=== PATIENT | female | born 1940 | race Caucasian/White ===

== ENCOUNTER 2018-08-03 01:39 | Outpatient (CLI) | payer OTHER, SELFPAY ==
[2018-08-03 11:20] LABS: Hemoglobin A1C 6.1 % (4.5-6.2)
[2018-08-03 12:06] LABS: CREATININE 0.91 mg/dL (0.55-1.02); Potassium 4.4 mmol/L (3.5-5.1)
== END 2018-08-03 01:59 ==
PROVIDERS: PCP Family Medicine; Visit Provider Family Medicine
DX: I10 Essential (primary) hypertension (principal); E11.9 Type 2 diabetes mellitus without complications
CPT/HCPCS: 36415; 82565; 83036; 84132

== ENCOUNTER 2019-02-03 04:13 | Outpatient (CLI) | payer OTHER, SELFPAY ==
[2019-02-03 12:12] LABS: Cholesterol 179 mg/dL (50-200); HDL Cholesterol 50 mg/dL (40-60); LDL CHOLESTEROL 112 mg/dL (<100); Triglyceride 123 mg/dL (30-150)
[2019-02-03 12:12] LABS: Hemoglobin A1C 6.2 % (4.5-6.2)
== END 2019-02-03 04:33 ==
PROVIDERS: PCP Family Medicine; Visit Provider Family Medicine
DX: E78.5 Hyperlipidemia, unspecified (principal); R73.01 Impaired fasting glucose
CPT/HCPCS: 36415; 80061; 83721; 83036

== ENCOUNTER → 2019-05-23 15:43 | Outpatient (REF) | payer OTHER, SELFPAY ==
--- NOTE | 2019-05-23 14:20 | PAPFT_PTH ---
PATIENT: Tianna Tovar LOC: [facility] U#:[id number] AGE/SX: 85/F ROOM: RE05/23/[address]: Susana Wong : 1940 BED: DIS: SPEC #: [id number] RECD: 05/23/19 18:01 STATUS: ESTEBANDelphine REQ #: [id number] LIANNA: 05/23/19 14:[address]: Susana Wong DEPT: [facility] Cytology RECD BY: Christie Patel ENTERED: 05/23/19 18:01 SP TYPE: PAPFT OTHR DR: Aden Lauren MD Tissues: 1 - CX/ENDOCX FOR PAP SMEARS Procedures: PAP THIN PREP/UVM Screening Comments: [id number] (UNSATISFACTORY FOR EVALUATION)
== END ==
LOC: LBN 15:43
PROVIDERS: PCP Family Medicine; Visit Provider Obstetrics & Gynecology Gynecology
DX: Z12.4 Encounter for screening for malignant neoplasm of cervix (principal)
CPT/HCPCS: 88142

== ENCOUNTER 2019-08-02 02:40 | Outpatient (CLI) | payer OTHER, SELFPAY ==
[2019-08-02 12:59] LABS: CREATININE 0.89 mg/dL (0.55-1.02); Potassium 4.3 mmol/L (3.5-5.1)
== END 2019-08-02 03:00 ==
PROVIDERS: PCP Family Medicine; Visit Provider Family Medicine
DX: I10 Essential (primary) hypertension (principal)
CPT/HCPCS: 36415; 82565; 84132

== ENCOUNTER 2020-08-01 01:15 | Outpatient (CLI) | payer OTHER, SELFPAY ==
[2020-08-01 12:32] LABS: CREATININE 1.13 mg/dL (0.55-1.02); Estimated GFR 46.57 (mL/min/1.73m2); Hemoglobin A1C 6.2 % (<5.7); Potassium 4.3 mmol/L (3.5-5.1)
== END 2020-08-01 01:35 ==
PROVIDERS: PCP Family Medicine; Visit Provider Family Medicine
DX: I10 Essential (primary) hypertension (principal); R73.9 Hyperglycemia, unspecified
CPT/HCPCS: 36415; 82565; 83036; 84132

== ENCOUNTER 2021-01-27 02:18 | Outpatient (CLI) | payer OTHER, SELFPAY ==
[2021-01-27 12:52] LABS: Hemoglobin A1C 6.1 % (<5.7)
[2021-01-27 13:00] LABS: Calculated LDL 91 mg/dL (<100); Cholesterol 163 mg/dL (<200); HDL Cholesterol 53 mg/dL (40-60); Triglyceride 95 mg/dL (<150)
== END 2021-01-27 02:19 | disposition home or self-care (01) ==
LOC: LOS 02:18
PROVIDERS: PCP Family Medicine; Visit Provider Family Medicine
DX: E78.5 Hyperlipidemia, unspecified (principal); R73.9 Hyperglycemia, unspecified
CPT/HCPCS: 36415; 80061; 83036

== ENCOUNTER 2021-08-04 01:59 | Outpatient (CLI) | payer MEDICARE, SELFPAY ==
[2021-08-04 13:14] LABS: Estimated GFR 53.48 (mL/min/1.73m2)
== END 2021-08-04 02:00 | disposition home or self-care (01) ==
LOC: LOS 02:00
PROVIDERS: PCP Family Medicine; Visit Provider Family Medicine
DX: I10 Essential (primary) hypertension (principal)
CPT/HCPCS: 36415; 82565; 84132

== ENCOUNTER 2022-04-13 13:48 | Outpatient (CLI) | payer MEDICARE, SELFPAY ==
--- NOTE | 2022-04-13 13:34 | DI.RAD_ITS ---
Exam(s) XR ANKLE LT 2V EXAM: XR ANKLE LT 2V CLINICAL HISTORY: left heel pain TECHNIQUE: 2D digital imaging was performed. Two views. COMPARISON: CR RIGHT ANKLE COMPLETE from 05/06/2012 FINDINGS: BONES: No acute fracture is present. No bony destructive lesion is seen. Prominent heel spurs. Quest ion small defect lateral talar dome versus overlapping structures. JOINTS:The ankle mortise is normally aligned. Spurring at the malleoli. SOFT TISSUE: Normal. IMPRESSION: Prominent heel spurs. Question small defect lateral talar dome. DATA REPOSITORY: RADIATION DOSE DELIVERED:
== END 2022-04-13 13:49 | disposition home or self-care (01) ==
LOC: DIORS 13:48
PROVIDERS: PCP Family Medicine; Visit Provider Student in an Organized Health Care Education/Training Program
DX: M76.62 Achilles tendinitis, left leg (principal); Z87.81 Personal history of (healed) traumatic fracture
CPT/HCPCS: 99203; 73600

== ENCOUNTER 2022-08-05 03:33 | Outpatient (CLI) | payer MEDICARE, SELFPAY ==
[2022-08-05 12:38] LABS: Hemoglobin A1C 5.9 % (<5.7)
[2022-08-05 12:47] LABS: Calculated LDL 83 mg/dL (<100); Cholesterol 162 mg/dL (<200); Estimated GFR 56.95 (mL/min/1.73m2); HDL Cholesterol 55 mg/dL (40-60); Triglyceride 121 mg/dL (<150)
== END 2022-08-05 03:34 | disposition home or self-care (01) ==
LOC: LOS 03:33
PROVIDERS: PCP Family Medicine; Visit Provider Family Medicine
DX: I10 Essential (primary) hypertension (principal); E78.5 Hyperlipidemia, unspecified; R73.9 Hyperglycemia, unspecified
CPT/HCPCS: 36415; 80061; 82565; 83036; 84132

== ENCOUNTER 2023-07-27 13:51 | Outpatient (REF) | payer MEDICARE, SELFPAY ==
--- NOTE | 2023-07-27 13:30 | PAPFT_PTH ---
PATIENT: Tianna Tovar LOC: [facility] U#:[id number] AGE/SX: 83/F ROOM: RE07/27/[address]: Susana Wong : 1940 BED: DIS: 07/27/2023 SPEC #: [id number] RECD: 07/27/23 17:25 STATUS: CHASITY REQ #: [id number] LIANNA: 07/27/23 13:[address]: Susana Wong DEPT: [facility] Cytology RECD BY: Christie Patel ENTERED: 07/27/23 17:25 SP TYPE: PAPFT OTHR DR: Aden Lauren MD Tissues: 1 - CX/ENDOCX FOR PAP SMEARS Procedures: PAP THIN PREP/UVM Screening HPV DNA PROBE Comments: [id number]
== END 2023-07-27 13:52 | disposition home or self-care (01) ==
LOC: LBN 13:51
PROVIDERS: PCP Family Medicine; Visit Provider Obstetrics & Gynecology Gynecology
DX: Z11.51 Encounter for screening for human papillomavirus (HPV); Z01.419 Encounter for gynecological examination (general) (routine) without abnormal findings
CPT/HCPCS: 88142; 87624

== ENCOUNTER → 2024-03-13 04:54 | Outpatient (CLI) | payer MEDICARE, SELFPAY ==
--- NOTE | 2024-03-13 13:31 | DI.RAD_ITS ---
Exam(s) XR LUMBAR SPINE COMPLETE EXAM: XR LUMBAR SPINE COMPLETE CLINICAL HISTORY: low back pain,m54.9. TECHNIQUE: 2D digital imaging was performed. Five views. COMPARISON: CT ABD PELVIS WITH CONTRAST from 08/08/2015 FINDINGS: BONES: No fracture or destructive lesion. Vertebral body heights are maintained. Mild facet degenera tive changes. No spondylolysis. Severe degenerative changes noted in both hips, left greater than r ight. The SI joints are unremarkable. DISKS: Mild narrowing of the L1-2 through L4-5 disc spaces. Severe narrowing of the L5-S1 disc space . There prominent osteophytes at multiple levels. Findings consistent with DISH. ALIGNMENT: Lumbar spinal alignment is within normal limits. SOFT TISSUE: Calcification of the abdominal aorta. IMPRESSION: Prominent endplate osteophytes consistent with DISH. Severe L5-S1 disc space narrowing. Severe degenerative changes of the hips, left greater than right. DATA REPOSITORY: RADIATION DOSE DELIVERED:
== END ==
PROVIDERS: PCP Family Medicine; Visit Provider Family Medicine
DX: M51.37 Other intervertebral disc degeneration, lumbosacral region (principal)
CPT/HCPCS: 72110

== ENCOUNTER 2024-05-22 13:59 | Outpatient (CLI) | payer MEDICARE, SELFPAY ==
--- NOTE | 2024-05-22 10:25 | DI.RAD_ITS ---
Exam(s) XR HIP LT COMPLETE AP PELVIS EXAM: XR HIP LT COMPLETE AP PELVIS CLINICAL HISTORY: left hip pain. TECHNIQUE: 2D digital imaging was performed. COMPARISON: CT ABD PELVIS WITH CONTRAST from 08/08/2015 FINDINGS: Two views No evidence of pelvic nor hip fracture. There are significant degenerative changes in both hips, mahamed ewhat more prominent on the left side where there is zpup-uz-wjes narrowing and degenerative subartic ular cysts. There are more moderate degenerative changes in the opposite-right hip. Prominent acetabular roofs seen bilaterally. 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
== END 2024-05-22 14:00 | disposition home or self-care (01) ==
LOC: DIORS 13:59
PROVIDERS: PCP Family Medicine; Referring Provider Family Medicine; Visit Provider Student in an Organized Health Care Education/Training Program
DX: M16.12 Unilateral primary osteoarthritis, left hip; M16.11 Unilateral primary osteoarthritis, right hip; M48.19 Ankylosing hyperostosis [Forestier], multiple sites in spine
CPT/HCPCS: 99214; 73502

== ENCOUNTER 2024-06-23 01:50 | Outpatient (CLI) | payer MEDICARE, SELFPAY ==
--- OUTSIDE RECORDS SUMMARY | 2024-06-23 02:17 | XMS_ITS | Encounter Summary ---
Author Organization [facility] Address [address] [place] [address] Care Team Providers Care Analysis Director Name Role Phone Shanell Hawkins MD Primary Care Provider [phone] Encounter Details Date Type Department Care Team (Late st Contact Info) Description 03/23/2016 Results Only [facility] [phone] Gail Rhodes MD [facility] [place], [place] [address] Social History Tobacco Use Types Packs/Day Years Used Date Smoking Tobacco: Never Assessed Sex and Gender Information Value Date Recorded Sex Assigned at Not on file Gender Identity Not on file Sexual Orientation Not on file documented as of this encounter Plan of Treatment Not on file documented as of this encounter Procedures Procedure Name Priority Date/Time Associated Diagnosis Comments SURGICAL PATHOLOGY Routine 03/23/2016 18 :51 EDT PAP TEST- RESULT ONLY Routine 03/23/2016 0:00 EDT documented in this encounter Results * SURGICAL PATHOLOGY (03/23/2016 18:51 EDT) Pathology Report: SURGICAL PATHOLOGY REPORT Reports generated via electronic interface contain original data; however they are lacking the format of the original report. Caution should be taken when reading/interpret ing unformatted reports. Name: ? TIANNA TOVAR ? Accession #: ? [id number] ? : ? 1940 (Age: 75) ??F ? Collect Date: ? 03/23/2016 ? Location: ? [facility] ? Receive Date: ? 03/23/2016 ? Provider: GAIL RHODES MD Copy to: [facility]- ? Final Pathologic Diagnosis: A. LABIA, LEFT UPPER, BIOPSY: - ??Squamous epithelium with focal hyperkeratosis, mild chronic inflammation and reactive changes. - ??Negative for dysplasia. B. LABIA, LEFT LOWER, BIOPSY: - ??Squamous epithelium with underlying squamous and glandular-lined cystic structure. ??See comment. - ??Negative for dysplasia. Comment: Histologic sections of specimen (B) show a squamous epithelium with underlying cystic space lined by a mixture of benign squamous and glandular epithelial cells. The findings may represent a benign cyst in the appropriate clinical setting or could be related to the previous vulvectomy. Clinical correlation is recommended. Document reviewed and electronically signed by: BECKY TOLENTINO MD for MYRNA WYATT MD Report ??Date: 03/26/2016 12:23 By the signature above, the attending physician certifies that he/she has personally conducted a gross and/or microscopic examination of the described specimens and rendered or confirmed the above diagnosis. Specimen(s) Received: A. ??Upper labia brown discoloration B. ??Lower labia blue bleb nevus Clinical History: Hx ARNOLD III s/p resection L labia, 2 lesions seen on L labia Gross Description: A. ?Received in formalin labelled with proper patient identification (initials S, S) and #1 is a single red-brown fragmented tissue (0.3 x 0.2 x 0.1 cm). Submitted intact in A1. B. ?Received in formalin labelled with proper patient identification (initials S, S) and #2 is a shave biopsy of pink-white skin (0.5 x 0.2 x 0.1 cm). ??The specimen is submitted intact as B1Eugenio Cleaning 03/24/2016 8:30 AM End of Report [facility] 03/23/2016 18:5 1 EDT 03/23/2016 18:51 EDT Gail Rhodes MD PATHOLOGY ORDERABLES [facility] [address] [place] [address] * PAP TEST- RESULT ONLY (03/23/2016 0:00 EDT) Pathology Report: CYTOPATHOLOGY REPORT Reports generated via electronic interface contain original data; however they are lacking the format of the original report. Caution should be taken when reading/interpreti ng unformatted reports. Name: ? TIANNA TOVAR ? Accession #: ? [id number] ? : ? 1940 (Age: 75) ??F ?Collect Date: ? 03/23/2016 ? Location: ? [facility] ? Receive Date: ? 03/24/2016 ? Provider: GAIL RHODES MD Copy to: [facility]- ? Final Report SPECIMEN ADEQUACY ? Satisfactory for Evaluation - assessment of transformation zone component not applicable ( e.g. atrophy, vaginal sample, hysterectomy) - scant squamous epithelial component secondary to excessive inflammation GENERAL CATEGORIZATION ? Negative for Intraepithelial Lesion or Malignancy ?? Hormonal/Contracep tive status: None Previous Gynecologic Pathology: ARNOLD: h/o ARNOLD 3 Specimen/Source: ??Pap Test, Vagina, ThinPrep Imaging System with manual evaluation Document reviewed and electronically signed by: ? OMKAR Bragg(ASCP) ? Report ??Date: 04/03/2016 16:20 HPV with Pap Test ? Date Ordered: ? 04/03/2016 ? Status: ?? Signed Out ?Date Complete: ? 04/06/2016 ? By: ??System Interface ? Date Reported: ? 04/06/2016 ? Interpretation RESULT: High risk HPV testing is only FDA approved and validated for cervical or endocervical samples at the [facility]. It is not validated for vaginal samples as the test performance characteristics have not been evaluated. Credit issued. Sample has been sent to [facility] for HPV testing. Comments Document reviewed and electronically signed by: ? System Interface ? Report date: 04/06/2016 By the signature above, the attending physician certifies that he/she has personally conducted a gross and/or microscopic examination of the described specimens and rendered or confirmed the above diagnosis. End of Report [facility] 03/23/2016 03/24/2016 Gail Rhodes MD PATHOLOGY ORDERABLES Performing Organization Address City/State/[facility] Co de Phone Number [facility] [address] [place] [address] documented in this encounter Visit Diagnoses Not on filedocumented in this encounter Care Teams Analysis Director Relationship Specialty Start Date End Date Shanell Hawkins MD [address] [place] [address] [place] [address] PCP - General 05/09/12 03/24/16 documented as of this encounter
--- OUTSIDE RECORDS SUMMARY | 2024-06-23 02:17 | XMS_ITS | Encounter Summary ---
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 Date of : 1940 Today's Date: 05/19/2023 REFERRING PROVIDER: Myah Lugo MD CC: Mohs micrographic surgery for treatment of a cutaneous tumor HPI: Tianna Tovar is a 82 y.o. female presenting for biopsy-proven basal cell carcinoma, superficial, nodular and infiltrative location on the left nasal dorsum, and frozen biopsy for probable basal cell carcinoma location on the right mandaeism. The dermatologic preoperative information sheet was reviewed with pertinent positive and negative as below. DERMATOLOGIC PRE-OPERATIVE EVALUATION AND REVIEW OF SYSTEMS History of Mohs surgery? yes If yes, have you ever had Mohs surgery with Dr. Cam? no Pacemaker/Defibrillator? no Joint replacement or other implantable devices (e.g. Cochlear implant)? If yes then when? no Do you take a blood thinner? No History of organ transplant? no History of artificial valve or stroke? no History of liver disease or bleeding disorder? no Do you have any medical problems that may affect your upcoming surgery? no Do you have any concerns regarding your upcoming surgery? yes, same area that was treated with Mohssurgery ~10 years ago. SOCIAL HISTORY: Makes Own Decisions Yes Hearing aid or other devices: No Relevant travel history or future plans: none Tobacco use (amount per day, type of tobacco): no Do you have any physical limitations that may affect your surgery?: no ALLERGIES: Allergies reviewed MEDICATIONS: Medications reviewed documented in this encounter Plan of Treatment Upcoming Encounters Date Type Department Care Team (Late st Contact Info) Description 07/24/2024 2:00 PM EDT Appointment Mammography/[place] [address] Aden Lauren MD [address] [place], [place] [address] documented as of this encounter Visit Diagnoses Diagnosis 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
--- OUTSIDE RECORDS SUMMARY | 2024-06-23 02:17 | XMS_ITS | Referral Summary ---
Author Organization [facility] Address [address] [place] [address] Care Team Providers Care Verifying Specialist Name Role Phone Emily Mendeita RELIGIOUS EDUCATOR Primary Care Provider [phone] Social History Tobacco Use Types Packs/Day Years Used Date Smoking Tobacco: Never Assessed Sex and Gender Information Value Date Recorded Sex Assigned at Not on file Gender Identity Not on file Sexual Orientation Not on file Plan of Treatment Not on file Care Teams Verifying Specialist Relationship Specialty Start Date End Date Emily Mendieta NP [address] [place] [phone] PCP - General 03/25/16
--- OUTSIDE RECORDS SUMMARY | 2024-06-23 02:17 | XMS_ITS | Encounter Summary ---
Author Organization [facility] [place] [address] Care Team Providers Care Marine Driller Name Role Phone Aden Lauren MD Primary Care Provider [phone] Encounter Details Date Type Department Care Team (Late st Contact Info) Description 05/25/2023 Telephone Dermatology at [facility] [address] [place] [phone] Lisseth Hernandez CMA Social History Tobacco Use Types Packs/Day Years [...] on file documented as of this encounter Miscellaneous Notes * Telephone Encounter - Lisseth Hernandez CMA - 05/25/2023 10:29 AM EDT Patient send photos for Dr Cam's review at first bandage change at home. Per Dr Cam, thinks it looks good for where we are in the healing process, grafts have to get their legs, continue wound care and call with concerns or questions. LMOM for patient with Dr Cam recommendation and Mohs surgery direct number for questions or concerns. documented in this encounter Plan of Treatment Upcoming Encounters Date Type Department Care Team (Late st Contact Info) Description 07/24/2024 2:00 PM EDT Appointment Mammography/[place] [address] Aden Lauren MD [address] [place], [place] [address] documented as of this encounter Visit Diagnoses Not on filedocumented in this encounter Care Teams Marine Driller Relationship Specialty Start Date End Date Aden Lauren MD [address] [place], [place] [id number] PCP - General Family Medicine 02/17/17 documented as of this encounter
--- OUTSIDE RECORDS SUMMARY | 2024-06-23 02:17 | XMS_ITS | Encounter Summary ---
Author Organization [facility] Address [address] [place] [address] Care Team Providers Care Kinder Teacher Name Role Phone Shanell Starkey MD Primary Care Provider [phone] Encounter Details Date Type Department Care Team (Late st Contact Info) Description 03/22/2015 Results Only [facility] [phone] Gail Rhodes MD [facility] [place], [place] [id number] Social History Tobacco Use Types Packs/Day Years Used Date Smoking Tobacco: Never Assessed Sex and Gender Information Value Date Recorded Sex Assigned at Not on file Gender Identity Not on file Sexual Orientation Not on file documented as of this encounter Plan of Treatment Not on file documented as of this encounter Procedures Procedure Name Priority Date/Time Associated Diagnosis Comments PAP TEST- RESULT ONLY Routine 03/22/2015 0:00 EDT documented in this encounter Results * PAP TEST- RESULT ONLY (03/22/2015 0:00 EDT) Pathology Report: CYTOPATHOLOGY REPORT Reports generated via electronic interface contain original data; however they are lacking the format of the original report. Caution should be taken when reading/interpreti ng unformatted reports. Name: ? TIANNA TOVAR ? Accession #: ? [id number] ? : ? 1940 (Age: 74) ??F ?Collect Date: ? 03/22/2015 ? Location: ? [facility] ? Receive Date: ? 03/25/2015 ? Provider: GAIL RHODES MD Copy to: SHANELL STARKEY MD ? Final Report SPECIMEN ADEQUACY ? Satisfactory for Evaluation - assessment of transformation zone component not applicable ( e.g. atrophy, vaginal sample, hysterectomy) GENERAL CATEGORIZATION ? Negative for Intraepithelial Lesion or Malignancy ?? Previous Gynecologic Pathology: Carcinoma: Hx of Vulvular Specimen/Source: ??Pap Test, Vagina, ThinPrep Imaging System with manual evaluation Document reviewed and electronically signed by: ? OMKAR Magallon(ASCP) ? Report ??Date: 04/03/2015 13:45 HPV with Pap Test ? Date Ordered: ? 04/02/2015 ? Status: ?? Signed Out ?Date Complete: ? 04/05/2015 ? By: ??System Interface ? Date Reported: ? 04/05/2015 ? Interpretation RESULT: High risk HPV testing is only FDA approved and validated for cervical or endocervical samples at the [facility]. It is not validated for vaginal samples as the test performance characteristics have not been evaluated. Credit issued. Sample has been sent to [facility] for HPV testing. Comments Document reviewed and electronically signed by: ? System Interface ? Report date: 04/05/2015 By the signature above, the attending physician certifies that he/she has personally conducted a gross and/or microscopic examination of the described specimens and rendered or confirmed the above diagnosis. End of Report [facility] 03/22/2015 03/25/2015 Gail Rhodes MD PATHOLOGY ORDERABLES [facility] [address] [place] [address] documented in this encounter Visit Diagnoses Not on filedocumented in this encounter Care Teams Kinder Teacher Relationship Specialty Start Date End Date Shanell Starkey MD [address] [place] [address] [place] [address] PCP - General 05/09/12 03/24/16 documented as of this encounter
--- OUTSIDE RECORDS SUMMARY | 2024-06-23 02:17 | XMS_ITS | Encounter Summary ---
[place] [address] Care Team Providers Care Hairspring Studder Name Role Phone Aden Lauren MD Primary Care Provider [phone] Encounter Details Date Type Department Care Team (Late st Contact Info) Description 07/19/2023 1:43 PM EDT - 07/19/2023 11:59 PM EDT Hospital Encounter Mammography/[place] [address] Aden Lauren MD [address] [place] [address] Encounter for screening mammogram for breast cancer Discharge Disposition: Home Social History Tobacco Use Types Packs/Day Years [...] on file documented as of this encounter Medications at Time of Discharge Medication Sig Dispensed Refills Start Date End Date brimonidine (Alphagan) 0.2 % DropsIndications:Glauc selvin suspect of both eyes,Pseudoexfoliation glaucoma, mild stage INSTILL 1 DROP INTO BOTH EYES TWICE DAILY 25 mL 3 06/21/2023 UNABLE TO FIND Med Name: Prevagen dorzolamide (Trusopt) 2 % DropsIndications:Glauc selvin suspect of both eyes Place 1 drop into both eyes 2 times daily. 30 mL 3 05/29/2022 aspirin EC 81 mg Tablet, Delayed Release (E.C.) Take 81 mg by mouth daily. lisinopril-hydrochloro thiazide (PRINZIDE;ZESTORETIC) 10-12.5 mg Tablet Take 1 tablet by mouth daily. simvastatin (ZOCOR) 10 mg tablet Take 5 mg by mouth nightly. ibuprofen (ADVIL;MOTRIN) 200 mg tablet Take 200 mg by mouth every 6 hours as needed. Multivitamins Chew 07/29/2010 fluorouracil (EFUDEX) 5 % Cream Apply topically bid as tolerated to AA on right arm x 6 weeks, then stop.OK to stop temporarily if too much inflammation. 40 g 03/07/2018 03/31/2024 documented as of this encounter Plan of Treatment Upcoming Encounters Date Type Department Care Team (Late st Contact Info) Description 07/24/2024 2:00 PM EDT Appointment Mammography/[place] [phone] Aden Lauren MD [address] [place] [address] documented as of this encounter Procedures Procedure Name Priority Date/Time Associated Diagnosis Comments MAMMO SCREENING CAD AND CARLOS BILATERAL Routine 07/19/2023 2:10 PM EDT Encounter for screening mammogram for breast cancer documented in this encounter Results * Mammo Screening Cad and Carlos Bilateral (07/19/2023 2:10 PM EDT) Anatomical Region Laterality Modality Breast Bilateral Mammography Impressions 07/20/2023 9:02 AM EDT No mammographic evidence of malignancy, Routine annual screening mammography is recommended. FINAL ASSESSMENT: BI-RADS Category 2: Benign Findings * ??Regular screening mammograms starting at age 40 reduces the risk of from breast cancer. * ??Yearly screening provides the most benefit. Women should discuss with their provider their preferred breast cancer screening schedule. * ??Women should report any breast changes to a health care provider right away. * ??Some women, because of their family history, a genetic tendency, or other factors, should be screened with annual breast MRI as well as with mammograms. Thank you for letting us participate in the care of this patient. ??If you are a health care provider and have any questions regarding this report, please contact the number below. ??For patients who have questions please contact the health hearing care professional that requested your imaging first. ? Narrative 07/20/2023 9:02 AM EDT EXAMINATION: MAMMO SCREENING CAD AND CARLOS BILATERAL REASON FOR EXAM: Screening. History of benign right breast biopsy. TECHNIQUE: CC and MLO views were obtained of BOTH breasts. 2D and 3D tomosynthesis images were obtained. Computer aided detection was used. COMPARISON: Comparison was made to the prior relevant examinations. BREAST DENSITY: There are scattered areas of fibroglandular density. FINDINGS: A postbiopsy clip adjacent to some coarse calcifications is again seen in the right lateral breast. There are no suspicious microcalcifications, masses, or areas of distortion. Stable appearance. Aedn Lauren MD IMG MAMMO ORDERAB LES documented in this encounter Visit Diagnoses Diagnosis Encounter for screening mammogram for breast cancer documented in this encounter Care Teams Hairspring Studder Relationship Specialty Start Date End Date Aden Lauren MD [address] [place] [address] PCP - General Family Medicine 02/17/17 documented as of this encounter
--- OUTSIDE RECORDS SUMMARY | 2024-06-23 02:17 | XMS_ITS | Encounter Summary ---
[place] [address] Care Team Providers Care Manager Inventory Control Name Role Phone Aden Lauren MD Primary Care Provider [phone] Encounter Details Date Type Department Care Team (Latest Contact Info) Description 02/16/2023 Travel Social History Tobacco Use Types Packs/Day Years [...] 07/24/2024 2:00 PM EDT Appointment Mammography[place] [address] Aden Lauren MD [address] [place], [place] [address] documented as of this encounter Visit Diagnoses Not on filedocumented in this encounter Care Teams Manager Inventory Control Relationship Specialty Start Date End Date Aden Lauren MD [address] [place], [place] [address] PCP - General Family Medicine 02/17/17 documented as of this encounter
--- OUTSIDE RECORDS SUMMARY | 2024-06-23 02:17 | XMS_ITS | Encounter Summary ---
Author Organization [facility] Address [address] [place] [address] Care Team Providers Care Artificial Flower Maker Name Role Phone Unknown, Provider Primary Care Provider Encounter Details Date Type Department Care Team (Late st Contact Info) Description 05/06/2012 Results Only [facility] Laboratory Services - [facility] [place] [address] [place] [address] [place] [address] [place] [address],[address] [place] [address] Social History Tobacco Use Types Packs/Day Years Used Date Smoking Tobacco: Never Assessed Sex and Gender Information Value Date Recorded Sex Assigned at Not on file Gender Identity Not on file Sexual Orientation Not on file documented as of this encounter Plan of Treatment Not on file documented as of this encounter Procedures Procedure Name Priority Date/Time Associated Diagnosis Comments SURGICAL PATHOLOGY Routine 05/06/2012 0:00 EDT documented in this encounter Results * SURGICAL PATHOLOGY (05/06/2012 0:00 EDT) Pathology Report: SURGICAL PATHOLOGY REPORT Reports generated via electronic interface contain original data; however they are lacking the format of the original report. Caution should be taken when reading/interpreti ng unformatted reports. Name: ? TIANNA ROSENBERG ? Accession #: ? [id number] ? : ? 1940 (Age: 71) ??F ? Collect Date: ? 05/06/2012 ? Location: ? [facility] ? Receive Date: ? 05/06/2012 ? Provider: MIRNA YUAN MD Copy to: ISRAEL STARKEY MD ??Myah Lugo MD Department [place] ??[address] ? Final Pathologic Diagnosis: ? Skin of vulva, left labia majora, shave biopsy: 1. 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 ??See comment. ? - Lesion extends to peripheral edges of biopsy specimen. ?? Comment: ? This case has been reviewed by Dr. Sean Clark, who concurs with the above diagnosis. ??(Dr. Campbell)/stevenson Document reviewed and electronically signed by: CORAZON CAMPBELL MD Report ??Date: 05/09/2012 16:42 By the signature above, the attending physician certifies that he/she has personally conducted a gross and/or microscopic examination of the described specimens and rendered or confirmed the above diagnosis. Specimen(s) Received: ? 5.0 mm punch biopsy of vulvar lesion L labia majora Clinical History: ? 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 Received in formalin labelled Tianna Rosenberg and L labia majora is a 0.6 x 0.5 x 0.2 cm irregular, florez-white, scaly, and hairbearing papule. ??The specimen is bisected and entirely submitted in a single cassette. ??(Varsha Deluca/stevenson End of Report ASHLEIGH PAGE 05/06/2012 05/06/2012 21: 26 EDT Mirna Yuan MD PATHOLOGY ORDERABLES Performing Organization Address City/State/[facility] Co de Phone Number SOTELO [address] [address] documented in this encounter Visit Diagnoses Not on filedocumented in this encounter Care Teams Artificial Flower Maker Relationship Specialty Start Date End Date Unknown, Provider, PCP - General 05/06/12 05/08/12 documented as of this encounter
--- OUTSIDE RECORDS SUMMARY | 2024-06-23 02:17 | XMS_ITS | Encounter Summary ---
[place] [address] Care Team Providers Care Dedenter Name Role Phone Aden Lauren MD Primary Care Provider [phone] Encounter Details Date Type Department Care Team (Latest Contact Info) Description 07/19/2023 Travel Social History Tobacco Use Types Packs/Day [...] 07/24/2024 2:00 PM EDT Appointment Mammography/[place] [address] Aden Lauren MD [address] [place], [place] [address] documented as of this encounter Visit Diagnoses Not on filedocumented in this encounter Care Teams Dedenter Relationship Specialty Start Date End Date Aden Lauren MD [address] [place], [place] [address] PCP - General Family Medicine 02/17/17 documented as of this encounter
--- OUTSIDE RECORDS SUMMARY | 2024-06-23 02:17 | XMS_ITS | Encounter Summary ---
[place] [address] Care Team Providers Care Senior Technical Manager Name Role Phone Aden Lauren MD Primary Care Provider [phone] Encounter Details Date Type Department Care Team (Late Contact Info) Description 05/25/2023 Telephone Dermatology at [facility] [address] [place] [id number] Marilee Lipscomb RN Social History Tobacco Use Types Packs/Day Years [...] encounter Miscellaneous Notes * Telephone Encounter - Marilee Lipscomb RN - 05/25/2023 12:14 PM EDT Contacted patient regarding graft site on nose. Reviewed photos in media. No evidence of infection,healing well, patient reassured. Continue daily wound care, gentle soap and water, followed by Vaseline and a light bandage. Patient is scheduled for suture removal 06/02/23. Encouraged to call with questions/ concerns. Marilee Lipscomb RN documented in this encounter Plan of Treatment Upcoming Encounters Date Type Department Care Team (Late st Contact Info) Description 07/24/2024 2:00 PM EDT Appointment Mammography/[place] [address] Aden Lauren MD [address] [place] [address] documented as of this encounter Visit Diagnoses Not on filedocumented in this encounter Care Teams Senior Technical Manager Relationship Specialty Start Date End Date Aden Lauren MD [address] [place], [place] [address] PCP - General Family Medicine 02/17/17 documented as of this encounter
--- OUTSIDE RECORDS SUMMARY | 2024-06-23 02:17 | XMS_ITS | Encounter Summary ---
Author Organization [facility] [place] [address] Care Team Providers Care Pottery Kiln Builder Name Role Phone Aden Lauren MD Primary Care Provider [phone] Reason for Visit * Reason Onset Date Comments Medication Refill 05/29/2022 Encounter Details Date Type Department Care Team (Late st Contact Info) Description 05/29/2022 [place] [address] Anurag Darby MD [facility] [place] [address] Glaucoma suspect of both eyes; Pseudoexfoliation glaucoma, mild stage Social History Tobacco Use Types Packs/Day Years [...] encounter Miscellaneous Notes * Telephone Encounter - Kiarar Roy - 05/29/2022 11:29 AM EDT Please refill the following Rxs brimonidine (Alphagan) 0.2 % Drops dorzolamide (Trusopt) 2 % Drops [facility] Fer[facility] - [phone] AT Portal to Registered [facility] Sites ( ) documented in this encounter Plan of Treatment Upcoming Encounters Date Type Department Care Team (Late st Contact Info) Description 07/24/2024 2:00 PM EDT Appointment Mammography[place] [address] Aden Lauren MD [address] [place], [place] [address] documented as of this encounter Visit Diagnoses Diagnosis Glaucoma suspect of both eyes Preglaucoma, unspecified Pseudoexfoliation glaucoma, mild stage Pseudoexfoliation glaucoma documented in this encounter Care Teams Pottery Kiln Builder Relationship Specialty Start Date End Date Aden Lauren MD [address] [place], [place] [address] PCP - General Family Medicine 02/17/17 documented as of this encounter
--- OUTSIDE RECORDS SUMMARY | 2024-06-23 02:17 | XMS_ITS | Encounter Summary ---
Author Organization [facility] Address [address] [place] [address] Care Team Providers Care Motor Vehicle Compliance Analyst Name Role Phone Emily Mendieta CHANGE MANAGEMENT EXPERT Primary Care Provider [phone] Encounter Details Date Type Department Care Team (Late st Contact Info) Description 04/09/2017 Results Only [facility] [phone] Gail Rhodes MD [facility] [facility] [address] [place], [place] [id number] Social History Tobacco Use Types Packs/Day Years [...] Diagnosis Comments PAP TEST- RESULT ONLY Routine 04/09/2017 0:00 EDT documented in this encounter Results * PAP TEST- RESULT ONLY (04/09/2017 0:00 EDT) Pathology Report: CYTOPATHOLOGY REPORT Reports generated via electronic interface contain original data; however they are lacking the format of the original report. Caution should be taken when reading/interpreti ng unformatted reports. Name: ? TIANNA TOVAR ? Accession #: ? [id number] : ? 1940 (Age: 76) ??F ?Collect Date: ? 04/09/2017 Location: ? [facility] ? Receive Date: ? 04/13/2017 Provider: ?GAIL RHODES MD Copy to: ?ZACH PEARL MD ? Specimen/Source: ?Pap Test, Vagina, ThinPrep Imaging System with manual evaluation Last Menstrual Period: ? Hormonal/Contracep tive Status: ? None Previous Gynecologic Pathology: ? Carcinoma: HX Vulvar/Invasive ? SPECIMEN ADEQUACY ? Satisfactory for Evaluation - assessment of transformation zone component not applicable ( e.g. atrophy, vaginal sample, hysterectomy) GENERAL CATEGORIZATION ? Negative for Intraepithelial Lesion or Malignancy ? Document reviewed and electronically signed by: ? OMKAR Najera(ASCP) ? Report Date: ??04/23/2017 13:20 End of Report [facility] 04/09/2017 04/13/2017 Gail Rhodes MD PATHOLOGY ORDERABLES [facility] [address] [place] [address] documented in this encounter Visit Diagnoses Not on filedocumented in this encounter Care Teams Motor Vehicle Compliance Analyst Relationship Specialty Start Date End Date Emily Mendieta, SWAPNA [address] [place] [phone] PCP - General 03/25/16 documented as of this encounter
--- OUTSIDE RECORDS SUMMARY | 2024-06-23 02:17 | XMS_ITS | Encounter Summary ---
Author Organization [facility] Address [facility] [place] [address] Care Team Providers Care Waist Fitter Name Role Phone Aden Lauren MD Primary Care Provider [phone] Reason for Visit * Reason Comments Basal Cell Carcinoma * Consultation (Routine) - Closed Specialty Diagnoses / Procedures Referred By Shmuel howe Referred To Contact Dermatology Diagnoses Basal cell carcinoma (BCC) of skin of other part of face Myah Lugo MD [facility] DR SUDHA [place] [address] Rene Cruz MD [facility] DR SUDHA [place] [address] Referral ID Status Reason Start Date Expiration Date V isits Requested Visits Authorized [id number] Closed Consult, Test & Treat 02/16/2023 02/16/2024 1 1 Encounter Details Date Type Department Care Team (Latest Contact Info) Description 05/19/2023 10:00 AM EDT Procedure visit Dermatology at [facility] [address] [place] [address] Rene Cruz MD [facility] DR SUDHA [place] [address] 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 GRAFT CLOSURE Part of all of your wound(s) was repaired by a graft. This means that skin was removed from anotherlocation (donor site) and used to stitch the wound created by your skin cancer surgery. A graft is performed when alternative procedures such as [id number] stitching is not optimal. Your graft may be closed using all absorbable suture, sutures that need to be removed or a combination of both. Youwill be instructed upon discharge if a suture removal appointment is necessary. Caring for a graft properly is very important because the graft relies on blood supply from its newlocation to survive and heal properly. The most important thing in helping a graft heal fully is toavoid picking off any scabs, and to keep the area covered with copious amounts of topical petrolatum (such as Vaseline or Aquaphor). See specific instructions for wound care below. Things to purchase for wound care: -Nonstick gauze -A tube or tub of petrolatum jelly (fragrance-free, no dye, not lotion) -paper tape (especially if you are sensitive to adhesives) or bandages -cotton swabs -gloves (optional) -Dial or other antibacterial liquid soap Wound Care Leave bandage on and dry for 4 days on your GRAFT. The graft will appear discolored for several weeks, either dark purple or pale in color. Remove yellow gauze over graft. This will require once daily wound care until follow up appointment. For the DONOR SITE (right amish) leave bandage on and dry for 2 OR 4 days. Donor site was closed using sutures. This requires the same once daily wound care until follow up appointment. If your initial bandage(s) only stayed on for 24 hours (for example, falls off sooner), this is okay. Begin would care sooner, as below. Change your bandage once a day, or whenever it becomes wet or soaks through). You want to continue bandaging daily until your graft fully heals. This is a minimum of one week, but ideally continued until the graft has completely healed. The timeline for a graft to heal can range from 1 week to 8 weeks; you will continue wound care until healing is complete. For bandage changes: Wash hands with soap and water, or use gloves. Clean the surgical area with cotton-tipped swabs or soft gauze dipped in soapy water (recommend liquid soap in clean room temperature water). Roll the cotton swab over the incision with soapy water, then with plain water, and then gently pat dry. Do not scrub the area with a washcloth. Do not pick off scabs. Do not put direct shower water pressure onto your wound. Avoid direct water pressure fromthe shower on your graft site. It is okay to allow soapy water to run over your wound in the shower, however. If you cannot remove any bloody or crusted areas, you may soak the area with wet gauze first for 15to 20 minutes to help soften it Pat the area dry with clean gauze or cotton swabs. Do not rub. Use a cotton swab to apply a generous layer of petrolatum over the graft site. Make sure your tube or jar of petrolatum is new or unused to prevent prior contamination from entering your wound. Avoid double dipping. After applying petrolatum, use a clean nonstick gauze or other nonstick dressing, such as Telfa. This may be purchased over the counter at a drug store. Do not use regular gauze as it will stick to your wound and can peel off healing skin with bandage changes. Secure the bandage with paper tape or a bandage. Band-aids are okay, but typically have more adhesive that can irritate the skin compared to paper tape. This can be purchased at a drug store. Continue this wound care daily until the graft has healed, unless otherwise specified by your surgeon or Mohs nurse. After Surgery Avoid tobacco, smoking/vapors, cigars, and cannabis (marijuana) for at least 3 weeks after your surgery. These prevent proper healing and lead to worse scarring. Cutting back on tobacco is helpful ifyou cannot abstain completely. Limit alcohol intake to one drink per day over the next 3 days. Do not participate in athletic activities for 1 week, unless you were told a different timeline during your visit. Athletic activity is a relative term, but this is considered to be anything that could potentially raise your heartrate or blood pressure. Elevating your heart rate and blood pressure increases the risk of swelling, bleeding, wound opening, and it could lead to worse scarring. Walking at a leisurely pace is fine for most people, but not if you are walking for the purpose of exercise. When in doubt, take it easy or call us. Do not lift anything heavier than 10 pounds for the first week unless told differently. Some hoop bender tank may need to be delayed or delegated such as vacuuming, mowing the lawn, snow shoveling, or caring for young children that need to be carried/lifted. Working any major muscle groups increases your heart rate and can increasing bleeding. Avoid swimming, hot tubs, and direct water pressure for 3 weeks after surgery. You may shower, however, once your initial bandage comes off in 48 hours. Avoid antibiotic ointments such as triple antibiotic creams. Whenever possible, it is helpful to take photographs with your camera or cell phone of any problemsor concerns you see with your wound. We often ask for photos when you call with questions. Starting 2 months following surgery, you can begin firm massage to any areas of firm scar along your incision to soften the scar and reduce bumpiness. Do this 3 times per day, 3 minutes each time. Donot start massage before 2 months. Your wound will appear almost completely healed soon after sutures are removed (about 1 week), but incisions can remain bright red for several weeks. Then the scarring and healing process continues under the skin for 6 months until to 2 years. The scar may become less red, less firm, and more subtle during this time; please note that the rate of improvement varies depending on the person. Most redness, discoloration, bumpiness resolves by 6 months, and most patients will look presentable withina few weeks after surgery. Keep your follow-up appointments and make sure to continue to have your skin checked, as often as is recommended by your beveller operator, for new skin cancers. This is once per year for most patients. You can expect your scar to be red for several weeks with gradual fading of the redness. Your scar will also be raised and lumpy until the dissolvable sutures under the skin get absorbed by your bodywhich can take 3-4 months. The scar will flatten eventually. If you have a skin condition called rosacea, the redness can last long-term, or you can get an increased appearance of red vessels to the skin. The appearance of vessels slightly improves, but tends to respond well to laser treatments. Occasionally, about 10-20% of the time on the face, the stitches under the skin can spit out of the incision to the surface. It can start out looking like a pimple or blemish directly on your incision. Sometimes you can feel something poking through the incision. It can mimic a small area of infection, so please let us know before you go to another provider for antibiotics. This means that the suture may need to be trimmed or removed when you return for your wound check. This typically occurs a few weeks after surgery if it does occur. To optimize your scar, and best cosmetic result, please avoid direct sunlight to your incision for the first 6 months following surgery. UV ray exposure to your incision may cause the redness to lastlonger, or to cause permanent darkening of your scar. You can avoid sun by covering your incision with a bandage when outdoors, wearing broad-brimmed hats, and wearing SPF 30 to 50 sunscreen (broad spectrum). Your incision may still be healing up to 2 weeks after surgery. Because of this, avoid make-up and sunscreen until approximately 2 weeks after surgery. You can begin sooner if your skin edges look completely sealed. Avoid applying over graft site until it is fully healed, this may be several weeks. Any time you have skin surgery or any type of surgery, you can experience mild sensation loss (numbness) in the area of surgery. Massage starting at 8 weeks after surgery can help. Swelling and bruising is common, and expected, especially if your surgery site was on the forehead,cheeks, temples, nose, or eyelids. . Sometimes it can be quite profound, where the eyelids swell shut, or getting black eyes. This is especially true if you are on blood thinners such as aspirin. Swelling and bruising will peak at about 48 hours after surgery. Bruising and swelling will graduallyresolve. You can use ice packs or a bag of frozen peas for 15-20 minutes, 20 minutes off, up to 3-4times daily to areas of swelling on the face. Use caution not to put the icy item directly onto your incision, or directly in contact with your skin as this can damage skin. Avoid prolonged use more than 20 minutes. The best way to use ice packs is over the bandage, or using a light cloth/paper towel barrier between the ice pack and your skin. You can ice for as many days as needed until swellinghas resolved. Eyelid and lip swelling is typically the last type of swelling to resolve. Antibiotics: If you were given antibiotic prescription, it is important to start them the evening of your surgery date. However, most patients do not need antibiotics after surgery. For pain: Most patients of different ages do not require pain medications. If you do feel soreness, throbbingor sharp pains, start by taking over the counter extra strength acetaminophen (up to 3000 mg in a 24 hour period). Generally, we like you to avoid NSAIDS (non-steroid anti-inflammatory drugs such as ibuprofen) for the first 48 hours after surgery as this can increase risk of bleeding. However, if acetaminophen is not helping with pain, you can alternate acetaminophen with ibuprofen or other NSAID. Ice packs over your bandage without getting your bandage wet can also help with pain and swelling.Frozen peas work well as ice packs. THIS IS AN EXAMPLE OF A PAIN TREATMENT SCHEDULE: 1) You can take 500 mg acetaminophen one tablet by mouth at 6:00pm. This is over the counter. 2) You can take 400 mg of ibuprofen two hours later, at 8:00 pm, or other NSAID such as naproxen, as long as it does not interact with your other medications and your other doctors have not told you to avoid this. This is over the counter. Check to see how many milligrams (mg) each of your ibuprofen tablets are. Most of the time, ibuprofen comes in 200 mg tablets, so 400 mg would mean taking two of these tablets or capsules. 3) You can take 500 mg of acetaminophen at 10:00 pm. Keep track of your total acetaminophen in a 24hour period as your maximum should be 3000 mg total in a 24 hour period of this medication. 4) At midnight, you can take another 400 mg of ibuprofen. 5) you can continue on this schedule over the next 2 days, making sure to keep tabs of your total acetaminophen. If you are still in pain after trying the above, please call us. When to call your surgeon: Fever of 100.4 degrees Fahrenheit or higher Bleeding not controlled with direct firm pressure to your wound. Bleeding is most common in the first 48 hours. Pain that is worsening and not relieved by over the counter medications such as acetaminophen (up to 3000 mg in a 24 hour period) Wound reopening after stitching Pus or bad odor from your wound Worsening redness and warmth around your wound If you think your surgery site is infected, please call us before seeking care or antibiotics from other providers Please call us before seeking care in an emergency room or primary care. If you do call, please leave your full name, phone number, date of , date of surgery, and medical record number if you have it. If after hours, please call the gas engine operator compressors or [phone] and ask for the beveller operator on-call. If you have any non-urgent questions or concerns, please feel free to call my office or contact me through our patient portal, [employer], at [email or web address] How to contact us during business hours Dermatology at [facility] Road: Mohs scheduling or Mohs follow-up appointments: [phone] documented in this encounter Progress Notes * Rene Cruz MD - 05/19/2023 10:00 AM EDT Images from the original note were not included. Summary of Procedure(s): Site#1: Left nasal dorsum Tumor Type: Basal Cell Carcinoma, superficial, nodular, infiltrative, recurrent Stages to clear tumor: 1 Repair: full-thickness skin graft Images: Frozen biopsy to Mohs Site: Right amish Tumor Type: Basal Cell Carcinoma, nodular, infiltrative Stages to clear tumor: 2 Repair: linear closure Images: The patient was asked to call with any issues and is aware that I am available / should questions arise. Rene Cruz MD PhD Mohs Micrographic Surgery and Dermatologic Oncology Department of Dermatology Please note that I have reviewed the preoperative checklist from today's nursing visit including relevant social history and medications. I have reviewed the preoperative photos if available and the biopsy report. VITAL SIGNS: BP 153/62 Pulse 96 PHYSICAL EXAMINATION: General: patient is awake, alert, oriented and in no acute distress. Skin: Focused examination of surgical site(s) performed which shows a well healed biopsy site with surrounding poorly defined pearly plaque with adjacent scar. Right amish with ulcerated plaque. PHYSICIAN REVIEW OF REPORTS, RECORDS, IMAGES: 1) The accompanying pathology report(s) associated with aforementioned biopsy slide(s) were/was also reviewed. Assessment: Tianna Tovar is a 82 y.o. female presenting for: 1. Biopsy-proven basal cell carcinoma, superficial, nodular, infiltrative located on the left nasaldorsum. 2. Frozen biopsy-proven basal cell carcinoma, nodular, infiltrative located on the right amish. Plan: 1. Findings from the biopsy report, today's clinical exam, and other pertinent details were reviewed with patient today. All questions were answered. 2. Discussed treatment options based on the above findings. We recommended Mohs micrographic surgery for treatment of this tumor. Mohs micrographic surgery was indicated due to patient, site and/or tumor characteristics (see operative report for specific indication). 3. We discussed risks, benefits, and alternative treatment options to the Mohs micrographic surgeryprocedure and pertinent information including but not limited to the following: Risks include bleeding, infection, scar, recurrence, incomplete tumor removal or inability to cure with surgery alone if the tumor features are more aggressive than the initial pathology indicates. Occasionally, additional adjuvant treatments may be recommended. Additional risks include large wound, prolonged wound and healing, pain, swelling, bruising, increased appearance of vessels or worsening erythema of baseline skin; more rarely risks include damage to underlying structures such as nerves, cartilage, or muscle which could lead to temporary or permanent loss of sensation or motor function. Benefit is precise tumor removal If reconstruction is performed, it is specific to the patient and defect. Discussed that the shape, size, depth of the wound is often not known until the tumor is cleared and thus the reconstruction options are sometimes not known until after tumor clearance. Occasionally,referrals to other providers may be recommended for reconstruction based on patient preference and need. Reviewed the pros and cons of common reconstructions used for this tumor type, size, and location, and that reconstruction may lead to change in appearance. Natural history of scar was discussed, including that the scar will continue to mature for 1-2 years. Recommended avoidance of special ointments or scar creams, and avoidance of direct sun exposure to the scar for optimal recovery. Reviewed that there are some aspects of cosmesis that are dependent on patient's characteristics such as age, skin laxity/texture factors, inflammatory skin diseases such as rosacea, prior surgery/radiation, degree of actinic damage, smoking status, strength of the patient's immune system, diligentwound care, medications, and genetics. Having Mohs surgery may lead to physical limitations for optimal healing, such as restricted physical activity and heavy lifting. 4. Signs and symptoms of skin cancer reviewed. Patient to report any new, changing, or symptomatic lesions and follow up with his or her beveller operator or other skin provider. 5. Discussed avoiding direct sun exposure to scars for best cosmetic result. Note initiated by DARIA Harrison CMA has performed the documentation for this encounter in the presence of and acting as a scribe for Dr. Cruz I performed the above scribed service and agree with the accuracy of the documentation in this encounter. Reviewed and signed by: Rene Cruz Dermatology [facility] * Rene Cruz MD - 05/19/2023 10:00 AM EDT Mohs micrographic Surgery Operative Report Site#1: left nasal dorsum Patient name: Tianna Tovar : 1940 Date: 05/19/2023 Staff Surgeon and Pathologist: Rene Cruz MD PhD Nursing/Sleep Technician(s): Marilee Lipscomb RN, Serene Clayton RN, Courtney Cano [facility], Amalia FrancoRitesh MIXING MACHINE OPERATOR, Saud Flores [facility], Jeanette MasonGuanaco [facility] Smoking Pipe Driller And Threader (s): Deborah Oseguera, Saud Flores CMA Pre-operative diagnosis: Basal Cell Carcinoma, superficial, nodular, infiltrative, recurrent Post-operative diagnosis: Recurrent Basal Cell Carcinoma, superficial, nodular, infiltrative, recurrent Location/Site: Left nasal dorsum Procedure: Mohs micrographic surgery Indication(s) for Mohs micrographic surgery: Anatomic location for tissue conservation and Histopathology Stages: 1 Preoperative size of tumor: 1.3 x 1.0 cm Stage I The nature and purpose of the procedure, associated risks, possible consequences and complications,and alternative forms of treatment were explained in detail. We reviewed the possible repairs basedon the clinical appearance of tumor but discussed that often the repair options may not be known until the tumor has irma extirpated. Informed consent and permission to take photographs were obtained. The site was confirmed with the patient/authorized claims service representative/referring physician and/or a photograph form time of biopsy. A pre-operative time-out (procedural pause) was conducted with no unresolved discrepancies noted. Local anesthesia was obtained with 0.5 % lidocaine with 1:200,000 epinephrine. The surgical site was prepped and draped in the usual sterile manner. A 1-2 mm margin was excised around clinically evident tumor as a complete layer. Hemostasis was achieved by electrocoagulation. The excised tissue was oriented and divided into 2 sections, chromacoded, and submitted for frozen sections. The patient tolerated the procedure well and without complications. On my personal microscopic evaluation of the frozen sections, no residual tumor was identified on the deep or outer border of the sections. The final size of the defect after complete tumor removal was 1.7 x 1.4 cm, extending to level of cartilage, focal full thickness mucosa. Rene Cruz MD PhD Mohs Micrographic Surgery and Dermatologic Oncology Department of Dermatology [address] [place] [id number] OPERATIVE REPORT (REPAIR) Patient Name: Tianna Tovar Age: 82 y.o. : 1940 Date: 05/19/2023 Staff Surgeon: Rene Cruz MD PhD Assistants: Courtney Cano CMA Diagnosis: Status post Mohs micrographic surgery defect/wound Site: left nasal dorsum Final Defect Size prior to repair: 1.7 x 1.4 cm Donor site: medial standing cone from amish repair INDICATION: repair and mormonism of anatomy/function PROCEDURE: Full-thickness skin graft A graft was chosen as repair after discussing various repair options and pros and cons of those. Anesthesia with 0.5 % lidocaine with 1:200,000 epinephrine and another sterile prep were performed. Toavoid anatomical distortion, a template was made of the defect, and a full-thickness skin graft wascarefully planned and harvested from the medial standing cone from amish repair. The graft was defatted and trimmed to fit the defect. After hemostasis was obtained with electrocoagulation, the graft was sutured into place with 6.0 Prolene and 5.0 Prolene skin sutures. The donor area was convertedto a fusiform defect. The deep tissues were apposed and sutured with 4.0 Monocryl sutures and the ep idermal edges were approximated with 6.0 Prolene running and/or interrupted sutures . Final graft size: 1.7 x 1.4 cm. Estimated blood loss: Minimal. Complications: None. Wound care: Routine Preoperative medications: None Post-operative medications: Keflex 500 mg PO BID x 7 days Follow-up: 2 weeks for suture removal Rene Cruz MD PhD Mohs Micrographic Surgery and Dermatologic Oncology Department of Dermatology [address] [place] [address] Note initiated by DARIA Harrison CMA has performed the documentation for this encounter in the presence of and acting as a scribe for Dr. Cruz I performed the above scribed service and agree with the accuracy of the documentation in this encounter. Reviewed and signed by: Rene Cruz Dermatology [facility] Frozen Biopsy Procedure: Skin biopsy by shave technique Location: right amish Discussed indications for procedure and expectations including risks and benefits. Verbal consent obtained. Skin prep with alcohol. Local anesthesia with 1% xylocaine, 1/100,000 epinephrine. A sampleof the lesion was removed by shave technique to the level of the dermis and submitted for frozen sections and revealed basal cell carcinoma, nodular, infiltrative. Hemostasis obtained (AlCl and/or electrocautery). There were no complications; the pt. tolerated the procedure well. Rene Cruz MD PhD Mohs Micrographic Surgery and Dermatologic Oncology Department of Dermatology [address] [place] [address] Mohs micrographic Surgery Operative Report Site#2: Right amish Patient name: Tianna Tovar : 1940 Date: 05/19/2023 Staff Surgeon and Pathologist: Rene Cruz MD PhD Nursing/Sleep Technician(s): Marilee Lipscomb RN, Serene Clayton RN, Courtney Cano [facility] [place], Amalia FrancoRitesh MIXING MACHINE OPERATOR, Saud Flores [facility], Jeanette Rojas [facility] Smoking Pipe Driller And Threader (s): Saud Ruby CMA Pre-operative diagnosis: Basal Cell Carcinoma, nodular, infiltrative Post-operative diagnosis: Basal Cell Carcinoma, nodular, infiltrative Location/Site: right amish Procedure: Mohs micrographic surgery Indication(s) for Mohs micrographic surgery: Anatomic location for tissue conservation and Histopathology Stages: 2 Preoperative size of tumor: 0.8 x 0.5 cm Stage I The nature and purpose of the procedure, associated risks, possible consequences and complications,and alternative forms of treatment were explained in detail. We reviewed the possible repairs basedon the clinical appearance of tumor but discussed that often the repair options may not be known until the tumor has irma extirpated. Informed consent and permission to take photographs were obtained. The site was confirmed with the patient/authorized claims service representative/referring physician and/or a photograph form time of biopsy. A pre-operative time-out (procedural pause) was conducted with no unresolved discrepancies noted. Local anesthesia was obtained with 0.5 % lidocaine with 1:200,000 epinephrine. The surgical site was prepped and draped in the usual sterile manner. A 1-2 mm margin was excised around clinically evident tumor as a complete layer. Hemostasis was achieved by electrocoagulation. The excised tissue was oriented and divided into 2 sections, chromacoded, and submitted for frozen sections. The patient tolerated the procedure well and without complications. 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 The islands are associated with a fibromyxoidstroma and there is cleft formation between some of the islands and stroma. on section A2 (see section number on map). Stage II The surgical site was re-anesthetized with 0.5 % lidocaine with 1:200,000 epinephrine, re-prepped and redraped in a sterile manner. The residual tumor was re-excised as a complete layer 2-3mm in thickness using the Mohs map to delineate area of residual tumor. Hemostasis was achieved with electrocoa gulation. The tissue was oriented and divided into 1 sections, chromacoded, and submitted for frozen sections. The patient tolerated the procedure well and without complications. On my personal microscopic evaluation of the frozen sections, no residual tumor was identified on the deep or outer border of the sections. Depth of excision subcutaneous tissue Final defect size: 1.8 x 1.6 cm Rene Cruz MD PhD Mohs Micrographic Surgery and Dermatologic Oncology Department of Dermatology [address] [place] [address] Repair Operative Report Clinical Diagnosis: 1.8 x 1.6 cm surgical defect secondary to Mohs microscopically controlled excision Location/Site: Right amish Indication: repair of wound for anatomic/functional mormonism Procedure: Intermediate linear closure of Mohs defect Recreation Programmer: Courtney Cano CMA Due to the size and location of the defect resulting from the complete removal of the tumor, the postoperative risk of hemorrhage, infection, and the possibility of serious deformity from scarring, and in order to restore proper function and prevent loss of function, the defect was closed in the following manner. The nature and purpose of the procedure, associated risks, possible consequences, complications andalternative methods of treatment were explained to the patient in detail. An informed consent was obtained. The operative site was anesthetized with 0.5% lidocaine with 1:200,000 epinephrine. The site was prepped and draped in the usual sterile manner. Moderate undermining of the surrounding tissuewas performed for tension free closure as necessary and redundant tissue excised. The deep tissues were apposed and sutured with 4-0 Monocryl sutures and the epidermal edges were approximated with 6-0 Polypropylene (Prolene) running and/or interrupted sutures. .The resulting intermediate linear closure measured 6.1 cm. The surgical site was cleaned and white petrolatum with a pressure dressing was applied. The patient tolerated the procedure well and without complications and was given both verbal and written instruction on postoperative wound care. Follow up in 2 weeks for suture removal. The patient was discharged in good condition. Total local anesthesia with 0.5 % lidocaine with 1:200,000 epinephrine used: 18 cc Rene Cruz MD PhD Mohs Micrographic Surgery and Dermatologic Oncology Department of Dermatology [address] [place] [id number] Note initiated by Courtney Cano CMA. Courtney Cano CMA has performed the documentation for this encounter in the presence of and acting as a scribe for Dr. Cruz I performed the above scribed service and agree with the accuracy of the documentation in this encounter. Reviewed and signed by: Rene Cruz Dermatology [facility] documented in this encounter Plan of Treatment Upcoming Encounters Date Type Department Care Team (Late st Contact Info) Description 07/24/2024 2:00 PM EDT Appointment Mammography/[place] [address] Aden Lauren MD [address] [place] [address] documented as of this encounter Visit Diagnoses Diagnosis Basal cell carcinoma of dorsum of nose Basal cell carcinoma of skin of other and unspecified parts of face Basal cell carcinoma of right amish region Basal cell carcinoma of skin of other and unspecified parts of face documented in this encounter Care Teams Waist Fitter Relationship Specialty Start Date End Date Aden Lauren MD [address] [place] [address] PCP - General Family Medicine 02/17/17 documented as of this encounter
--- OUTSIDE RECORDS SUMMARY | 2024-06-23 02:17 | XMS_ITS | Encounter Summary ---
Author Organization [facility] [place] [address] Care Team Providers Care Aquatic Life Laborer Name Role Phone Aden Lauren MD Primary Care Provider [phone] Encounter Details Date Type Department Care Team (Late st Contact Info) Description 06/05/2022 Telephone [place] [address] Anurag Darby MD [facility] [place] [address] Social History Tobacco Use Types Packs/Day Years [...] 07/24/2024 2:00 PM EDT Appointment Mammography/[place] [address] Aden Lauren MD [address] [facility] [address] [place] [address] documented as of this encounter Visit Diagnoses Not on filedocumented in this encounter Care Teams Aquatic Life Laborer Relationship Specialty Start Date End Date Aden Lauren MD [address] [place] [address] PCP - General Family Medicine 02/17/17 documented as of this encounter
--- OUTSIDE RECORDS SUMMARY | 2024-06-23 02:17 | XMS_ITS | Encounter Summary ---
[place] [address] Care Team Providers Care Broiler Chef Or Cook Name Role Phone Aden Lauren MD Primary Care Provider [phone] Encounter Details Date Type Department Care Team (Latest Contact Info) Description 06/02/2023 Travel Social History Tobacco Use Types Packs/Day [...] 07/24/2024 2:00 PM EDT Appointment Mammography[place] [address] Aden Lauren MD [address] [place], [place] [address] documented as of this encounter Visit Diagnoses Not on filedocumented in this encounter Care Teams Broiler Chef Or Cook Relationship Specialty Start Date End Date Aden Lauren MD [address] [place], [place] [address] PCP - General Family Medicine 02/17/17 documented as of this encounter
--- OUTSIDE RECORDS SUMMARY | 2024-06-23 02:17 | XMS_ITS | Encounter Summary ---
Author Organization [facility] Address [facility] [place] [address] Care Team Providers Care Panelboard Assembler Name Role Phone Aden Lauren MD Primary Care Provider [phone] Reason for Visit * Reason Comments Glaucoma Suspect Encounter Details Date Type Department Care Team (Late st Contact Info) Description 06/10/2022 2:00 PM EDT Office [place] [address] Anurag Darby MD [facility] [place] [address] Glaucoma suspect of both eyes Social History Tobacco Use Types Packs/Day Years [...] as of this encounter Progress Notes * Anurag Darby MD - 06/10/2022 2:00 PM EDT PXF Glaucoma suspect OU: IOP stable and at target OU on drops, HVF essentially full OU. Plan: Continues yearly follow up, dilation and OCT at next visit, no change in drops. documented in this encounter Plan of Treatment Upcoming Encounters Date Type Department Care Team (Late st Contact Info) Description 07/24/2024 2:00 PM EDT Appointment Mammography/[place] [address] Aden Lauren MD [address] [place] [address] documented as of this encounter Procedures Procedure Name Priority Date/Time Associated Diagnosis Comments AUTOMATED VISUAL FIELD - EXTENDED - OU- BOTH EYES Routine 06/10/2022 3:29 PM EDT Glaucoma suspect of both eyes documented in this encounter Results * Automated Visual Field - Extended - OU - Both Eyes (06/10/2022 3:29 PM EDT) Anatomical Region Laterality Modality Other Narrative 06/10/2022 3:29 PM EDT Right Eye Threshold was 24-2. Strategy was SKIP. Left Eye Threshold was 24-2. Strategy was SKIP. Notes Reliability few false negatives OD, good OS VFI: ??97 OD/ 98 OS MD: ??-0.59 OD/ -0.21 OS PSD: ??2.66 OD/ 2.09 OS Interpretation: ??shallow inferior arcuate defects OU Anurag Darby MD OPHTHALMOLOGY SERVIC ES ORDERABLES documented in this encounter Visit Diagnoses Diagnosis Glaucoma suspect of both eyes Preglaucoma, unspecified documented in this encounter Care Teams Panelboard Assembler Relationship Specialty Start Date End Date Aden Lauren MD [address] [place] [address] PCP - General Family Medicine 02/17/17 documented as of this encounter
--- OUTSIDE RECORDS SUMMARY | 2024-06-23 02:17 | XMS_ITS | Encounter Summary ---
Author Organization [facility] Address [facility] [place] [address] Care Team Providers Care Storage Receipt Poster Name Role Phone Aden Lauren MD Primary Care Provider [phone] Reason for Visit * Reason Comments Skin Cancer Examination Encounter Details Date Type Department Care Team (Late st Contact Info) Description 03/24/2021 2:00 PM EDT Office Visit Dermatology at [address] [address] Myah Lugo MD [facility] [address] [place] [address] AK (actinic keratosis); SK (seborrheic keratosis); Xerosis of skin; History of basal cell carcinoma (BCC) Social History Tobacco Use Types Packs/Day Years [...] on file documented as of this encounter Patient Instructions * Patient Instructions* Aundrea Fagan - 03/24/2021 2:00 PM EDT - Recommended dilute vinegar spritzes (1 part vinegar, 6 parts water) twice daily. - Recommended an acidified moisturizer, such as CeraVe SA cream or Amlactin lotion. documented in this encounter Progress Notes * Myah Lugo MD - 03/24/2021 2:00 PM EDT Images from the original note were not included. DEPARTMENT OF DERMATOLOGY Established Patient Clinic Note Provider: MYAH LUGO MD Patient Preferences Preferred name Tianna Preferred contact method for results [x] Home [] Cell [] MyD-H [] Other: Permission to leave detailed message including results Yes Permission to discuss care with (Yrn) Relevant social history Past Medical History Y/N Date, location, treatment Melanoma No DN No SCC No BCC Yes 2000: Left nose, BCC (Mohs) 01/27/12: Left medial cheek, BCC (Mohs) 01/27/12: Left deltoid, BCC (excision) 02/28/18: Right lateral arm, BCC 03/02/19: Right lower back, BCC (ED&C) AK Yes LN2, 5-FU/Carac Immunosuppression or malignancy Yes Vulvar cancer, ? early breast cancer s/p lumpectomy Blistering sunburns or tanning bed use Yes + Blistering sunburns Other relevant past skin history Yes 09/2012: Left cheekbone, ISK 09/2012: Sternal notch, ISK 03/28/14: Right lower back 6.5 cm right of midline, ISK 02/07/16: Right superior helix, CNH 02/07/16: Left flank, SK ?? EIC (right lower neck) Family History Y/N Parents, siblings, children Melanoma No NMSC No Other No Procedure Screening Questions Y/N Allergies to lidocaine or epinephrine No Blood thinners No Pacemaker or defibrillator No History of Present Illness: Tianna Tovar is a 80 y.o. established patient, last seen by me on 03/21/2020. Patient returns to clinic today for a full skin examination with the following concerns: - Scaly area on the left eyebrow; non-itchy - uses CeraVe after showering Last FSE: 03/21/20 Medications: Reviewed in eD-H Allergies: Reviewed in eD-H Skin Examination: Full skin examination: Patient asked to undress to their comfort level. Verbalized that the provider???s preference is that the patient remove all clothing and that the provider will not examine areas patient elects to keep covered. Patient elects to keep underwear on and have the following examined: scalp, hair, face, ears, neck, chest, axillae, abdomen, back, and upper and lower extremities. Genitalia and buttocks were not examined. Significant Findings/Assessment/Plan A. Actinic Keratoses - Ill-defined, gritty papules on the face with a background of diffuse actinicdamage. - Explained premalignant potential of these lesions. - Discussed treatment options (5-FU) and their respective risks and benefits. - Patient elects to proceed with 5-FU field treatment. - Start Rx 5-fluorouracil 0.5% cream: Apply a thin layer to affected areas on the face twice daily (morning and night) as tolerated for 3 weeks. Has supply at home - Reviewed expectations, typical reaction, and restrictions on light exposure during treatment. Patient understands that affected area will likely become red, irritated and tender during treatment and that this is a normal reaction. Discussed option to hold treatment for 1-2 days if inflammation becomes too intense or patient experiences discomfort. - Instructed patient to return to clinic for re-evaluation if lesion does not resolve as expected with this treatment. B. Seborrheic Keratoses - Stuck on, waxy papules on the face, trunk, and extremities. - Discussed benign nature of lesions and provided reassurance. No treatment necessary at this time. C. Xerosis - Diffuse xerosis. - Recommended dilute vinegar spritzes (1 part vinegar, 6 parts water) twice daily. - Recommended an acidified moisturizer, such as CeraVe SA cream or Amlactin lotion. D. History of BCC - Well-healed scars per skin history. - No evidence of recurrence; will continue to monitor. Follow Up: RTC in 1 year for: [x] FSE [] Follow up [] Note routed to departmental secretary to schedule [x] Recall placed in scheduling system [] Appointment scheduled before exiting If any questions or concerns arise, patient is welcome to return to clinic sooner. IVETTE Bueno and Aundrea Fagan have performed the documentation for this encounter in the presence of and acting as scribes for MYAH LUGO MD. I performed the above scribed service and agree with the accuracy of the documentation in this encounter. Reviewed and signed by: MYAH LUGO MD Department of Dermatology [facility] documented in this encounter Plan of Treatment Upcoming Encounters Date Type Department Care Team (Late st Contact Info) Description 07/24/2024 2:00 PM EDT Appointment Mammography/[place] [address] Aden Lauren MD [address] [place] [address] documented as of this encounter Visit Diagnoses Diagnosis AK (actinic keratosis) Actinic keratosis SK (seborrheic keratosis) Other seborrheic keratosis Xerosis of skin Other specified disease of sebaceous glands History of basal cell carcinoma (BCC) documented in this encounter Care Teams Storage Receipt Poster Relationship Specialty Start Date End Date Aden Lauren MD [address] [place] [address] PCP - General Family Medicine 02/17/17 documented as of this encounter
--- OUTSIDE RECORDS SUMMARY | 2024-06-23 02:17 | XMS_ITS | Encounter Summary ---
[place] [address] Care Team Providers Care Mental Health Practitioner Name Role Phone Aden Lauren MD Primary Care Provider [phone] Encounter Details Date Type Department Care Team (Late st Contact Info) Description 05/10/2023 Telephone Dermatology at [facility] [address] [place] [address] Courtney Cano CMA Social History Tobacco Use Types Packs/Day [...] encounter Miscellaneous Notes * Telephone Encounter - Courtney Cano CMA - 05/10/2023 3:12 PM EDT Unable to reach patient for Mohs pre-op survey. Message was left on answering machine to return call or access using [employer] . Patient is scheduled for surgery on 05/19/2023. documented in this encounter Plan of Treatment Upcoming Encounters Date Type Department Care Team (Late st Contact Info) Description 07/24/2024 2:00 PM EDT Appointment Mammography[place] [address] Aden Lauren MD [address] [place], [place] [id number] documented as of this encounter Visit Diagnoses Not on filedocumented in this encounter Care Teams Mental Health Practitioner Relationship Specialty Start Date End Date Aden Lauren MD [address] [place], [place] [address] PCP - General Family Medicine 02/17/17 documented as of this encounter
--- OUTSIDE RECORDS SUMMARY | 2024-06-23 02:17 | XMS_ITS | Encounter Summary ---
Author Organization [facility] [place] [address] Care Team Providers Care Antichecking Iron Worker Name Role Phone Aden Lauren MD Primary Care Provider [phone] Reason for Visit * Reason Comments Pseudoexfoliation Glaucoma Encounter Details Date Type Department Care Team (Late st Contact Info) Description 06/21/2024 3:30 PM EDT Office [place] [address] Anurag Darby MD [facility] [place] [address] Glaucoma suspect of both eyes Social History [...] Progress Notes * Anurag Darby MD - 06/21/2024 3:30 PM EDT PXF Glaucoma suspect OU: IOP continues well within target range OU, HVF with small defects which have been seen before without obvious progression or reproducibility. Plan: Will continue Alphagan and Cosopt OU, dilation and OCT OU one year. Asking about change in drops to once a day. Had been intolerant of latanoprost in past. Could retry with timolol only once daily. IOP may elevate slightly but would likely still be in target range. documented in this encounter Plan of Treatment Upcoming Encounters Date Type Department Care Team (Late st Contact Info) Description 07/24/2024 2:00 PM EDT Appointment Mammography/[place] [address] Aden Lauren MD [address] [place], [place] [address] documented as of this encounter Procedures Procedure Name Priority Date/Time Associated Diagnosis Comments AUTOMATED VISUAL FIELD - EXTENDED - OU- BOTH EYES Routine 06/21/2024 4:21 PM EDT Glaucoma suspect of both eyes documented in this encounter Results * Automated Visual Field - Extended - OU - Both Eyes (06/21/2024 4:21 PM EDT) Anatomical Region Laterality Modality Other Narrative 06/21/2024 4:21 PM EDT Right Eye Threshold was 24-2. Strategy was SKIP. Left Eye Threshold was 24-2. Strategy was SKIP. Notes Reliability Good OU VFI: ??97 OD/ 96 OS MD: ??-0.46 OD/ -0.90 OS PSD: ??2.97 OD/ 4.08 OS Interpretation: ??small superior and inferior nasal defects OU, consistent with artifact OS. Anurag Darby MD OPHTHALMOLOGY SERVIC ES ORDERABLES documented in this encounter Visit Diagnoses Diagnosis Glaucoma suspect of both eyes Preglaucoma, unspecified documented in this encounter Care Teams Antichecking Iron Worker Relationship Specialty Start Date End Date Aden Lauren MD [address] [place] [address] PCP - General Family Medicine 02/17/17 documented as of this encounter
--- OUTSIDE RECORDS SUMMARY | 2024-06-23 02:17 | XMS_ITS | Encounter Summary ---
Author Organization [facility] [place] [address] Care Team Providers Care Dental Aide Name Role Phone Aden Lauren MD Primary Care Provider [phone] [phone] Reason for Visit * Reason Onset Date Comments Medication Refill 01/21/2021 Encounter Details Date Type Department Care Team (Late st Contact Info) Description 01/21/2021 [place] [address] Yogi Florentino MD [facility] [place] [address] PXF (pseudoexfoliation of lens capsule) Social History Tobacco Use Types Packs/Day Years [...] encounter Miscellaneous Notes * Telephone Encounter - Adelaida Guzmán - 01/21/2021 3:20 PM EDT Patient needs bromonidine 0.2% and dorzolamide trusopt 2% refilled and needs 90 day new Rx sent to [facility] mail in service documented in this encounter Plan of Treatment Upcoming Encounters Date Type Department Care Team (Late st Contact Info) Description 07/24/2024 2:00 PM EDT Appointment Mammography/[place] [address] Aden Lauren MD [address] [place], [place] [address] documented as of this encounter Visit Diagnoses Diagnosis 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
--- OUTSIDE RECORDS SUMMARY | 2024-06-23 02:17 | XMS_ITS | Encounter Summary ---
Author Organization [facility] Address [address] [place] [address] Care Team Providers Care Water Filterer Helper Name Role Phone Shanell Hawkins MD Primary Care Provider [phone] Encounter Details Date Type Department Care Team (Latest Contact Info) Description 03/23/2016 6:41 EDT - 03/23/2016 23:59 EDT Hospital Encounter [address] [address] Unknown, Provider, Discharge Disposition: Home or Self Care Social History Tobacco Use Types Packs/Day Years Used Date Smoking Tobacco: Never Assessed Sex and Gender Information Value Date Recorded Sex Assigned at Not on file Gender Identity Not on file Sexual Orientation Not on file documented as of this encounter Discharge Disposition Disposition Code Departure Means Destination Home or Self Nursing Home documented in this encounter Plan of Treatment Not on file documented as of this encounter Visit Diagnoses Not on filedocumented in this encounter Care Teams Water Filterer Helper Relationship Specialty Start Date End Date Shanell Hawkins MD [address] [place] [address] [place] [address] PCP - General 05/09/12 03/24/16 documented as of this encounter
--- OUTSIDE RECORDS SUMMARY | 2024-06-23 02:17 | XMS_ITS | Encounter Summary ---
Author Organization [facility] Address [facility] [place] [address] Care Team Providers Care Casserole Preparer Name Role Phone Aden Lauren MD Primary Care Provider [phone] [phone] Encounter Details Date Type Department Care Team (Late st Contact Info) Description 06/02/2023 2:30 PM EDT Office Visit Dermatology at [facility] [address] [place] [address] Rene Cam MD [facility] [place] [address] Encounter for removal of sutures Social History Tobacco Use Types Packs/Day Years [...] as of this encounter Progress Notes * Rene Cam MD - 06/02/2023 2:30 PM EDT Images from the original note were not included. Patient: Tianna Tovar Date of . 1940 Today's Date: 06/02/2023 Tianna Tovar is a 82 y.o. female here for suture removal. Exam: well healing incision and graft, no evidence of infection Photograph: Plan: 1. Sutures removed today. 2. Follow up with referring provider or pricing intern for skin exams. 3. Follow up with Dr. Cam: as needed Note initiated by DARIA Minor CMA has performed the documentation for this encounter in the presence of and acting as a scribe for Dr. Cam I performed the above scribed service and agree with the accuracy of the documentation in this encounter. Reviewed and signed by: Rene Cam Dermatology [facility] documented in this encounter Plan of Treatment Upcoming Encounters Date Type Department Care Team (Late st Contact Info) Description 07/24/2024 2:00 PM EDT Appointment Mammography/[place] [address] Aden Lauren MD [address] [place] [address] documented as of this encounter Visit Diagnoses Diagnosis Encounter for removal of sutures documented in this encounter Care Teams Casserole Preparer Relationship Specialty Start Date End Date Aden Lauren MD [address] [place], [place] [address] PCP - General Family Medicine 02/17/17 documented as of this encounter
--- OUTSIDE RECORDS SUMMARY | 2024-06-23 02:17 | XMS_ITS | Encounter Summary ---
Author Organization [facility] Address [facility] Rajeev [facility] [place] [address] Care Team Providers Care Vegetable Farming Supervisor Name Role Phone Aden Lauren MD Primary Care Provider [phone] Reason for Visit * Reason Comments Glaucoma Suspect Encounter Details Date Type Department Care Team (Late st Contact Info) Description 06/15/2023 2:15 PM EDT Office [place] [address] Anurag Darby MD [facility] [place] [address] Glaucoma suspect of both eyes Social History [...] Progress Notes * Anurag Darby MD - 06/15/2023 2:15 PM EDT PXF Glaucoma suspect OU: IOP stable and well within target OU, OCT with small superior and inferiorchanges OD, larger superior change OS. Not correlating with HVF changes to date. Plan: Continue same regimen, HVF OU in one year. documented in this encounter Plan of Treatment Upcoming Encounters Date Type Department Care Team (Late st Contact Info) Description 07/24/2024 2:00 PM EDT Appointment Mammography/[place] [address] Aden Lauren MD [address] [place] [address] documented as of this encounter Procedures Procedure Name Priority Date/Time Associated Diagnosis Comments OCT OPTIC NERVE - OU - BOTH EYES Routine 06/15/2023 2:57 PM EDT Glaucoma suspect of both eyes documented in this encounter Results * Oct Optic Nerve - OU - Both Eyes (06/15/2023 2:57 PM EDT) Anatomical Region Laterality Modality Other Narrative 06/15/2023 2:57 PM EDT Optic nerve report G = 81 OD G = 91 OS within normal limits OU Interpretation: borderline OD, normal OS Anurag Darby MD [facility]Y [facility] documented in this encounter Visit Diagnoses Diagnosis 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
--- OUTSIDE RECORDS SUMMARY | 2024-06-23 02:17 | XMS_ITS | Encounter Summary ---
[place] [address] Care Team Providers Care Cold Meat Cook Name Role Phone Aden Lauren MD Primary Care Provider [phone] Encounter Details Date Type Department Care Team (Latest Contact Info) Description 06/15/2023 Travel Social History Tobacco Use Types Packs/Day [...] 07/24/2024 2:00 PM EDT Appointment Mammography[place] [address] Aden Lauren MD [address] [place], [place] [address] documented as of this encounter Visit Diagnoses Not on filedocumented in this encounter Care Teams Cold Meat Cook Relationship Specialty Start Date End Date Aden Lauren MD [address] [place], [place] [address] PCP - General Family Medicine 02/17/17 documented as of this encounter
--- OUTSIDE RECORDS SUMMARY | 2024-06-23 02:17 | XMS_ITS | Encounter Summary ---
Author Organization [facility] Address [address] [place] [address] Care Team Providers Care Sql Analyst Name Role Phone Emily Mendieta REACTOR SERVICE OPERATOR Primary Care Provider Encounter Details Date Type Department Care Team (Late st Contact Info) Description 05/23/2019 Results Only [facility] [phone] Gail Rhodes MD [facility] [place], [place] [id number] Social History Tobacco Use Types Packs/Day Years [...] Diagnosis Comments PAP TEST- RESULT ONLY Routine 05/23/2019 0:00 EDT documented in this encounter Results * PAP TEST- RESULT ONLY (05/23/2019 0:00 EDT) Pathology Report: CYTOPATHOLOGY REPORT Reports generated via electronic interface contain original data; however they are lacking the format of the original report. Caution should be taken when reading/interpret ing unformatted reports. Name: ? TIANNA TOVAR ? Accession #: ? [id number] : ? 1940 (Age: 78) ??F ?Collect Date: ? 05/23/2019 Location: ? [facility] ? Receive Date: ? 05/24/2019 Provider: ?GAIL RHODES MD Copy to: ?ZACH PEARL MD ? Specimen/Source: ?Pap Test, Vagina, ThinPrep Imaging System with manual evaluation Last Menstrual Period: ? Other: ? Additional clinical information: [facility] VULVA ? SPECIMEN ADEQUACY ? Unsatisfactory for Evaluation - acellular sample submitted GENERAL CATEGORIZATION ? Specimen processed and examined, but unsatisfactory for evaluation of epithelial abnormality. Recommend Pap test in 2-4 months as stated in ASCCP's 2012 Updated Guidelines. HPV testing will not be performed due to the potential for false negative results. ? Document reviewed and electronically signed by: ? OMKAR Disla(ASCP)(IAC) ? Report Date: ??05/30/2019 17:21 End of Report [facility] 05/23/2019 05/24/2019 Gail Rhodes MD PATHOLOGY ORDERABLES [facility] [address] [place] [address] documented in this encounter Visit Diagnoses Not on filedocumented in this encounter Care Teams Sql Analyst Relationship Specialty Start Date End Date Emily Mendieta NP [address] [place] [address] PCP - General 03/25/16 documented as of this encounter
--- OUTSIDE RECORDS SUMMARY | 2024-06-23 02:17 | XMS_ITS | Encounter Summary ---
Author Organization [facility] Address [facility] [place] [address] Care Team Providers Care Textile Dyer Name Role Phone Aden Lauren MD Primary Care Provider [phone] Encounter Details Date Type Department Care Team (Late st Contact Info) Description 03/31/2024 3:15 PM EDT Office Visit Dermatology at [facility] [address] [place] [address] Myah Lugo MD [facility] [place] [address] CNH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), right; SK (seborrheic keratosis); History of basal cell carcinoma (BCC); AK (actinic keratosis) Social History Tobacco Use Types Packs/Day Years [...] as of this encounter Progress Notes * Myah Lugo MD - 03/31/2024 3:15 PM EDT Images from the original note were not included. DEPARTMENT OF DERMATOLOGY Medical Dermatology Clinic Provider: MYAH LUGO MD Patient's preferred name Tianna Preferred contact method for results []Phone []myD-H []Letter Detailed phone message OK? Yes Are there any other people with whom we may discuss your care? (Yrn) Past Medical History Date, location, treatment Melanoma No Dysplastic nevi No SCC No BCC 2000: Left nose, BCC (Mohs) 01/27/12: Left medial cheek, BCC (Mohs) 01/27/12: Left deltoid, BCC (excision) 02/28/18: Right lateral arm, BCC 03/02/19: Right lower back, BCC (ED&C) 05/19/23: Left nasal dorsum, BCC s/p Mohs 05/19/23: Right confucianism, BCC s/p Mohs AKs Yes: LN2, 5-FU/Carac UV Exposure & Protection +History of blistering sunburns Other relevant past medical history 09/2012: Left cheekbone, ISK 09/2012: Sternal notch, ISK 03/28/14: Right lower back 6.5 cm right of midline, ISK 02/07/16: Right superior helix, CNH 02/07/16: Left flank, SK EIC (right lower neck) PMH: Vulvar cancer, ? early breast cancer s/p lumpectomy Family History Details Melanoma No NMSC No Other relevant family history No Social History Marital status: Pre-Procedure Questions Details Allergy to lidocaine, epinephrine, Dermabond, chlorhexidine, or adhesives No Bleeding disorder or blood thinners No Pacemaker, defibrillator, deep brain stimulator, cochlear implant No History of Present Illness: Tianna Tovar is a 83 y.o. Patient returns to clinic today for a full skin exam with the following concerns: - Would like mohs site rechecked on the nose - Mentions dry skin on the face and legs. She states she usually uses Cerave which works well when she uses it - Tick bite on the back from 2 weeks ago. She states it is still bothersome - Lesion on the left axilla that is bothersome. She would not like biopsied or treated with cryotherapy. Last visit at Dermatology: 02/16/2023 Last visit with this provider: 02/16/2023 Medications: Reviewed in eD-H Allergies: Reviewed in [...] extremities. Genitalia and buttocks were not examined. Assessment/Plan # History of BCC - Well-healed scars per skin history. - No evidence of recurrence; will continue to monitor. #. Actinic Keratoses - Ill-defined gritty papule on the right cheek. - Explained premalignant potential of these lesions. - Rx: 5-fluorouracil (Efudex) 5% cream apply topically to the face twice daily for 3 weeks. Reviewed pamphlet/photographs, which detail expectations, typical reaction to treatment and reasons to call #. Chondrodermatitis Nodularis Helicis - Firm, tender, pink papule with a central keratotic core onthe right helix. - Discussed diagnosis, etiology, and explored therapeutic options. - Given CNH is essentially a pressure sore on the ear, recommended removing all sources of pressureat the site of the lesion. - Instructed patient to return to clinic for re-evaluation and possible biopsy if lesion does not resolve with those strategies. - .reportbrain.Revee #. Xerosis - Diffuse xerosis. - Recommended applying a bland moisturizer (such as CeraVe cream or Amlactin) daily immediately after bathing. #. Seborrheic Keratoses - Stuck on, waxy papules on the trunk and extremities including the left axilla. - Discussed benign nature of lesions and provided reassurance. No treatment necessary at this time. RTC: 1 year for FSE []Note routed to secretary of state [x]Recall placed in scheduling system []Appointment scheduled at checkout Scribe attestation: Pilar Carr CMA has performed the documentation for this encounter inthe presence of and acting as a scribe for MYAH LUGO MD. I performed the above scribed service and agree with the accuracy of the documentation in this encounter. Reviewed and signed by: MYAH LUGO MD Dermatology [facility] documented in this encounter Plan of Treatment Upcoming Encounters Date Type Department Care Team (Late st Contact Info) Description 07/24/2024 2:00 PM EDT Appointment Mammography/[place] [address] Aden Lauren MD [address] [place], [place] [address] documented as of this encounter Visit Diagnoses Diagnosis CNH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), right SK (seborrheic keratosis) Other seborrheic keratosis History of basal cell carcinoma (BCC) AK (actinic keratosis) Actinic keratosis documented in this encounter Care Teams Textile Dyer Relationship Specialty Start Date End Date Aden Lauren MD [address] [place], [place] [address] PCP - General Family Medicine 02/17/17 documented as of this encounter
--- OUTSIDE RECORDS SUMMARY | 2024-06-23 02:17 | XMS_ITS | Encounter Summary ---
Author Organization [facility] Address [address] [place] [address] Care Team Providers Care Developer Programmer Analyst Name Role Phone Shanell Starkey MD Primary Care Provider [phone] Encounter Details Date Type Department Care Team (Late st Contact Info) Description 03/20/2014 Results Only [facility] [phone] Gail Rhodes MD [facility] [place], [place] [phone] Social History Tobacco Use Types Packs/Day Years [...] Diagnosis Comments PAP TEST- RESULT ONLY Routine 03/20/2014 0:00 EDT documented in this encounter Results * PAP TEST- RESULT ONLY (03/20/2014 0:00 EDT) Pathology Report: CYTOPATHOLOGY REPORT Reports generated via electronic interface contain original data; however they are lacking the format of the original report. Caution should be taken when reading/interpreti ng unformatted reports. Name: ? TIANNA TOVAR ? Accession #: ? [id number] : ? 1940 (Age: 73) ??F ?Collect Date: ? 03/20/2014 Location: ? [facility] ? Receive Date: ? 03/21/2014 Provider: ?GAIL RHODES MD Copy to: ?SHANELL STARKEY MD ? Specimen/Source: ?Pap Test, Vagina, ThinPrep Imaging System with manual evaluation Last Menstrual Period: ? Previous Gynecologic Pathology: ? Carcinoma: Hx of microinvasive vulvar ca Treatment History: ? Miscellaneous treatment: S/P wide local excision 2011 ? SPECIMEN ADEQUACY ? Satisfactory for Evaluation - assessment of transformation zone component not applicable ( e.g. atrophy, vaginal sample, hysterectomy) - scant squamous epithelial component secondary to excessive inflammation GENERAL CATEGORIZATION ? Negative for Intraepithelial Lesion or Malignancy ? Document reviewed and electronically signed by: ? OMKAR Hernandez(ASCP) ? Report Date: ??04/02/2014 13:29 End of Report [facility] 03/20/2014 03/21/2014 Gail Rhodes MD PATHOLOGY ORDERABLES [facility] [address] [place] [address] documented in this encounter Visit Diagnoses Not on filedocumented in this encounter Care Teams Developer Programmer Analyst Relationship Specialty Start Date End Date Shanell Starkey MD [address] [place] [address] [place] [address] PCP - General 05/09/12 03/24/16 documented as of this encounter
--- OUTSIDE RECORDS SUMMARY | 2024-06-23 02:17 | XMS_ITS | Encounter Summary ---
[place] [address] Care Team Providers Care Breaker Layer Name Role Phone Aden Lauren MD Primary Care Provider [phone] Encounter Details Date Type Department Care Team (Latest Contact Info) Description 03/31/2024 Travel Social History Tobacco Use Types Packs/Day [...] 07/24/2024 2:00 PM EDT Appointment Mammography[place] [address] Aden Lauren MD [address] [place], [place] [address] documented as of this encounter Visit Diagnoses Not on filedocumented in this encounter Care Teams Breaker Layer Relationship Specialty Start Date End Date Aden Lauren MD [address] [place], [place] [address] PCP - General Family Medicine 02/17/17 documented as of this encounter
--- OUTSIDE RECORDS SUMMARY | 2024-06-23 02:17 | XMS_ITS | Encounter Summary ---
[place] [address] Care Team Providers Care Staff Anesthetist Name Role Phone Aden Lauren MD Primary Care Provider [phone] Encounter Details Date Type Department Care Team (Late st Contact Info) Description 2022 1:00 PM EDT - 2022 11:59 PM EDT Hospital Encounter Mammography[place] [address] Aden Lauren MD [address] [place] [address] Visit for screening mammogram Discharge Disposition: Home Social History Tobacco Use [...] Sig Dispensed Refills Start Date End Date dorzolamide (Trusopt) 2 % DropsIndications:Glauc selvin suspect [...] 6 hours as needed. Multivitamins Chew 07/29/2010 brimonidine (Alphagan) 0.2 % DropsIndications:Glauc selvin suspect of both eyes,Pseudoexfoliation glaucoma, mild stage Place 1 drop into both eyes 2 times daily. 30 mL 3 05/29/2022 06/21/2023 fluorouracil (EFUDEX) 5 % Cream Apply topically bid as tolerated to AA on right arm x 6 weeks, then stop.OK to stop temporarily if too much inflammation. 40 g 03/07/2018 03/31/2024 documented as of this encounter Plan of Treatment Upcoming Encounters Date Type Department Care Team (Late st Contact Info) Description 07/24/2024 2:00 PM EDT Appointment Mammography[place] [address] Aden Lauren MD [address] [place] [address] documented as of this encounter Procedures Procedure Name Priority Date/Time Associated Diagnosis Comments MAMMO SCREENING CAD AND CARLOS BILATERAL Routine 2022 1:27 PM EDT Visit for screening mammogram documented in this encounter Results * Mammo Screening Cad and Carlos Bilateral (2022 1:27 PM EDT) Anatomical Region Laterality Modality Breast Bilateral Mammography Narrative 07/07/2022 9:51 AM EDT BILATERAL MAMMOGRAPHY REASON FOR EXAM: Screening TECHNIQUE: CC and MLO views were obtained of each breast using standard 2-D mammography as well as 3-D tomosynthesis. Computer aided detection was used. This is compared with prior images. FINDINGS: There are scattered areas of fibroglandular density. There are no suspicious microcalcifications, masses, or areas of distortion. The pattern is stable. CONCLUSION: No mammographic evidence of malignancy. RECOMMENDATION: Regular screening mammograms starting between age 40 and 50 reduces the risk of from breast cancer. All screening tests have both risks and benefits. These risks and benefits should be assessed for each individual patient through discussion with their provider to determine their preferred breast cancer screening schedule. Women should report any breast changes to a health care provider right away. Some women, because of their family history, a genetic tendency, or other factors, should be screened with annual breast MRI as well as with mammograms. (The number of women who fall into this category is very small). Patients and health care providers should discuss each patient? s history to decide if earlier screening and/or breast MRI are appropriate. Screening should continue as long as a woman is in good health and is expected to live 10 years or longer. Screening mammography may not detect 10-15% of breast cancers. A result letter has been sent to this patient by the [facility]. BIRADS CATEGORY 1: NEGATIVE Electronically signed by: Amie Plasencia MD Aden Lauren MD IMG MAMMO ORDERAB LES documented in this encounter Visit Diagnoses Diagnosis Visit for screening mammogram Other screening mammogram documented in this encounter Care Teams Staff Anesthetist Relationship Specialty Start Date End Date Aden Lauren MD [address] [place] [address] PCP - General Family Medicine 02/17/17 documented as of this encounter
--- OUTSIDE RECORDS SUMMARY | 2024-06-23 02:17 | XMS_ITS | Encounter Summary ---
Author Organization [facility] Address [address] [place] [address] Care Team Providers Care Work Distributor Name Role Phone Emily Mendieta DRYWALL APPLICATOR Primary Care Provider [phone] Encounter Details Date Type Department Care Team (Late st Contact Info) Description 07/28/2023 Lab Requisition [facility] Pathology & Laboratory Medicine - [facility] [address] [place] [address] Susana Richter MD [address] [place] [address] [address] [address] Encounter for other general examination Social History Tobacco Use Types Packs/Day Years Used Date Smoking Tobacco: Never Assessed Sex and Gender Information Value Date Recorded Sex Assigned at Not on file Gender Identity Not on file Sexual Orientation Not on file documented as of this encounter Plan of Treatment Not on file documented as of this encounter Procedures Procedure Name Priority Date/Time Associated Diagnosis Comments PAP TEST Today 07/27/2023 13:30 EDT Encounter for other general examination HPV DNA DETECTION WITH GENOTYPING, PCR Today 07/27/2023 13:30 EDT Encounter for other general examination documented in this encounter Results * HUMAN PAPILLOMAVIRUS (HPV) DETECTION-HIGH RISK TYPES (07/27/2023 13:30 EDT) HPV other High Risk types, PCR Negative Negative 08/03/2023 17:16 EST [facility] Comment:No E6 or E7 mRNA is detected from HPV types 16,18,31,33,35,39,45,51,52,56,58,59,66, and 68 by flower shop manager mediated amplification. Pap Test CERVIX UTERI STRUCTURE / Unknown 07/27/2023 13:30 EDT 08/03/2023 10:51 EST Susana Richter MD MICROBIOLOGY - GENER AL ORDERABLES [facility] [address] [place] [address] * PAP TEST (07/27/2023 13:30 EDT) Specimens A. Cervix and/or Endocervix , ThinPrep Imaging System with Manual Evaluation 08/03/2023 17:16 [facility] Specimen Adequacy Satisfactory for Evaluation - assessment of transformation zone component not applicable ( e.g. atrophy, vaginal sample, hysterectomy) 08/03/2023 17:16 [facility] General Categorization Negative for intraepithelial lesion or malignancy 08/03/2023 17:16 [facility] Attestation . 08/03/2023 17:16 [facility] at 1716 Clinical History See below 08/03/20 17:16 [facility] HPV The result for the Human Papillomavirus (HPV) Detection-High Risk Types is Negative. No E6 or E7 mRNA is detected from HPV types 16,18,31,33,35,39 ,45,51,52,56,58,5 9,66, and 68 by flower shop manager mediated amplification.Ryanne ting was performed on specimen [id number] and was resulted on 08/03/2023 1716 EST by REESE, LAB INSTRUMENT RESULTS IN 08/03/2023 17:16 [facility] Performing Lab [facility] 08/03/2023 17:16 [facility] Scanned Images 08/03/2023 17:16 [facility] Pap Test CERVIX UTERI STRUCTURE / Unknown 07/27/2023 13:30 EDT 07/28/2023 10:57 EDT Susana Richter MD PATHOLOGY ORDERABLES [facility] [address] [place] [address] documented in this encounter Visit Diagnoses Diagnosis Encounter for other general examination documented in this encounter Care Teams Work Distributor Relationship Specialty Start Date End Date Emily Mendieta, DRYWALL APPLICATOR [address] [place] [phone] PCP - General 03/25/16 documented as of this encounter
--- OUTSIDE RECORDS SUMMARY | 2024-06-23 02:17 | XMS_ITS | Encounter Summary ---
[place] [address] Care Team Providers Care Deputy Sheriff Court Services Name Role Phone Aden Lauren MD Primary Care Provider [phone] Encounter Details Date Type Department Care Team (Latest Contact Info) Description 06/21/2024 Travel Social History Tobacco Use Types Packs/Day [...] 07/24/2024 2:00 PM EDT Appointment Mammography/[place] [address] Aden Lauren MD [address] [place], [place] [address] documented as of this encounter Visit Diagnoses Not on filedocumented in this encounter Care Teams Deputy Sheriff Court Services Relationship Specialty Start Date End Date Aden Lauren MD [address] [place], [place] [address] PCP - General Family Medicine 02/17/17 documented as of this encounter
--- OUTSIDE RECORDS SUMMARY | 2024-06-23 02:17 | XMS_ITS | Encounter Summary ---
[place] [address] Care Team Providers Care Deployment Engineer Name Role Phone Aden Lauren MD Primary Care Provider [phone] Reason for Referral * Diagnostic Test (Routine) - Closed Specialty Diagnoses / Procedures Referred By Shmuel t Referred To Contact Radiology Diagnoses Encounter for screening mammogram for breast cancer Procedures Mammo Screening Cad and Carlos Bilateral Aden Lauren MD [address] [place] [address] [employer] [place] [address] Referral ID Status Reason Start Date Expiration Date V isits Requested Visits Authorized [id number] Closed Specialty Service Requested 05/26/2021 11/24/2022 1 1 Reason for Visit * Diagnostic Test (Routine) - Closed Specialty Diagnoses / Procedures Referred By Contaddie t Referred To Contact Radiology Diagnoses Encounter for screening mammogram for breast cancer Procedures Mammo Screening Cad and Carlos Bilateral Aden Lauren MD [address] [place] [address] [place] [address] Referral ID Status Reason Start Date Expiration Date V isits Requested Visits Authorized [id number] Closed Specialty Service Requested 05/26/2021 11/24/2022 1 1 Encounter Details Date Type Department Care Team (Late Contact Info) Description 07/08/2021 10:52 AM EDT - 07/08/2021 11:59 PM EDT Hospital Encounter Mammography/DXA at [facility] [place] [address] Aden Lauren MD [address] [place] [address] Encounter for screening mammogram for breast cancer [...] Sig Dispensed Refills Start Date End Date aspirin EC 81 mg Tablet, Delayed Release (E.C.) Take 81 mg by mouth daily. lisinopril-hydrochloro thiazide (PRINZIDE;ZESTORETIC) 10-12.5 mg Tablet Take 1 tablet by mouth daily. simvastatin (ZOCOR) 10 mg tablet Take 5 mg by mouth nightly. ibuprofen (ADVIL;MOTRIN) 200 mg tablet Take 200 mg by mouth every 6 hours as needed. Multivitamins Chew 07/29/2010 dorzolamide (Trusopt) 2 % Drops Place 1 drop into both eyes 2 times daily. 10 mL 12 05/27/2021 05/29/2022 brimonidine (Alphagan) 0.2 % Drops Place 1 drop into both eyes 2 times daily. 10 mL 1 05/27/2021 11/24/2021 fluorouracil (EFUDEX) 5 % Cream Apply topically bid as tolerated to AA on right arm x 6 weeks, then stop.OK to stop temporarily if too much inflammation. 40 g 03/07/2018 03/31/2024 documented as of this encounter Plan of Treatment Upcoming Encounters Date Type Department Care Team ([facility] Contact Info) Description 07/24/2024 2:00 PM EDT Appointment Mammography/[place] [address] Aden Lauren MD [address] [place] [address] documented as of this encounter Procedures Procedure Name Priority Date/Time Associated Diagnosis Comments MAMMO SCREENING CAD AND CARLOS BILATERAL Routine 07/08/2021 11:23 AM EDT Encounter for screening mammogram for breast cancer documented in this encounter Results * Mammo Screening Cad and Carlos Bilateral (07/08/2021 11:23 AM EDT) Anatomical Region Laterality Modality Breast Bilateral Mammography Narrative 07/08/2021 12:30 PM EDT BILATERAL MAMMOGRAPHY REASON FOR EXAM: Screening [...] BIRADS CATEGORY 1: NEGATIVE Electronically signed by: MARQUISE DE LEON MD Aden Lauren MD IMG MAMMO ORDERAB LES documented in this encounter Visit Diagnoses Diagnosis Encounter for screening mammogram for breast cancer documented in this encounter Care Teams Deployment Engineer Relationship Specialty Start Date End Date Aden Lauren MD [address] [place] [address] PCP - General Family Medicine 02/17/17 documented as of this encounter
--- OUTSIDE RECORDS SUMMARY | 2024-06-23 02:17 | XMS_ITS | Encounter Summary ---
Author Organization [facility] [place] [address] Care Team Providers Care Prison Teacher Name Role Phone Aden Lauren MD Primary Care Provider [phone] Reason for Visit * Reason Onset Date Comments Medication Refill 02/04/2021 Pharmacy corre ction to [facility] Medication Refill 02/04/2021 Encounter Details Date Type Department Care Team (Late st Contact Info) Description 02/04/2021 Ref[place] [address] Yogi Florentino MD [facility] [place] [address] PXF (pseudoexfoliation of lens capsule) Social History [...] encounter Miscellaneous Notes * Telephone Encounter - Shanell Baer COT - 02/04/2021 4:54 PM EDT Called patient to clarify, [facility]. She recently got 3 month supply from [employer], therefore, will not order for mail order at this time. Will call back in April when needed again. 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
--- OUTSIDE RECORDS SUMMARY | 2024-06-23 02:17 | XMS_ITS | Encounter Summary ---
Author Organization [facility] Address [address] [place] [address] Care Team Providers Care Assistant Family Teacher Name Role Phone Shanell Starkey MD Primary Care Provider [phone] Encounter Details Date Type Department Care Team (Late st Contact Info) Description 05/16/2012 Results Only [facility] - [facility] ([facility]) [address] [place], [place] [address] Mirna Yuan MD [address] [facility] [place] [address] Social History Tobacco Use Types [...] Date/Time Associated Diagnosis Comments SURGICAL PATHOLOGY Routine 05/16/2012 0:00 EDT documented in this encounter Results * SURGICAL PATHOLOGY (05/16/2012 0:00 EDT) Pathology Report: SURGICAL PATHOLOGY REPORT Reports generated via electronic interface contain original data; however they are lacking the format of the original report. Caution should be taken when reading/interpreti ng unformatted reports. Name: ? TIANNA ROSENBERG ? Accession #: ? [id number] ? : ? 1940 (Age: 71) ??F ? Collect Date: ? 05/16/2012 ? Location: ? [facility] ? Receive Date: ? 05/16/2012 ? Provider: MIRNA YUAN MD Copy to: SHANELL STARKEY MD ? Final Pathologic Diagnosis: ? Vulva, left, wide local excision: 1. ?Squamous cell carcinoma, keratinizing type. ??See comment. ? - Histologic grade: Moderately differentiated (D2). - Tumor site: Left vulva. - Tumor focality: Unifocal. - Size of invasive tumor: 0.15 cm maximal width (AJCC: pT1a, pNX [FIGO IA]). ?? - Depth of invasion: 0.3 mm (A3). - Lymph-vascular invasion: Present. - Surgical resection margins: Uninvolved by invasive carcinoma; carcinoma in situ not identified ??at margin. ?- Distance of invasive carcinoma from closest margin: 0.4 cm from deep margin. 2. ?? Adjacent mucosa shows high-grade squamous intraepithelial neoplasia (ARNOLD II and III). ?? 3. ?? Non-neoplastic vulva shows chronic vulvitis and biopsy-related changes. ?? Comment: ? Multiple deeper levels of (A3) and (A4) have been examined. ??In some levels of (A3), a nest of epithelium is seen within the stroma that is interpreted as artifactually displaced secondary to prior biopsy. ??However, in the central portion of the specimen, a focus of invasion is seen. ??One of the levels of (A3) shows lymphatic invasion. ??Linux Systems Administrator sections have been reviewed at intradepartmental consultation conference. (Dr. Perez)/[facility] Document reviewed and electronically signed by: RAMONITA PEREZ MD Report ??Date: 05/20/2012 16:47 By the signature above, the attending physician certifies that he/she has personally conducted a gross and/or microscopic examination of the described specimens and rendered or confirmed the above diagnosis. Specimen(s) Received: ? Left labial lesion-wide local excision Clinical History: ? Vulvar lesion, prior biopsy 05/06/12 ??ARNOLD III Gross Description: ? Received in formalin labelled Tianna Rosenberg and left labial lesion is a buckley, unoriented skin ellipse measuring 2.2 x 1.4 cm and is excised to a depth of 0.3 cm. ??On the epidermis there is a central, ovoid, granular, clavo-white 1.3 x 0.8 x 0.2 cm slightly raised papule which is 0.2 cm from the nearest peripheral margin. ??Along one edge, there is a minimal amount of hair present. The region with hair is inked black and opposing surgical margin inked blue. The specimen is serially sectioned and entirely submitted as follows: BLOCK DONALDSON A1 ?Tip, reverse en face A2-A4 ?Central sections A5 ?Opposing tip, reverse en face (Margaret Reyes)/mpl End of Report [employer] 05/16/2012 05/16/2012 16: 51 EDT Mirna Yuan MD PATHOLOGY ORDERABLES Performing Organization Address City/State/[facility] Co de Phone Number [facility] [address] [place] [address] documented in this encounter Visit Diagnoses Not on filedocumented in this encounter Care Teams Assistant Family Teacher Relationship Specialty Start Date End Date Shanell Starkey MD [address] [place] [address] [place] [address] PCP - General 05/09/12 03/24/16 documented as of this encounter
--- OUTSIDE RECORDS SUMMARY | 2024-06-23 02:17 | XMS_ITS | Encounter Summary ---
Author Organization [facility] [place] [address] Care Team Providers Care Watch Repairer Apprentice Name Role Phone Aden Lauren MD Primary Care Provider [phone] Encounter Details Date Type Department Care Team (Late st Contact Info) Description 06/15/2022 Telephone [place] [address] Anurag Darby MD [facility] [place] [address] Social History Tobacco Use Types Packs/Day Years [...] encounter Miscellaneous Notes * Telephone Encounter - Anastacia Walden - 06/23/2022 3:37 PM EDT Scheduled via [facility] * Telephone Encounter - Anastacia Walden - 06/15/2022 2:27 PM EDT Return in about 1 year (around 06/10/2023) for dilation and glaucoma OCT OU. documented in this encounter Plan of Treatment Upcoming Encounters Date Type Department Care Team (Late st Contact Info) Description 07/24/2024 2:00 PM EDT Appointment Mammography/[place] [address] Aden Lauren MD [address] [place], [place] [address] documented as of this encounter Visit Diagnoses Not on filedocumented in this encounter Care Teams Watch Repairer Apprentice Relationship Specialty Start Date End Date Aden Lauren MD [address] [place], [place] [address] PCP - General Family Medicine 02/17/17 documented as of this encounter
--- OUTSIDE RECORDS SUMMARY | 2024-06-23 02:17 | XMS_ITS | Encounter Summary ---
Author Organization [facility] Address [facility] [place] [address] Care Team Providers Care Hematology Nurse Name Role Phone Aden Lauren MD Primary Care Provider [phone] Reason for Referral * Consultation (Routine) - Closed Specialty Diagnoses / Procedures Referred By Contaddie t Referred To Contact Dermatology Diagnoses Basal cell carcinoma (BCC) of skin of other part of face Myah Lugo MD [facility] [address] [place] [address] Rene Cruz MD [facility] [address] [place] [address] Referral ID Status Reason Start Date Expiration Date V isits Requested Visits Authorized [id number] Closed Consult, Test & Treat 02/16/2023 02/16/2024 1 1 Encounter Details Date Type Department Care Team (Late st Contact Info) Description 02/16/2023 2:00 PM EDT Office Visit Dermatology at [facility] [address] [place] [address] Myah Lugo MD [facility] [address] [address] Neoplasm of unspecified behavior of bone, soft tissue, and skin (Primary Dx); SK (seborrheic keratosis); History of basal cell carcinoma; Seborrheic keratoses; Xerosis cutis; Basal cell carcinoma (BCC) of skin of other part of face Social History Tobacco Use Types Packs/Day Years [...] Progress Notes * Myah Lugo MD - 02/16/2023 2:00 PM EDT Images from the original note were not included. DEPARTMENT OF DERMATOLOGY Medical Dermatology Clinic Provider: MYAH LUGO MD Patient's preferred name Tianna Preferred contact method for results []?Phone []?myD-H []?Letter Detailed phone message OK? Yes Are there any other people with whom we may discuss your care? (Yrn) ?? Past Medical History Date, location, treatment Melanoma No Dysplastic nevi No SCC No BCC 2000: Left nose, BCC (Mohs) 01/27/12: Left medial cheek, BCC (Mohs) 01/27/12: Left deltoid, BCC (excision) 02/28/18: Right lateral arm, BCC 03/02/19: Right lower back, BCC (ED&C) AKs Yes: LN2, 5-FU/Carac UV Exposure & Protection +History of blistering sunburns Other relevant past medical history 09/2012: Left cheekbone, ISK 09/2012: Sternal notch, ISK 03/28/14: Right lower back 6.5 cm right of midline, ISK 02/07/16: Right superior helix, CNH 02/07/16: Left flank, SK ?? EIC (right lower neck) ?? PMH: Vulvar cancer, ? early breast cancer s/p lumpectomy?? Family History Details Melanoma No NMSC No Other relevant family history No Social History Marital status: ?? Pre-Procedure Questions Details Allergy to lidocaine, epinephrine, Dermabond, chlorhexidine, or adhesives No Bleeding disorder or blood thinners No Pacemaker, defibrillator, deep brain stimulator, cochlear implant No History of Present Illness: Tianna Tovar is a 82 y.o. Patient returns to clinic today for a full skin exam. - Spots on the nose, in particular spots on the left side that bleed, but otherwise not symptomatic. Treated with Carac in the past and Mohs to the area 20 years ago. - Spot on left lower leg just above ankle that can be itchy and has spread a little. Not treating and present for 4-5 days. Last visit at Dermatology: 03/04/2022 Last visit with this provider: 03/04/2022 Medications: Reviewed in eD-H Allergies: Reviewed in eD-H Skin Examination: Full skin examination: Patient asked to undress to their comfort level. Verbalized that the provider???s preference is that the patient remove all clothing and that the provider will not examine areas patient elects to keep covered. Patient elects to keep bra and underwear on and have the following examined: scalp, hair, head, face, ears, neck, chest, axillae, abdomen, back, buttocks, and upper and lower extremities. Bra-covered area, genitalia, and buttocks were not examined. Assessment/Plan #. R/o BCC - 1.2 cm ill defined papule with erosion/serous crust on the left nasal dorsum overlyingprevious Mohs site (Figure 1) - After review of risks and benefits, joint decision made to pursue shave biopsy today. Procedure: Skin biopsy by shave technique Location: left nasal dorsum Discussed indications for procedure and expectations including risks and benefits. Verbal consent obtained. Skin prep with alcohol. Local anesthesia with 1% lidocaine, 1/100,000 epinephrine. A sampleof the lesion was removed by shave technique to the level of the dermis and submitted to Pathology.Hemostasis obtained. There were no complications; the patient tolerated the procedure well. The wound was dressed. Post-procedure expectations, wound care and activity restrictions were reviewed. Follow-up based on pathology results. #. BCC - 1 cm pearly pink papule on the right protestant (Figure 2) - Referral sent to Mohs for frozen section bx and same day Mohs #. Xerosis Cutis - Diffuse xerosis and scaling of the left lower leg - Recommend Amlactin Rapid relief # Seborrheic Keratoses - Stuck on, waxy papules on the??face,??trunk,??and extremities. - Discussed benign nature of lesions??and provided reassurance. No treatment necessary at this time. ?? # History of??BCC??-??Well-healed scars per skin history. - No evidence of recurrence; will continue to monitor. Below pictures taken with the Pt's consent: Figure 1 Figure 2 Other: ??? N/A RTC: 1 year for FSE or pending pathology []Note routed to pathology secretary/transcriptionist [x]Recall placed in scheduling system []Appointment scheduled at checkout Scribe attestation: THIAGO Sousa has performed the documentation for this encounter in the presence of and acting as a scribe for MYAH LUGO MD. I performed the above scribed service and agree with the accuracy of the documentation in this encounter. Reviewed and signed by: MYAH LUGO MD Dermatology [facility] documented in this encounter Plan of Treatment Upcoming Encounters Date Type Department Care Team (Late st Contact Info) Description 07/24/2024 2:00 PM EDT Appointment Mammography/[place] [address] Aden Lauren MD [facility] [address] [facility] [address] [place] [address] Scheduled Referrals Name Type Priority Associated Diagnoses Order Schedule Referral to Dermatology Outpatient Referral Routine Basal cell carcinoma (BCC) of skin of other part of face Ordered: 02/16/2023 documented as of this encounter Procedures Procedure Name Priority Date/Time Associated Diagnosis Comments SURGICAL PATHOLOGY REPORT Routine 02/16/2023 4:29 PM EDT SPECIMEN TO PATHOLOGY Routine 02/16/2023 4:29 PM EDT Neoplasm of unspecified behavior of bone, soft tissue, and skin documented in this encounter Results * (ABNORMAL) Surgical Pathology Report (02/16/2023 4:29 PM EDT) Final Diagnosis [id number] ? Location: [facility] The signing pathologist has (i) examined the relevant preparation(s) for the specimen(s) and (ii) rendered or confirmed the diagnosis(es). . ?Surgical Pathology DIAGNOSIS A - Left nasal dorsum, skin shave biopsy: - ??Basal cell carcinoma, superficial, nodular and infiltrating types, present at the deep specimen edge Electronically signed by: ?Caterina COX, PhD, Reynaldo Wright Verified: ??02/17/2023 17:46 ??Dermatopatholo gist, Bone & Soft Tissue Pathologist Performed at: ??-[facility] Dept. of Pathology, [place] [address] Sheet Metal Worker: Karen Pacheco MD, AP, ??CLIA Certificate: [id number] DISCUSSION THIS RESULT REQUIRES PHYSICIAN/A.P.P. FOLLOW UP SPECIMEN(S) SUBMITTED A - left nasal dorsum, skin shave biopsy (1) CLINICAL INFORMATION 1.2 cm ill-defined papule on the left nasal dorsum overlying previous Mohs site; rule out BCC SPECIMEN PROCESSING A - Labeled/Fixative : Patient demographics, formalin. Quantity/Size: ??Single, 0.7 x 0.5 x 0.1 cm. Tissue Description: Shave of white skin. Sections/Process ing: Inked, trisected and entirely submitted in 1 cassette labeled A1. ??sns(A) 02/17/2023 5:[address] [facility] SPECIMEN FROM SKIN / Unknown 02/16/2023 4:29 PM EDT 02/16/2023 4:29 PM EDT Myah Lugo MD PATHOLOGY/CYTOLOGY O RDERABLES [facility] [address] [place] [address] * Specimen to Pathology (02/16/2023 4:29 PM EDT) AP Specimen 02/16/2023 4:29 PM EDT 02/16/2023 4:29 PM EDT Narrative [facility] - 02/16/2023 4:29 PM EDT Specimen requisition ordered. ??Separate Pathology report to follow Myah Lugo MD PATHOLOGY/CYTOLOGY O RDERABLES [facility] [place] [address] documented in this encounter Visit Diagnoses Diagnosis Neoplasm of unspecified behavior of bone, soft tissue, and skin- Primary SK (seborrheic keratosis) Other seborrheic keratosis History of basal cell carcinoma Personal history of other malignant neoplasm of skin Seborrheic keratoses Xerosis cutis Other specified disease of sebaceous glands Basal cell carcinoma (BCC) of skin of other part of face documented in this encounter Care Teams Hematology Nurse Relationship Specialty Start Date End Date Aden Lauren MD [address] [place] [address] PCP - General Family Medicine 02/17/17 documented as of this encounter
--- OUTSIDE RECORDS SUMMARY | 2024-06-23 02:17 | XMS_ITS | Encounter Summary ---
Author Organization [facility] Address [facility] Raj[facility]ev [facility] [place] [address] Care Team Providers Care Family Court Counsellor Name Role Phone Aden Lauren MD Primary Care Provider [phone] Reason for Visit * Reason Comments Pseudoexfoliation Glaucoma Encounter Details Date Type Department Care Team (Late st Contact Info) Description 05/27/2021 12:30 PM EDT Office [place] [address] Anurag Darby MD [facility] [place] [address] Glaucoma suspect of both eyes Social History [...] Progress Notes * Anurag Darby MD - 05/27/2021 12:30 PM EDT Glaucoma suspect OU: IOP well within target OU and no elevation despite stopping timolol OU last year. HVF showing possible superior nasal step developing OD but not correlating with OCT and still small. Plan: Continue to follow, one year HVF 24-2 OU. Check IOP and pachymetry. If HVF worse consider SLTor travoprost as thinks intolerant of latanoprost in past. documented in this encounter Plan of Treatment Upcoming Encounters Date Type Department Care Team (Late st Contact Info) Description 07/24/2024 2:00 PM EDT Appointment Mammography[place] [address] Aden Lauren MD [address] [place] [address] documented as of this encounter Procedures Procedure Name Priority Date/Time Associated Diagnosis Comments AUTOMATED VISUAL FIELD - EXTENDED - OU- BOTH EYES Routine 05/27/2021 2:12 PM EDT Glaucoma suspect of both eyes OCT OPTIC NERVE - OU - BOTH EYES Routine 05/27/2021 2:11 PM EDT Glaucoma suspect of both eyes documented in this encounter Results * Automated Visual Field - Extended - OU - Both Eyes (05/27/2021 2:12 PM EDT) Anatomical Region Laterality Modality Other Narrative 05/27/2021 2:12 PM EDT Right Eye Threshold was 24-2. Strategy was SKIP. Left Eye Threshold was 24-2. Strategy was SKIP. Notes Reliability Good OD, few fixation losses OS VFI: ??98 OD/ 98 OS MD: ??-1.22 OD/ -2.41 OS PSD: ??3.71 OD/ 1.93 OS Interpretation: ??Localized superior nasal step OD/ Full OS Anurag Darby MD OPHTHALMOLOGY SERVIC ES ORDERABLES * Oct Optic Nerve - OU - Both Eyes (05/27/2021 2:11 PM EDT) Anatomical Region Laterality Modality Other Narrative 05/27/2021 2:11 PM EDT Right Eye Quality was good. Left Eye Quality was good. Notes G= 83/94 Quadrants: OD- wnl x 4 OS- wnl x 4 Interpretation: ??Normal nerves OU Anurag Darby MD OPHTHALMOLOGY SERVIC ES ORDERABLES documented in this encounter Visit Diagnoses Diagnosis Glaucoma suspect of both eyes Preglaucoma, unspecified documented in this encounter Care Teams Family Court Counsellor Relationship Specialty Start Date End Date Aden Lauren MD [address] [place] [address] PCP - General Family Medicine 02/17/17 documented as of this encounter
--- OUTSIDE RECORDS SUMMARY | 2024-06-23 02:17 | XMS_ITS | Encounter Summary ---
[facility] [place] [address] Care Team Providers Care Curb Attendant Name Role Phone Aden Lauren MD Primary Care Provider [phone] Reason for Visit * Reason Comments Medication Refill Encounter Details Date Type Department Care Team (Late st Contact Info) Description 06/15/2023 [place] [address] Anurag Darby MD [facility] [place] [address] Glaucoma suspect of both eyes; Pseudoexfoliation glaucoma, [...] encounter Miscellaneous Notes * Telephone Encounter - Riccardo Rivers - 06/18/2023 11:32 AM EDT Pt called re: Rx Brimonidine stating [facility] needs confirmation form DPL in order to renew documented in this encounter Plan of Treatment Upcoming Encounters Date Type Department Care Team (Late st Contact Info) Description 07/24/2024 2:00 PM EDT Appointment Mammography/[place] [phone] Aden Lauren MD [address] [place] [address] documented as of this encounter Visit Diagnoses Diagnosis Glaucoma suspect of both eyes Preglaucoma, unspecified Pseudoexfoliation glaucoma, mild stage Pseudoexfoliation glaucoma documented in this encounter Care Teams Curb Attendant Relationship Specialty Start Date End Date Aden Laruen MD [address] [place], [place] [address] PCP - General Family Medicine 02/17/17 documented as of this encounter
--- OUTSIDE RECORDS SUMMARY | 2024-06-23 02:17 | XMS_ITS | Clinical Summary ---
Author Organization [facility] Address [address] [place] [address] Care Team Providers Care Hydroelectric Plant Maintainer Name Role Phone Emliy Mendieta TIRE MAKER Primary Care Provider [phone] Social History Tobacco Use Types Packs/Day Years Used Date Smoking Tobacco: Never Assessed Sex and Gender Information Value Date Recorded Sex Assigned at Not on file Gender Identity Not on file Sexual Orientation Not on file Plan of Treatment Health Maintenance Due Date Last Done Comments RSV Immunization ( o r 60+ Years) (1 - 1-dose 60+ series) 2002 Fall Risk Screening 2007 COVID-19 Vaccine ( season) 2023 Care Teams Hydroelectric Plant Maintainer Relationship Specialty Start Date End Date Emily Mendieta NP [address] [place] [phone] PCP - General 03/25/16
--- OUTSIDE RECORDS SUMMARY | 2024-06-23 02:17 | XMS_ITS | Encounter Summary ---
Author Organization [facility] Address [address] [place] [address] Care Team Providers Care Postal Service Window Clerk Name Role Phone Shanell Starkey MD Primary Care Provider [phone] Encounter Details Date Type Department Care Team (Late st Contact Info) Description 08/29/2013 Results Only [facility] Laboratory Services - [facility] [place] [address] [place], [place] [address] Shanell Starkey MD [address] [place] [address] [place], [place] [id number] Social History Tobacco Use Types Packs/Day Years [...] Diagnosis Comments PAP TEST- RESULT ONLY Routine 08/29/2013 0:00 EST documented in this encounter Results * PAP TEST- RESULT ONLY (08/29/2013 0:00 EST) Pathology Report: CYTOPATHOLOGY REPORT Reports generated via electronic interface contain original data; however they are lacking the format of the original report. Caution should be taken when reading/interpreti ng unformatted reports. Name: ? TIANNA ROSENBERG ? Accession #: ? [id number] : ? 1940 (Age: 73) ??F ?Collect Date: ? 08/29/2013 Location: ? [facility] ? Receive Date: ? 08/30/2013 Provider: ?SHANELL STARKEY MD Copy to: ? Specimen/Source: ?Pap Test, Vagina, ThinPrep Imaging System with manual evaluation Last Menstrual Period: ? Treatment History: ? Miscellaneous treatment: VULVECTOMY PARTIAL ? SPECIMEN ADEQUACY ? Satisfactory for Evaluation - assessment of transformation zone component not applicable ( e.g. atrophy, vaginal sample, hysterectomy) GENERAL CATEGORIZATION ? Negative for Intraepithelial Lesion or Malignancy ? Document reviewed and electronically signed by: ? OMKAR Bragg(ASCP) ? Report Date: ??09/01/2013 13:16 End of Report ASHLEIGH PAGE 08/29/2013 08/30/2013 Shanell Starkey MD PATHOLOGY ORDERABLES Performing Organization Address City/State/[facility] Co de Phone Number ASHLEIGH PAGE [address] [place] [address] documented in this encounter Visit Diagnoses Not on filedocumented in this encounter Care Teams Postal Service Window Clerk Relationship Specialty Start Date End Date Shanell Starkey MD [address] [place] [address] [place] [address] PCP - General 05/09/12 03/24/16 documented as of this encounter
--- OUTSIDE RECORDS SUMMARY | 2024-06-23 02:17 | XMS_ITS | Encounter Summary ---
Author Organization Count Includes [facility] Address [facility] [place] [address] Care Team Providers Care Slope Hoist Operator Name Role Phone Aden Lauren MD Primary Care Provider [phone] Reason for Referral * Consultation (Routine) - Closed Specialty Diagnoses / Procedures Referred By Shmuel t Referred To Contact Dermatology Diagnoses Basal cell carcinoma of nose Myah Lugo MD [facility] [address] [place] [address] Rene Cruz MD [facility] [address] [address] Referral ID Status Reason Start Date Expiration Date V isits Requested Visits Authorized [id number] Closed Consult, Test & Treat 02/26/2023 02/26/2024 1 1 Encounter Details Date Type Department Care Team (Late st Contact Info) Description 02/26/2023 Orders Only Dermatology at [facility] [address] [place] [address] Myah Lugo MD [facility] [address] [place] [address] Basal cell carcinoma of nose Social History Tobacco Use Types [...] as of this encounter Progress Notes * Manisha Espinosa LPN - 02/26/2023 9:58 AM EDT Referred to [facility] per Dr. Lugo for A - Left nasal dorsum, skin shave biopsy: - ??Basal cell carcinoma, superficial, nodular and infiltrating types, present at the ??deep specimen edge documented in this encounter Plan of Treatment Upcoming Encounters Date Type Department Care Team (Late st Contact Info) Description 07/24/2024 2:00 PM EDT Appointment Mammography/[place] [address] Aden Lauren MD [address] [place] [address] Scheduled Referrals Name Type Priority Associated Diagnoses Order Schedule Referral to Dermatology Outpatient Referral Routine Basal cell carcinoma of nose Ordered: 02/26/2023 documented as of this encounter Visit Diagnoses Diagnosis Basal cell carcinoma of nose Basal cell carcinoma of skin of other and unspecified parts of face documented in this encounter Care Teams Slope Hoist Operator Relationship Specialty Start Date End Date Aden Lauren MD [address] [place] [address] PCP - General Family Medicine 02/17/17 documented as of this encounter
--- OUTSIDE RECORDS SUMMARY | 2024-06-23 02:17 | XMS_ITS | Encounter Summary ---
Author Organization [facility] [place] [address] Care Team Providers Care Patient Care Specialist Name Role Phone Aden Lauren MD Primary Care Provider [phone] Encounter Details Date Type Department Care Team (Late st Contact Info) Description 01/21/2021 [place] [address] Yogi Florentino MD [facility] [place] [address] Social History Tobacco Use Types Packs/Day Years [...] Notes * Telephone Encounter - Adelaida Guzmán Adriana - 01/21/2021 3:32 PM EDT Tianna called in for an Rx refill and asked when she was scheduled for her next visit. She was last seen on March 132019 and per that note, had a follow-up visit with [facility] in April 2020 to check pressure. There was not a specific follow-up note to schedule for a yearly exam for 2020. I let her know that we could schedule next available appointment (which is August) and puther on a wait list. She did say that she will be going to [place] in the winter and definitely would NOTbe around for the August visit, and feels she needs an appointment this summer. She asked if we had another provider, and I said we did but we'd need permission to transfer care from Dr. Florentino toDr. Darby. Please review to see if transfer of care would be acceptable. * Telephone Encounter - Adelaida Guzmán - 01/21/2021 3:32 PM EDT Scheduled with DPL per Nima. documented in this encounter Plan of Treatment Upcoming Encounters Date Type Department Care Team (Late st Contact Info) Description 07/24/2024 2:00 PM EDT Appointment Mammography/[place] [address] Aden Lauren MD [address] [place] [address] documented as of this encounter Visit Diagnoses Not on filedocumented in this encounter Care Teams Patient Care Specialist Relationship Specialty Start Date End Date Aden Lauren MD [address] [place], [place] [address] PCP - General Family Medicine 02/17/17 documented as of this encounter
--- OUTSIDE RECORDS SUMMARY | 2024-06-23 02:17 | XMS_ITS | Encounter Summary ---
Author Organization [facility] [place] [address] Care Team Providers Care Assistant Education Director Name Role Phone Aden Lauren MD Primary Care Provider [phone] Reason for Visit * Reason Comments Medication Refill Encounter Details Date Type Department Care Team (Late st Contact Info) Description 11/22/2021 [place] [address] Anurag Darby MD [facility] [place] [address] Glaucoma suspect of both eyes; Pseudophakia of both eyes; Pseudoexfoliation glaucoma, mild stage [...] 07/24/2024 2:00 PM EDT Appointment Mammography[place] [phone] Aden Lauren MD [address] [place] [address] documented as of this encounter Visit Diagnoses Diagnosis Glaucoma suspect of both eyes Preglaucoma, unspecified Pseudophakia of both eyes Lens replaced by other means Pseudoexfoliation glaucoma, mild stage Pseudoexfoliation glaucoma documented in this encounter Care Teams Assistant Education Director Relationship Specialty Start Date End Date Aden Lauren MD [address] [place] [address] PCP - General Family Medicine 02/17/17 documented as of this encounter
--- OUTSIDE RECORDS SUMMARY | 2024-06-23 02:17 | XMS_ITS | Encounter Summary ---
Author Organization [facility] Address [address] [place] [address] Care Team Providers Care Cloth Burler Name Role Phone Emily Mendieta NUT PROCESSING SUPERVISOR Primary Care Provider Encounter Details Date Type Department Care Team (Late st Contact Info) Description 04/22/2018 Results Only [facility] [phone] Gail Rhodes MD [facility] [place], [place] [id number] Social History Tobacco Use Types Packs/Day Years [...] Diagnosis Comments PAP TEST- RESULT ONLY Routine 04/22/2018 0:00 EDT documented in this encounter Results * PAP TEST- RESULT ONLY (04/22/2018 0:00 EDT) Pathology Report: CYTOPATHOLOGY REPORT Reports generated via electronic interface contain original data; however they are lacking the format of the original report. Caution should be taken when reading/interpreti ng unformatted reports. Name: ? TIANNA TOVAR ? Accession #: ? [id number] : ? 1940 (Age: 77) ??F ?Collect Date: ? 04/22/2018 Location: ? [facility] ? Receive Date: ? 04/22/2018 Provider: ?GAIL RHODES MD Copy to: ?ZACH PEARL MD ? Specimen/Source: ?Pap Test, Vagina, ThinPrep Imaging System with manual evaluation Last Menstrual Period: ? Previous Gynecologic Pathology: ? ARNOLD: H/O ? SPECIMEN ADEQUACY ? Satisfactory for Evaluation - assessment of transformation zone component not applicable ( e.g. atrophy, vaginal sample, hysterectomy) GENERAL CATEGORIZATION ? Negative for Intraepithelial Lesion or Malignancy ? Document reviewed and electronically signed by: ? OMKAR Reed(ASCP) ? Report Date: ??05/03/2018 10:57 End of Report [facility] 04/22/2018 04/22/2018 Gail Rhodes MD PATHOLOGY ORDERABLES Performing Organization Address City/State/[facility] Co de Phone Number [facility] [address] [place] [address] documented in this encounter Visit Diagnoses Not on filedocumented in this encounter Care Teams Cloth Burler Relationship Specialty Start Date End Date Emily Mendieta, SWAPNA [address] [place] [address] PCP - General 03/25/16 documented as of this encounter
--- OUTSIDE RECORDS SUMMARY | 2024-06-23 02:17 | XMS_ITS | Clinical Summary ---
Author Organization [facility] Address [facility] [place] [address] Care Team Providers Care Advisor Advocate Angel Co Founder Name Role Phone Aden Lauren MD Primary Care Provider [phone] Allergies Active Allergy Reactions Criticality Noted Date Comments Adhesive Rash 08/06/2015 Adhesive Tape 02/25/2012 Sensitive Timolol Other (See Comments) 03/22/2013 Burning/contraindicated due to peripheral vascular disease Medications Medication Sig Dispensed Refills Start Date End Date Status Multivitamins Chew 07/29/2010 Active ibuprofen (ADVIL;MOTRIN) 200 mg tablet Take 200 mg by mouth every 6 hours as needed. Active simvastatin (ZOCOR) 10 mg tablet Take 5 mg by mouth nightly. Active lisinopril-hydrochlor othiazide (PRINZIDE;ZESTORETIC) 10-12.5 mg Tablet Take 1 tablet by mouth daily. Active aspirin EC 81 mg Tablet, Delayed Release (E.C.) Take 81 mg by mouth daily. Active dorzolamide (Trusopt) 2 % DropsIndications:Glau coma suspect of both eyes Place 1 drop into both eyes 2 times daily. 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 female with coag ou, 1st seen 1999, c pxf od noted then, none os; and pxf noted os 04/01. Discs=0.7 od and 0.5 os. VFs= nl ou 06/05. Tmax , then 25 ou on cos ou; Cct=58 ou. IOPstatus= 14 ou on MEDS=cos, alpha ou; ADReye=clifford [dizzy] xal. Lum. TARGET=<20. Surg=alt od ; iol ou 06/06; VA= 20///25cc; prior= -1 and +3. [place] in winter. hvfs dil. Assessment & Plan (04/12/2017 2:25 PM EDT): Assessment: No progressive glaucoma damage on current medical therapy Plan: Continue present meds: - brimonidine both eyes twice daily; dorzolamide-timolol both eyes twice daily Follow-up in 12 more months with repeat Nevarez Visual Field and Optical Coherence Tomography Assessment & Plan (05/23/2015 4:21 PM EDT): Assessment: Glaucoma under good control with current meds Plan: Continue current meds Follow-up in 8 more months with repeat Nevarez Visual Field and Optical Coherence Tomography Pseudophakia of both eyes 03/11/2011 Assessment & Plan (04/12/2017 12:56 PM EDT): Alphagon both eyes 2 times daily, Cosopt both eyes 2 times daily Personal history of other malignant neoplasm of skin 03/11/2011 Type 2 diabetes, diet controlled Pre-hypertension Cholesterol serum increased 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): Left side, DOI 0.3mm with + LVSI and 4mm margin Encounters Date Type Department Care Team Description 06/21/2024 3:30 PM EDT Office [place] [address] Anurag Darby MD Glaucoma suspect of both eyes 06/21/2024 Travel 03/31/2024 3:15 PM EDT Office Visit Dermatology at [facility] [address] [place] [address] Myah Lugo MD [facility]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), right; SK (seborrheic keratosis); History of basal cell carcinoma (BCC); AK (actinic keratosis) 03/31/2024 Travel from Last 3 Months Immunizations Name Administration Dates Next Due TD Adult 09/27/1997 Family History Medical History Relation Comments Cancer Father kidney Cancer Maternal Aunt colon Breast Cancer Maternal Grandmother Cancer Maternal Grandmother breast Stroke Maternal Grandmother Cancer Mother lung Amblyopia Neg Hx Blindness Neg Hx Cataracts Neg Hx Diabetes Neg Hx Glaucoma Neg Hx Heart Disease Neg Hx Hypertension Neg Hx Macular Degeneration Neg Hx Retinal Detachment Neg Hx Strabismus Neg Hx Thyroid Disease Neg Hx Relation Status Comments Father Maternal Aunt Maternal Grandmother Mother Social History Tobacco Use Types Packs/Day Years Used Date Smoking Tobacco: Former Cigarettes 1 20 0 09/27/1960 - 09/27/1980 Smokeless Tobacco: Never Alcohol Use Standard Drinks/Week Comments Yes 0 (1 standard drink = 0.6 oz pur e alcohol) rare Sex and Gender Information Value Date Recorded Sex Assigned at Not on file Gender Identity Not on file Sexual Orientation Not on file Last Filed Vital Signs Vital Sign Reading Time Taken Comments Blood Pressure 153/62 05/19/2023 4:09 PM EDT Pulse 96 05/19/2023 4:09 PM EDT Temperature 36.8 ??C (98.2 ??F) 08/04/2013 2:26 PM ES T Respiratory Rate 14 03/02/2016 1:39 PM EDT Oxygen Saturation 97% 03/02/2016 1:39 PM EDT Inhaled Oxygen Concentration - - Weight 65.8 kg (145 lb) 03/27/2019 2:56 PM EDT Height 152.4 cm (5') 03/27/2019 2:56 PM EDT Body Mass Index 28.32 03/27/2019 2:56 PM EDT Plan of Treatment Upcoming Encounters Date Type Department Care Team (Late st Contact Info) Description 07/24/2024 2:00 PM EDT Appointment Mammography/[place] [phone] Aden Lauren MD [address] [place] [address] Health Maintenance Due Date Last Done Comments Pneumoccocal Vaccine: 65+ (1 of 2 - PCV) 1948 DM Creatinine yearly 1952 DM Hemoglobin A1c 1952 DM Urine Microalbumin yearly 1952 Zoster vaccine (1 of 2) 1992 Tetanus/Diphtheria/Pertussis Vaccines (1 - Tdap) 09/28/1997 09/27/1997 Bone Density Scan 2007 Covid-19 Vaccine (1 - 2022-2 4 season) 2024 Influenza (Flu) vaccine (1 o f 1 - Influenza standard series) 05/28/2024 DM Opthalmology Exam 06/15/2024 06/15/2023, 05/27/2021, 03/13/2020, Additional history exists Colonoscopy Discontinued 03/02/2016, 03/02/2016 Colorectal Cancer Screening Discontinued Sigmoidoscopy (10 year) with FIT yearly Discontinued 03/02/2016, 03/02/2016 Breast Cancer screening Discontinued 07/19/20 23, 2022, 07/08/2021, Additional history exists CT Colonography Discontinued FIT DNA Discontinued FIT Discontinued Sigmoidoscopy Discontinued Procedures Procedure Name Priority Date/Time Associated Diagnosis Comments AUTOMATED VISUAL FIELD - EXTENDED - OU- BOTH EYES Routine 06/21/2024 4:21 PM EDT Glaucoma suspect of both eyes MAMMO SCREENING CAD AND CARLOS BILATERAL Routine 07/19/2023 2:10 PM EDT Encounter for screening mammogram for breast cancer COLONOSCOPY Routine 03/02/2016 12:58 PM EDT from Last 3 Months or Most Recently Relevant to Health Maintenance Results * Automated Visual Field - Extended [...] Darby MD OPHTHALMOLOGY SERVIC ES ORDERABLES * Mammo Screening Cad and Carlos Bilateral [...] who have questions please contact the health urgent care that requested your imaging first. ? Narrative [...] masses, or areas of distortion. Stable appearance. Aden Lauren MD IMG MAMMO ORDERAB LES * COLONOSCOPY (03/02/2016 12:58 PM EDT) COLONOSCOPY [facility] Endoscopy Patient Name: Tianna Tovar ? Procedure Date: 03/02/2016 12:58 PM ? Date of : 1940 ? Age: 75 ? Order #: [id number] ? Procedure: ? Colonoscopy Indications: ? Screening for colorectal malignant ? neoplasm Providers: ? Yuni Baig MD, Carmen Ramírez, ? Nahum Brooks, Geothermal System Installer Referring : ?Shanell Hawkins MD Medicines: ? Midazolam 3 mg IV, Fentanyl 100 ? micrograms IV Complications: ? No immediate complications. Procedure: ? Pre-Anesthesia Assessment: ? - Prior to the procedure, a History ? and Physical was performed, and ? patient medications, allergies and ? sensitivities were reviewed. The ? patient's tolerance of previous ? anesthesia was reviewed. ? - The risks and benefits of the ? procedure and the sedation options ? and risks were discussed with the ? patient. All questions were answered ? and informed consent was obtained. ? The procedure, indications, benefits, ? risks and alternatives were explained ? to the patient. Specifically ? discussed were potential ? complications including, but not ? limited to, bleeding, perforation, ? infection, missing a cancer, and ? adverse medication reactions. The ? patient was placed in the left ? lateral decubitus position, and a ? digital rectal exam was performed. ? The Colonoscope was inserted in the ? anus and under direct visualization, ? advanced to the terminal ileum. ? Careful inspection was made as the ? colonoscope was withdrawn. The ? colonoscopy was performed without ? difficulty. The patient tolerated the ? procedure well. The quality of the ? bowel preparation was excellent. ? Findings: ? A 5 mm polyp was found in the ascending colon. The ? polyp was sessile. The polyp was removed with a cold ? snare. Resection and retrieval were complete. ? Internal hemorroids were noted. ? The exam was otherwise without abnormality. ? Impression: ?- One 5 mm polyp in the ascending ? colon. Resected and retrieved. ? - The examination was otherwise ? normal. Recommendation: ?- Await pathology results. ? Yuni Baig MD 03/02/2016 1:33:01 PM This report has been signed electronically. Number of Addenda: 0 Note Initiated On: 03/02/2016 12:58 PM PROVATION 03/02/2016 12:5 8 PM EDT Shanell Hawkins MD GENERAL SURGICAL ORD ERABLES PROVATION from Last 3 Months or Most Recently Relevant to Health Maintenance Advance Directives Documents on File Type Date Recorded Patient Chemistry Laboratory Technician Expl anation Advance Directives and Livin g Will 11/26/2010 8:29 AM * Full Code (Latest Code Status on File) Date Activated Date Inactivated Comments 08/04/2013 9:40 AM 08/04/2013 5:44 PM Question Answer Comments Does patient have decision m aking capacity? Yes, order is based on Patient wishes. * Full Code Date Activated Date Inactivated Comments 06/21/2012 10:01 AM 06/21/2012 8:46 PM Question Answer Comments Order Status: Initial Order Does patient have decision m aking capacity? Yes, Order is based on Patients wishes. Care Teams Advisor Advocate Angel Co Founder Relationship Specialty Start Date End Date Aden Lauren MD [address] [facility] [address] [place] [address] PCP - General Family Medicine 02/17/17
--- OUTSIDE RECORDS SUMMARY | 2024-06-23 02:17 | XMS_ITS | Encounter Summary ---
Author Organization [facility] [place] [address] Care Team Providers Care Car Body Designer Name Role Phone Aden Lauren MD Primary Care Provider [phone] Encounter Details Date Type Department Care Team (Late st Contact Info) Description 04/23/2022 [place]phone [place] [phone] Anurag Darby MD [facility] [place] [address] Social History Tobacco Use Types Packs/Day Years [...] encounter Miscellaneous Notes * Telephone Encounter - Kiarra Roy - 05/29/2022 11:32 AM EDT Re-scheduled * Telephone Encounter - Anastacia Walden - 05/28/2022 2:40 PM EDT Pt came in for her cancelled appointment - I have called her and offered to reschedule pt unable toschedule at this time and will call back for rescheduling If pt calls back please schedule in the next available new pt spot due to testing needed Return in about 1 year (around 05/27/2022) for HVF 24-2, IOP and pachymetry OU. * Telephone Encounter - Anastacia Walden - 05/04/2022 12:03 PM EDT Called x2 Phone rang and then disconnected - unable to leave VM for pt to call back to reschedule bumped appointment - Letter sent ?? If pt calls back please schedule in the first available new pt spot due to testing needed ?? Return in about 1 year (around 05/27/2022) for HVF 24-2, IOP and pachymetry OU. * Telephone Encounter - Anastacia Walden - 04/23/2022 4:24 PM EDT Phone rang and then disconnected - unable to leave VM for pt to call back to reschedule bumped appointment If pt calls back please schedule in the first available new pt spot due to testing needed Return in about 1 year (around 05/27/2022) for HVF 24-2, IOP and pachymetry OU. documented in this encounter Plan of Treatment Upcoming Encounters Date Type Department Care Team (Late st Contact Info) Description 07/24/2024 2:00 PM EDT Appointment Mammography/[place] [address] Aden Lauren MD [facility] [address] [facility] [address] [place] [address] documented as of this encounter Visit Diagnoses Not on filedocumented in this encounter Care Teams Car Body Designer Relationship Specialty Start Date End Date Aden Lauren MD [address] [place] [address] PCP - General Family Medicine 02/17/17 documented as of this encounter
--- OUTSIDE RECORDS SUMMARY | 2024-06-23 02:17 | XMS_ITS | Encounter Summary ---
Author Organization [facility] Address [facility] [place] [address] Care Team Providers Care C D Area Supervisor Name Role Phone Aden Lauren MD Primary Care Provider [phone] Reason for Visit * Reason Comments Skin Cancer Examination Encounter Details Date Type Department Care Team (Late st Contact Info) Description 03/04/2022 2:15 PM EDT Office Visit Dermatology at [facility] [address] [place] [address] Myah Lugo MD [facility] [place] [address] Seborrheic keratosis; History of basal cell carcinoma (BCC) Social [...] Progress Notes * Myah Lugo MD - 03/04/2022 2:15 PM EDT Images from the original note [...] flank, SK ?? EIC (right lower neck) PMH: Vulvar cancer, ? early breast cancer s/p lumpectomy?? Family History Details Melanoma No NMSC No Other relevant family history No Social History Marital status: Pre-Procedure Questions Details Allergy to lidocaine, epinephrine, Dermabond, chlorhexidine, or adhesives No Bleeding disorder or blood thinners No Pacemaker, defibrillator, deep brain stimulator, cochlear implant No History of Present Illness: Tianna Tovar is a 81 y.o. Patient returns to clinic today for a full skin exam with the following concerns: - Patient denies any specific skin concerns today; no lesions that are new, changing or symptomatic. Last FSe: 03/24/2021 Medications: Reviewed in eD-H Allergies: Reviewed in [...] Genitalia and buttocks were not examined. Assessment/Plan A. Seborrheic Keratoses - Stuck on, waxy papules on the face, trunk, and extremities. - Discussed benign nature of lesions and provided reassurance. No treatment necessary at this time. ?? C. History of BCC - Well-healed scars per skin history. - No evidence of recurrence; will continue to monitor. RTC: 1 year for FSE. [x]Note routed to electromyographic technician []Recall placed in scheduling system []Appointment scheduled at checkout Scribe attestation: IVETTE Bueno and Carmina Wright have performed the documentation for this encounter in the presence of and acting as a scribe for MYAH LUGO MD. I performed the above scribed service and agree with the accuracy of the documentation in this encounter. Reviewed and signed by: MYAH LUGO MD Dermatology [facility] documented in this encounter Plan of Treatment Upcoming Encounters Date Type Department Care Team (Late st Contact Info) Description 07/24/2024 2:00 PM EDT Appointment Mammography/[place] [address] Aden Lauren MD [address] [place], [place] [address] documented as of this encounter Visit Diagnoses Diagnosis Seborrheic keratosis Other seborrheic keratosis History of basal cell carcinoma (BCC) documented in this encounter Care Teams C D Area Supervisor Relationship Specialty Start Date End Date Aden Lauren MD [address] [place], [place] [address] PCP - General Family Medicine 02/17/17 documented as of this encounter
--- OUTSIDE RECORDS SUMMARY | 2024-06-23 02:18 | XMS_ITS | Encounter Summary ---
Author Organization [facility] Address [facility] [place] [address] Care Team Providers Care Export Documents Clerk Name Role Phone Aden Lauren MD Primary Care Provider [phone] Encounter Details Date Type Department Care Team (Late st Contact Info) Description 03/09/2018 Telephone Dermatology at [facility] [address] [place] [address] Myah Lugo MD [facility] [place] [address] Social History Tobacco Use Types Packs/Day Years [...] encounter Miscellaneous Notes * Telephone Encounter - Jasmina Reardon - 03/15/2018 9:23 AM EDT I was unable to reach this patient. I have sent a letter requesting a call back to schedule this follow up. * Telephone Encounter - Jasmina Reardon - 03/09/2018 9:07 AM EDT I left a voicemail for Tianna Tovar requesting a call back to schedule a 4 month efudex follow up. documented in this encounter Plan of Treatment Upcoming Encounters Date Type Department Care Team (Late st Contact Info) Description 07/24/2024 2:00 PM EDT Appointment Mammography/[place] [address] Aden Lauren MD [address] [place], [place] [address] documented as of this encounter Visit Diagnoses Not on filedocumented in this encounter Care Teams Export Documents Clerk Relationship Specialty Start Date End Date Aden Lauren MD [address] [place], [place] [id number] PCP - General Family Medicine 02/17/17 documented as of this encounter
--- OUTSIDE RECORDS SUMMARY | 2024-06-23 02:18 | XMS_ITS | Encounter Summary ---
[place] [address] Care Team Providers Care It Sales Consultant Name Role Phone Aden Lauren MD Primary Care Provider [phone] Encounter Details Date Type Department Care Team (Late st Contact Info) Description 06/27/2018 1:09 PM EDT - 06/27/2018 11:59 PM EDT Hospital [place] [address] Aden Lauren MD [address] [place] [address] Visit for screening mammogram Discharge [...] Sig Dispensed Refills Start Date End Date lisinopril-hydrochloro thiazide (PRINZIDE;ZESTORETIC) 10-12.5 mg Tablet Take 1 tablet by mouth daily. simvastatin (ZOCOR) 10 mg tablet Take 5 mg by mouth nightly. ibuprofen (ADVIL;MOTRIN) 200 mg tablet Take 200 mg by mouth every 6 hours as needed. Multivitamins Chew 07/29/2010 dorzolamide-timolol (COSOPT) 22.3-6.8 mg/mL DropsIndications:PXF (pseudoexfoliation of lens capsule) Place 1 drop into both eyes 2 times daily. 90 day supply/Patient is not ready for this to be filled. Please hold rx until needed. 30 mL 3 03/10/2018 03/10/2019 brimonidine (ALPHAGAN) 0.2 % DropsIndications:PXF (pseudoexfoliation of lens capsule) Place 1 drop into both eyes 2 times daily. 90 day supply/ Patient is not ready for this to be filled. Please hold rx until needed. 30 mL 3 03/10/2018 03/10/2019 fluorouracil (EFUDEX) 5 % Cream Apply topically bid as tolerated to AA on right arm x 6 weeks, then stop.OK to stop temporarily if too much inflammation. 40 g 03/07/2018 03/31/2024 hydrochlorothiazide (HYDRODIURIL) 25 mg tablet Take 12.5 mg by mouth daily. 03/27/2019 documented as of this encounter Plan of Treatment Upcoming Encounters Date Type Department Care Team (Late st Contact Info) Description 07/24/2024 2:00 PM EDT Appointment Mammography/[place] [address] Aden Lauren MD [facility] [address] [address] documented as of this encounter Procedures Procedure Name Priority Date/Time Associated Diagnosis Comments MAMMO SCREENING CAD AND CARLOS BILATERAL Routine 06/27/2018 1:38 PM EDT Visit for screening mammogram documented in this encounter Results * Mammo Screening Cad and Carlos Bilateral (06/27/2018 1:38 PM EDT) Anatomical Region Laterality Modality Breast Bilateral Mammography Narrative 06/27/2018 2:38 PM EDT BILATERAL MAMMOGRAPHY REASON FOR EXAM: Screening TECHNIQUE: CC and MLO views were obtained of each breast using standard 2-D mammography as well as 3-D tomosynthesis. Computer aided detection was used. Comparison: This is compared with prior images. FINDINGS: There are scattered areas of fibroglandular density. There are no suspicious microcalcifications, masses, or areas of distortion. The pattern is stable. Stable left breast benign-appearing focal asymmetries. Stable bilateral benign-appearing dystrophic calcifications. CONCLUSION: No mammographic evidence of malignancy. RECOMMENDATION: Routine screening. A result letter has been sent to this patient by the [facility]. BIRADS CATEGORY 2: Benign findings. * ??The [employer] and The Society of Breast Imaging recommend annual screening beginning at age 40 for the general female population. * ??Screening should continue as long as a woman is in good health and is expected to live 10 more years or longer. * ??All women should be familiar with the known benefits, limitations, and potential harms linked to breast cancer screening. They also should know how their breasts normally look and feel and report any breast changes to a health care provider right away. * ??Some women, because of their family history, a genetic tendency, or certain other factors, should be screened with MRIs along with mammograms. (The number of women who fall into this category is very small.) The patient and health care provider should discuss the patient history and decide if earlier screening and breast MRI are appropriate. Aden Lauren MD IMG MAMMO ORDERAB LES documented in this encounter Visit Diagnoses Diagnosis Visit for screening mammogram Other screening mammogram documented in this encounter Care Teams It Sales Consultant Relationship Specialty Start Date End Date Aden Lauren MD [address] [facility] [address] [place] [address] PCP - General Family Medicine 02/17/17 documented as of this encounter
--- OUTSIDE RECORDS SUMMARY | 2024-06-23 02:18 | XMS_ITS | Encounter Summary ---
Author Organization [facility] [place] [address] Care Team Providers Care Java Developer Analyst Name Role Phone Shanell Hawkins MD Primary Care Provider [phone] Reason for Visit * Reason Comments Follow-up Encounter Details Date Type Department Care Team (Late st Contact Info) Description 03/15/2015 10:30 AM EDT Follow-Up Dermatology at [facility] [address] [place] [address] Lana Esteves PA [facility] DR SUDHA [place] [address] Visit for wound check Discharge Disposition: Home Social History Tobacco Use [...] as of this encounter Progress Notes * Keo Caldwell MD - 03/20/2015 11:24 AM EDT Supervising. * Lana Mccarthy PA - 03/15/2015 11:08 AM EDT DERMATOLOGY - ESTABLISHED PATIENT FOLLOW-UP Date of service: 03/15/2015 Tianna Tovar : 1940 Dermatology Physician Medicare Sales Executive Note: Lana Mccarthy PA-C Chief Complaint Patient presents with ??? Follow-up This is an established patient, last seen by me on 01/30/15. HPI: Tianna Tovar presents for follow-up of treated lesion on right calf. She has had no problems with the area treated. The scab came off last night. Skin History: 1. Actinic Keratoses 2. Sclerosing BCC left nose MOHS by 2000 3. Seborrheic keratosis 4. Inflamed seborrheic keratosis - left cheekbone shave biopsy- 09/2012 ([place]) 5. Inflamed seborrheic keratosis - sternal notch shave biopsy- 09/2012 ([place]) 6. Infiltrating BCC- left medial cheek- MOHS- 02/2012 7. BCC- left deltoid- excised- 02/2012 8. SCC- left partial vulvectomy- excised by Dr. 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 Glaucoma PXF OU ??? Cataract ??? Cardiac disease ??? Cancer BCC Nose ??? Cholesterol serum increased ??? Arthritis ??? Pre-hypertension ??? Type 2 diabetes, diet controlled ??? 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 Type 2 diabetes, diet controlled ??? S/P lumpectomy, right breast 08/04/2013 Procedure Screening Questions: Defibrillator/Pacemaker: No Artificial Joints: No Heart Valves: No Blood Thinners: Motrin Prophylactic Antibiotics: No Medications: Current Outpatient Prescriptions Medication Sig Dispense Refill ??? dorzolamide-timolol (COSOPT) 2-0.5 % ophthalmic solution Place 1 drop into both eyes 2 times daily. Please dispense 90 day supply 10 mL 3 ??? brimonidine (ALPHAGAN) 0.2 % ophthalmic solution Place 1 drop into both eyes 2 times daily. Please dispense supply 30 mL 3 ??? simvastatin (ZOCOR) 10 mg tablet Take 5 mg by mouth nightly. ??? ibuprofen (ADVIL;MOTRIN) 200 mg tablet Take 200 mg by mouth every 6 hours as needed. ??? hydrochlorothiazide (HYDRODIURIL) 25 mg tablet Take 12.5 mg by mouth daily. ??? Multivitamins Chew No current facility-administered medications for this visit. Allergies: Allergies Allergen Reactions ??? Adhesive Tape Sensitive ??? Timolol Other (See Comments) burning Social History: Her and her spent the mathur in [place]. Review of Systems: - General: Feels well. - Skin: As per HPI; no other skin concerns. Examination: - Constitutional: Patient was alert, well-appearing and in no noticeable distress. - Skin: A focal exam of right calf. - Skin Type: 2 Specific skin findings: 1.Erythematous papule w/ central heme crust on right distal lateral calf, c/w healing lesion previously treated with liquid nitrogen. Diagnosis/Assessment/Treatment Plan: 1. Healing appropriately but too early in healing process to discern any primary features of any remaining lesion to r/o SBCC vs ISK. - re-evaluate in 6 weeks. - If not resolved will consider biopsy at that time. LOS: no charge RTC in 6 weeks. Patient will check schedule and call for an appointment. Instructed to call with questions or concerns. Note initiated by Amie Gonzalez LPN I am documenting this encounter acting as the scribe for and in the presence of Lana Mccarthy PA-C I performed the above scribed service and agree with the accuracy of the documentation in this encounter. Reviewed and signed by Lana Mccarthy PA-C Dermatology [facility] Patient seen in conjunction with/supervision of Attending Physician: Margaret Caldwell MD Section of Dermatology [facility] documented in this encounter Plan of Treatment Upcoming Encounters Date Type Department Care Team (Late st Contact Info) Description 07/24/2024 2:00 PM EDT Appointment Mammography/[place] [address] Aden Lauren MD [address] [place], [place] [address] documented as of this encounter Visit Diagnoses Diagnosis Visit for wound check Encounter for other specified aftercare documented in this encounter Care Teams Java Developer Analyst Relationship Specialty Start Date End Date Shanell Hawkins MD [address] [place], [place] [phone] PCP - General 08/19/10 02/17/16 documented as of this encounter
--- OUTSIDE RECORDS SUMMARY | 2024-06-23 02:18 | XMS_ITS | Encounter Summary ---
Author [facility] [place] [address] Care Team Providers Care Ager Operator Name Role Phone hSanell Hawkins MD Primary Care Provider [phone] Reason for Visit * Reason Comments Follow-up Encounter Details Date Type Department Care Team (Late st Contact Info) Description 02/26/2014 1:30 PM EDT Follow-[place] [phone] CLINIC, N[facility] [place] [address] Breast cancer screening, high risk patient (Primary Dx) Discharge Disposition: Home Social History Tobacco Use [...] Sign Reading Time Taken Comments Blood Pressure 152/57 02/26/2014 1:10 PM EDT Pulse 75 02/26/2014 1:10 PM EDT Temperature - - Respiratory Rate 16 02/26/2014 1:10 PM EDT Oxygen Saturation 98% 02/26/2014 1:10 PM EDT Inhaled Oxygen Concentration - - Weight 70.4 kg (155 lb 3.3 oz) 02/26/2014 1:10 P M EDT Height - - Body Mass Index 30.31 08/04/2013 9:48 AM EST documented in this encounter Progress Notes * Nelly Miller APRN - 02/26/2014 1:09 PM EDT Tianna Tovar is a 73 year old pt of Dr Blackwood who returns after right breast lumpectomy. Tianna had a 6 mm mass on screening mammogram. Core biopsy showed ADH. On 08/04/13 she underwent a lumpectomy. Path showed ADH, but no higher degree of neoplasia. She now returns for a check. She has no breast concerns On exam her incision is nicely healed. No erythema, no hematoma. No axillary adenopathy. Right breast soft,no masses.Left breast soft,no masses. Mammogram today on the right pending. Impression:Stable breast exam after WLE for ADH. Plan: I will see her back in June (before they go to [place]) for a CBE and a bilateral mammogram. She understands she is at increased risk for developing breast cancer given this ADH. She will do monthly breast self exam and will be followed at 6 months interval with a CBE (her PCP and or counter cutter provider alternating with me)with annual mammograms . documented in this encounter Plan of Treatment Upcoming Encounters Date Type Department Care Team (Late st Contact Info) Description 07/24/2024 2:00 PM EDT Appointment Mammography/[place] [address] Aden Lauren MD [address] [place], [place] [address] documented as of this encounter Visit Diagnoses Diagnosis Breast cancer screening, high risk patient- Primary Screening mammogram for high-risk patient documented in this encounter Care Teams Ager Operator Relationship Specialty Start Date End Date Shanell Hawkins MD [address] [place], [place] [address] PCP - General 08/19/10 02/17/16 documented as of this encounter
--- OUTSIDE RECORDS SUMMARY | 2024-06-23 02:18 | XMS_ITS | Encounter Summary ---
Author Organization [facility] [place] [address] Care Team Providers Care Facility Practice Specialist Name Role Phone Shanell Hawkins MD Primary Care Provider [phone] Reason for Visit * Reason Comments Follow-up Follow Up Surgery Encounter Details Date Type Department Care Team (Late st Contact Info) Description 07/15/2015 11:45 AM EDT Office [place] [address] Nelly Miller APRN [facility] [place] [address] Breast cancer screening, high risk patient Social History Tobacco Use Types Packs/Day Years [...] Sign Reading Time Taken Comments Blood Pressure 146/50 07/15/2015 11:35 AM EDT Pulse 71 07/15/2015 11:35 AM EDT Temperature - - Respiratory Rate 16 07/15/2015 11:35 AM EDT Oxygen Saturation 100% 07/15/2015 11:35 AM EDT Inhaled Oxygen Concentration - - Weight 70.1 kg (154 lb 8.7 oz) 07/15/2015 11:35 AM EDT Height - - Body Mass Index 30.18 08/04/2013 9:48 AM EST documented in this encounter Progress Notes * Nelly Miller APRN - 07/15/2015 11:43 AM EDT Tianna Tovar is a 75 year old pt of Dr Blackwood who returns for surgical follow up. Tianna had a 6 mm mass on screening mammogram. Core biopsy showed ADH. On 08/04/13 she underwent a right lumpectomy. Path showed ADH, but no higher degree of neoplasia. She now returns for a check. She has no breast concerns On exam her incision is nicely healed. No erythema, no hematoma. No axillary adenopathy. Right breast soft,no masses.Left breast soft,no masses. Mammogram today pending. Impression:Stable breast exam after WLE for ADH. Plan: I will see her back in January for a CBE . She understands she is at increased risk for developing breast cancer given this ADH. She will do monthly breast self exam and will be followed at 6 months interval with a CBE (her PCP and or convolute tube winder provider alternating with me)with annual mammograms . documented in this encounter Plan of Treatment Upcoming Encounters Date Type Department Care Team (Late st Contact Info) Description 07/24/2024 2:00 PM EDT Appointment Mammography/[place] [address] Aden Lauren MD [address] [place], [place] [address] documented as of this encounter Visit Diagnoses Diagnosis Breast cancer screening, high risk patient Screening mammogram for high-risk patient documented in this encounter Care Teams Facility Practice Specialist Relationship Specialty Start Date End Date Shanell Hawkins MD [address] [place], [place] [address] PCP - General 08/19/10 02/17/16 documented as of this encounter
--- OUTSIDE RECORDS SUMMARY | 2024-06-23 02:18 | XMS_ITS | Encounter Summary ---
Author Organization [facility] [place] [address] Care Team Providers Care Tester Equipment Name Role Phone Shanell Hawkins MD Primary Care Provider [phone] Reason for Visit * Reason Comments Skin Check Encounter Details Date Type Department Care Team (Late st Contact Info) Description 03/28/2014 2:30 PM EDT Follow-Up Dermatology at [facility] [address] [place] [address] Myah Lugo MD [facility] [address] [place] [address] Neoplasm of unspecified nature of bone, soft tissue, and skin; Seborrheic keratosis; CNH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), right; Seborrheic keratosis, inflamed Discharge Disposition: Home Social History Tobacco Use [...] as of this encounter Progress Notes * Amalia Polanco - 03/29/2014 3:37 PM EDTQuick Note: Letter sent * Myah Lugo MD - 03/28/2014 2:44 PM EDT DERMATOLOGY ESTABLISHED PATIENT CLINIC NOTE Date of service: 03/28/2014 Tianna Rosenberg : 1940 Provider: Myah Lugo MD Chief Complaint Patient presents with ??? Skin Check SKIN HISTORY: 1. Actinic Keratoses 2. Sclerosing BCC left nose MOHS by 2000 3. SK's 4. ISK- left cheekbone shave biopsy- 09/2012 ([place]) 5. ISK- sternal notch shave biopsy- 09/2012 ([place]) 6. Infiltrating BCC- left medial cheek- MOHS- 02/2012 7. BCC- left deltoid- excised- 02/2012 8. SCC- left partial vulvectomy- excised by Dr. Curry 05/2012 resulting in partial vulvectomy with 3 nodes removed from left groin (all negative) HPI Tianna Rosenberg is a 73 y.o. year old female. Presents with today for full skin cancer examination. Multiple scaly areas of concern on face, chest, right hip, and enlarging spot on back. Denies pain or bleeding. ADR: Allergies Allergen Reactions ??? Adhesive Tape Sensitive ??? Timolol Other (See Comments) burning MEDS: Current Outpatient Prescriptions Medication Sig Dispense Refill ??? dorzolamide-timolol (COSOPT) 2-0.5 % ophthalmic solution Place 1 drop into both eyes 2 times daily. Please dispense 90 day supply 10 mL 3 ??? brimonidine (ALPHAGAN) 0.2 % ophthalmic solution Place 1 drop into both eyes 2 times daily. Please dispense 90 day supply 30 mL 3 ??? simvastatin (ZOCOR) 10 mg tablet Take 5 mg by mouth nightly. ??? ibuprofen (ADVIL;MOTRIN) 200 mg tablet Take 200 mg by mouth every 6 hours as needed. ??? hydrochlorothiazide (HYDRODIURIL) 25 mg tablet Take 12.5 mg by mouth daily. ??? Multivitamins Chew ROS General: feeling well Skin: denies other skin complaints EXAM General: NAD, pleasant, cooperative. A total body skin exam except for areas covered by underwear was performed. This includes examination of the skin of the face, ears, neck, chest, axillae, left and right upper and lower extremities, hands and feet, abdomen, and breasts also examined with patientconsent. Skin: Significant skin findings: A. Inflamed brown waxy papule with stuck on appearance right lower back B. 0.7cm pink papule right lower back, 6.5cm right of midline Adjacent to lesion A above C. Firm, exquisitely tender, pink papule with with a central keratotic core right superior helix D. Multiple 0.4-0.6cm brown papules with waxy, stuck-on appearance. Milia-like cysts, comedone-likeopenings and/or fissuring on dermoscopy. ASSESSMENT/PLAN: A. Inflamed Seborrheic Keratosis Procedure: Destruction of lesion. Site: Right Lower Back. Discussed indications and expectations including risks and benefits. Verbal consent obtained. Skin prep. Local anesthesia: buffered 1% lidocaine with epinephrine. The entire lesion plus a small margin was treated by guaze curettage and electr odesiccation. No complications. Wound dressed. Expectations (including discomfort management) and wound care reviewed. B. Seborrheic Keratosis vs Melanocytic Lesion Procedure: Skin biopsy by shave technique Location: Right lower back, 6.5cm right of midline Discussed indications for procedure and expectations including risks and benefits. Verbal consent obtained. Skin prep with alcohol. Local anesthesia with 1% xylocaine, 1/100,000 epinephrine, 0.1 mEq/mL bicarbonate. A sample of the lesion was removed by shave technique to the level of the dermis andsubmitted to Pathology. Hemostasis obtained (AlCl and/or electrocautery). There were no complications; the pt. tolerated the procedure well. The wound was dressed. Post-procedure expectations, wound care and activity restrictions were reviewed. C. Chrondrodermatitis Nodularis Helicis (CNH). Advised to sleep on other side D. Multiple Seborrheic Keratosis - Reassured of benign nature RTC pending pathology, otherwise 12 months I am documenting this encounter acting as the scribe for and in the presence of Dr. Lugo.: BENJAMIN GTZ LPN I performed the above scribed service and agree with the accuracy of the documentation in this encounter. Myah Lugo MD Section of Dermatology [facility] documented in this encounter Plan of Treatment Upcoming Encounters Date Type Department Care Team (Late st Contact Info) Description 07/24/2024 2:00 PM EDT Appointment Mammography/[place] [address] Aden Lauren MD [address] [place] [address] [address] [facility] [address] [place] [address] documented as of this encounter Procedures Procedure Name Priority Date/Time Associated Diagnosis Comments SPECIMEN TO PATHOLOGY (NON-OR) Routine 03/28/2014 3:18 PM EDT Neoplasm of unspecified nature of bone, soft tissue, and skin SURGICAL PATHOLOGY REPORT Routine 03/28/2014 3:18 PM EDT documented in this encounter Results * Surgical Pathology Report (03/28/2014 3:18 PM EDT) Final Diagnosis ? [facility] ? Provider: ?? MYAH LUGO ? Pt. Name: ?? TIANNA ROSENBERG ? Acc #: ?[id number] ? Pt. ? Col Date: ?? 03/28/2014 ?/Sex: ?1940,(73 ? years),Female ? Rec Date: ?? 03/28/2014 ?LOC: ?[facility]DM ? SURGICAL PATHOLOGY ? ---Pathologic Diagnosis--- ? Skin, right lower back, 6.5 cm right of midline, shave biopsy: ?Seborrheic keratosis, inflamed. ? CR-0 ? 03/29/14 ? BJM ? 03/29/14 Verified by: ? Kalpesh COX, PhD, Hiren ? Dermatopathologist ? (Electronic Signature) ? The attending pathologist whose signature appears on this report has ? reviewed all diagnostic slides and has edited the gross and/or ? microscopic portion of the report in rendering the final pathologic ? diagnosis. ? ---Gross Description--- ? A - Labeled/Fixative: Patient's name, formalin. ? Quantity/Size: Single, 0.7 x 0.6 x 0.15 cm papule. ? Tissue Description: [place]-brown skin. ? Sections/Processing: Inked, trisected. (T1) ??cjl ? ---Clinical Information--- ? Specimen Submitted: ? A - Skin, right lower back, 6.5 cm right of midline, shave biopsy (1) ? Clinical History: ? 0.7 cm pink papule right lower back, 6.5 cm right of midline ? Clinical Diagnosis: ? SK versus melanocytic lesion 03/29/2014 1:40 PM EDT [facility] SPECIMEN FROM SKIN / Unknown 03/28/2014 3:18 PM EDT 03/28/2014 3:18 PM EDT Myah Lugo MD PATHOLOGY/CYTOLOGY O RDERABLES Performing Organization Address City/State/[facility] [place] Phone Number [facility] [place] [address] * Specimen to Pathology (NON-OR) (03/28/2014 3:18 PM EDT) AP Specimen 03/28/2014 3:18 PM EDT 03/28/2014 3:18 PM EDT Narrative [facility] - 03/28/2014 3:18 PM EDT Specimen requisition ordered. ??Separate Pathology report to follow Myah Lugo MD PATHOLOGY/CYTOLOGY O RDERABLES [facility] documented in this encounter Visit Diagnoses Diagnosis Neoplasm of unspecified nature of bone, soft tissue, and skin Seborrheic keratosis Other seborrheic keratosis CNH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), right Seborrheic keratosis, inflamed Inflamed seborrheic keratosis documented in this encounter Care Teams Tester Equipment Relationship Specialty Start Date End Date Shanell Hawkins MD [address] [place] [address] PCP - General 08/19/10 02/17/16 documented as of this encounter
--- OUTSIDE RECORDS SUMMARY | 2024-06-23 02:18 | XMS_ITS | Encounter Summary ---
Author Organization [facility] Address [facility] [place] [address] Care Team Providers Care Public Health Informatician Name Role Phone Aden Lauren MD Primary Care Provider [phone] Reason for Visit * Reason Comments Procedure ED&C Encounter Details Date Type Department Care Team (Late st Contact Info) Description 04/14/2019 3:15 PM EDT Office Visit Dermatology at [facility] [address] [place] [address] Myah Lugo MD [facility] [address] [place] [address] Basal cell carcinoma (BCC) of right lower back Social History Tobacco Use Types Packs/Day Years [...] this encounter Patient Instructions * Patient Instructions* [facility]ies[facility] Tyler, [facility] - 04/14/2019 3:15 PM EDT ED&C Wound Care Instructions Your treatment today: You have had an Electrodesiccation and Curretage (ED&C) of your skin, which is a method to destroy skin cancer. This wound will heal without stitches. Allow 3-6 weeks for the wound to heal fully. If bleeding occurs, hold firm, constant pressure against the wound for 15-20 minutes (with no peeking). If bleeding continues, call the clinic or go to your local emergency department. Wound care instructions: Keep the bandage placed over the wound dry and intact for 24 hours. Afterwards, perform the following wound care daily: ?? Wash your hands. ?? Remove the bandage, clean the area with soap and water, and gently pat dry. ?? Apply a small amount of Vaseline and cover with a Band-Aid. ?? Repeat daily until the wound is healed fully. A small amount of yellow drainage is part of the normal healing process. The area might appear as asmall depression with redness around the edge of the wound; this is normal. Please contact the clinic if you notice any of the following signs of infection: increased pain, tenderness, drainage, or redness that becomes hot or hard around the wound. Contact information: On weekdays (8am to 5pm), please call the clinic at [phone]. After 5pm, and on weekends and holidays, please call the hospital at [phone] and ask for the Oil Field Pumper Charge Aide. documented in this encounter Progress Notes * Myah Lugo MD - 04/14/2019 3:15 PM EDT DERMATOLOGY ESTABLISHED PATIENT NOTE Date of service: 04/14/2019 Tianna Tovar : 1940 Provider: Myah Lugo MD Chief Complaint Patient presents with ??? Procedure ED&C SKIN HX Left nose: Sclerosing BCC - s/p Mohs with??,??2000 ?? 09/2012 (patient reported; biopsied in [place]) Left cheekbone: ISK Sternal notch: ISK ?? 01/27/2012 A. Left medial cheek, punch biopsy: Infiltrating BCC present at peripheral and deep margins. - s/p Mohs??02/2012 B. Left deltoid, shave biopsy: BCC, focally present at a peripheral margin. - s/p 03/22/12 ?? 06/21/2012 Left partial vulvectomy: SCC - s/p partial vulvectomy; 3 nodes (negative) removed from left groin ?? 03/28/2014 Right lower back, 6.5 cm right of midline, shave biopsy: Seborrheic keratosis, inflamed. ?? 02/07/2016 A. 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 B. Left flank, shave biopsy: seborrheic keratosis. ?? 02/28/2018 Right lateral arm, shave biopsy: BCC, superficial type, extending to the peripheral specimen edge. 03/02/2019 Right lower back, shave biopsy:??BCC, superficial and nodular types with features of??fibroepithelioma of pinkus, present at the peripheral and deep specimen edges. - ED&C today (04/14/19) ?? Other: - Actinic keratoses - s/p Carac - Seborrheic keratoses - [place] angiomas - Lentigines - Chrondrodermatitis nodularis helicis ?? Social History: Marital status: ?? Patient Preferences: Preferred name: Tianna Preferred contact method with results: Yes Detailed message including biopsy results okay?: Yes Are there any other people with whom we may discuss your care?: (Yrn) SAHARA Tovar is a 78 y.o. female, established patient last seen by me on 03/02/19. Here today forED&C of a biopsy-proven BCC on the right lower back. ADR Allergies Allergen Reactions ??? Adhesive Tape Sensitive ??? Timolol Other (See Comments) burning MEDS Current Outpatient Medications Medication Sig Dispense Refill ??? dorzolamide-timolol (COSOPT) 22.3-6.8 mg/mL Drops Place 1 drop into both eyes 2 times daily. supply/Patient is not ready for this to be filled. Please hold rx until needed. 30 mL 3 ??? brimonidine (ALPHAGAN) 0.2 % Drops Place 1 drop into both eyes 2 times daily. 90 day supply/ Patient is not ready for this to be filled. Please hold rx until needed. 30 mL 3 ??? fluorouracil (EFUDEX) 5 % Cream Apply topically bid as tolerated to AA on right arm x 6 weeks, then stop.OK to stop temporarily if too much inflammation. 40 g 0 ??? lisinopril-hydrochlorothiazide (PRINZIDE;ZESTORETIC) 10-12.5 mg Tablet Take 1 tablet by mouth daily. ??? simvastatin (ZOCOR) 10 mg tablet Take 5 mg by mouth nightly. ??? ibuprofen (ADVIL;MOTRIN) 200 mg tablet Take 200 mg by mouth every 6 hours as needed. ??? Multivitamins Chew No current facility-administered medications for this visit. ROS General: feeling well Skin: denies other skin complaints EXAM General: NAD, pleasant, cooperative Skin: A focused skin examination of the right lower back, significant for??the following: Significant skin findings: A. Right lower back: 1.7 cm pink plaque. ASSESSMENT/PLAN A. Biopsy-Proven BCC - Reviewed pathology and ED&C procedure with patient. [place] decision to proceed with ED&C today. - Patient denies allergies to lidocaine and epinephrine. - Patient denies having a pacemaker or defibrillator. Procedure: Destruction of lesion by electrodesiccation and curettage (ED&C) Location: As noted above. Discussed indications and expectations including risks and benefits. Verbal consent obtained. Skin prepped with alcohol. Local anesthesia with 1% xylocaine, 1/100,000 epinephrine. The entire lesion plus a small margin was treated. Post- curettage defect size: 1.7 cm. There were no complications; patient tolerated the procedure well. Wound dressed. Expectations (including discomfort management) andwound care reviewed. FOLLOW UP: RTC in February 2020 for a follow up/full skin exam; sooner if needed. Recall in system to schedule. Instructed patient to call with questions or concerns. I am documenting this encounter acting as the scribe for and in the presence of Dr. Lugo: Niesha Salas [facility] I performed the above scribed service and agree with the accuracy of the documentation in this encounter. Myah Lugo MD Section of Dermatology [facility] documented in this encounter Plan of Treatment Upcoming Encounters Date Type Department Care Team (Late st Contact Info) Description 07/24/2024 2:00 PM EDT Appointment Mammography/[place] [address] Aden Lauren MD [email or web address] [place] [address] documented as of this encounter Visit Diagnoses Diagnosis Basal cell carcinoma (BCC) of right lower back documented in this encounter Care Teams Public Health Informatician Relationship Specialty Start Date End Date Aden Lauren MD [email or web address] [place] [address] PCP - General Family Medicine 02/17/17 documented as of this encounter
--- OUTSIDE RECORDS SUMMARY | 2024-06-23 02:18 | XMS_ITS | Encounter Summary ---
Author Organization [facility] [place] [address] Care Team Providers Care Quality Engineer Medical Device Name Role Phone Aden Lauren MD Primary Care Provider [phone] Encounter Details Date Type Department Care Team (Late st Contact Info) Description 03/10/2019 Telephone Dermatology at [facility] [address] [place] [address] Myah Lugo MD [facility] [address] [place] [address] Social History Tobacco Use Types Packs/Day Years [...] * Telephone Encounter - Jasmina Reardon - 03/10/2019 12:14 PM EDT I left a voicemail for Tianna Tovar requesting a call back to schedule this ED&C * Telephone Encounter - Jasmina Reardon - 03/10/2019 12:14 PM EDT ----- Message from Niesha Tyler CMA sent at 03/10/2019 9:38 AM EDT ----- I reviewed the biopsy results and Dr. Lugo's recommended treatment plan with the patient. Site: Right lower back Result: BCC Plan: OSP vs ED&C Patient elects to proceed with ED&C. I reviewed the procedure in detail. Jasmina, please contact to schedule for ED&C. She would like to coordinate appointments with her Riccardo Tovar (Bruce), who also needs to schedule an ED&C with Dr. Lugo. documented in this encounter Plan of Treatment Upcoming Encounters Date Type Department Care Team (Late st Contact Info) Description 07/24/2024 2:00 PM EDT Appointment Mammography/[place] [address] Aden Lauren MD [email or web address] [place], [place] [address] documented as of this encounter Visit Diagnoses Not on filedocumented in this encounter Care Teams Quality Engineer Medical Device Relationship Specialty Start Date End Date Aden Lauren MD [email or web address] [place], [place] [address] PCP - General Family Medicine 02/17/17 documented as of this encounter
--- OUTSIDE RECORDS SUMMARY | 2024-06-23 02:18 | XMS_ITS | Encounter Summary ---
Author Organization [facility] Address [facility] [place] [address] Care Team Providers Care Construction Equipment Mechanic Helper Name Role Phone Shanell Hawkins MD Primary Care Provider [phone] Encounter Details Date Type Department Care Team (Latest Contact Info) Description 07/15/2015 10:18 AM EDT - 07/15/2015 11:59 PM EDT Hospital Encounter [place] [address] David Blackwood MD [facility] [place] [address] Other screening mammogram Discharge Disposition: Home Social History [...] Sig Dispensed Refills Start Date End Date simvastatin (ZOCOR) 10 mg tablet Take 5 mg by mouth nightly. ibuprofen (ADVIL;MOTRIN) 200 mg tablet Take 200 mg by mouth every 6 hours as needed. Multivitamins Chew 07/29/2010 dorzolamide-timolol (COSOPT) 22.3-6.8 mg/mL DropsIndications:PXF (pseudoexfoliation of lens capsule) Place 1 drop into both eyes 2 times daily. Please dispense 90 day supply 30 mL 3 06/11/2015 04/08/2016 brimonidine (ALPHAGAN) 0.2 % DropsIndications:PXF (pseudoexfoliation of lens capsule) Place 1 drop into both eyes 2 times daily. Please dispense 90 day supply 30 mL 3 05/27/2015 04/08/2016 hydrochlorothiazide (HYDRODIURIL) 25 mg tablet Take 12.5 mg by mouth daily. 03/27/2019 documented as of this encounter Plan of Treatment Upcoming Encounters Date Type Department Care Team (Late st Contact Info) Description 07/24/2024 2:00 PM EDT Appointment Mammography/[place] [address] Aden Lauren MD [facility] [address] [place] [address] documented as of this encounter Procedures Procedure Name Priority Date/Time Associated Diagnosis Comments MAMMO 2D DIGITAL SCREEN CARLOS BILATERAL Routine 07/15/2015 10:46 AM EDT Other screening mammogram documented in this encounter Results * Mammo Screen Carlos 2D Bilateral (07/15/2015 10:46 AM EDT) Anatomical Region Laterality Modality Breast Bilateral Mammography Narrative 07/16/2015 8:43 AM EDT BILATERAL MAMMOGRAPHY REASON FOR EXAM: [...] No mammographic evidence of malignancy. RECOMMENDATION: Routine screening mammography is recommended with the frequency dependent on the patient? s age, breast cancer risk factors and preference. Additional studies may be recommended for women with higher than average risk for breast cancer. A result letter has been sent to this patient by the [facility]. BIRADS CATEGORY 1: NEGATIVE David Blackwood MD IMG MAMMO ORDERABLES documented in this encounter Visit Diagnoses Diagnosis Other screening mammogram documented in this encounter Care Teams Construction Equipment Mechanic Helper Relationship Specialty Start Date End Date Shanell Hawkins MD [address] [place] [address] PCP - General 08/19/10 02/17/16 documented as of this encounter
--- OUTSIDE RECORDS SUMMARY | 2024-06-23 02:18 | XMS_ITS | Encounter Summary ---
[place] [address] Care Team Providers Care Department Head Name Role Phone Emily Mendieta APRN Primary Care Provider Encounter Details Date Type Department Care Team (Late st Contact Info) Description 07/17/2016 12:59 PM EDT - 07/17/2016 11:59 PM EDT Hospital [place] [address] Aden Lauren MD [address] [place] [address] Encounter for screening mammogram for [...] hours as needed. Multivitamins Chew 07/29/2010 brimonidine (ALPHAGAN) 0.2 % DropsIndications:PXF (pseudoexfoliation of lens capsule) Place 1 drop into both eyes 2 times daily. 90 day supply/ Patient is not ready for this to be filled. Please hold rx until needed. 30 mL 3 04/08/2016 04/12/2017 dorzolamide-timolol (COSOPT) 22.3-6.8 mg/mL DropsIndications:PXF (pseudoexfoliation of lens capsule) Place 1 drop into both eyes 2 times daily. 90 day supply/Patient is not ready for this to be filled. Please hold rx until needed. 30 mL 3 04/08/2016 04/12/2017 hydrochlorothiazide (HYDRODIURIL) 25 mg tablet Take 12.5 mg by mouth daily. 03/27/2019 documented as of this encounter Plan of Treatment Upcoming Encounters Date Type Department Care Team (Late st Contact Info) Description 07/24/2024 2:00 PM EDT Appointment Mammography/[place] [address] Aden Lauren MD [address] [address] documented as of this encounter Procedures Procedure Name Priority Date/Time Associated Diagnosis Comments MAMMO SCREENING CAD AND CARLOS BILATERAL Routine 07/17/2016 1:23 PM EDT Encounter for screening mammogram for breast cancer documented in this encounter Results * Mammo Screen CAD and Carlos Bilat (Generic) (07/17/2016 1:23 PM EDT) Anatomical Region Laterality Modality Breast Bilateral Mammography Narrative 07/17/2016 1:47 PM EDT BILATERAL MAMMOGRAPHY REASON FOR EXAM: [...] CONCLUSION: No mammographic evidence of malignancy. RECOMMENDATION: The [employer] and The Society of Breast Imaging recommend annual screening beginning at age 40 for the general female population. Screening should continue as long as a woman is in good health and is expected to live 10 more years or longer. All women should be familiar with the known benefits, limitations, and potential harms linked to breast cancer screening. They should also know how their breasts normally look and feel and report any breast changes to a health care provider right away. Some women - because of their family history, a genetic tendency, or certain other factors - should be screened with MRIs along with mammograms. (The number of women who fall into this category is very small.) The patient and health care provider should discuss the patient history and decide if earlier screening and breast MRI are appropriate. A result letter has been sent to this patient by the [facility]. BIRADS CATEGORY 1: NEGATIVE Aden Lauren MD IMG MAMMO ORDERAB LES documented in this encounter Visit Diagnoses Diagnosis Encounter for screening mammogram for breast cancer documented in this encounter Care Teams Department Head Relationship Specialty Start Date End Date Emily Mendieta APRN [address] [place] [address] PCP - General Family Medicine 02/18/16 02/16/17 documented as of this encounter
--- OUTSIDE RECORDS SUMMARY | 2024-06-23 02:18 | XMS_ITS | Encounter Summary ---
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 [address] Pseudoexfoliation glaucoma, stage unspecified (Primary Dx); COAG (chronic open-angle glaucoma), stage unspecified; PXF (pseudoexfoliation of lens capsule) Social History [...] this encounter Patient Instructions * Patient Instructions* Ajay Moy MD - 04/08/2016 1:15 PM EDT HPI Pseudoexfoliation Glaucoma Additional comments: 1 yr ck Comments 1 yr f/u PXF Glaucoma : Pt has not complaints with vision or eyes today. Rocio has performed the documentation for this encounter in the presence of and acting as a scribe for AJAY MOY MD. I performed the above scribed service and agree with the accuracy of the documentation in this encounter. Last edited by Ajay Moy MD on 04/08/2016 3:24 PM. (History) COAG (chronic open-angle glaucoma) Assessment: PXF Glaucoma OU - IOP and testing stable today Plan: Continue present medications Follow up in 1 yr for HVF/OCT (Pt is out of town except for annually) For additional information about eye conditions, visit the Eye Facts portion of my website at http://[employer]/eye-education/ and I also started a Glaucoma Patient Group on [employer] (htt ps://[employer].Citydeal.de/groups/glaucomapatientgroup) for patients to seek help from one another. (Search for Glaucoma Patient Group and then ask to join.) documented in this encounter Progress Notes * Ajay Moy MD - 04/08/2016 1:15 PM EDT COAG (chronic open-angle glaucoma) Assessment: PXF Glaucoma OU - IOP and testing stable today Plan: Continue present medications Follow up in 1 yr for HVF/OCT (Pt is out of town except for annually) documented in this encounter Miscellaneous Notes * Assessment & Plan Note - Ajay Moy MD - 04/08/2016 3:30 PM EDT Associated Problem(s): COAG (chronic open-angle glaucoma) Assessment: PXF Glaucoma OU - IOP and testing stable today Plan: Continue present medications Follow up in 1 yr for HVF/OCT (Pt is out of town except for annually) documented in this encounter Plan of Treatment Upcoming Encounters Date Type Department Care Team (Late st Contact Info) Description 07/24/2024 2:00 PM EDT Appointment Mammography/[place] [address] Aden Lauren MD [address] [place] [address] documented as of this encounter Procedures Procedure Name Priority Date/Time Associated Diagnosis Comments AUTOMATED VISUAL FIELD - EXTENDED - OU- BOTH EYES Routine 04/08/2016 3:26 PM EDT Pseudoexfoliation glaucoma, stage unspecified OCT OPTIC NERVE - OU - BOTH EYES Routine 04/08/2016 3:25 PM EDT Pseudoexfoliation glaucoma, stage unspecified documented in this encounter Results * AUTOMATED VISUAL FIELD - EXTENDED - OU- BOTH EYES (04/08/2016 3:26 PM EDT) Anatomical Region Laterality Modality Other Narrative 04/08/2016 3:26 PM EDT Right Eye Threshold was 24-2. Strategy was SKIP. Reliability was good. Left Eye Threshold was 24-2. Strategy was SKIP. Reliability was good. Notes Visual Field Results Glaucoma Hemifield Test (GHT) OD: within normal limits OS: borderline normal limits Visual Function Index (VFI) OD: 100 % OS: 98 % MD OD: +0.75 dB ? PSD OD: 1.86 dB MD OS: -0.80 dB ??PSD OS: 1.97 dB Interpretation: within normal limits OD, borderline OS Ajay Moy MD OPHTHALMOLOGY SERV ICES ORDERABLES * OCT OPTIC [id number] EYES (04/08/2016 3:25 PM EDT) Anatomical Region Laterality Modality Other Narrative 04/08/2016 3:25 PM EDT Right Eye Quality was good. Left Eye Quality was good. 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
--- OUTSIDE RECORDS SUMMARY | 2024-06-23 02:18 | XMS_ITS | Encounter Summary ---
Author Organization [facility]ev [facility] [place] [address] Care Team Providers Care Medical Recruiter Name Role Phone Shanell Hawkins MD Primary Care Provider [phone] Reason for Visit * Reason Comments Pseudoexfoliation Glaucoma 6 mo ck, OCT, dil Chronic Open Angle Glaucoma Encounter Details Date Type Department Care Team (Late st Contact Info) Description 02/26/2014 1:45 PM EDT [place] [address] Anurag Meyer MD [facility] DR [place]AL[place] [address] COAG (chronic open-angle glaucoma); Pseudoexfoliation glaucoma ou; Pseudophakia of both eyes; Type 2 diabetes, diet controlled; PXF (pseudoexfoliation of lens capsule) Discharge Disposition: Home Social History Tobacco Use [...] of this encounter Progress Notes * Anurag Meyer MD - 02/26/2014 2:57 PM EDT IAnurag, performed the above scribed services and agree with the accuracy of the documentation of this encounter. Encounter Diagnoses Name Primary? COAG (chronic open-angle glaucoma) ??? Pseudoexfoliation glaucoma ou ??? Pseudophakia of both eyes ??? Type 2 diabetes, diet controlled 03/11/2011 Tianna Tovar is a 70 y.o. female with coag ou, 1st seen 1999, c pxf od noted then, none os; and pxf noted os 04/01. Discs=0.7 od and 0.5 os. VFs= nl ou 06/05. And on 03/09. OCTs on 03/08= 90/98. And on 03/10= 87/95 and nl ou and nsc ou. Tmax , then 25 ou on cos ou; Cct=58 ou. IOPstatus= 14 ou on MEDS=cos, alpha ou; ie mtmt. ADReye=clifford [dizzy] xal. Lum. TARGET=<20. Surg=alt od ; iol ou 06/06; VA= 20///25cc; prior= -1 and +3. [place] in winter. 03/16/2012= coag glc, w pxf ou, stable same rx 02/26/2014= . And glc stable, same rx, ck 1yr, hvfs and dil documented in this encounter Plan of Treatment Upcoming Encounters Date Type Department Care Team (Late st Contact Info) Description 07/24/2024 2:00 PM EDT Appointment Mammography/[place] [address] Aden Lauren MD [facility] [address] [place] [address] documented as of this encounter Procedures Procedure Name Priority Date/Time Associated Diagnosis Comments OCT OPTIC NERVE - OU - BOTH EYES Routine 02/26/2014 2:56 PM EDT COAG (chronic open-angle glaucoma) documented in this encounter Results * OCT OPTIC [id number] EYES (02/26/2014 2:56 PM EDT) Anatomical Region Laterality Modality Other Narrative 02/26/2014 2:56 PM EDT [place] Normal/stable OU 87/95 Procedure Note Anurag Meyer MD - 02/26/2014 [place] Normal/stable OU 87/95 Anurag Meyer MD OPHTHALMOLOGY SERVIC ES ORDERABLES documented in this encounter Visit Diagnoses Diagnosis COAG (chronic open-angle glaucoma) Primary open-angle glaucoma 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
--- OUTSIDE RECORDS SUMMARY | 2024-06-23 02:18 | XMS_ITS | Encounter Summary ---
[place] [address] Care Team Providers Care Rotor Balancer Name Role Phone Aden Lauren MD Primary Care Provider [phone] Encounter Details Date Type Department Care Team (Late st Contact Info) Description 06/29/2019 1:33 PM EDT - 06/29/2019 11:59 PM EDT Hospital Encounter Mammography[place] [address] Aden Lauren MD [facility] [address] [place] [address] Encounter for screening mammogram for [...] hold rx until needed. 30 mL 3 03/10/2019 01/21/2021 brimonidine (ALPHAGAN) 0.2 % DropsIndications:PXF (pseudoexfoliation of lens capsule) Place 1 drop into both eyes 2 times daily. 90 day supply/ Patient is not ready for this to be filled. Please hold rx until needed. 30 mL 3 03/10/2019 11/15/2019 fluorouracil (EFUDEX) 5 % Cream Apply topically bid as tolerated to AA on right arm x 6 weeks, then stop.OK to stop temporarily if too much inflammation. 40 g 03/07/2018 03/31/2024 documented as of this encounter Plan of Treatment Upcoming Encounters Date Type Department Care Team (Late st Contact Info) Description 07/24/2024 2:00 PM EDT Appointment Mammography[place] [address] Aden Lauren MD [address] [address] documented as of this encounter Procedures Procedure Name Priority Date/Time Associated Diagnosis Comments MAMMO SCREENING CAD AND CARLOS BILATERAL Routine 06/29/2019 2:09 PM EDT Encounter for screening mammogram for breast cancer documented in this encounter Results * Mammo Screening Cad and Carlos Bilateral (06/29/2019 2:09 PM EDT) Anatomical Region Laterality Modality Breast Bilateral Mammography Impressions 06/29/2019 2:32 PM EDT BIRADS CATEGORY 0: INCOMPLETE MAMMOGRAM. Needs additional imaging evaluation. RECOMMENDATION: The patient will be contacted regarding the additional imaging. Thank you for letting us participate in the care of this patient. For questions regarding this report, please contact the number below. ? Electronically signed by: CEDRIC Batista [facility] ([phone]), at 06/29/2019 2:32 PM Narrative 06/29/2019 2:32 PM EDT REASON FOR EXAM: Screening TECHNIQUE: CC and MLO views were obtained of the Bilateral breast.Computer aided detection was used. 3D tomosynthesis images were obtained in addition to 2D images. FINDINGS: Breast density:There are scattered areas of fibroglandular density. Left breast. ??There are no suspicious microcalcifications, masses, or areas of distortion. No changes compared to prior studies. The Right breast is abnormal and additional imaging is required. There is ??a 0.8 cm group of microcalcifications close to a clip from a prior breast biopsy, which have increased since 2017 Limited bilateral MLO views due to patient body habitus Aden Lauren MD IMG MAMMO ORDERAB LES documented in this encounter Visit Diagnoses Diagnosis Encounter for screening mammogram for breast cancer documented in this encounter Care Teams Rotor Balancer Relationship Specialty Start Date End Date Aden Lauren MD [address] [place] [address] PCP - General Family Medicine 02/17/17 documented as of this encounter
--- OUTSIDE RECORDS SUMMARY | 2024-06-23 02:18 | XMS_ITS | Encounter Summary ---
Author Organization [facility] [place] [address] Care Team Providers Care Optical Glass Wet Inspector Name Role Phone Aden Lauren MD Primary Care Provider [phone] Encounter Details Date Type Department Care Team (Latest Contact Info) Description 07/10/2019 12:30 PM EDT - 07/10/2019 11:59 PM EDT Hospital En[place] [address] Cynthia Martinez MD [facility] [place] [address] Abnormal finding on breast imaging Discharge Disposition: Home Social History Tobacco Use [...] 07/24/2024 2:00 PM EDT Appointment Mammography/[place] [address] Aden Lauren MD [address] [place] [address] [address] [facility] [place] [address] documented as of this encounter Procedures Procedure Name Priority Date/Time Associated Diagnosis Comments MAMMO DIAGNOSTIC CAD AND CARLOS RIGHT Routine 07/10/2019 1:05 PM EDT Abnormal finding on breast imaging documented in this encounter Results * Mammo Diagnostic Cad and Carlos Right (07/10/2019 1:05 PM EDT) Anatomical Region Laterality Modality Breast Right Mammography Impressions 07/10/2019 1:10 PM EDT Right upper and outer breast calcifications, dystrophic and benign-appearing. No suspicious findings. RECOMMENDATION: Annual screening. Findings and recommendations discussed with the patient, who concurs. Right breast: BI-RADS 2, benign findings. * ??The [employer] and The Society of [...] earlier screening and breast MRI are appropriate. Thank you for letting us participate in the care of this patient. For questions regarding this report, please contact the number below. ? Narrative 07/10/2019 1:10 PM EDT EXAMINATION: MAMMO DIAGNOSTIC CAD AND CARLOS RIGHT CLINICAL HISTORY: abnormal finding 79-year-old female returns for additional diagnostic imaging, right breast calcifications seen on screening views. TECHNIQUE: Annual mammography, direct image capture. CAD software was utilized. 2-D/3-D imaging. Tomographic imaging was obtained. COMPARISON: Screening views 06/29/2019, multiple additional comparisons dating back to 2003. FINDINGS: Right breast: Scattered densities. At approximately 10:00, 7 cm from the nipple, again identified is a group of calcifications, coalescing into a dystrophic process, without pleomorphism or suspicious abnormalities. In retrospect these calcifications are similar to identical to those harvested at nearby stereotactic biopsy of 2008 and were benign. No additional findings. Cynthia Martinez MD IMG MAMMO ORDERABLES documented in this encounter Visit Diagnoses Diagnosis Abnormal finding on breast imaging Other (abnormal) findings on radiological examination of breast documented in this encounter Care Teams Optical Glass Wet Inspector Relationship Specialty Start Date End Date Aden Lauren MD [address] [place] [address] PCP - General Family Medicine 02/17/17 documented as of this encounter
--- OUTSIDE RECORDS SUMMARY | 2024-06-23 02:18 | XMS_ITS | Encounter Summary ---
Author Organization [facility] [place] [address] Care Team Providers Care Transaction Advisory Services Manager Name Role Phone Aden Lauern MD Primary Care Provider [phone] Encounter Details Date Type Department Care Team (Late st Contact Info) Description 03/07/2018 Orders Only Dermatology at [facility] [address] [place] [address] Myah Lugo MD [facility] [address] [place] [address] Social History Tobacco Use Types Packs/Day Years [...] 07/24/2024 2:00 PM EDT Appointment Mammography/[place] [address] Aden Lauren MD [address] [place] [address] documented as of this encounter Visit Diagnoses Not on filedocumented in this encounter Care Teams Transaction Advisory Services Manager Relationship Specialty Start Date End Date Aden Lauren MD [address] [place] [address] PCP - General Family Medicine 02/17/17 documented as of this encounter
--- OUTSIDE RECORDS SUMMARY | 2024-06-23 02:18 | XMS_ITS | Encounter Summary ---
Author Organization [facility] [place] [address] Care Team Providers Care Program Support Clerk Name Role Phone Shanell Hawkins MD Primary Care Provider [phone] Reason for Visit * Reason Onset Date Comments Medication Refill 06/10/2015 Patient called requesting we resend refill for Cosopt to [facility] as they say they did not received 05/24/15 transmission. Encounter Details Date Type Department Care Team (Late st Contact Info) Description 06/10/2015 Ref[place] [address] Riccardo Moy MD [facility] 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
--- OUTSIDE RECORDS SUMMARY | 2024-06-23 02:18 | XMS_ITS | Encounter Summary ---
Author Organization [facility] [place] [address] Care Team Providers Care Pediatric Dental Assistant Name Role Phone Shanell Hawkins MD Primary Care Provider [phone] Reason for Visit * Reason Comments Skin Lesion Encounter Details Date Type Department Care Team (Late st Contact Info) Description 05/03/2015 11:30 AM EDT Follow-Up Dermatology at [facility] [address] [place] [address] Lana Esteves PA [facility] [place] [address] Estela Cosme MD [facility] [address] [place] [address] Scar; History of basal cell carcinoma of skin; History of SCC (squamous cell carcinoma) of skin Discharge Disposition: Home Social History Tobacco Use [...] as of this encounter Progress Notes * Estela Cosme MD - 05/05/2015 11:36 PM EDT Leg appears well-healed, no residual neoplasm appreciated today. Patient seen in conjunction with Lana Mccarthy PA-C Signed by: ESTELA COSME MD Section of Dermatology [facility] * Lana Mccarthy PA - 05/03/2015 11:28 AM EDT DERMATOLOGY - ESTABLISHED PATIENT FOLLOW-UP Date of service: 05/03/2015 Tianna Tovar : 1940 Dermatology Physician Examiner Rating Clerk Note: Lana Mccarthy PA-C Chief Complaint Patient presents with ??? Skin Lesion This is an established patient, last seen by myself on 03/15/15 HPI: Tianna Tovar presents for follow-up of a re-check of a lesion on her right lateral distal calf,treated w/ LN2 on 01/30/15 as suspected ISK vs SBCC. Lesion has fully healed. Patient has had no problems w/ lesion. Skin History: 1. Actinic Keratoses 2. Sclerosing BCC left nose MOHS by 2000 3. Seborrheic keratosis 4. Inflamed seborrheic keratosis - left cheekbone shave biopsy- 09/2012 ([place]) 5. Inflamed seborrheic keratosis - sternal notch shave biopsy- 09/2012 ([place]) 6. Infiltrating BCC- left medial cheek- MOHS- [...] controlled ??? S/P lumpectomy, right breast 08/04/2013 Patient Active Problem List Diagnosis Code ??? COAG (chronic open-angle glaucoma) 365.11, 365.70 ??? 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 Personal history of other malignant neoplasm of skin V10.83 ??? Type 2 diabetes, diet controlled 250.00 ??? Pre-hypertension 796.2 ??? Cholesterol serum increased 272.9 ??? 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 Timolol Other (See Comments) burning Review of Systems: - General: Feels well. - Skin: As per HPI; no other skin concerns. Examination: - Constitutional: Patient was alert, well-appearing and in no noticeable distress. - Skin: An abbreviated skin examination was performed. This includes the right lower leg. Specific skin findings: 1. 1.5cm hypopigmented slightly atrophic patch, no characteristics suggestive of remaining lesion or NMSC. Diagnosis/Assessment/Treatment Plan: 1. Appropriately healed lesion, NER LOS: [id number] RTC as scheduled w/ Dr. Lugo or PRN if symptoms worsen or persist. Instructed to call with questions or concerns. Note initiated by YESSY FARNSWORTH LPN I am documenting this encounter acting as the scribe for and in the presence of Lana Mccarthy PA-C I performed the above scribed service and agree with the accuracy of the documentation in this encounter. Reviewed and signed by Lana Mccarthy PA-C Dermatology [facility] Patient seen in conjunction with/supervision of Attending Physician: Estela Cosme MD Section of Dermatology [facility] documented in this encounter Plan of Treatment Upcoming Encounters Date Type Department Care Team (Late st Contact Info) Description 07/24/2024 2:00 PM EDT Appointment Mammography/[place] [address] Aden Lauren MD [address] [place] [address] [address] [place], [place] [address] documented as of this encounter Visit Diagnoses Diagnosis Scar Scar condition and fibrosis of skin History of basal cell carcinoma of skin History of SCC (squamous cell carcinoma) of skin Personal history of other malignant neoplasm of skin documented in this encounter Care Teams Pediatric Dental Assistant Relationship Specialty Start Date End Date Shanell Hawkins MD [address] [place], [place] [address] PCP - General 08/19/10 02/17/16 documented as of this encounter
--- OUTSIDE RECORDS SUMMARY | 2024-06-23 02:18 | XMS_ITS | Encounter Summary ---
Author Organization [facility] Address [facility] [place] [address] Care Team Providers Care Roofer Helper Name Role Phone Aden Lauren MD Primary Care Provider [phone] [phone] Reason for Visit * Reason Comments Skin Check FSE Encounter Details Date Type Department Care Team (Late st Contact Info) Description 02/28/2018 10:00 AM EDT Office Visit Dermatology at [facility] [address] [place] [address] Myah Lugo MD [facility] [address] [place] [address] Neoplasm of uncertain behavior (Primary Dx); SK (seborrheic keratosis); History of basal cell carcinoma; Post-inflammatory hyperpigmentation; Scar; History of SCC (squamous cell carcinoma) of skin Social History Tobacco Use Types Packs/Day Years [...] as of this encounter Progress Notes * Niesha Tyler, ELISEOA - 03/07/2018 11:58 AM EDT Spoke with patient in regards to her biopsy results. Per Dr. Parish: The biopsy shows a superficial BCC and she recommends either ED&C, 5-FU (bid x 6 weeks), or OSP. I reviewed each of those procedures in detail. The patient elects to treat with Efudex and asked that we send the prescription to [facility] in [place], [place]. I encouraged the patient to call our clinic with any questions or concerns. Jasmina, please contact to schedule a 4-month Efudex follow-up. * Myah Lugo MD - 02/28/2018 10:00 AM EDT Images from the original note were not included. DERMATOLOGY ESTABLISHED PATIENT CLINIC NOTE Date of service: 02/28/2018 Tianna Tovar : 1940 Provider: Myah Lugo MD Chief Complaint Patient presents with ??? Skin Check FSE SKIN HISTORY: Left nose: Sclerosing BCC - s/p Mohs with , 09/2012 (patient reported; biopsied in [place]) Left cheekbone: ISK Sternal notch: ISK Left medial cheek: Infiltrating BCC - s/p Mohs 02/2012 Left deltoid: BCC - excised- 02/2012 Left partial vulvectomy: SCC - partial vulvectomy (3 nodes removed from left groin; all negative) with Dr. Curry 05/2012 Other: - Actinic keratoses - Seborrheic keratoses - De La Cruz angiomas - Lentigines - Chrondrodermatitis Nodularis Helicis PATIENT PREFERENCES Preferred name: Tianna Preferred contact method with results: Yes Detailed message including biopsy results okay?: Yes Are there any other people with whom we may discuss your care?: (Yrn) SAHARA Tovar is a 77 y.o. female, established patient last seen by me on 02/17/2017. Here today,accompanied by her Riccardo (Yrn), for a full skin exam (history of BCC, SCC). Denies anysignificant changes in health since her last visit. Concerned today about how the burn scar on her right upper arm; pink spot at edge x months. States she has had boils in her grown; unsure if they were ingrown hairs. They resolve spontaneously after squeezing. None active today. ADR: Allergies Allergen Reactions ??? Adhesive Tape Sensitive ??? Timolol Other (See Comments) burning MEDS: Current Outpatient Prescriptions Medication Sig Dispense Refill ??? brimonidine (ALPHAGAN) 0.2 % Drops Place 1 drop into both eyes 2 times daily. supply/ Patient is not ready for this to be filled. Please hold rx until needed. 30 mL 3 ??? dorzolamide-timolol (COSOPT) 22.3-6.8 mg/mL Drops Place 1 drop into both eyes 2 times daily. supply/Patient is not ready for this to be filled. Please hold rx until needed. 30 mL 3 ??? simvastatin (ZOCOR) 10 [...] complaints EXAM General: NAD, pleasant, cooperative Skin: Patient was asked to disrobe to the level of their comfort. A total body skin exam was performed. This includes examination of the skin of the face, ears, neck, chest, axillae, left and right upper and lower extremities, hands, feet, abdomen, and back. Genitalia, buttocks and breasts were also examined with patient consent. Significant skin findings: A. Right lateral arm: 0.4 cm bright pink, thin papule at the edge of scar. [Figure A] Figure A Photo(s) taken and charted by IVETTE Bueno with patient's verbal consent. B. Torso and extremities: Scattered 0.4-0.6 cm pink-brown papules/plaque with waxy stuck on appearance. C. Vulva: Two hyperpigmented macules c/w PIH. Left posterior vulva: Scar.s/p left partial vulvectomy. D. Well-healed scar(s) as per history ASSESSMENT/PLAN: A. Inflammatory Papule R/O SCC Procedure: Skin biopsy by shave technique Location: Right lateral arm ?? Discussed indications for procedure and expectations including risks and benefits. Verbal consent obtained. Skin prepped with alcohol. Local anesthesia with 1% xylocaine. A sample of the lesion was removed by shave technique to the level of the dermis and submitted to Pathology. Hemostasis obtained(AlCl). There were no complications; the patient tolerated procedure well. The wound was dressed. Post-procedure expectations, wound care and activity restrictions were reviewed. ?? - Follow-up based on pathology results. B. Seborrheic Keratoses - Discussed benign nature of lesions and provided reassurance. No treatment necessary at this time. - Advised patient to call if they become inflamed or irritated. C. Post Inflammatory Hyperpigmentation, Scar - NER - Will continue to monitor. - Instructed patient to RTC for active lesion to help narrow ddx D. H/O BCC, SCC - NER (except possibly A above) - Will continue to monitor. FOLLOW UP: Based on pathology results. RTC in 1 year, or sooner if needed, for a full skin exam. Reminder placed in system to schedule. Instructed patient to call with questions or concerns. I am documenting this encounter acting as the scribe for and in the presence of Dr. Lugo: IVETTE Jack I performed the above scribed service and agree with the accuracy of the documentation in this encounter. Myah Lugo MD Section of Dermatology [facility] documented in this encounter Plan of Treatment Upcoming Encounters Date Type Department Care Team (Late st Contact Info) Description 07/24/2024 2:00 PM EDT Appointment Mammography/[place] [address] Aden Lauren MD [address] [place] [address] [address] documented as of this encounter Procedures Procedure Name Priority Date/Time Associated Diagnosis Comments SPECIMEN TO PATHOLOGY Routine 02/28/2018 12:10 PM EDT Neoplasm of uncertain behavior SURGICAL PATHOLOGY REPORT Routine 02/28/2018 10:30 AM EDT documented in this encounter Results * Specimen to Pathology (02/28/2018 12:10 PM EDT) AP Specimen 02/28/2018 12:1 0 PM EDT 02/28/2018 3:46 PM EDT Narrative [facility] - 02/28/2018 3:46 PM EDT Specimen requisition ordered. ??Separate Pathology report to follow Resulting Agency Comment Spec In Lab Myah Lugo MD PATHOLOGY/CYTOLOGY O RDERABLES [facility] [place] [address] * Surgical Pathology Report (02/28/2018 10:30 AM EDT) Final Diagnosis [id number] ? Location: [facility] The signing pathologist has (i) examined the relevant preparation(s) for the specimen(s) and (ii) rendered or confirmed the diagnosis(es). . ?Surgical Pathology DIAGNOSIS Skin, right lateral arm, shave ?? biopsy: - Basal cell carcinoma, superficial type, extending to the peripheral specimen edge. Electronically signed by: ??Kalpesh COX, PhD, Hiren Verified: ??03/02/2018 ?Dermatopathol ogist Performed at: ??-[facility] [place], [place], [place] CLINICAL INFORMATION Specimen Submitted: A - Skin, right lateral arm, shave (1) Clinical History and Diagnosis: 0.4 cm bright pink, thin papule at the edge of scar/inflammato ry papule rule out SCC SPECIMEN PROCESSING A - Labeled/Fixativ e: Right lateral arm, formalin. Quantity/Size: Single, 0.5 x 0.4 x 0.1 cm. Tissue Description: Shave of buckley skin papule. Sections/Proces sing: Inked and bisected. (T1) ??albaro 03/02/2018 10:22 AM EDT [facility] SPECIMEN FROM SKIN / Unknown 02/28/2018 10:30 AM EDT 02/28/2018 10:30 AM EDT Myah Lugo MD PATHOLOGY/CYTOLOGY O RDERABLES Performing Organization Address City/State/[facility] [[email or web address]] Co de Phone Number [facility] [place] [address] documented in this encounter Visit Diagnoses Diagnosis Neoplasm of uncertain behavior- Primary Neoplasm of uncertain behavior, site unspecified SK (seborrheic keratosis) Other seborrheic keratosis History of basal cell carcinoma Personal history of other malignant neoplasm of skin Post-inflammatory hyperpigmentation Dyschromia, unspecified Scar Scar condition and fibrosis of skin History of SCC (squamous cell carcinoma) of skin Personal history of other malignant neoplasm of skin documented in this encounter Care Teams Roofer Helper Relationship Specialty Start Date End Date Aden Lauren MD [address] [place] [address] PCP - General Family Medicine 02/17/17 documented as of this encounter
--- OUTSIDE RECORDS SUMMARY | 2024-06-23 02:18 | XMS_ITS | Encounter Summary ---
Author [facility] [place] [address] Care Team Providers Care Criminal Justice Faculty Name Role Phone Aden Lauren MD Primary Care Provider [phone] [phone] Reason for Visit * Reason Onset Date Comments Reminder Appointment 01/09/2019 Encounter Details Date Type Department Care Team (Late Contact Info) Description 01/09/2019 [place] [address] Yogi Florentino MD [facility] [place] [address] Reminder Appointment Social History Tobacco Use Types Packs/Day Years [...] * Telephone Encounter - Anastacia Walden - 01/09/2019 11:50 AM EDT Number is busy - unable to leave for pt to call back to schedule appointment from recall - letter sent glaucoma follow-up, last saw SK in February 2018 documented in this encounter Plan of Treatment Upcoming Encounters Date Type Department Care Team (Late st Contact Info) Description 07/24/2024 2:00 PM EDT Appointment Mammography/[place] [address] Aden Lauren MD [address] [place], [place] [address] documented as of this encounter Visit Diagnoses Not on filedocumented in this encounter Care Teams Criminal Justice Faculty Relationship Specialty Start Date End Date Aden Lauren MD [address] [place], [place] [address] PCP - General Family Medicine 02/17/17 documented as of this encounter
--- OUTSIDE RECORDS SUMMARY | 2024-06-23 02:18 | XMS_ITS | Encounter Summary ---
Author Organization [facility] Address [facility] [place] [address] Care Team Providers Care Antenna Rigger Name Role Phone Aden Lauren MD Primary Care Provider [phone] [phone] Reason for Visit * Reason Comments Procedure excision of EIC on r ight lateral neck * Surgical (Routine) - Closed Specialty Diagnoses / Procedures Referred By Shmuel howe Referred To Contact Plastic Surgery Diagnoses excision of EIC on right lateral neck, CPT: 46304 Procedures PRO EXC SKIN BENIG 2.1-3CM REMAINDR BODY PROCEDURE Myah Lugo MD [facility] [address] [place] [address] Héctor Prado MD [facility] [place] [address] Referral ID Status Reason Start Date Expiration Date Visits Re quested Visits Authorized [id number] Closed 05/31/2019 05/30/2020 1 1 Encounter Details Date Type Department Care Team (Latest Contact Info) Description 07/10/2019 3:15 PM EDT Procedure [place] [address] Héctor Prado MD [facility] [place] [address] Skin lesion of neck Social History Tobacco Use Types Packs/Day Years [...] this encounter Patient Instructions * Patient Instructions* Joanne Wyatt RN - 07/10/2019 3:15 PM EDT The healing process is different for each person and/or procedure. You can expect some discomfort. There will also be swelling and possibly bruising that will subside in the next few days or weeks. Note that your pain, swelling, bruising, and drainage are directly related to activity. Dressing: Keep your incision/dressing dry for ____1 day. Change dressing daily starting tomorrow. Sutures: Your sutures need to be removed in 7 days. If bleeding occurs which soaks through the outside bandage, apply firm, direct pressure with your hand over the bandage for 15 minutes Showering: You may shower in ___1____day. Do not soak in a pool or bath until completely healed. Activity Restrictions: To minimize swelling, pain and bleeding please follow these instructions: Head and neck surgery: Remain upright for the rest of the day. Sleep with an extra pillow tonight. Avoid strenuous activity, heavy lifting, and bending below the waist. Protect your incisions from the sun for at least 6 months. Medications: Ibuprofen or Tylenol as directed Problems to report to your doctor: -A temperature over 100.4F or 38C -Excessive redness or warmth spreading away from the incision line after the first 48 hours. -Thick, yellow, foul smelling drainage larger than a dime from the incisions or drain site. -Increased pain that is not relieved by your pain medicine. To contact your doctor: -During office hours - Wednesday through Wednesday from 8am to 5pm - call [phone] -On weekends or after office hours - call [phone] and ask the pug machine operator to page the Plastic Surgeon aegis operations specialist. -The nurses line - Wednesday through Wednesday from 8am to 5pm - call [phone]. documented in this encounter Progress Notes * Joanne Wyatt RN - 07/10/2019 3:15 PM EDT Plastic Surgery Minor Surgery Worksheet Skin Prep: Hibiclens Cautery Unit: MNS1 Grounding Pad Site: left arm Settings: Coag 15 Cutting 15 Xylocaine w/epi 1:200,000 4 cc documented in this encounter Procedure Notes * Héctor Prado MD - 07/10/2019 3:15 PM EDTAssociated Order(s): EXCISION BENIGN SCALP,NECK,HANDS,FEET,GEN (MSO) Pre-Procedure Diagnose(s): Skin lesion of neck Procedure Note Plastic Surgery Procedure: Excision of EIC on neck Anatomic Location: Right lateral neck Pre-op diagnosis: Skin lesion of neck Post-op diagnosis: Skin lesion of neck Consent: Written from patient after discussion of risks and benefits. Physicians: Héctor Prado M.D. Anesthesia: Local with lidocaine 1% with epi Description: After anesthesia was provided, the site was prepped and draped in sterile fashion. Theright neck lesion was marked out there was some mild erythema at the puncta. Elliptical incision was planned 2 cm in length and 5 mm in width to include the puncta. Incision was made sharply through the skin dissection proceeded around the capsule was noted that there was some pus within the capsule itself the entire cyst and capsule were excised. The wound was copiously irrigated. The wound was then closed with deep Vicryl sutures and Prolene in the skin. The cyst itself measured to 2.2 cm. Specimens: inclusion cyst Complications: none immediate EBL: min Disposition: Pt. tolerated the procedure well. documented in this encounter Plan of Treatment Upcoming Encounters Date Type Department Care Team (Late st Contact Info) Description 07/24/2024 2:00 PM EDT Appointment Mammography/[place] [address] Aden Lauren MD [facility] [address] [place] [address] documented as of this encounter Procedures Procedure Name Priority Date/Time Associated Diagnosis Comments SPECIMEN TO PATHOLOGY Routine 07/10/2019 4:04 PM EDT Skin lesion of neck SURGICAL PATHOLOGY REPORT Routine 07/10/2019 4:00 PM EDT EXCISION BENIGN SCALP,NECK,HANDS,FE ET,GEN (MSO) Routine 07/10/2019 3:15 PM EDT Skin lesion of neck documented in this encounter Results * Specimen to Pathology (07/10/2019 4:04 PM EDT) AP Specimen 07/10/2019 4:04 PM EDT 07/10/2019 4:04 PM EDT Narrative [facility] - 07/10/2019 4:04 PM EDT Specimen requisition ordered. ??Separate Pathology report to follow Héctor Prado MD PATHOLOGY/CYTOLOGY O RDERABLES [facility] [place] [address] * Surgical Pathology Report (07/10/2019 4:00 PM EDT) Final Diagnosis [id number] ? Location: 4M The signing pathologist has (i) examined the relevant preparation(s) for the specimen(s) and (ii) rendered or confirmed the diagnosis(es). . ?Surgical Pathology DIAGNOSIS Skin and soft tissue, right neck cystic mass, excision: Epidermal inclusion cyst with abscess and foreign body giant cell response consistent with rupture. Electronically signed by: ??Bharath COX, Keo Blackmon Verified: ??07/12/2019 ?Pathologist Performed at: ??-[facility] Dept. of Pathology, [place], [place] CLINICAL INFORMATION Specimen Submitted: A - Right neck Clinical History and Diagnosis: Right neck cyst SPECIMEN PROCESSING A - Labeled/Fixative : Right neck cyst, formalin. Quantity/Size: Single, 2.0 x 1.3 x 1.3 cm. Tissue Description: Previously, partially ruptured pink-red percutaneous cyst containing sebaceous, yellow-white amorphous debris. The cyst lining is smooth and pink-red without gross lesions. Sections/Process ing: Gamer sections in 1 cassette labeled A1. ??shb 07/12/2019 10:05 AM EDT [facility] SPECIMEN FROM CYST / Unknown 07/10/2019 4:00 PM EDT 07/10/2019 4:00 PM EDT Héctor Prado MD PATHOLOGY/CYTOLOGY O RDERABLES [facility] [place] [address] * Exc Ruben Les(Scalp/nck/hand/ft/gen(MSO) (07/10/2019 3:15 PM EDT) Narrative Héctor Prado MD - 07/10/2019 3:15 PM EDT Héctor Prado MD ? 07/20/2019 ??2:28 PM Procedure Note Plastic Surgery Procedure: Excision of EIC on neck Anatomic Location: Right lateral neck Pre-op diagnosis: Skin lesion of neck Post-op diagnosis: Skin lesion of neck Consent: Written from patient after discussion of risks and benefits. Physicians: Héctor Prado M.D. Anesthesia: Local with lidocaine 1% with epi Description: After anesthesia was provided, the site was prepped and draped in sterile fashion. ??The right neck lesion was marked out there was some mild erythema at the puncta. ??Elliptical incision was planned 2 cm in length and 5 mm in width to include the puncta. ??Incision was made sharply through the skin dissection proceeded around the capsule was noted that there was some pus within the capsule itself the entire cyst and capsule were excised. ??The wound was copiously irrigated. ??The wound was then closed with deep Vicryl sutures and Prolene in the skin. ?? The cyst itself measured to 2.2 cm. Specimens: inclusion cyst Complications: none immediate EBL: min Disposition: Pt. tolerated the procedure well. Héctor Prado MD DERM PROCEDURE ORDER GUILLERMO documented in this encounter Visit Diagnoses Diagnosis Skin lesion of neck documented in this encounter Care Teams Antenna Rigger Relationship Specialty Start Date End Date Aden Lauren MD [address] [place] [address] PCP - General Family Medicine 02/17/17 documented as of this encounter
--- OUTSIDE RECORDS SUMMARY | 2024-06-23 02:18 | XMS_ITS | Encounter Summary ---
[place] [address] Care Team Providers Care Brine Plant Operator Name Role Phone Aedn Lauren MD Primary Care Provider [phone] [phone] Encounter Details Date Type Department Care Team (Late st Contact Info) Description 06/27/2020 1:23 PM EDT - 06/27/2020 11:59 PM EDT Hospital Encounter Mammography/[place] [address] Aden Lauren MD [facility] [address] [place] [address] Encounter for screening mammogram for [...] both eyes 2 times daily. 30 mL 5 03/13/2020 01/21/2021 brimonidine (ALPHAGAN) 0.2 % DropsIndications:PXF (pseudoexfoliation of lens capsule) Place 1 drop into both eyes 2 times daily. 90 day supply 30 mL 3 11/16/2019 01/21/2021 dorzolamide-timolol (COSOPT) 22.3-6.8 mg/mL DropsIndications:PXF (pseudoexfoliation of lens capsule) Place 1 drop into both eyes 2 times daily. 90 day supply/Patient is not ready for this to be filled. Please hold rx until needed. 30 mL 3 03/10/2019 01/21/2021 fluorouracil (EFUDEX) 5 % Cream Apply topically bid as tolerated to AA on right arm x 6 weeks, then stop.OK to stop temporarily if too much inflammation. 40 g 03/07/2018 03/31/2024 documented as of this encounter Plan of Treatment Upcoming Encounters Date Type Department Care Team (Late st Contact Info) Description 07/24/2024 2:00 PM EDT Appointment Mammography/[place] [address] Aden Lauren MD [address] [place] [address] documented as of this encounter Procedures Procedure Name Priority Date/Time Associated Diagnosis Comments MAMMO SCREENING CAD AND CARLOS BILATERAL Routine 06/27/2020 1:41 PM EDT Encounter for screening mammogram for breast cancer documented in this encounter Results * Mammo Screening Cad and Carlos Bilateral (06/27/2020 1:41 PM EDT) Anatomical Region Laterality Modality Breast Bilateral Mammography Narrative 06/28/2020 10:08 AM EDT BILATERAL MAMMOGRAPHY REASON FOR EXAM: [...] cancer documented in this encounter Care Teams Brine Plant Operator Relationship Specialty Start Date End Date Aden Lauren MD [address] [place] [address] PCP - General Family Medicine 02/17/17 documented as of this encounter
--- OUTSIDE RECORDS SUMMARY | 2024-06-23 02:18 | XMS_ITS | Encounter Summary ---
[place] [address] Care Team Providers Care Belt Maker Helper Name Role Phone Aden Lauren MD Primary Care Provider [phone] Reason for Visit * Reason Comments Follow Up Surgery s/p excision of EIC on right lateral neck dos 07/10 Encounter Details Date Type Department Care Team (Latest Contact Info) Description 07/17/2019 1:00 PM EDT Clinical [place] [phone] Postoperative follow-up Social History Tobacco Use Types Packs/Day Years [...] * Patient Instructions* Joanne Wyatt RN - 07/17/2019 1:00 PM EDT Signs of Infection : A temperature over 100.4 F or 38 C. Redness at the incision line that is beginning to spread away from the incision after the first 48 hours. Yellow pus-like or foul smelling drainage larger than a dime size from the incision or drain sites. Increased pain / discomfort that is not relieved by your pain medicine such as extra strength tylenol, or NSAIDS For any of these symptoms please call our nurse's line at [phone] M - F 8 - 5 For after hours, and on weekends; Call [phone] and ask for our plastic surgeon customs and border protection inspector -SCAR MASSAGE TECHNIQUE: to begin 4-6 weeks following surgery What is a scar? When an injury occurs, the body immediately begins to repair itself & the area becomes swollen & sore. Eventually small collagen fibers form, becoming a solid tissue that results in a scar. This scar will continue to change in appearance for 1-2 years. Ideally, a scar is smooth & flat, blending in with the surrounding skin. However, some scars may become highly visible & unattractive due to factors such as your age, scar location & size, nutrition, genetics, or infection. A hypertrophic scar occurs when there is an excess production of collagen tissue that is elevated but remains within the wound boundaries. The scar is tense, red, & can be associated with itching & tenderness. A hypertrophic scar can be ordinary (usually stabilizes in 3 months & may even get smaller and smoother) or keloid. The keloid scar invades nearby tissue that was not part of the original wound, tends to enlarge even after 6 months & does not get softer. Will scar massage make my scars disappear? Nothing can make scars disappear. However, massaging the scar assists the body in breaking down thescar tissue to give it a flatter, softer, appearance. Massage also mobilizes the scar, preventing it from adhering to underlying tissue, tendons, & nerves. You can make the greatest difference in the appearance of the scar if you massage it in the first 3months. What should I use on my scars? You will hear many recommendations. This clinic finds that it is the massage itself that reduces the scar & not necessarily the choice of ointments or creams. We do discourage the use of Vitamin E oil, however, due to studies that have reported scar inflammation & deterioration. How do I massage my scars? Apply the lotion or cream into the scar 3-4 times a day for 8 weeks on new scars, and 3-4 times perday for 3 to 6 months on existing scars. Using your finger, apply pressure to the scar in a crosswise & circular direction, bearing down as hard as tolerated. Remember to protect your scar from the sun, especially in the first 6-12 months, by using a moisturizer with sunblock and wearing a physical barrier (ie: a hat) when possible documented in this encounter Progress Notes * Joanne Wyatt RN - 07/17/2019 1:00 PM EDT Images from the original note were not included. Reason for Visit: Postoperative Evaluation s/p excision of epidermal inclusion cyst from right neck07/10/[address] Prado POD # 7 Tianna is here for an incision check and suture removal. Subjective: Tianna states she has no discomfort. Objective: Bruising: no Swelling: mild Sutures removed,incision well approximated, steri-strips applied after wound care wash. Assessment: No signs of delayed healing,erythema,or fluid collection.Incisions CDI. Plan: We reviewed post op incision instructions including: Begin scar massage in four to six weeks, instructions provided in avs. We reviewed signs and symptoms of infection, sun precautions, increase protein in the diet, and correct phone numbers to call us for concerns. Dressing instructions: Tianna expressed understanding of instructions,and agrees with the plan of care. Follow up PRN. documented in this encounter Plan of Treatment Upcoming Encounters Date Type Department Care Team (Late st Contact Info) Description 07/24/2024 2:00 PM EDT Appointment Mammography/[place] [address] Aden Lauren MD [address] [place] [address] documented as of this encounter Visit Diagnoses Diagnosis Postoperative follow-up Follow-up examination, following unspecified surgery documented in this encounter Care Teams Belt Maker Helper Relationship Specialty Start Date End Date Aden Lauren MD [address] [place] [address] PCP - General Family Medicine 02/17/17 documented as of this encounter
--- OUTSIDE RECORDS SUMMARY | 2024-06-23 02:18 | XMS_ITS | Encounter Summary ---
[place] [address] Care Team Providers Care Operating Room Technologist Name Role Phone Shanell Hawkins MD Primary Care Provider [phone] Encounter Details Date Type Department Care Team (Latest Contact Info) Description 07/12/2014 1:53 PM EDT - 07/12/2014 11:59 PM EDT Hospital Encounter [place]ography [place] [phone] Atypical ductal hyperplasia of breast Social History Tobacco Use Types Packs/Day Years [...] as needed. Multivitamins Chew 07/29/2010 dorzolamide-timolol (COSOPT) 2-0.5 % ophthalmic solutionIndications:PXF (pseudoexfoliation of lens capsule) Place 1 drop into both eyes 2 times daily. Please dispense 90 day supply 10 mL 3 02/26/2014 05/27/2015 brimonidine (ALPHAGAN) 0.2 % ophthalmic solutionIndications:PXF (pseudoexfoliation of lens capsule) Place 1 drop into both eyes 2 times daily. Please dispense 90 day supply 30 mL 3 02/26/2014 05/27/2015 hydrochlorothiazide (HYDRODIURIL) 25 mg tablet Take 12.5 mg by mouth daily. 03/27/2019 documented as of this encounter Plan of Treatment Upcoming Encounters Date Type Department Care Team (Late st Contact Info) Description 07/24/2024 2:00 PM EDT Appointment Mammography/[place] [address] Aden Lauren MD [address] [place] [address] documented as of this encounter Procedures Procedure Name Priority Date/Time Associated Diagnosis Comments MAMMO SCREENING CAD BILATERAL Routine 07/12/2014 2:26 PM EDT documented in this encounter Results * Mammo digital bilateral Screening with CAD (07/12/2014 2:26 PM EDT) Anatomical Region Laterality Modality Breast Bilateral Mammography 07/12/2014 2:26 PM EDT Narrative 07/12/2014 5:00 PM EDT Reason for Exam: Screening ?? Technique: Craniocaudal (CC) and Medio-lateral Oblique (MLO) views of both breasts obtained with direct digital capture. ?? The exam was evaluated by CAD version 8.3.17. ?? Findings: ?? This is a negative mammogram (ACR Category 1). There is a stable fibroglandular pattern without significant change from prior studies. There is no mammographic evidence of cancer. The breasts are of scattered density. ?? CONCLUSION: This is a NEGATIVE mammogram (ACR Category 1). ?? Routine screening mammography is recommended with the frequency dependent upon the patients age and breast cancer risk factors. ?? A letter has been sent to this patient by the breast imaging center. Procedure Note Cleo Short MD - 07/12/2014 Reason for Exam: Screening Technique: Craniocaudal (CC) and Medio-lateral Oblique (MLO) views of both breasts obtained with direct digital capture. The exam was evaluated by CAD version 8.3.17. Findings: This is a negative mammogram (ACR Category 1). There is a stablefibroglandular pattern without significant change from prior studies. There is no mammographic evidence of cancer. The breasts are of scattered density. CONCLUSION: This is a NEGATIVE mammogram (ACR Category 1). Routine screening mammography is recommended with the frequency dependentupon the patients age and breast cancer risk factors. A letter has been sent to this patient by the breast imaging center. David Blackwood MD IMG MAMMO ORDERABLES documented in this encounter Visit Diagnoses Diagnosis Atypical ductal hyperplasia of breast Other specified benign mammary dysplasias documented in this encounter Care Teams Operating Room Technologist Relationship Specialty Start Date End Date Shanell Hawkins MD [address] [place] [address] PCP - General 08/19/10 02/17/16 documented as of this encounter
--- OUTSIDE RECORDS SUMMARY | 2024-06-23 02:18 | XMS_ITS | Encounter Summary ---
Author Organization [facility] Address [facility] [place] [address] Care Team Providers Care Flexible Nanny Name Role Phone Aden Lauren MD Primary Care Provider [phone] Reason for Visit * Reason Comments Follow-up Efudex Encounter Details Date Type Department Care Team (Late st Contact Info) Description 06/09/2018 1:00 PM EDT Office Visit Dermatology at [address] [address] [facility] [place] [address] History of basal cell carcinoma; Epidermal cyst Social History Tobacco Use Types Packs/Day Years [...] Progress Notes * Myah Lugo MD - 06/09/2018 1:00 PM EDT DERMATOLOGY ESTABLISHED PATIENT CLINIC NOTE Date of service: 06/09/2018 Tiannacarrie Tovar : 1940 Provider: Myah Lugo MD Chief Complaint Patient presents with ??? Follow-up Efudex SKIN HISTORY: Left nose: Sclerosing BCC - s/p Mohs with , 2000 ?? 09/2012 (patient reported; biopsied in [place]) Left cheekbone: ISK Sternal notch: ISK ?? Left medial cheek: Infiltrating BCC - s/p Mohs 02/2012 ? Left deltoid: BCC - excised- 02/2012 ?? Left partial vulvectomy: SCC - partial vulvectomy (3 nodes removed from left groin; all negative) with Dr. Curry 05/2012 ?? Other: - Actinic keratoses - Seborrheic keratoses - De La Cruz angiomas - Lentigines - Chrondrodermatitis Nodularis Helicis ?? PATIENT PREFERENCES Preferred name: Tianna Preferred contact method with results: Yes Detailed message including biopsy results okay?: Yes Are there any other people with whom we may discuss your care?: (Yrn) SAHARA Tovar is a 77 y.o. year old female. Established patient, last seen by me on 02/28/18. Here today for an Efudex follow up. Patient reports she applied the Efudex twice daily for 6 weeks to the biopsy proven SBCC on her right lateral arm. Tolerated well. Patient also complains that cyst located on the right neck is growing in size. ADR: Allergies Allergen Reactions ??? Adhesive Tape [...] General: NAD, pleasant, cooperative Skin: A focused examination was performed to the right lateral arm, and right neck. Significant skin findings: A. Right lateral arm.: pink blanchable patches, no epidermal change B. Right lower neck: 1cm, cystic subcutaneous nodule with central/lateral punctum ASSESSMENT/PLAN: A. H/O SBCC on her right lateral arm, s/p 6 weeks of 5-fu -No signs of recurence will continue to monitor. B. Epidermal inclusion cyst (EIC) (asymptomatic) - Discussed benign nature of lesion and provided reassurance - No treatment necessary at this time. Can be excised if it becomes bothersome, patient declines atthis time. - Observe skin for change in color, size or character. Call if such occur FOLLOW UP: RTC February 2019 per reminder in system. Instructed to call with questions or concerns. I am documenting this encounter acting as the scribe for and in the presence of Dr. Lugo.: RYAN GUZMAN LPN and Janet Malik I performed the above scribed service and agree with the accuracy of the documentation in this encounter. Myah Lugo MD Section of Dermatology [facility] documented in this encounter Plan of Treatment Upcoming Encounters Date Type Department Care Team (Late st Contact Info) Description 07/24/2024 2:00 PM EDT Appointment Mammography/[place] [address] Aden Lauren MD [address] [place] [address] [address] [facility] [address] [place] [address] documented as of this encounter Visit Diagnoses Diagnosis History of basal cell carcinoma Personal history of other malignant neoplasm of skin Epidermal cyst Sebaceous cyst documented in this encounter Care Teams Flexible Nanny Relationship Specialty Start Date End Date Aden Lauren MD [address] [place] [address] PCP - General Family Medicine 02/17/17 documented as of this encounter
--- OUTSIDE RECORDS SUMMARY | 2024-06-23 02:18 | XMS_ITS | Encounter Summary ---
Author Organization [facility] [place] [address] Care Team Providers Care Typing Office Worker Name Role Phone Aden Lauren MD Primary Care Provider [phone] Reason for Visit * Reason Comments Pseudoexfoliation Glaucoma Encounter Details Date Type Department Care Team (Latest Contact Info) Description 03/13/2020 10:45 AM EDT Office Visit [place] [address] [facility] [place] [address] Pseudoexfoliation glaucoma, mild stage; Pseudophakia of both eyes Social History Tobacco Use [...] as of this encounter Progress Notes * Yogi Florentino MD - 03/13/2020 10:45 AM EDT Pseudoexfoliation glaucoma ou: No progressive glaucoma damage on current medical therapy IOP doing well OCT and HVF stable Timolol may be worsening her peripheral vascular disease Pseudophakic OU: Noted Dry Eyes: Discussed that the intermittent blurred vision is due to surface changes, advised AT use Plan: Continue present meds: brimonidine both eyes twice daily Stop dorzolamide-timolol both eyes twice daily Start Trusopt BID OU Have IOP checked near home in about 2 months Upon Return: CEE, 24-2 HVF and OCT documented in this encounter Plan of Treatment Upcoming Encounters Date Type Department Care Team (Late st Contact Info) Description 07/24/2024 2:00 PM EDT Appointment Mammography/[place] [phone] Aden Lauren MD [address] [place] [address] documented as of this encounter Procedures Procedure Name Priority Date/Time Associated Diagnosis Comments AUTOMATED VISUAL FIELD - EXTENDED - OU- BOTH EYES Routine 03/13/2020 12:35 PM EDT Pseudoexfoliation glaucoma, mild stage OCT OPTIC NERVE - OU - BOTH EYES Routine 03/13/2020 12:17 PM EDT Pseudoexfoliation glaucoma, mild stage documented in this encounter Results * Automated Visual Field - Extended - OU - Both Eyes (03/13/2020 12:35 PM EDT) Anatomical Region Laterality Modality Other Narrative 03/13/2020 12:35 PM EDT Right Eye Threshold was 24-2. Strategy was SKIP. Reliability was good. Left Eye Threshold was 24-2. Strategy was SKIP. Reliability was good. Notes Visual Field Results Type of VF: ??HVF 24-2 Indication: ??PXF glaucoma Reliability: ??good Glaucoma Hemifield Test (GHT) OD: outside normal limits OS: outside normal limits Visual Function Index (VFI) OD: 98 % OS: 92 % MD OD: +0.09 dB ? PSD OD: 2.29 dB MD OS: -2.45 dB ??PSD OS: 4.25 dB Interpretation: stable Yogi Florentino MD OPHTHALMOLOGY SERVIC ES ORDERABLES * Oct Optic Nerve - OU - Both Eyes (03/13/2020 12:17 PM EDT) Anatomical Region Laterality Modality Other Narrative 03/13/2020 12:17 PM EDT Right Eye Quality was good. Progression has been stable. Left Eye Quality was good. Progression has been stable. 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
--- OUTSIDE RECORDS SUMMARY | 2024-06-23 02:18 | XMS_ITS | Encounter Summary ---
Author Organization [facility] Address [facility] [place] [address] Care Team Providers Care Food Production Associate Name Role Phone Aden Lauren MD Primary Care Provider [phone] Reason for Visit * Reason Comments Advice Only * Consultation (Routine) - Closed Specialty Diagnoses / Procedures Referred By Shmuel t Referred To Contact Plastic Surgery Diagnoses EIC (epidermal inclusion cyst) Myah Lugo MD [facility] DR SUDHA [place] [address] [facility] Plastic Surg [address] [place] [id number] Referral ID Status Reason Start Date Expiration Date V isits Requested Visits Authorized [id number] Closed Consult, Test & Treat 03/02/2019 03/01/2020 1 1 Encounter Details Date Type Department Care Team (Late st Contact Info) Description 03/27/2019 3:15 PM EDT Office [place] [address] Héctor Lang MD [facility] [place] [address] Skin lesion of neck Social History Tobacco [...] Sign Reading Time Taken Comments Blood Pressure - - Pulse - - Temperature - - Respiratory Rate - - Oxygen Saturation - - Inhaled Oxygen Concentration - - Weight 65.8 kg (145 lb) 03/27/2019 2:56 PM EDT Height 152.4 cm (5') 03/27/2019 2:56 PM EDT Body Mass Index 28.32 03/27/2019 2:56 PM EDT documented in this encounter Patient Instructions * Patient Instructions* Coral Sosa RN - 03/27/2019 3:15 PM EDT You were given written and verbal preoperative instructions today. To prepare for your upcoming surgery, please review the Pre-Operative Instruction brochure that youwere given at today's appointment. Remember to do the pre op wash as instructed, remove all jewelry, and wear clothing that is easy toget in and out of. There is no dietary restriction. You may eat and drink up until the time of your procedure. Feel free to call our office [phone] if you have any questions or concerns. We monitor the phones from 8-5 Wednesday through Wednesday. documented in this encounter Progress Notes * Héctor Lang MD - 03/27/2019 3:15 PM EDT Plastic Surgery Consultation Note Héctor Lang MD PCP:Aden Lauren MD CC: Neck lesion HPI: Tianna Tovar is a 78 y.o. female, the patient is here in consultation for evaluation of a facial lesion at the request of Aden Lauren MD. The lesion has been present for several years and has gradually increased in size. She denies rupture, bleeding or discharge from the lesion and reports no other lesions. The patient presents because they would like the lesion excised. The patient reports her most recent A1C was 6.21. She has had a Mohs surgery for skin cancer treatment. Thepatient lives in [place] for 4 months during the winter months. The patient reports that she has an occasional drink of alcohol. She denies use of cigarettes with a correction cessation. The patient denies any use of other drugs. She is retired. Patient Active Problem List Diagnosis Code ??? COAG (chronic open-angle glaucoma) H40.1190 ??? 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 Personal history of other malignant neoplasm of skin Z85.828 ??? Type 2 diabetes, diet controlled E11.9 ??? Pre-hypertension R03.0 ??? Cholesterol serum increased ??? 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 Arthritis ??? Cancer BCC Nose ??? Cardiac disease ??? Cataract ??? Cholesterol serum increased ??? Glaucoma PXF OU ??? Hyperlipidemia ??? Pre-hypertension ??? S/P lumpectomy, right breast 08/04/2013 ??? Skin disease basel cell, MOHs left shoulder, left side of nose ??? Type 2 diabetes, diet controlled ??? Type 2 diabetes, diet controlled ??? 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 ARGON LASER TRABECULOPLASTY 2001 OD ??? BREAST BIOPSY Right 06/05/2013 ??? BREAST CYST EXCISION Right 05/2013 ??? CATARACT REMOVAL 06/10/10 OD ??? CATARACT REMOVAL 07/11/10 OS ??? HYSTERECTOMY, TOTAL ABDOMINAL ??? MALIGNANT SKIN LESION EXCISION HEAD/NECK Nose ??? MALIGNANT SKIN LESION EXCISION UPPER EXTREMITY Left Shoulder ??? PRO COLONOSCOPY, REMV LESN, SNARE N/A 03/02/2016 COLONOSCOPY, POLYPECTOMY, REMOVAL LESION BY SNARE performed by Yuni Baig MD at [facility] ENDOSCOPY ??? PRO EXCISE BREAST LES W XRAY MARKER 08/04/2013 EXCISION LESION, BREAST W/ PREOP.MARKER (NEEDLE LOC.) performed by David Blackwood MD at [facility] OSC ??? PRO PART SIMPLE REMV VULVA 06/21/2012 VULVECTOMY SIMPLE, PARTIAL performed by TE VALDEZ at [facility] MAIN OR ??? PRO REMOVE GROIN LYMPH NODES SUPERF 06/21/2012 LYMPHADENECTOMY, INGUINOFEMORAL performed by TE VALDEZ at [facility] MAIN OR ??? VULVA SURGERY 05/16/12 ARNOLD III, Left Side family history includes Breast Cancer in her maternal grandmother; Cancer in her father, maternal aunt, maternal grandmother, and mother; Stroke in her maternal grandmother. Social History Socioeconomic History ??? Marital status: Spouse name: Not on file ??? Number of children: Not on file ??? Years of education: Not on file ??? Highest education level: Not on file Occupational History ??? Not on file Social Needs ??? Financial resource strain: Not on file ??? Food insecurity: Worry: Not on file Inability: Not on file ??? Transportation needs: Medical: Not on file Non-medical: Not on file Tobacco Use ??? Smoking status: Former Smoker Packs/day: 1.00 Years: 20.00 Pack years: 20.00 Last attempt to quit: 09/27/1980 Years since quittin.5 ??? Smokeless tobacco: Never Used Substance and Sexual Activity ??? Alcohol use: Yes Frequency: Monthly or less Comment: rare ??? Drug use: No ??? Sexual activity: Not on file Lifestyle ??? Physical activity: Days per week: Not on file Minutes per session: Not on file ??? Stress: Not on file Relationships ??? Social connections: Talks on phone: Not on file Gets together: Not on file Attends restorationist service: Not on file Active member of club or organization: Not on file Attends meetings of clubs or organizations: Not on file Relationship status: Not on file ??? Intimate partner violence: Fear of current or ex partner: Not on file Emotionally abused: Not on file Physically abused: Not on file Forced sexual activity: Not on file Other Topics Concern ??? Not on file Social History Narrative ??? Not on file : Current Outpatient Medications on File Prior to Visit Medication Sig Dispense Refill ??? dorzolamide-timolol (COSOPT) [...] mouth every 6 hours as needed. ??? [DISCONTINUED] hydrochlorothiazide (HYDRODIURIL) 25 mg tablet Take 12.5 mg by mouth daily. ??? Multivitamins Chew No current facility-administered medications on file prior to visit. Allergies Allergen Reactions ??? Adhesive Tape Sensitive ??? Timolol Other (See Comments) burning Examination: Ht 152.4 cm (5') Wt 65.8 kg (145 lb) BMI 28.32 kg/m?? Gen: pleasant, well-appearing female in no acute distress. Cranial nerves intact Cranial V intact Left alar scar Solar skin changes areas of Melasma on her facial skin Right neck palpable 2cm subcutaneous mass with obvious puncta in central area No palpable lymphadenopathy Impression: Tianna Tovar, a 78 y.o. female presents with a occlusion cyst I discussed the nature of the lesion with the patient, educating them about the problems and the risks of excision including infection, scar, bleeding, asymmetry, deformity, positive margins and the need for further surgery. I would do this under local numbing medicine and I would send the specimen to pathology. There is a possibility of the cyst to return and increases if the cyst were to become infected. I would like the patient to refrain for 1 week of any vigorous exercise. The patient wishes to proceed. Plan: Schedule for excision MNS Procedure: Excision of occlusion neck lesion Timeframe: elective Time allotted: 60 mins CPT : 42998: 2.1 - 3.0 cm Follow up: 1 week for suture removal I, Jeanette Garrido, have performed the documentation for this encounter in the presence of and acting as a scribe for HÉCTOR LANG MD. I performed the services which were documented by the scribe, and I agree with the accuracy of the documentation in this encounter. HÉCTOR LANG MD documented in this encounter Plan of Treatment Upcoming Encounters Date Type Department Care Team (Late st Contact Info) Description 07/24/2024 2:00 PM EDT Appointment Mammography/[place] [address] Aden Lauren MD [address] [place], [place] [address] Scheduled Referrals Name Type Priority Associated Diagnoses Orde r Schedule Referral to Plastic Surgery Outpatient Referral Routine EIC (epidermal inclusion cyst) Ordered: 03/02/2019 documented as of this encounter Visit Diagnoses Diagnosis Skin lesion of neck documented in this encounter Care Teams Food Production Associate Relationship Specialty Start Date End Date Aden Lauren MD [address] [place] [address] PCP - General Family Medicine 02/17/17 documented as of this encounter
--- OUTSIDE RECORDS SUMMARY | 2024-06-23 02:18 | XMS_ITS | Encounter Summary ---
Author Organization [facility] Address [facility] [facility] [place] [address] Care Team Providers Care Ore Smelter Name Role Phone Aden Lauren MD Primary Care Provider [phone] Reason for Visit * Reason Comments Pseudoexfoliation Glaucoma Encounter Details Date Type Department Care Team (Late st Contact Info) Description 03/10/2018 1:45 PM EDT Office [place] [address] Bam Early MD [facility] [place] [address] PXF (pseudoexfoliation of lens capsule) Social History [...] as of this encounter Progress Notes * Bam David MD - 03/10/2018 1:45 PM EDT Pseudoexfoliation glaucoma ou Assessment: - Dr. Moy's former patient - IOP stable - full visual zurita - Healthy optic nerves bilaterally - cont Alphagon both eyes 2 times daily, Cosopt both eyes 2 times daily ?? Plan: Continue present [address] Florentino documented in this encounter Plan of Treatment Upcoming Encounters Date Type Department Care Team (Late st Contact Info) Description 07/24/2024 2:00 PM EDT Appointment Mammography/[place] [address] Aden Lauren MD [address] [place] [address] documented as of this encounter Procedures Procedure Name Priority Date/Time Associated Diagnosis Comments FUNDUS PHOTOS - OU- BOTH EYES Routine 03/10/2018 3:53 PM EDT PXF (pseudoexfoliation of lens capsule) OCT OPTIC NERVE - OU - BOTH EYES Routine 03/10/2018 3:53 PM EDT PXF (pseudoexfoliation of lens capsule) AUTOMATED VISUAL FIELD - EXTENDED - OU- BOTH EYES Routine 03/10/2018 3:53 PM EDT PXF (pseudoexfoliation of lens capsule) documented in this encounter Results * FUNDUS PHOTOS - OU- BOTH EYES (03/10/2018 3:53 PM EDT) Anatomical Region Laterality Modality Other Narrative 03/10/2018 3:53 PM EDT Cupping OD>OS Bam Early MD OPHTHALMOLOGY SE RVICES ORDERABLES * OCT OPTIC [id number] EYES (03/10/2018 3:53 PM EDT) Anatomical Region Laterality Modality Other Narrative 03/10/2018 3:53 PM EDT Right Eye Quality was good. Findings include normal observations. Temporal thickness was normal. Superior thickness was normal. Nasal thickness was normal. Inferior thickness was normal. Left Eye Quality was good. Findings include normal observations. Temporal thickness was normal. Superior thickness was normal. Nasal thickness was normal. Inferior thickness was normal. Notes Normal RNFL OU Bam Early MD OPHTHALMOLOGY SE RVICES ORDERABLES * AUTOMATED VISUAL FIELD - EXTENDED - OU- BOTH EYES (03/10/2018 3:53 PM EDT) Anatomical Region Laterality Modality Other Narrative 03/10/2018 3:53 PM EDT Right Eye Threshold was 24-2. Strategy was SKIP. Reliability was good. Findings include normal observations. Left Eye Threshold was 24-2. Strategy was SKIP. Reliability was good. Findings include normal observations. Bam Early MD OPHTHALMOLOGY SE RVICES ORDERABLES documented in this encounter Visit Diagnoses Diagnosis PXF (pseudoexfoliation of lens capsule) Pseudoexfoliation of lens capsule documented in this encounter Care Teams Ore Smelter Relationship Specialty Start Date End Date Aden Lauren MD [address] [place] [address] PCP - General Family Medicine 02/17/17 documented as of this encounter
--- OUTSIDE RECORDS SUMMARY | 2024-06-23 02:18 | XMS_ITS | Encounter Summary ---
Author Organization [place] [address] Care Team Providers Care Coremaker Helper Name Role Phone Shanell Hawkins MD Primary Care Provider [phone] Encounter Details Date Type Department Care Team (Late st Contact Info) Description 01/03/2014 Orders [place] [phone] Nelly Miller APRN [facility] [place] [place] [address] Atypical ductal hyperplasia of breast (Primary Dx) Social History Tobacco Use Types Packs/Day Years [...] 07/24/2024 2:00 PM EDT Appointment Mammography/[place] [phone] Aden Lauren MD [address] [place] [address] documented as of this encounter Visit Diagnoses Diagnosis Atypical ductal hyperplasia of breast- Primary Other specified benign mammary dysplasias documented in this encounter Care Teams Coremaker Helper Relationship Specialty Start Date End Date Shanell Hawkins MD [address] [place] [address] PCP - General 08/19/10 02/17/16 documented as of this encounter
--- OUTSIDE RECORDS SUMMARY | 2024-06-23 02:18 | XMS_ITS | Encounter Summary ---
Author Organization [facility] Address [facility] [place] [address] Care Team Providers Care Can Carrier Name Role Phone Shanell Hawkins MD Primary Care Provider Reason for Visit * Reason Comments Skin Cancer Examination Encounter Details Date Type Department Care Team (Late st Contact Info) Description 01/30/2015 11:00 AM EDT Follow-Up Dermatology at [facility] [address] [place] [address] Lana Esteves PA [facility] [place] [address] Myah Lugo MD [facility] [place] [address] AK (actinic keratosis); SK (seborrheic keratosis); Inflamed seborrheic keratosis; History of basal cell carcinoma of skin; Lentigines; De La Cruz angioma; CNH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), right Discharge Disposition: Home Social History Tobacco Use [...] Progress Notes * Myah Lugo MD - 01/31/2015 7:33 PM EDT Agree with trial of LN2 for non-specific lesion on leg. Patient seen in conjunction with Lana Mccarthy PA-C Signed by: Myah Lugo MD Section of Dermatology [facility] * Lana Mccarthy PA - 01/30/2015 10:57 AM EDT DERMATOLOGY - ESTABLISHED PATIENT NOTE Date of service: 01/30/2015 Tianna Tovar : 1940 Dermatology Physician Report Analyst Note: Lana Mccarthy PA-C Chief Complaint Patient presents with ??? Skin Cancer Examination This is an established patient, last seen by Dr. Lugo on 03/28/14. This patient is new to me HPI: Presents with today for full skin cancer examination. She does have 1 spot on her leftshoulder and 1 spot on her mid chest that she is concerned with. Last used Carac to face 1 year agow/ great results. Skin History: 1. Actinic Keratoses 2. Sclerosing BCC left nose MOHS by 2000 3. SK's 4. ISK- left cheekbone shave biopsy- 09/2012 ([place]) 5. ISK- sternal notch shave biopsy- 09/2012 ([place]) 6. Infiltrating BCC- left medial cheek- MOHS- 02/2012 7. BCC- left deltoid- excised- 02/2012 8. SCC- left partial vulvectomy- excised by Dr. Curry 05/2012 resulting in partial vulvectomy with 3 nodes removed from left groin (all negative Medical History: Past Medical History Diagnosis Date ??? Glaucoma PXF OU ??? Cataract ??? Cardiac disease ??? Cancer BCC Nose ??? Cholesterol serum increased ??? Arthritis ??? Pre-hypertension ??? Type 2 diabetes, diet controlled ??? 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 Type 2 diabetes, diet controlled ??? S/P lumpectomy, right breast 08/04/2013 Procedure Screening Questions: Defibrillator/Pacemaker: no Artificial Joints: no Heart Valves: no Blood Thinners: Motrin Prophylactic Antibiotics: no Medications: Current Outpatient Prescriptions Medication Sig Dispense [...] Her and her spent the mathur in [place]. Review of Systems: - General: Feels well. - Skin: As per HPI; no other skin concerns. Examination: - Constitutional: Patient was alert, well-appearing and in no noticeable distress. - Skin: A full examination was performed. This includes the head, neck, face and scalp including behind the ears. The chest, abdomen, back, and axillae, as well as the arms, hands, palms, fingers. Legs, feet, toes and soles were also examined. Buttocks and breasts were also examined with patient consent. Genitalia were not examined. - Skin Type: 2 Specific skin findings: 1. Face: Numerous scattered0.2-0.3cm scaly irregular pink papule(s). 2. Torso and extremies : Multiple 0.4-0.6cm brown papules with waxy, stuck-on appearance. Milia-like cysts, comedone-like openings and/or fissuring on dermoscopy. 3. Right distal lateral calf: 1 cm bright pink well defined slightly scaly patch. 4. Abdomen: Multiple 0.2-0.4cm bright red, well-demarcated papules. 5. Scattered on sun exposed areas: 0.3-0.6cm light-brown evenly pigmented, well- demarcated macules. 6. Right superior helix: firm, tender, pink papule with with a central keratotic core. Diagnosis/Assessment/Treatment Plan: 1. Actinic keratosis, face: I discussed this condition with the patient and explored therapeutic options. I recommended this be treated with another treatment of Carac. Apply QD x 3wks to the nose, cheeks, forehead and temples. Patient advised to be careful in the sun while using the Carac. 2. Seborrheic keratosis, not symptomatic: Discussed benign nature of lesion and provided reassurance. No treatment necessary at this time. 3. ISK vs. SBCC: I discussed this condition with the patient and explored therapeutic options. I recommended this be treated with LN2. Patient advised to RTC if it does not resolve as expected to have it biopsied. Procedure Note: Procedure: Destruction of lesion(s) with cryotherapy. Number: 1 Location: as above Discussed procedure and expectations including risks (including risk of hypopigmentation) and benefits. Verbal consent obtained. Frozen with LN2, 30-45 second thaw time, TWICE. There were no complications; the patient tolerated the procedure well. Post-procedure expectations and wound care were reviewed. 4. De La Cruz Angioma(s): Discussed benign nature of lesion and provided reassurance. No treatment necessary at this time. 5. Lentigines: Discussed benign nature of lesion and provided reassurance. No treatment necessary at this time. Patient instructed to observe and call if she notices any concerning changes. 6. Chrondrodermatitis Nodularis Helicis: Discussed benign nature of lesion and provided reassurance. No treatment necessary at this time. LOS: [address] RTC in 1 year for a full skin exam, or PRN if symptoms worsen or persist. Instructed to call with questions or concerns. Note initiated by Kerline Siegel-Clinical Scribe I am documenting this encounter acting as the scribe for and in the presence of Lana Mccarthy PA-C I performed the above scribed service and agree with the accuracy of the documentation in this encounter. Reviewed and signed by Lana Mccarthy PA-C Dermatology [facility] Patient seen in conjunction with/supervision of Attending Physician: Myah Lugo MD Section of Dermatology [facility] documented in this encounter Plan of Treatment Upcoming Encounters Date Type Department Care Team (Late st Contact Info) Description 07/24/2024 2:00 PM EDT Appointment Mammography/[place] [address] Aden Lauren MD [address] [place] [address] documented as of this encounter Visit Diagnoses Diagnosis AK (actinic keratosis) Actinic keratosis SK (seborrheic keratosis) Other seborrheic keratosis Inflamed seborrheic keratosis History of basal cell carcinoma of skin Lentigines Other dyschromia De La Cruz angioma Nevus, non-neoplastic CNH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), right documented in this encounter Care Teams Can Carrier Relationship Specialty Start Date End Date Shanell Hawkins MD [address] [place] [address] PCP - General 08/19/10 02/17/16 documented as of this encounter
--- OUTSIDE RECORDS SUMMARY | 2024-06-23 02:18 | XMS_ITS | Encounter Summary ---
Author Organization [facility] [place] [address] Care Team Providers Care Landing Man Name Role Phone Sebastian Mendietaeen Darrick OCHOA Primary Care Provider [phone] Reason for Visit * Auth/Cert Specialty Diagnoses / Procedures Referred By Shmuel howe Referred To Contact Diagnoses Encounter for screening for malignant neoplasm of colon 10 yr surv from 02/24/06 Procedures PRO COLONOSCOPY, DIAGNOSTIC COLONOSCOPY, DIAGNOSTIC Referral ID Status Reason Start Date Expiration Date Visits Re quested Visits Authorized [id number] 1 1 Encounter Details Date Type Department Care Team (Latest Contact Info) Description 03/02/2016 12:14 PM EDT - 03/02/2016 2:10 PM EDT Hospital Encounter [place] [address] Yuni Baig MD [facility] [place] [address] Discharge Disposition: Home Social History Tobacco Use [...] Sign Reading Time Taken Comments Blood Pressure 135/71 03/02/2016 1:39 PM EDT Pulse 59 03/02/2016 1:39 PM EDT Temperature - - Respiratory Rate 14 03/02/2016 1:39 PM EDT Oxygen Saturation 97% 03/02/2016 1:39 PM EDT Inhaled Oxygen Concentration - - Weight 69.9 kg (154 lb) 03/02/2016 12:44 PM EDT Height - - Body Mass Index 30.08 08/04/2013 9:48 AM EST documented in this encounter Discharge Instructions * Discharge Instructions* Brunilda Deluca RN - 03/02/2016 2:04 PM EDT Colonoscopy and polyp removal What to expect after the procedure You may feel a little more gassy or bloated than usual, this is normal. You should expect the return of normal bowel function in the next 2 to 3 days. Because some polyps were removed, you may see a little blood with the next few bowel movements, this should be a small amount ( less than a few tablespoons) and will resolve on it's own. ACTIVITY Because of the sedation that you received Your judgement and reaction time are effected ?? Go home and rest for the remainder for the day. You may resume your normal activities tomorrow ?? Change from one position to the next slowly because you may lose your balance unexpectedly. ?? Be careful on stairs, as you may be unsteady. ?? Avoid strenuous activity for 48 to 72 hrs FOR THE NEXT 24 HRS ?? DO NOT DRIVE OR OPERATE MACHINERY ?? DO NOT DRINK ALCOHOLIC BEVERAGES ?? DO NOT SIGN LEGAL DOCUMENTS ?? If you are a smoker: DO NOT SMOKE WHILE YOU ARE ALONE Diet ?? Start by eating small portions of foods that ordinarily will not upset your stomach, avoid gas producing foods for the next few days. ?? Be gentle with what you choose to start with ?? Drink plenty of fluids ( unless your doctor has told you not to). ?? A soft diet may be helpful for the next 3 days as this may help to keep the stools soft Medicines Avoid medicines that influence the way your blood clots for the next week. These would include anti-inflammatory medicine, such as ibuprofen( Advil, Motrin) and naproxen ( Aleve). If you need something for discomfort, Tylenol (Acetaminophen) is safe if used as directed. Your Doctor will tell you when to restart your prescribed blood thinners The IV site-- slight tenderness, or redness is normal, you can use warm compresses if you get concerned. If the tenderness +/or redness increases or foul drainage and a red streak occurs, please contact your PCP immediately. When should you call for help? Call 911 anytime you think you may need emergency care. For example If you pass out (loss of consciousness) If you pass maroon or bloody stools If you have severe belly pain Call your healthcare provider or seek immediate medical care if: Your stools are black or tar like Your stools have streaks of blood that is more pronounced with each BM You have belly pain, or your belly is swollen and firm You vomit You have a fever You are very dizzy Watch closely for changes in your health, and be sure to contact your doctor if you have any problems. Your Doctor will let you know when you will need your next colonoscopy. The results of your test and your risk for colorectal cancer will help your doctor decide how often you need to be checked. Wednesday-Wednesday Same Day Endo [phone] 7a-8p Otherwise contact [phone] and ask to speak to the mining engineering technologist business continuity planning director Follow up care is a duque part of your treatment and safety. Be sure to make and go to all appointments, and call your doctor if you are having problems. Discharge instructions reviewed with patient who expresses understanding documented in this encounter Medications at Time of Discharge [...] daily. 03/27/2019 documented as of this encounter H&P Notes * Yuni Baig MD - 03/02/2016 12:57 PM EDT Gastroenterology and Hepatology Pre-Procedure History and Physical Exam Procedure: Colonoscopy: Indication: screening Patient Active Problem List Diagnosis Code ??? 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 Personal history of other malignant neoplasm of skin Z85.828 ??? Type 2 diabetes, diet controlled E11.9 ??? Pre-hypertension R03.0 ??? Cholesterol serum increased ??? 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 ASA 2 - Patient with mild systemic disease with no functional limitations Sedation Plan: moderate (conscious sedation) Risks and benefits of the procedure explained to the patient. Consent signed. documented in this encounter Plan of Treatment Upcoming Encounters Date Type Department Care Team (Late st Contact Info) Description 07/24/2024 2:00 PM EDT Appointment Mammography/[place] [address] Aden Lauren MD [address] [place] [address] [address] [place] [address] documented as of this encounter Procedures Procedure Name Priority Date/Time Associated Diagnosis Comments SURGICAL PATHOLOGY REPORT Routine 03/02/2016 1:33 PM EDT SPECIMEN TO PATHOLOGY Routine 03/02/2016 1:33 PM EDT COLONOSCOPY, POLYPECTOMY, REMOVAL LESION BY SNARE (WRVU 4.57) 03/02/2016 1:11 PM EDT 10 yr surv from 02/24/06 COLONOSCOPY Routine 03/02/2016 12:58 PM EDT documented in this encounter Results * Surgical Pathology Report (03/02/2016 1:33 PM EDT) Final Diagnosis [id number] ? Location: 4T; EA10; A The signing pathologist has (i) examined the relevant preparation(s) for the specimen(s) and (ii) rendered or confirmed the diagnosis(es). . ?Surgical Pathology DIAGNOSIS Ascending colon, ??polypectomy: - ??Fragments of tubular adenoma. CR-PX 03/03/16 AAY 03/04/16 Verified by: ? Abrahan Casas MD ?Pathologist ?(Electronic Signature) The attending pathologist whose signature appears on this report has reviewed all diagnostic slides and has edited the gross and/or microscopic portion of the report in rendering the final pathologic diagnosis. CLINICAL INFORMATION Specimen Submitted: A - Polyp ascending colon Clinical History: Polyp on routine colonoscopy Clinical Diagnosis: Same SPECIMEN PROCESSING A - Labeled/Fixativ e: Polyp ascending colon, formalin. Quantity/Size: Three, averaging 0.3 cm. Tissue Description: ??Soft, yellow-buckley tissue ??. Sections/Proces sing: (T1) ??vasiler 03/04/2016 3:19 PM EDT [facility] GI Biopsy 03/02/2016 1:33 PM EDT 03/02/2016 1:33 PM EDT Yuni Baig MD PATHOLOGY/CYTOLOGY O BIBI Performing Organization Address City/[facility]/[place] [address] * Specimen to Pathology (surgical or derm) (03/02/2016 1:33 PM EDT) AP Specimen 03/02/2016 1:33 PM EDT 03/02/2016 1:33 PM EDT Narrative [facility] - 03/02/2016 1:33 PM EDT Specimen requisition ordered. ??Separate Pathology report to follow Yuni Baig MD PATHOLOGY/CYTOLOGY O BIBI Performing Organization Address City/[facility] [place] [address] * COLONOSCOPY (03/02/2016 12:58 PM EDT) COLONOSCOPY [facility] Endoscopy Patient Name: Tianna Tovar ? Procedure Date: 03/02/2016 12:58 PM ? N: [id number] ? Date of : 1940 ? Age: 75 ? Order #: [id number] ? Procedure: ? Colonoscopy Indications: ? Screening for colorectal malignant ? neoplasm Providers: ? Yuni Baig MD, Carmen Ramírez, ? Nahum Brooks, Concession Stand Attendant Referring MD: ?Shanell Hawkins MD Medicines: ? Midazolam 3 [...] Hawkins MD GENERAL SURGICAL ORD ERABLES [employer]ATION documented in this encounter Visit Diagnoses Not on filedocumented in this encounter Active and Recently Administered Medications Times are shown in EDT. PRN Medication Order 02/29/2016 03/01/2016 03/02/2016 fentaNYL 50 mcg/mL multi-dose injection (CANCELED) ONCE PRN, Starting on 03/02/16 at 1314, Until 03/02/16 at 1618, Intra-Operative (Intra-Procedure), Routine 1314 (Given - Provid er: Carmen Ramírez RN)1318 (Given - Provider: Carmen Ramírez, RN) midazolam (PF) (VERSED) 1 mg/mL multi-dose injection (CANCELED) ONCE PRN, Starting on Wed03/02/16 at 1314, Until 03/02/16 at 1618, Intra-Operative (Intra-Procedure), Routine 1314 (Given - Provid er: Carmen Ramírez RN)1318 (Given - Provider: Carmen Ramírez, RN) documented in this encounter Care Teams Landing Man Relationship Specialty Start Date End Date Emily Mendieta APRN [address] [place] [address] PCP - General Family Medicine 02/18/16 02/16/17 documented as of this encounter
--- OUTSIDE RECORDS SUMMARY | 2024-06-23 02:18 | XMS_ITS | Encounter Summary ---
Author Organization [facility] Address [facility] [place] [address] Care Team Providers Care Knowledge Engineer Name Role Phone GualbertoEmily olivares Darrick OCHOA Primary Care Provider [phone] Reason for Visit * Reason Comments Skin Check Encounter Details Date Type Department Care Team (Late st Contact Info) Description 02/07/2016 1:00 PM EDT Office Visit Dermatology at [facility] [address] [place] [address] Myah Lugo MD [facility] DR SUDHA [place] [address] Skin lesion; History of basal cell carcinoma of skin; [...] this encounter Patient Instructions * Patient Instructions* Marcia Arvizu - 02/07/2016 1:32 PM EDT ABOUT YOUR TREATMENTS Your Treatment today: You had a biopsy of your skin (removal of a small piece of tissue for examination under microscope). You had a shave biopsy and do not have sutures. Location of your biopsy: Keep in mind the location of your biopsy site in case further treatment is necessary. Wound care Instructions: 1. Keep wound dry and covered for 24 hours then clean area with soap and water. 2. Pat dry completely 3. Cover with Vaseline and a new bandage daily, do this everyday until the wound is healed Please call [phone] if you have questions or concerns. If you are calling after hours, please call the mainline at [phone] and ask for the helicopter crew chief edge bonder. * Please allow one or two weeks for the biopsy results to return. *Based on your biopsy results we will either call you or send you a letter with the results. *If in two weeks, you have not heard from us, please feel free to call and request your biopsy results. Caring for Your Skin Sun Protection Exposure to ultraviolet (UV) light--from the sun or tanning beds--is the most common modifiable risk factor for skin cancer. In fact, most skin cancers are found in locations where sun exposure is highest (e.g., face, ears, and hands). Furthermore, UV exposure is associated with skin aging, including wrinkles, brown spots, and leathery skin. Recommendations ?? Generously apply a broad-spectrum water-resistant sunscreen with a Sun Protection Factor (SPF) of 30 or more to all exposed skin. ?? Reapply sunscreen every 2 hours, even on cloudy days, and after swimming or sweating. ?? Preferred sunscreens: Sunscreens work by either forming a physical or a chemical barrier to ultraviolet light. Zinc oxide or Titanium dioxide are physical barriers to the sun. We recommend sunscreens that contain at least one physical barrier. Look for these brands: Neutrogena, Blue Lizard, [place] Baby, Taty Liu MD. ?? Wear protective clothing. Long-sleeved shirts, pants, a wide-brimmed hat and sunglasses are all excellent choices. Some companies produce great, breathable SPF clothing (Coolibar, [employer] Restrepo, Wednesday Afternoons) ?? Seek shade. The sun's rays are strongest between 10a.m. And 4 p.m. Dry Skin Care Dry skin is more problematic in the winter, when the humidity is lower. Taking measures to maintainthe skin's moisture will decrease dryness and itching. Recommendations ?? Bathe in lukewarm water. Wash the skin gently (avoid vigorous scrubbing); use Dove or CeraVe soap to wash dirty areas. Avoid harsh soaps such as [place]egalese Spring, Ivory, or Dial as these can be drying. ?? Immediately after bathing, apply a bland, preferably fragrance-free moisturizer to your skin. Ointments work better than creams, which work better than lotions. Look for the following brands: Vaseline 100% petroleum jelly, Vanicream, Neutrogena, CeraVe, Cetaphil, Aveeno, Lubriderm, or Eucerin. ?? For itchy areas, you can apply hydrocortisone 1% cream (oobq-rpc-otfxywr product) for 1-2 weeks.Do not use this medication on your face. Skin Cancer screening The incidence of skin cancer has increased dramatically in the past 20 years. The most common skin cancer types include basal cell carcinoma and squamous cell carcinoma. These often look like new moles, and they might be tender, scaly, or prone to bleeding. The most deadly form of skin cancer is melanoma, and it can affect people of all ages and skin types. Recommendations ?? We recommend performing a skin self-examination monthly to become familiar with your moles. Thiswill help you to detect new or changing moles earlier. ?? Remember the ABCDE's of melanoma: ?? Asymmetry - Melanoma tends to grow in an asymmetric (uneven) fashion ?? Border - The border in melanoma tends to be uneven or jagged ?? Color - Melanomas often have different colors (e.g., dark brown, black, red) ?? Diameter - Look for moles that are larger than 0.6 cm (the size of a pencil eraser) ?? Evolution - This is perhaps the most important feature. Any mole that is rapidly growing or changing should be evaluated. documented in this encounter Progress Notes * Amalia Polanco - 02/13/2016 1:59 PM EDT -spoke to patient regarding biopsy results x 2. -Patient instructed to call with questions or concerns * Myah Lugo MD - 02/07/2016 1:04 PM EDT Images from the original note were not included. DERMATOLOGY ESTABLISHED PATIENT CLINIC NOTE Date of service: 02/07/2016 Tianna Tovar : 1940 Provider: Myah Lugo MD Chief Complaint Patient presents with ??? Skin Check SKIN HISTORY: 1. Actinic Keratoses 2. Sclerosing BCC left nose MOHS by 2000 3. Seborrheic keratosis 4. Inflamed seborrheic keratosis - left cheekbone shave biopsy- 09/2012 ([place] 5. Inflamed seborrheic keratosis - sternal notch shave biopsy- 09/2012 ([place]) 6. Infiltrating BCC- left medial cheek- MOHS- 02/2012 7. BCC- left deltoid- excised- 02/2012 8. SCC- left partial vulvectomy- excised by Dr. 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 year old female. Last seen on 05/03/2015 by Lana Mccarthy Several concerning lesions as follows: Right superior helix Left arm axilla-dark brown mole, near a skin tag Left flank-red spot Left upper arm/lower arm-scaly/pink spots Right cheek near jaw line-raised dark brown Right dorsal hand-scaly spot she picks at ADR: Allergies Allergen Reactions ??? Adhesive Tape Sensitive ??? Timolol Other (See Comments) burning MEDS: Current Outpatient Prescriptions Medication Sig Dispense Refill ??? dorzolamide-timolol (COSOPT) 22.3-6.8 mg/mL Drops Place 1 drop into both eyes 2 times daily. Please dispense 90 day supply 30 mL 3 ??? brimonidine (ALPHAGAN) 0.2 [...] their comfort. A total body skin exam except for the genitalia was performed. This includes examination of the skin of the face, ears, neck, chest, axillae, left and right upper and lower extremities, hands, feet, abdomen, back, and buttocks. The genitalia, perineum, and perianal areas were not examined. Significant skin findings: A. Right superior helix: 0.2 cm pink papule with keratotic core Verbal consent was given today to obtain and chart today's photo(s). Photo(s) taken by Marcia Arvizu Clinical Scribclemencia. B. Left flank: Warty 0.4 papule with erythematous base Verbal consent was given today to obtain and chart today's photo(s). Photo(s) taken by Christy Michaels Scribclemencia. C. Trunk and extremities, left jaw line, left axilla: 0.4-0.6 cm pink-brown papules/plaque with waxy stuck on appearance. D. 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 Follow-up based on pathology results. B. Wart vs Squamous cell carcinoma Procedure: Skin biopsy by shave technique Location: left flank Discussed indications for procedure and expectations including [...] were reviewed. Follow-up based on pathology results. C. Seborrheic keratoses - Discussed benign nature of lesion and provided reassurance. No treatment necessary at this time. D. H/O BCC, SCC, NER Follow up: Return to clinic in 1 year for full skin exam, or sooner if needed. A reminder letter will be sent to schedule. Patient instructed to call with questions or concerns. (AVS printed and reviewed with patient). I am documenting this encounter acting as the scribe for and in the presence of Dr. Lugo: Marcia Arvizu, Clinical Scribe I performed the above scribed service and agree with the accuracy of the documentation in this encounter. Note initiated by: ENEIDA Langley MD Section of Dermatology [facility] documented in this encounter Plan of Treatment Upcoming Encounters Date Type Department Care Team (Late st Contact Info) Description 07/24/2024 2:00 PM EDT Appointment Mammography[place] [address] Aden Lauren MD [address] [place] [address] documented as of this encounter Procedures Procedure Name Priority Date/Time Associated Diagnosis Comments SPECIMEN TO PATHOLOGY (NON-OR) Routine 02/07/2016 2:08 PM EDT Skin lesion SURGICAL PATHOLOGY REPORT Routine 02/07/2016 2:08 PM EDT documented in this encounter Results * Surgical Pathology Report (02/07/2016 2:08 PM EDT) Final Diagnosis [id number] ?Location: [facility] The signing pathologist has (i) examined the relevant preparation(s) for the specimen(s) and (ii) rendered or confirmed the diagnosis(es). . ?Surgical Pathology DIAGNOSIS A - Skin, right superior helix, shave biopsy: Changes consistent with the superficial aspect of chondrodermatitis nodularis helicis (see Discussion). B - Skin, left flank, shave biopsy: Seborrheic keratosis. 02/10/16 DLD 02/11/16 Verified by: ? Kalpesh COX, PhD, Hiren ?Dermatopathologist ?(Electronic Signature) The attending pathologist whose signature appears on this report has reviewed all diagnostic slides and has edited the gross and/or microscopic portion of the report in rendering the final pathologic diagnosis. DISCUSSION A(right superior helix) - The specimen demonstrates an invagination of the epidermis containing parakeratotic keratin plug. ??Beneath this, there is focal fibrinoid necrosis with adjacent dermal fibrosis and granulation tissue. ??These changes are consistent with ??the superficial aspect of chondrodermatitis nodularis helicis. There is focal basal layer keratinocytic atypia. This could represent reactive atypia. Squamous cell carcinoma is not seen with multiple deeper levels examined. CLINICAL INFORMATION Specimen Submitted: A - Skin, right superior helix, shave biopsy, (1) B - Skin, left flank, shave biopsy, (1) Clinical History: A - 0.2 cm pink papule with keratotic core B - warty 0.4 papule with erythematous base Clinical Diagnosis: A - CNH vs. SCC B - SCC SPECIMEN PROCESSING A - Labeled/Fixative: Right superior helix, formalin. Quantity/Size: Single, 0.4 x 0.3 x 0.1 cm. Tissue Description: Shave of white skin. Sections/Processing: Bisected. (T1) B - Labeled/Fixative: Left flank, formalin. Quantity/Size: Single, 0.4 x 0.4 x 0.1 cm. Tissue Description: Shave of a buckley-yellow, hyperkeratotic skin papule. Sections/Processing: Bisected. (T1) ??sns 02/11/2016 5:37 PM EDT [facility] SPECIMEN FROM SKIN / Unknown 02/07/2016 2:08 PM EDT 02/07/2016 2:08 PM EDT SPECIMEN FROM SKIN / Unknown 02/07/2016 2:08 PM EDT 02/07/2016 2:08 PM EDT Myah Lugo MD PATHOLOGY/CYTOLOGY O BIBI Performing Organization Address City/[facility]/[place] [address] * Specimen to Pathology (NON-OR) (02/07/2016 2:08 PM EDT) AP Specimen 02/07/2016 2:08 PM EDT 02/07/2016 3:55 PM EDT Narrative [facility] - 02/07/2016 3:55 PM EDT Specimen requisition ordered. ??Separate Pathology report to follow Resulting Agency Comment Spec In Lab Myah Lugo MD PATHOLOGY/CYTOLOGY O BIBI Performing Organization Address City/[facility] [place] [address] documented in this encounter Visit Diagnoses Diagnosis Skin lesion Unspecified disorder of skin and subcutaneous tissue History of basal cell carcinoma of skin History of SCC (squamous cell carcinoma) of skin Personal history of other malignant neoplasm of skin documented in this encounter Care Teams Knowledge Engineer Relationship Specialty Start Date End Date Emily Mendieta APRN [address] [place] [address] PCP - General Family Medicine 5/24/16 5/23/17 documented as of this encounter
--- OUTSIDE RECORDS SUMMARY | 2024-06-23 02:18 | XMS_ITS | Encounter Summary ---
[place] [address] Care Team Providers Care Freight Router Name Role Phone Shanell Hawkins MD Primary Care Provider [phone] Encounter Details Date Type Department Care Team (Latest Contact Info) Description 02/26/2014 12:19 PM EDT - 02/26/2014 11:59 PM EDT Hospital En[place] [address] Breast cancer screening, high risk patient Social [...] 07/24/2024 2:00 PM EDT Appointment Mammography/[place] [address] Aden Lauren MD [address] [place] [address] documented as of this encounter Procedures Procedure Name Priority Date/Time Associated Diagnosis Comments MAMMO DIRECT DIGITAL UNILATERAL Routine 02/26/2014 1:01 PM EDT Breast cancer screening, high risk patient documented in this encounter Results * Mammo direct digital unilateral (02/26/2014 1:01 PM EDT) Anatomical Region Laterality Modality Breast N/A Mammography 02/26/2014 1:01 PM EDT Narrative 02/27/2014 9:36 AM EDT Reason for Exam: Screening, new baseline, s/p excision for ADH Technique: Craniocaudal (CC) and Medio-lateral Oblique (MLO) views of the right breast obtained with direct digital capture. The exam was evaluated by CAD version 8.3.17. Findings: This is a negative mammogram (ACR Category 1). There is a stable fibroglandular pattern without significant change as compared to prior studies. There is no mammographic evidence of cancer. The breast is of scattered density. CONCLUSION: This is a NEGATIVE mammogram (ACR Category 1). Routine screening mammography is recommended with the frequency dependent upon the patients age and breast cancer risk factors. A letter has been sent to this patient by the breast imaging center. Procedure Note Tess Tracey MD - 02/27/2014 Reason for Exam: Screening, new baseline, s/p excision for ADH Technique: Craniocaudal (CC) and Medio-lateral Oblique (MLO) views of theright breast obtained with direct digital capture. The exam was evaluated by CAD version 8.3.17. Findings: This is a negative mammogram (ACR Category 1). There is a stablefibroglandular pattern without significant change as compared to prior studies. There is no mammographic evidence of cancer. The breast is of scattereddensity. CONCLUSION: This is a NEGATIVE mammogram (ACR Category 1). Routine screening mammography is recommended with the frequency dependentupon the patients age and breast cancer risk factors. A letter has been sent to this patient by the breast imaging center. David Blackwood MD IMG MAMMO ORDERABLES documented in this encounter Visit Diagnoses Diagnosis Breast cancer screening, high risk patient Screening mammogram for high-risk patient documented in this encounter Care Teams Freight Router Relationship Specialty Start Date End Date Shanell Hawkins MD [address] [place] [address] PCP - General 08/19/10 02/17/16 documented as of this encounter
--- OUTSIDE RECORDS SUMMARY | 2024-06-23 02:18 | XMS_ITS | Encounter Summary ---
[place] [address] Care Team Providers Care Film Booker Name Role Phone Aden Lauren MD Primary Care Provider [phone] Reason for Visit * Reason Onset Date Comments Medication Refill 11/15/2019 Requesting Mariaelena monidine refill Encounter Details Date Type Department Care Team (Late st Contact Info) Description 11/15/2019 [place] [address] Yogi Florentino MD [facility] [place] [address] PXF (pseudoexfoliation of lens capsule) Social History [...] Telephone Encounter - Shanell Baer COT - 11/15/2019 9:23 AM EST Do you think it might be Brimonidine? * Telephone Encounter - Esther West - 11/15/2019 9:07 AM EST Patient states that she needs a refill of her drops vermidine solution 0.2% op 1 drop in each eye daily sent to [facility]. 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
--- OUTSIDE RECORDS SUMMARY | 2024-06-23 02:18 | XMS_ITS | Encounter Summary ---
Author Organization [facility] [place] [address] Care Team Providers Care Sales Development Representative Name Role Phone Shanell Hawkins MD Primary Care Provider [phone] Reason for Visit * Reason Comments Follow Up Surgery Encounter Details Date Type Department Care Team (Late st Contact Info) Description 07/12/2014 2:30 PM EDT Follow-[place] [address] CLINIC, Nelly Kuhn, PEDIATRICS HOSPITALIST [facility] [place] [address] Breast cancer screening, high risk patient (Primary [...] as of this encounter Progress Notes * Nelly Miller, GABRIELA - 07/12/2014 2:21 PM EDT Tianna Tovar is a 74 year old pt of Dr Blackwood who [...] back in June (before they go to [place]) for a CBE and a bilateral mammogram. She understands she is at increased risk for developing breast cancer given this ADH. She will do monthly breast self exam and will be followed at 6 months interval with a CBE (her PCP and or steam locomotive firer/fireman provider alternating with me)with annual mammograms . documented in this encounter Plan of Treatment Upcoming Encounters Date Type Department Care Team (Late st Contact Info) Description 07/24/2024 2:00 PM EDT Appointment Mammography/[place] [address] Aden Lauren MD [address] [place], [place] [id number] documented as of this encounter Visit Diagnoses Diagnosis Breast cancer screening, high risk patient- Primary Screening mammogram for high-risk patient documented in this encounter Care Teams Sales Development Representative Relationship Specialty Start Date End Date Shanell Hawkins MD [address] [place], [place] [id number] PCP - General 08/19/10 02/17/16 documented as of this encounter
--- OUTSIDE RECORDS SUMMARY | 2024-06-23 02:18 | XMS_ITS | Encounter Summary ---
Author Organization [facility] [place] [address] Care Team Providers Care General Passenger Agent Name Role Phone Aden Lauren MD Primary Care Provider [phone] Reason for Visit * Reason Comments Pseudoexfoliation Glaucoma Encounter Details Date Type Department Care Team (Latest Contact Info) Description 03/10/2019 12:15 PM EDT Office [place] [address] Yogi Florentino MD [facility] DR OPHTHALMOLOGY [place] [id number] Pseudoexfoliation glaucoma, mild stage; Pseudophakia of both eyes; PXF (pseudoexfoliation of lens capsule) Social History [...] Progress Notes * Yogi Florentino MD - 03/10/2019 12:15 PM EDT Pseudoexfoliation glaucoma ou: No progressive glaucoma damage on current medical therapy IOP doing well OCT stable Pseudophakic OU: Noted Dry Eyes: Discussed that the intermittent blurred vision is due to surface changes, advised AT use Plan: Continue present meds: :brimonidine both eyes twice daily dorzolamide-timolol both eyes twice daily Goes away for the winter, due to stability okay to follow up in 1 year Upon Return: GREGG 24-2 HVF and OCT documented in this encounter Plan of Treatment Upcoming Encounters Date Type Department Care Team (Late st Contact Info) Description 07/24/2024 2:00 PM EDT Appointment Mammography/[place] [address] Aden Lauren MD [address] [place], [place] [phone] documented as of this encounter Procedures Procedure Name Priority Date/Time Associated Diagnosis Comments OCT OPTIC NERVE - OU - BOTH EYES Routine 03/10/2019 1:26 PM EDT Pseudoexfoliation glaucoma, mild stage documented in this encounter Results * OCT OPTIC [id number] EYES (03/10/2019 1:26 PM EDT) Anatomical Region Laterality Modality Other Narrative 03/10/2019 1:26 PM EDT Right Eye Quality was good. Progression has been stable. Left Eye Quality was good. Progression has been stable. 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
--- OUTSIDE RECORDS SUMMARY | 2024-06-23 02:18 | XMS_ITS | Encounter Summary ---
Author Organization [facility] [place] [address] Care Team Providers Care Warehouse Helper Name Role Phone Shanell Hawkins MD Primary Care Provider [phone] Reason for Visit * Reason Onset Date Comments Medication Refill 05/27/2015 Refill for Mariaelena monidine 0.2% and Cosopt to [facility] Encounter Details Date Type Department Care Team (Late st Contact Info) Description 05/27/2015 [place] [address] Riccardo Moy MD [facility] 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
--- OUTSIDE RECORDS SUMMARY | 2024-06-23 02:18 | XMS_ITS | Encounter Summary ---
[place] [address] Care Team Providers Care Market Research Intern Name Role Phone Aden Lauren MD Primary Care Provider [phone] Reason for Referral * Consultation (Routine) - Closed Specialty Diagnoses / Procedures Referred By Shmuel howe Referred To Contact Plastic Surgery Diagnoses EIC (epidermal inclusion cyst) Myah Lugo MD [facility] DR SUDHA [place] [address] [facility] Plastic Surg [address] [place] [id number] Referral ID Status Reason Start Date Expiration Date V isits Requested Visits Authorized [id number] Closed Consult, Test & Treat 03/02/2019 03/01/2020 1 1 Reason for Visit * Reason Comments Skin Check FSE Encounter Details Date Type Department Care Team (Late st Contact Info) Description 03/02/2019 2:15 PM EDT Office Visit Dermatology at [facility] [address] [place] [address] Myah Lugo MD [facility] DR SUDHA [place] [address] Neoplasm of uncertain behavior (Primary Dx); EIC (epidermal inclusion cyst); Inflamed seborrheic keratosis; History of basal cell carcinoma; History of SCC (squamous cell carcinoma) of skin; AK (actinic keratosis) Social History Tobacco Use [...] Patient Instructions * Patient Instructions* Niesha Tyler, [facility] - 03/02/2019 2:15 PM EDT Shave Biopsy Wound Care Instructions Your treatment today: You have had a shave biopsy of your skin, which is a removal of tissue for examination under a microscope. This wound will heal without stitches. Allow 3-6 weeks for the wound to heal fully. If bleeding should occur, hold firm, constant pressure against the wound for 15- 20 minutes (with nopeeking). If bleeding continues, call the clinic or go to your local emergency department. Please allow 1-2 weeks for the biopsy results to return. Based on the results, your physician or nurse will contact you by phone or letter; follow-up will be discussed at that time. If in 2 weeks, you have not heard from us, please feel free to call to request your biopsy results. Wound care instructions: Keep the bandage placed [...] becomes hot or hard around the wound. How to use 5-fluorouracil (Efudex) 5% cream Area(s) to be treated: Cheeks Treatment length: Twice daily (morning and evening) for 3 weeks. Instructions for use: 5. Wash your hands before applying. 6. Wash area with a gentle cleanser and pat dry. 7. Use a clean fingertip to apply a small amount to the affected area. Use just enough to cover thearea with a thin film. Avoid your eyes, nostrils and mouth. (Note: Even when treating the entire face, a pea-sized amount should be sufficient.) 8. Rub cream into skin. Do NOT cover with a Band-Aid or other coverings. 9. Wash your hands after applying. 10. After 1 hour, you may apply moisturizer, sunscreen and/or makeup to the area. What to expect: Reactions vary from person to person. During this treatment, your skin may become red, inflamed, irritated (i.e., burning, crusting, weeping, oozing, etc.) and potentially tender or painful. This is a normal reaction. After the treatment period is complete, your skin will take several weeks to heal completely. For discomfort, you may take Tylenol or ibuprofen. You may also apply wet compresses as well as petroleum jelly, such as Vaseline or Aquaphor, to soothe the skin. While you should expect some cwca-br-pdrnihor discomfort and tenderness, if pain is excessive and interferes with daily activity or keeps you awake at night, you may pause treatment for 1-2 days. Please contact the clinic if you develop a fever or a thick yellow/honey-colored crust over the treatedarea. Warnings: - Use only as directed. - Do not share this medication. - Do not use other topical or medicated products on the treatment area unless instructed to do so by your doctor. Contact information: On weekdays (8am to 5pm), please call the clinic at [phone]. After 5pm, and on weekends and holidays, please call the hospital at [phone] and ask for the Information Systems Technician Sales Counselor. documented in this encounter Progress Notes * Myah Lugo MD - 03/02/2019 2:15 PM EDT Images from the original note were not included. DERMATOLOGY ESTABLISHED PATIENT NOTE Date of service: 03/02/2019 Tianna Tovar : 1940 Provider: Myah Lugo MD Chief Complaint Patient presents with ??? Skin Check FSE SKIN HX Left nose: Sclerosing BCC - s/p Mohs with??,??2000 ?? 09/2012 (patient reported; biopsied in [place]) Left cheekbone: ISK Sternal notch: ISK ?? 01/27/2012 A. Left medial cheek, punch biopsy: Infiltrating BCC present at peripheral and deep margins. - s/p Mohs??02/2012 B. Left deltoid, shave biopsy: BCC, focally present at a peripheral margin. - s/p 03/22/12 ?? 06/21/2012 Left partial vulvectomy: SCC - s/p partial vulvectomy; 3 nodes (negative) removed from left groin 03/28/2014 Right lower back, 6.5 cm right of midline, shave biopsy: Seborrheic keratosis, inflamed. 02/07/2016 A. 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 B. Left flank, shave biopsy: seborrheic keratosis. 02/28/2018 Right lateral arm, shave biopsy: BCC, superficial type, extending to the peripheral specimen edge. ?? Other: - Actinic keratoses - s/p Carac - Seborrheic keratoses - De La Cruz angiomas - Lentigines - Chrondrodermatitis nodularis helicis Social History: Marital status: ?? Patient Preferences: Preferred name: Tianna Preferred contact method with results: Yes Detailed message including biopsy results okay?: Yes Are there any other people with whom we may discuss your care?: (Yrn) SAHARA Tovar is a 78 y.o. female, established patient last seen by me on 06/09/18. Here today for a full skin exam (history of BCC, SCC). Denies any significant changes in health since last appointment. Patient has multiple skin concerns today including two tender / irritated lesion on back. Cyst on her neck that is getting larger. ADR Allergies Allergen Reactions ??? Adhesive Tape [...] drop into both eyes 2 times daily. day supply/ Patient is not ready for this to be filled. Please hold rx until needed. 30 mL 3 ??? lisinopril-hydrochlorothiazide (PRINZIDE;ZESTORETIC) 10-12.5 mg Tablet Take 1 tablet by mouth daily. ??? simvastatin (ZOCOR) 10 mg tablet Take 5 mg by mouth nightly. ??? ibuprofen (ADVIL;MOTRIN) 200 mg tablet Take 200 mg by mouth every 6 hours as needed. ??? hydrochlorothiazide (HYDRODIURIL) 25 mg tablet Take 12.5 mg by mouth daily. ??? Multivitamins Chew ??? fluorouracil (EFUDEX) 5 % Cream Apply topically bid as tolerated to AA on right arm x 6 weeks, then stop.OK to stop temporarily if too much inflammation. (Patient not taking: Reported on 03/02/2019) 40 g 0 No current facility-administered medications for this visit. ROS General: feeling well Skin: denies other skin complaints EXAM General: NAD, pleasant, cooperative Skin: Patient was asked to undress to the level of her comfort. Verbalized that the provider's preference is for the patient to remove all clothing and that the provider will not examine areas patient elects to keep covered. Patient's decision was to remove bra and keep underwear on and have the following examined: skin of the scalp, hair, face, ears, neck, chest, breasts, abdomen, back, axillae,upper and lower extremities, hands, and feet. Buttocks and genitalia were not examined. Significant skin findings: A. Right lower back: 1 cm sessile papule. [Specimen A] Photo taken and charted with patient's verbal consent. B. Left cheek, left preauricular cheek, right cheek: 0.2-0.3 cm scaly/hyperkeratotic irregular pinkpapules. C. Left lower back x 1: 0.4-0.6 cm inflamed, well-demarcated, pink-brown papule/plaque with waxy stuck-on appearance. D. Right lateral neck: 2 cm cystic, subcutaneous nodule with central/lateral punctum. E. Well-healed surgical scars as per skin history. ASSESSMENT/PLAN A. ISK vs Skin Tag - Recommended a skin biopsy to confirm/clarify the nature of the skin lesion. After discussion of potential risks (scarring, bleeding, infection) and recurrence, patient agreed to proceed. - Patient denies known allergies to lidocaine and epinephrine. Procedure: Skin shave biopsy. Location: Right lower back Time of procedure: 2:50 pm Discussed indications for procedure and expectations including risks and benefits. Verbal consent obtained. Skin prepped with alcohol. Local anesthesia with 1% xylocaine, 1/100,000 epinephrine. A sample of the lesion was removed by shave technique to the level of the dermis and submitted to Pathology. Hemostasis obtained (AlCl and/or electrocautery). There were no complications; patient toleratedthe procedure well. Wound dressed. Post-procedure expectations, wound care and activity restrictions reviewed. ?? - Follow-up based on pathology results. B. Actinic Keratoses - Explained etiology, natural history and premalignent potential of these lesions. - Discussed treatment options (LN2, 5-FU, PDT) and their respective risks and benefits. - Patient elects to proceed with 5-FU field treatment. - Start Rx: 5-fluorouracil (Efudex) 5% cream: Apply a thin layer to affected areas on the cheeks twice daily (morning and night) as tolerated for 3 weeks. Patient counselin-FU - Reviewed expectations, typical reaction, and restrictions on light exposure during treatment. Patient understands that affected area will likely become red, irritated and tender during treatment and that this is a normal reaction. - Discussed option to hold treatment for 1-2 days if inflammation becomes too intense or patient experiences discomfort. Advised patient to call clinic if pain is excessive, or infection is suspected. - Counseled that patient may apply moisturizer, sunscreen and/or other cosmetics to the treated area 1 hour following application. C. Inflamed Seborrheic Keratosis - Discussed benign nature of lesion and provided reassurance. - Due to irritation present on today's exam and history of symptoms, discussed removal with cryotherapy. - Patient elects to proceed with cryotherapy today. ?? Procedure: Destruction of benign lesion with cryotherapy (LN2). Location(s): As noted above Number: 1 Discussed procedure and expectations, including risks (especially hypopigmentation) and benefits. Verbal consent obtained. Frozen with LN2, 15-30 second thaw time, twice. There were no complications;patient tolerated the procedure well. Post-procedure expectations and wound care were reviewed. D. Epidermal Inclusion Cyst - Enlarging. - Discussed benign nature of lesion and provided reassurance. No treatment necessary at this time. - Discussed excising the lesion if bothersome to patient. Patient is aware that this option would be trading the lesion for a scar. - Patient would like to proceed with excision. Will refer to Plastic Surgery. E. H/O BCC, SCC - NER; will continue to monitor. FOLLOW UP: Based on pathology results. RTC in 1 year for a full skin exam; sooner if needed. Reminder placed in system to schedule. Instructed patient to call with questions or concerns. Note initiated by: Niesha Tyler CMA ? Kerline Siegel, Clinical Scribe has performed the documentation for this encounter in the presenceof and acting as a scribe for Myah Lugo MD. I performed the above scribed service and agree with the accuracy of the documentation in this encounter. Myah Lugo MD Section of Dermatology [facility] * Niesha Tyler CCMA - 03/02/2019 2:15 PM EDT I reviewed the biopsy results and Dr. [...] 07/24/2024 2:00 PM EDT Appointment Mammography[place] [address] Aden Lauren MD [address] [place] [address] Scheduled Referrals Name Type Priority Associated Diagnoses Orde r Schedule Referral to Plastic Surgery Outpatient Referral Routine EIC (epidermal inclusion cyst) Ordered: 03/02/2019 documented as of this encounter Procedures Procedure Name Priority Date/Time Associated Diagnosis Comments SPECIMEN TO PATHOLOGY Routine 03/02/2019 4:19 PM EDT Neoplasm of uncertain behavior SURGICAL PATHOLOGY REPORT Routine 03/02/2019 2:50 PM EDT documented in this encounter Results * Specimen to Pathology (03/02/2019 4:19 PM EDT) AP Specimen 03/02/2019 4:19 PM EDT 03/02/2019 6:02 PM EDT Narrative [facility] - 03/02/2019 6:02 PM EDT Specimen requisition ordered. ??Separate Pathology report to follow Resulting Agency Comment Spec In Lab Myah Lugo MD PATHOLOGY/CYTOLOGY O RDERABLES [facility] [place] [place] [address] * Surgical Pathology Report (03/02/2019 2:50 PM EDT) Final Diagnosis [id number] ? Location: [facility] The signing pathologist has (i) examined the relevant preparation(s) for the specimen(s) and (ii) rendered or confirmed the diagnosis(es). . ?Surgical Pathology DIAGNOSIS Skin, right lower back, shave biopsy: - ??Basal cell carcinoma, superficial and nodular types with features of ??fibroepithelio ma of pinkus , present at the peripheral and deep specimen edges Electronically signed by: ??Kalpesh COX, PhD, Stephanie Verified: ??03/06/2019 ?Dermatopatholo gist Performed at: ??-[facility] [place] [facility] [place], [place], [place] CLINICAL INFORMATION Specimen Submitted: A - Skin, right lower back: 1 cm sessile papule, shave biopsy (1) Clinical History and Diagnosis: ISK versus skin tag SPECIMEN PROCESSING A - Labeled/Fixative : Right lower back, formalin. Quantity/Size: ??Two, 1.3 x 0.6 x 0.2 cm and 1.3 x 1.0 x 0.3 cm. Tissue Description: Shave of a soft, rubbery, light pink and pedunculated papule with a fragmented piece somewhat friable, buckley-white skin. Sections/Process ing: Submitted en toto ??in 2 cassettes as follows: ?A1: ??Papule, inked and quadrisected. ?A2: ??Fragmented skin, inked and quadrisected. ??apb 03/06/2019 4:22 PM EDT [facility] SPECIMEN FROM SKIN / Unknown 03/02/2019 2:50 PM EDT 03/02/2019 2:50 PM EDT Myah Lugo MD PATHOLOGY/CYTOLOGY O RDERABLES [facility] [place] [place] [address] documented in this encounter Visit Diagnoses Diagnosis Neoplasm of uncertain behavior- Primary Neoplasm of uncertain behavior, site unspecified EIC (epidermal inclusion cyst) Sebaceous cyst Inflamed seborrheic keratosis History of basal cell carcinoma Personal history of other malignant neoplasm of skin History of SCC (squamous cell carcinoma) of skin Personal history of other malignant neoplasm of skin AK (actinic keratosis) Actinic keratosis documented in this encounter Care Teams Market Research Intern Relationship Specialty Start Date End Date Aden Lauren MD [address] [place] [address] [address] [facility] [address] [place] [address] PCP - General Family Medicine 02/17/17 documented as of this encounter
--- OUTSIDE RECORDS SUMMARY | 2024-06-23 02:18 | XMS_ITS | Encounter Summary ---
[place] [address] Care Team Providers Care Meter Reader Chief Name Role Phone Aden Lauren MD Primary Care Provider [phone] Encounter Details Date Type Department Care Team (Late st Contact Info) Description 07/16/2017 11:10 AM EDT - 07/16/2017 11:59 PM EDT Hospital En[place] [address] Aden Lauren MD [address] [place] [address] Encounter for screening mammogram for [...] hold rx until needed. 30 mL 3 04/12/2017 03/10/2018 dorzolamide-timolol (COSOPT) 22.3-6.8 mg/mL DropsIndications:PXF (pseudoexfoliation of lens capsule) Place 1 drop into both eyes 2 times daily. 90 day supply/Patient is not ready for this to be filled. Please hold rx until needed. 30 mL 3 04/12/2017 03/10/2018 hydrochlorothiazide (HYDRODIURIL) 25 mg tablet Take 12.5 mg by mouth daily. 03/27/2019 documented as of this encounter Plan of Treatment Upcoming Encounters Date Type Department Care Team (Late st Contact Info) Description 07/24/2024 2:00 PM EDT Appointment Mammography/[place] [address] Aden Lauren MD [facility] [address] [address] documented as of this encounter Procedures Procedure Name Priority Date/Time Associated Diagnosis Comments MAMMO SCREENING CAD AND CARLOS BILATERAL Routine 07/16/2017 11:42 AM EDT Encounter for screening mammogram for breast cancer documented in this encounter Results * Mammo Screen CAD and Carlos Bilat (Generic) (07/16/2017 11:42 AM EDT) Anatomical Region Laterality Modality Breast Bilateral Mammography Narrative 07/16/2017 11:59 AM EDT BILATERAL MAMMOGRAPHY REASON FOR EXAM: [...] No mammographic evidence of malignancy. RECOMMENDATION: [employer] and The Society of [...] cancer documented in this encounter Care Teams Meter Reader Chief Relationship Specialty Start Date End Date Aden Lauren MD [address] [place] [address] PCP - General Family Medicine 02/17/17 documented as of this encounter
--- OUTSIDE RECORDS SUMMARY | 2024-06-23 02:18 | XMS_ITS | Encounter Summary ---
Author [facility] [place] [address] Care Team Providers Care Rn Building Name Role Phone Shanell Hawkins MD Primary Care Provider [phone] Reason for Visit * Reason Comments Pseudoexfoliation Glaucoma Referred by Rajeev Meyer Encounter Details Date Type Department Care Team (Latest Contact Info) Description 05/23/2015 2:00 PM EDT Office [place] [address] Riccardo Moy MD [facility] [place] [address] Pseudoexfoliation glaucoma, stage unspecified (Primary Dx); Pseudoexfoliation glaucoma ou Discharge Disposition: Home Social History Tobacco Use [...] this encounter Patient Instructions * Patient Instructions* Riccardo Moy MD - 05/23/2015 3:56 PM EDT Pseudoexfoliation glaucoma ou Assessment: Glaucoma under good control with current meds Plan: Continue current meds Follow-up in 6 more months with repeat Nevarez Visual Field and Optical Coherence Tomography For additional information about eye conditions, visit the Eye Facts portion of my website at [email or web address]/ and I also started a Glaucoma Patient Group on [employer] (htt [email or web address]/[email or web address]) for patients to seek help from one another. (Search for Glaucoma Patient Group and then ask to join.) documented in this encounter Progress Notes * Riccardo Moy MD - 05/23/2015 3:42 PM EDT Pseudoexfoliation glaucoma ou Assessment: Glaucoma under good control with current meds Plan: Continue current meds Follow-up in 6 more months with repeat Nevarez Visual Field and Optical Coherence Tomography documented in this encounter Miscellaneous Notes * Assessment & Plan Note - Riccardo Moy MD - 05/23/2015 3:55 PM EDT Associated Problem(s): Pseudoexfoliation glaucoma ou Assessment: Glaucoma under good control with current meds Plan: Continue current meds Follow-up in 8 more months with repeat Nevarez Visual Field and Optical Coherence Tomography documented in this encounter Plan of Treatment Upcoming Encounters Date Type Department Care Team (Late st Contact Info) Description 07/24/2024 2:00 PM EDT Appointment Mammography/[place] [address] Aden Lauren MD [address] [place] [address] documented as of this encounter Procedures Procedure Name Priority Date/Time Associated Diagnosis Comments OCT OPTIC NERVE - OU - BOTH EYES Routine 05/23/2015 3:41 PM EDT Pseudoexfoliation glaucoma, stage unspecified documented in this encounter Results * OCT OPTIC [id number] EYES (05/23/2015 3:41 PM EDT) Anatomical Region Laterality Modality Other Narrative 05/23/2015 3:42 PM EDT Right Eye Quality was good. Left Eye Quality was good. Notes Optic nerve report G = 83 OD G = 99 OS within normal limits OU Posterior pole report OD-OS asymmetry: thin OD Hemisphere asymmetry: n/a Riccardo Moy MD OPHTHALMOLOGY SERV ICES ORDERABLES documented in this encounter Visit Diagnoses Diagnosis Pseudoexfoliation glaucoma, stage unspecified- Primary Pseudoexfoliation glaucoma ou Pseudoexfoliation glaucoma documented in this encounter Care Teams Rn Building Relationship Specialty Start Date End Date Shanell Hawkins MD [address] [place] [address] PCP - General 08/19/10 02/17/16 documented as of this encounter
--- OUTSIDE RECORDS SUMMARY | 2024-06-23 02:18 | XMS_ITS | Encounter Summary ---
Author Organization [facility] [place] [address] Care Team Providers Care Ssis Architect Name Role Phone Aden Lauren MD Primary Care Provider [phone] Reason for Visit * Reason Comments Skin Cancer Examination Encounter Details Date Type Department Care Team (Late st Contact Info) Description 03/21/2020 4:00 PM EDT Office Visit Dermatology at [address] [address] Myah Lugo MD [facility] [place] [address] AK (actinic keratosis); SK (seborrheic keratosis); History of basal cell carcinoma Social History Tobacco Use Types Packs/Day Years [...] Progress Notes * Myah Lugo MD - 03/21/2020 4:00 PM EDT DERMATOLOGY ESTABLISHED PATIENT CLINIC NOTE Date of Service: 03/21/2020 Tianna M Guy : 1940 Provider: Myah Lugo MD Chief Complaint Patient presents with ??? Skin Cancer Examination SKIN HX Personal History Y/N Date, location, treatment Melanoma No DN No SCC No BCC Yes 2000: Left nose, BCC (Mohs) 01/27/12: Left medial cheek, BCC (Mohs) 01/27/12: Left deltoid, BCC (WLE) 02/28/18: Right lateral arm, BCC 03/02/19: Right lower back, BCC (ED&C) AK or field cancerization therapy Yes LN2, 5-FU/Carac Immunosuppression or malignancy Yes Vulvar cancer, ? early breast cancer s/p lumpectomy Blistering sunburns or tanning bed use Yes + Blistering sunburns Other (i.e., eczema, psoriasis) Yes 09/2012: Left cheekbone, ISK 09/2012: Sternal notch, ISK 03/28/14: Right lower back 6.5 cm right of midline, ISK 02/07/16: Right superior helix, CNH 02/07/16: Left flank, SK EIC (right lower neck) Family History Y/N Parents, siblings, children Melanoma No NMSC No Other No Patient Preferences Preferred name Tianna Preferred contact method [] Home [x] Cell [] myD-H [] Other: Permission to leave detailed message including results [x] Yes [] No Permission to discuss care with (Yrn) Preferred pharmacy [facility] in [place], [place], or [facility] Procedure Screening Questions Y/N Allergies to lidocaine or epinephrine No Blood thinners Yes: ASA 81 mg Pacemaker or defibrillator No HPI Tianna Adriana Tovar is a 79 y.o. female, established patient last seen by me on 04/14/2019. Here today for a full skin exam with the following concerns: - Several (2-3) tick bites this summer, which she thinks were all dog ticks; completed 2 week course of doxycyline prescribed by PCP but notes redness at site of 1 bite - Lesions scattered on the face Last FSE: 04/14/19 MEDS Current Outpatient Medications Medication Sig Dispense Refill ??? aspirin EC 81 mg Tablet, Delayed Release (E.C.) Take 81 mg by mouth daily. ??? dorzolamide (Trusopt) 2 % Drops Place 1 drop into both eyes 2 times daily. 30 mL 5 ??? brimonidine (ALPHAGAN) 0.2 % Drops Place 1 drop into both eyes 2 times daily. day supply 30 mL 3 ??? dorzolamide-timolol (COSOPT) 22.3-6.8 [...] much inflammation. (Patient not taking: Reported on 07/17/2019) 40 g 0 ??? lisinopril-hydrochlorothiazide (PRINZIDE;ZESTORETIC) 10-12.5 mg Tablet Take 1 tablet by mouth daily. ??? simvastatin (ZOCOR) 10 mg tablet Take 5 mg by mouth nightly. ??? ibuprofen (ADVIL;MOTRIN) 200 mg tablet Take 200 mg by mouth every 6 hours as needed. ??? Multivitamins Chew No current facility-administered medications for this visit. ADR Allergies Allergen Reactions ??? Adhesive Tape Sensitive ??? Timolol Other (See Comments) burning ROS General: Feeling well Skin: Denies other skin complaints EXAM General: NAD, pleasant, cooperative Skin: Patient was asked to undress to the level of her comfort. Verbalized that the provider's preference is for the patient to remove all clothing and that the provider will not examine areas patient elects to keep covered. Patient's decision was to keep bra and underwear on and have the followingexamined: skin of the scalp, hair, face, ears, neck, chest, abdomen, back, axillae, upper and lowerextremities, hands, and feet. Areas of face under mask examined (COVID-19): [x] Yes [] No Significant Skin Findings: A. Scattered on the face: 0.2-0.3 cm scaly, irregular, pink papules. B. Trunk and extremities: Brown papules/plaques with waxy stuck-on appearance. C. Well-healed hypopigmented scar per skin history. ASSESSMENT/PLAN A. Actinic Keratoses - Explained etiology, natural history and premalignant potential of these lesions. - Discussed treatment options (5-FU +/- calcipotriene) and their respective risks and benefits. - Patient elects to proceed with spot treatment with Carac. She has prescription at home and is notout in the sun often and elects to start treatment now. - Apply a thin layer of Carac to affected areas on the face once daily for 3 weeks. Patient counseling: Carac - Reviewed expectations, typical reaction, and restrictions [...] the treated area 1 hour following application. B. Seborrheic Keratoses - Etiology discussed. - Patient reassured that benign in nature. C. H/O BCC - NER, will continue to monitor. D. H/O Tick Bites - Recommended Tick Twister tool. Follow Up: RTC in 1 year for: [x] FSE [] Follow up [x] Reminder placed in system [] Appointment scheduled before exiting Note initiated by: IVETTE Bueno I am documenting this encounter acting as the scribe for and in the presence of Dr. Lugo: Janet Malik I performed the above scribed service and agree with the accuracy of the documentation in this encounter. Myah Lugo MD Section of Dermatology [facility] cc: Aden Lauren MD documented in this encounter Plan of Treatment Upcoming Encounters Date Type Department Care Team (Late st Contact Info) Description 07/24/2024 2:00 PM EDT Appointment Mammography/[place] [phone] Aden Lauren MD [address] [place] [address] [address] [facility] [address] [place] [address] documented as of this encounter Visit Diagnoses Diagnosis AK (actinic keratosis) Actinic keratosis SK (seborrheic keratosis) Other seborrheic keratosis History of basal cell carcinoma Personal history of other malignant neoplasm of skin documented in this encounter Care Teams Ssis Architect Relationship Specialty Start Date End Date Aden Lauren MD [address] [place] [address] PCP - General Family Medicine 02/17/17 documented as of this encounter
--- OUTSIDE RECORDS SUMMARY | 2024-06-23 02:18 | XMS_ITS | Encounter Summary ---
Author Organization [facility] [place] [address] Care Team Providers Care Partner Integration Planner Name Role Phone Sebastian Mendietaeen Darrick OCHOA Primary Care Provider Reason for Visit * Auth/Cert Specialty Diagnoses / Procedures Referred By Shmuel t Referred To Contact Diagnoses Encounter for screening for malignant neoplasm of colon 10 yr surv from 02/24/06 Procedures PRO COLONOSCOPY, DIAGNOSTIC COLONOSCOPY, DIAGNOSTIC Referral ID Status Reason Start Date Expiration Date Visits Re quested Visits Authorized [id number] 1 1 Encounter Details Date Type Department Care Team (Late st Contact Info) Description 03/02/2016 1:00 PM EDT - 03/02/2016 1:45 PM EDT [place] [address] Yuni Baig MD [facility] [place] [address] COLONOSCOPY, POLYPECTOMY, REMOVAL LESION BY SNARE (WRVU 4.57) Social History Tobacco Use Types Packs/Day Years [...] to be checked. Wednesday-Wednesday Same Day Endo [phone]-[id number] Otherwise contact [phone] and ask to speak to the trauma program manager coupon redemption clerk Follow up care is a duque part [...] 07/24/2024 2:00 PM EDT Appointment Mammography[place] [phone] Aden Lauren MD [address] [place] [address] documented as of this encounter Procedures Procedure [...] Report (03/02/2016 1:33 PM EDT) Final Diagnosis [id number] ? Location: 4T; EA10; A The signing [...] ??Soft, yellow-buckley tissue ??. Sections/Proces sing: (T1) ??ejr 03/04/2016 3:19 PM EDT [facility] GI Biopsy 03/02/2016 1:33 PM EDT 03/02/2016 1:33 PM EDT Yuni Baig MD PATHOLOGY/CYTOLOGY O BIBI Performing Organization Address [facility] [place] [place] [address] * Specimen to Pathology (surgical or derm) (03/02/2016 1:33 PM EDT) AP Specimen 03/02/2016 1:33 PM EDT 03/02/2016 1:33 PM EDT Narrative [facility] - 03/02/2016 1:33 PM EDT Specimen requisition ordered. ??Separate Pathology report to follow Yuni Baig MD PATHOLOGY/CYTOLOGY O BIBI Performing Organization Address City/[facility] [place] [place] [address] * COLONOSCOPY (03/02/2016 12:58 PM EDT) COLONOSCOPY [facility] Endoscopy Patient Name: Tianna Tovar ? Procedure Date: 03/02/2016 12:58 PM ? N: [id number] ? Date of : 1940 ? Age: 75 ? Order #: [id number] ? Procedure: ? Colonoscopy Indications: ? Screening for colorectal malignant ? neoplasm Providers: ? Yuni Baig MD, Carmen Ramírez, ? Nahum Brooks, Heating Operators Engineer Referring MD: ?Shanell Hawkins MD Medicines: ? [...] Diagnoses Not on filedocumented in this encounter Administered Medications Inactive Administered Medications - up to 3 most recent administrations Medication Order MAR Action Action Date Dose Rate Site fentaNYL 50 mcg/mL multi-dose injection ONCE PRN, Starting on 03/02/16 at 1314, Until 03/02/16 at 1618, Intra-Operative (Intra-Procedure), Routine Given 03/02/2016 1:18 PM EDT 50 mcg Right Arm Given 03/02/2016 1:14 PM EDT 50 mcg Ri ght Arm midazolam (PF) (VERSED) 1 mg/mL multi-dose injection ONCE PRN, Starting on 03/02/16 at 1314, Until 03/02/16 at 1618, Intra-Operative (Intra-Procedure), Routine Given 03/02/2016 1:18 PM EDT 1 mg Right Arm Given 03/02/2016 1:14 PM EDT 2 mg Ri ght Arm documented in this encounter Active and Recently Administered Medications Times are shown in EDT. PRN Medication Order 02/29/2016 03/01/2016 03/02/2016 fentaNYL 50 mcg/mL multi-dose injection (CANCELED) ONCE PRN, Starting on 03/02/16 at 1314, Until 03/02/16 at 1618, Intra-Operative (Intra-Procedure), Routine 1314 (Given - Provid er: Carmen Ramírez RN)1318 (Given - Provider: Carmen Ramírez RN) midazolam (PF) (VERSED) 1 mg/mL multi-dose injection (CANCELED) ONCE PRN, Starting on Wed03/02/16 at 1314, Until Wed03/02/16 at 1618, Intra-Operative (Intra-Procedure), Routine 1314 (Given - Provid er: Carmen Ramírez RN)1318 (Given - Provider: Carmen Ramírez RN) documented in this encounter Care Teams Partner Integration Planner Relationship Specialty Start Date End Date Emily Mendieta, GABRIELA [address] [place] [address] PCP - General Family Medicine 02/18/16 02/16/17 documented as of this encounter
--- OUTSIDE RECORDS SUMMARY | 2024-06-23 02:18 | XMS_ITS | Encounter Summary ---
Author Organization [facility] [place] [address] Care Team Providers Care Tape Edge Machine Operator Name Role Phone Shanell Hawkins MD Primary Care Provider [phone] Encounter Details Date Type Department Care Team (Late st Contact Info) Description 04/09/2014 Telephone Dermatology at [facility] [address] [place] [address] Myah Lugo MD [facility] DR SUDHA [place] [address] Social History Tobacco Use Types Packs/Day Years [...] encounter Miscellaneous Notes * Telephone Encounter - Amalia Polanco - 04/09/2014 11:10 AM EDT Spoke to patient-she stated that the letter sent did not reach her yet. Benign results. Patient instructed to call with questions or concerns * Telephone Encounter - Gerardo Gamez - 04/09/2014 10:36 AM EDT Tianna would like to know what her biopsy results are. She says she has not gotten the letter that Amalia sent an 03/29. Please call her at the home number listed. Gerardo Stephenson documented in this encounter Plan of Treatment Upcoming Encounters Date Type Department Care Team (Late st Contact Info) Description 07/24/2024 2:00 PM EDT Appointment Mammography/[place] [address] Aden Lauren MD [address] [place], [place] [phone] documented as of this encounter Visit Diagnoses Not on filedocumented in this encounter Care Teams Tape Edge Machine Operator Relationship Specialty Start Date End Date Shanell Hawkins MD [address] [place] [address] PCP - General 08/19/10 02/17/16 documented as of this encounter
--- OUTSIDE RECORDS SUMMARY | 2024-06-23 02:18 | XMS_ITS | Encounter Summary ---
Author Organization [facility] [place] [address] Care Team Providers Care Labor Delivery Rn Name Role Phone Aden Lauren MD Primary Care Provider [phone] Reason for Visit * Reason Comments Skin Check Encounter Details Date Type Department Care Team (Late st Contact Info) Description 02/17/2017 2:00 PM EDT Office Visit Dermatology at [address] [address] [facility] [place] [address] AK (actinic keratosis); SK (seborrheic keratosis); Milia; History of SCC (squamous cell carcinoma) of skin; History of basal cell carcinoma Social History [...] Progress Notes * Myah Lugo MD - 02/17/2017 2:00 PM EDT DERMATOLOGY ESTABLISHED PATIENT CLINIC NOTE Date of service: 02/17/2017 Tianna M Guy : 1940 Provider: Myah Lugo MD Chief Complaint Patient presents with ??? Skin Check SKIN HISTORY: 1. Actinic Keratoses 2. Sclerosing BCC left nose MOHS by 2000 3. Seborrheic keratosis 4. Inflamed seborrheic keratosis - left cheekbone shave biopsy- 09/2012 ([place]) 5. Inflamed seborrheic keratosis - sternal notch shave biopsy- 09/2012 ([place]) 6. Infiltrating BCC- left medial cheek- MOHS- 02/2012 7. BCC- left deltoid- excised- 02/2012 8. SCC- left partial vulvectomy- excised by Dr. 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 year old female. Established patient, last seen by me on 02/07/16. Patient presents to the clinic today for a full skin examination. No significant changes in her healthsince her last visit. She denies any new skin concerns today. ADR: Allergies Allergen Reactions ??? Adhesive [...] includes examination of the skin of the scalp, face, ears, neck, chest, axillae, left and right upper and lower extremities, hands and feet, back, abdomen, and except the areas covered by underwear were not examined per patient request. Significant skin findings: A. Left cheek: 0.2-0.3cm scaly irregular pink papule B. Back: 0.4-0.6 cm pink-brown papules/plaque with waxy stuck on appearance. C. Face: 0.1cm firm, round, white subcutaneous papule D. Well-healed hypopigmented scars at sites above, no signs of recurrence ASSESSMENT/PLAN: A. Actinic keratosis - Patient will treat with the Carac that she has at home once daily for 3 weeks B. Seborrheic keratoses - Discussed benign nature of lesion and provided reassurance. No treatment necessary at this time. - Discussed cosmetic options including treatment with LN2. - Advised patient to call if areas become inflamed or irritated. C.Milia - Discussed benign nature of lesion and provided reassurance. No treatment necessary at this time. D. H/O BCC, SCC, NER - Will continue to monitor Follow up: Return to clinic in 1 year for full skin exam, or sooner if needed. A reminder letter will be sent to schedule. Patient instructed to call with questions or concerns. I am documenting this encounter acting as the scribe for and in the presence of Dr. Lugo.: RYAN GUZMAN LPN and Marcia Arvizu, Clinical Scribe I performed the above scribed service and agree with the accuracy of the documentation in this encounter. Myah Lugo MD Section of Dermatology [facility] documented in this encounter Plan of Treatment Upcoming Encounters Date Type Department Care Team (Late st Contact Info) Description 07/24/2024 2:00 PM EDT Appointment Mammography/[place] [address] Aden Lauren MD [address] [place] [address] documented as of this encounter Visit Diagnoses Diagnosis AK (actinic keratosis) Actinic keratosis SK (seborrheic keratosis) Other seborrheic keratosis Milia Sebaceous cyst History of SCC (squamous cell carcinoma) of skin Personal history of other malignant neoplasm of skin History of basal cell carcinoma Personal history of other malignant neoplasm of skin documented in this encounter Care Teams Labor Delivery Rn Relationship Specialty Start Date End Date Aden Lauren MD [address] [place], [place] [phone] PCP - General Family Medicine 02/17/17 documented as of this encounter
--- OUTSIDE RECORDS SUMMARY | 2024-06-23 02:18 | XMS_ITS | Encounter Summary ---
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 [address] PXF (pseudoexfoliation of lens capsule) (Primary Dx); Pseudophakia of both eyes; Pseudoexfoliation glaucoma, mild [...] * Patient Instructions* Riccardo Moy MD - 04/12/2017 12:30 PM EDT HPI Pseudoexfoliation Glaucoma Additional comments: 1 yr ck PXF Comments Patient here for 1 year glaucoma check, Pseudoexfoliation Glaucoma Date of last visit: 04/08/2016 Patient reports no visual complaints at today's visit Current drops: Alphagon both eyes 2 times daily, Last used 6:45AM 04/11/2017; Cosopt both eyes 2 times daily, Last used 04/12/2017 Need refills: Yes alphagan and Cosopt Drop allergies: Timolol, burning Denies eye pain Last edited by Riccardo Moy MD on 04/12/2017 12:54 PM. (History) Pseudophakia of both eyes Alphagon both eyes 2 times daily, Cosopt both eyes 2 times daily Pseudoexfoliation glaucoma ou Assessment: No progressive glaucoma damage on current medical therapy Plan: Continue present meds: - brimonidine both eyes twice daily; dorzolamide-timolol both eyes twice daily Follow-up in 12 more months with repeat Nevarez Visual Field and Optical Coherence Tomography For additional information about eye conditions, visit the Eye Facts portion of my website at [email or web address]-education/ and I also started a Glaucoma Patient Group on [employer] (htt [email or web address]) for patients to seek help from one another. (Search for Glaucoma Patient Group and then ask to join.) documented in this encounter Progress Notes * Riccardo Moy MD - 04/12/2017 12:30 PM EDT Pseudophakia of both eyes Alphagon both eyes 2 times daily, Cosopt both eyes 2 times daily Pseudoexfoliation glaucoma ou Assessment: No progressive glaucoma damage on current medical therapy Plan: Continue present meds: - brimonidine both eyes twice daily; dorzolamide-timolol both eyes twice daily Follow-up in 12 more months with repeat Nevarez Visual Field and Optical Coherence Tomography documented in this encounter Miscellaneous Notes * Assessment & Plan Note - Riccardo Moy MD - 04/12/2017 2:19 PM EDT Associated Problem(s): Pseudoexfoliation glaucoma ou Assessment: No progressive glaucoma damage on current medical therapy Plan: Continue present meds: - brimonidine both eyes twice daily; dorzolamide-timolol both eyes twice daily Follow-up in 12 more months with repeat Nevarez Visual Field and Optical Coherence Tomography * Assessment & Plan Note - Riccardo Moy MD - 04/12/2017 12:56 PM EDT Associated Problem(s): Pseudophakia of both eyes Alphagon both eyes 2 times daily, Cosopt both eyes 2 times daily documented in this encounter Plan of Treatment Upcoming Encounters Date Type Department Care Team (Late st Contact Info) Description 07/24/2024 2:00 PM EDT Appointment Mammography/[place] [phone] Aden Lauren MD [facility] [address] [place] [address] documented as of this encounter Procedures Procedure Name Priority Date/Time Associated Diagnosis Comments OCT OPTIC NERVE - OU - BOTH EYES Routine 04/12/2017 2:18 PM EDT PXF (pseudoexfoliation of lens capsule) AUTOMATED VISUAL FIELD - EXTENDED - OU- BOTH EYES Routine 04/12/2017 2:18 PM EDT PXF (pseudoexfoliation of lens capsule) documented in this encounter Results * OCT OPTIC [id number] EYES (04/12/2017 2:18 PM EDT) Anatomical Region Laterality Modality Other Narrative 04/12/2017 2:18 PM EDT Right Eye Quality was good. Left Eye Quality was good. Notes Optic nerve report G = 84 OD G = 96 OS Within normal limits OU Posterior pole report OD-OS asymmetry: n/a Hemisphere asymmetry: thinner superiorly vs inferiorly left eye Riccardo Moy MD OPHTHALMOLOGY SERV ICES ORDERABLES * AUTOMATED VISUAL FIELD - EXTENDED - OU- BOTH EYES (04/12/2017 2:18 PM EDT) Anatomical Region Laterality Modality Other Narrative 04/12/2017 2:18 PM EDT Right Eye Threshold was 24-2. Strategy was SKIP. Reliability was good. Left Eye Threshold was 24-2. Strategy was SKIP. Reliability was good. Notes Visual Field Results Glaucoma Hemifield Test (GHT) OD: Within normal limits OS: Outside normal limits Visual Function Index (VFI) OD: 100 % OS: 97 % MD OD: -0.76 dB ? 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
--- OUTSIDE RECORDS SUMMARY | 2024-06-23 02:19 | XMS_ITS | Encounter Summary ---
Author Organization [facility] [place] [address] Care Team Providers Care Volunteer Firefighter Name Role Phone Shanell Hawkins MD Primary Care Provider [phone] Reason for Visit * Reason Comments Benign Breast Encounter Details Date Type Department Care Team (Late st Contact Info) Description 07/12/2013 10:15 AM EDT Office Visit Hematology [place] [address] David Blackwood MD [facility] [place] [address] Atypical ductal hyperplasia of breast (Primary Dx) Discharge Disposition: Home Social History [...] as of this encounter Progress Notes * David Blackwood MD - 07/12/2013 10:33 AM EDT COPY: Shanell Blackmoncarrie Tovar is a 73-year-old woman sent for consultation by Shanell Hawkins for a 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 The patient had a routine screening mammogram, which showed that in the right breast she had a 6-mm mass that was slightly increasing in size since 2008. This is located at 3:30, 6 cm from her right nipple. On ultrasound, it was largely cystic but did have a solid component to it. On 06/19/13 a core biopsy was done of this, which showed an atypical ductal hyperplasia. Her left mammogram was negative. She had not felt any definite masses in either breast. She has had no nipple discharge from either side. She has a family history of a grandmother having breast cancer. There are no other family members with breast or ovarian cancer. She is postmenopausal. Her past surgical history is significant for partial vulvectomy. Current medications are hydrochlorothiazide and Zocor. She has allergies to TIMOLOL. Her past medical history is significant for glaucoma, diabetes, hypercholesterolemia. Her review of systems is negative for any cardiac, pulmonary, or renal symptomatology. The rest of the review of systems is negative. 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 Her led [place] bicycle tour trips for about 15 years. On physical exam, she is alert and oriented. In general, she appears well. She is not jaundiced. Lungs are clear. Heart has a regular rhythm. On examination of her right breast, the nipple is normal. There are no masses. There is no right axillary adenopathy. She has full range of motion of her right arm. No right arm edema. There are no left nipple abnormalities or breast masses. No left axillary adenopathy. Abdomen is moderately obese. She is grossly neurologically nonfocal. I reviewed her mammogram and ultrasound images myself. Impression: [id number]-old woman with comorbidities who has a small right breast lesion, which on core biopsy showed atypical ductal hyperplasia. I recommend that we do a wire localized partial mastectomy on the right side to completely excise this lesion so that we are sure that there is no higher grade of neoplasia present. In cases like these approximately 20% of the time there will be a higher grade of neoplasia present. The patient understands the risks of the procedure and requests that we proceed. We will schedule that in the near future. documented in this encounter Plan of Treatment Upcoming Encounters Date Type Department Care Team (Late st Contact Info) Description 07/24/2024 2:00 PM EDT Appointment Mammography/[place] [id number] Aden Lauren MD [address] [place], [place] [id number] documented as of this encounter Visit Diagnoses Diagnosis Atypical ductal hyperplasia of breast- Primary Other specified benign mammary dysplasias documented in this encounter Care Teams Volunteer Firefighter Relationship Specialty Start Date End Date Shanell Hawkins MD [address] [place] [address] PCP - General 08/19/10 02/17/16 documented as of this encounter
--- OUTSIDE RECORDS SUMMARY | 2024-06-23 02:19 | XMS_ITS | Encounter Summary ---
[place] [address] Care Team Providers Care Rn Circulating Name Role Phone Shanell Hawkins MD Primary Care Provider [phone] Encounter Details Date Type Department Care Team (Latest Contact Info) Description 06/21/2012 9:52 AM EDT - 06/21/2012 6:45 PM EDT Hospital Encounter [place] [address] Diana Curry MD [facility] [place] [address] Discharge Disposition: Home Social History Tobacco Use [...] Sign Reading Time Taken Comments Blood Pressure 155/45 06/21/2012 4:58 PM EDT Pulse 82 06/21/2012 4:58 PM EDT Temperature 37 ??C (98.6 ??F) 06/21/2012 4:05 PM EDT Respiratory Rate 14 06/21/2012 4:58 PM EDT Oxygen Saturation 99% 06/21/2012 4:58 PM EDT Inhaled Oxygen Concentration - - Weight 70.3 kg (155 lb) 06/21/2012 10:09 AM EDT Height 152.4 cm (5') 06/21/2012 10:09 AM EDT Body Mass Index 30.27 06/21/2012 10:09 AM EDT documented in this encounter Discharge Instructions * Discharge Instructions* Mini Rivera RN - 06/21/2012 5:47 PM EDT Images from the original note were not included. POST ANESTHESIA INSTRUCTIONS Go home, rest, use caution on stairs. Change positions slowly. Do not smoke if you are alone. Diet light to regular as tolerated today. If nausea occurs start with clear liquids and progress slowly. No driving, operating machinery, alcoholic beverages and no important decisions for 24 hours. Monitor IV site for signs and symptoms of infection: increasing redness, swelling, foul drainage, if occurs contact M.D. Patients who have had endotrachial tubes (this tube, used by anesthesia department, is passed down your throat after you are asleep, to ensure safe air passage during your operation). A sore throat is normal due to the tube. Cold liquids or soothing lozenges will help ease the discomfort. The generalized muscle aches are due to the medication given to you just before the tube is inserted. As the medication wears off, you may develop muscle soreness, which usually goes away in 12-24 hours. SAME DAY SURGERY DRE DRAIN CARE INSTRUCTIONS Drains help to keep fluid from collecting by removing the extra blood and fluid from under the skin. A drain is temporary. It stays in place until the drainage has slowed down or stopped. Your doctor or nurse will decide when each drain should be removed: This is usually after each drain has 30cc or less in 24 hours for 2 days in a row. When this happens, you should call the [facility] to schedule an appointment with the nurses to have it/them removed. This is usually not painful and only takes a few seconds. How do I care for the drains at home? Pin your drains to your clothing by using a safety pin through the plastic loop on the top of the bulb. If the drain is not attached to your clothing, it may pull out from under your skin. Also, a drain usually feels more comfortable when it???s attached. To care for the drain at home, you will have to empty the drain, ???strip?? the drain tubing, and changethe dressing if applicable. * See the following pages for instructions on how to do this. What problems may I have with my drain? The bulb is not compressed- The bulb may not be squeezed tightly enough, the plug may not be closedsecurely, or the tube has slipped out a bit and is leaking. Follow the instructions on how to emptythe drain. If the bulb remains expanded, then notify your doctor or nurse during business hours. No drainage or sudden decrease in amount of drainage- This is usually due to clots in the drain. Follow the instructions on how to strip the drain tubing. The tube accidentally falls out- If this happens, place a dry gauze dressing over the drain site and notify your doctor or nurse during business hours. Increased redness, swelling, or heat around the tube insertion site- This may be a sign of infection. Take your temperature: if it is higher than 101F or 38.8C, call your doctor or nurse immediately.Otherwise, notify your doctor or nurse during business hours and keep the dressing clean and dry. Post-Surgical Drain Care After surgery, you will have one or two drains, called a Sergey-Rios (DRE) drain, placed near the incision. This device collects fluid, under suction, from your surgical area. The drain promotes healing and recovery, and reduces the chance of infection. The drain will be in place until the drainage slows enough for your body to reabsorb fluid on its own. While you are hospitalized the nursing staff will care for the drain and teach you to continue to do so at home. How to Empty Your DRE Drain Note: Wash your hands thoroughly before emptying your drain(s). 1. Have the plastic measuring cup from the hospital ready to collect and measure the drainage. Please measure the output at the same two times every 24 hours and record the amount. 2. Unpin the drain from your clothing. 3. Open the top of the drain. Turn the drain upside down and squeeze the contents of the bulb into the measuring cup. Be sure to empty the bulb as completely as possible. Flush the contents in the toilet. 4. Use the drain output log chart to record the amount of drainage twice a day or any time the bulbis full. Record the total for 24 hours for each drain you have. 5. If you have more than one drain, remember to record the drainage from each drain separately. 6. To prevent infection, do not let the stopper or top of the bottle touch the measuring cup or anyother surface. 7. Use one hand to squeeze all of the air from the drain. With the drain still squeezed, use your other hand to replace the top. This creates the suction necessary to remove the fluids from your body. 8. Pin the drain back on your clothing to avoid pulling it out accidently. 9. Wash your hands again. Remember to wash your hands before and after the procedure to reduce the risk of infection. Stripping the Tube Often products of healing will not flow out of the narrow tube and prevent proper draining. If you do not have drainage, then: Hold the tube near where it is inserted in to the skin with your one hand. Use the other hand to hold a pencil and gently squeeze the tubing with the pencil while moving it down toward the drain away from your skin. This forces the more sold material into the bulb for better drainage. Repeat as necessary to start the draining again. Removal of the Tube The tube may be removed once a single tube output is less than 30cc (1 oz.) in 24 hours. Please call the office if the output becomes thicker or has a bad odor. Sergey-Rios Drainage Record NAME: Date of Surgery: Date: Time: If more than one drain, which one: Drainage Amount (per drain) Total Amount (per drain; in 24 hours) * Patient Instructions* Donny Teague MD - 06/21/2012 4:31 PM EDT PATIENT DISCHARGE INSTRUCTIONS Gynecology Oncology phone number: [phone] Call your doctor if you develop: --A fever over 101 degrees --Severe pain --Heavy vaginal bleeding --Increasing pain, redness, or discharge at your incisions --It is normal to have light spotting from the vagina for up to 3 weeks following surgery Activity level: No heavy lifting, pushing or pulling for 6 weeks. No sexual intercourse, no tampons, nothing in the vagina for 6 weeks. Diet: You may resume your regular diet. Be sure you drink plenty of fluids. Please use colace 100-200mg twice daily for the entire time that you are taking pain medication to keep your bowel movements soft and regular. If you are constipated or have not had a bowel movement in 3 days, please use milk of magnesia (or miralax) as directed over the counter. Driving: Do not drive until you are off of all narcotic medications and you are not feeling pain; usually about 2 weeks. Shower/Bath: Showering is fine. Short baths are OK but you should avoid having any incision submerged for more than 10-15 minutes for the next 2 weeks. Wound Care: You may remove your dressing the day after you leave the hospital. You have stitches just under the skin and these will dissolve on their own over the next couple of weeks. They do not need to be removed or altered. There is a drain in place where your lymph node dissection was performed. This should be removed in one week with your primary office administrative assistant. Please call them tomorrow to make an appointment. Pain medications include percocet and motrin Please use motrin 600 mg every 6 hours with food around the clock for the next several days and then after that use it only as needed. Please use the percocet every 4-6 hours as needed for pain that breaks through the motrin. Percocet contains tylenol. Do not exceed 4gms of tylenol in 24hours documented in this encounter Medications at Time of Discharge Medication Sig Dispensed Refills Start Date End Date Multivitamins Chew 07/29/2010 OXYcodone-acetaminoph en (PERCOCET) 5-325 mg per tablet Take 1-2 tablets by mouth every 4 hours as needed for Pain. 25 tablet 0 06/21/2012 06/27/2012 ibuprofen (MOTRIN) 600 mg tablet Take 1 tablet by mouth every 6 hours as needed for Pain. 30 tablet 12 06/21/2012 06/27/2012 senna-docusate (PERICOLACE) 8.6-50 mg per tablet Take 1 tablet by mouth daily. 30 tablet 11 06/21/2012 06/27/2012 dorzolamide-timolol (COSOPT) 2-0.5 % ophthalmic solutionIndications:P XF (pseudoexfoliation of lens capsule) Place 1 drop into both eyes 2 times daily. Please dispense 90 day supply 10 mL 3 03/16/2012 03/22/2013 brimonidine (ALPHAGAN) 0.2 % ophthalmic solutionIndications:P XF (pseudoexfoliation of lens capsule) Place 1 drop into both eyes 2 times daily. Please dispense 90 day supply 10 mL 3 03/16/2012 03/22/2013 fluoruracil (CARAC) 0.5 % cream Apply topically daily. Use for 3 weeks then discontinue 30 g 0 01/27/2012 06/26/2013 hydrochlorothiazide (HYDRODIURIL) 25 mg tablet Take 12.5 mg by mouth daily. 03/27/2019 SIMVASTATIN ORAL 07/29/2010 06/26/2013 documented as of this encounter Progress Notes * Mini Rivera RN - 06/21/2012 1:54 PM EDT Iv placed in left hand, petros well, site looks good. documented in this encounter H&P Notes * Donny Teague MD - 06/21/2012 1:14 PM EDT The patient's history and physical exam have been reviewed and completed. There has been no interval change from that of the pre-operative history and physical exam done within the last 30 days. documented in this encounter Miscellaneous Notes * Miscellaneous - Provider, Scanning - 06/21/2012 8:43 PM EDT * Miscellaneous - Provider, Scanning - 06/21/2012 8:41 PM EDT * Op Note - Donny Teague MD - 06/21/2012 5:04 PM EDT Operative Note Patient Name: Tianna Rosenberg : [id number] MR#: [id number] Case Date: 06/21/2012 Surgeon: Surgeon(s) and Role: * DIANA CURRY MD - Primary * DONNY TEAGUE MD Preoperative diagnosis: VULVAR CANCER, at least stage IA Postoperative diagnosis: VULVAR CANCER, final stage pending Procedure(s): VULVECTOMY SIMPLE, PARTIAL LYMPHADENECTOMY, INGUINOFEMORAL Anesthesia: General Findings: Well healed vulvar incision Complications: none Fluids: 1L Estimated Blood Loss: 50 Drains: 1/8 round drain in inguinal aaron bed Disposition: awakened from anesthesia, extubated and taken to the recovery room in a stable condition, having suffered no apparent untoward event. Condition: doing well without problems Specimens: 1. Left partial vulvectomy 2. Left inguinal lymph nodes Indications: Tianna is a 71 year old woman with a history of VIN3 s/p vulvectomy with microinvasive cancer, +LVSI, and a close excision margin of 4 mm. Due to LVSI, we have recommended that she have re-excision and ipsilateral superficial groin dissection. I discussed the possibility of LN metastasis, as well as likelihood that she will have no residual disease. The patient understands the recommendations for surgery. She also understands the indications, risks and benefits of surgery. She understands that the risks of surgery include, but are not limited to: bleeding, blood transfusion, infection, damage to blood vessels or nerves. Informed consent was obtained. Procedure Note: Tianna was taken to the operating room and placed in low lithotomy position after induction of general anesthesia. An exam under anesthesia was conducted. A surgical pause was performed, correctly identifying the intended procedures for this patient. An antiseptic preparation of the p erineum vagina and groin was performed. The patient was sterilely draped. A 4 cm elliptical incision was made around her previous incision on the left vulva. A partial vulvectomy was performed with 1 cm margins laterally and deep. The specimen was handed off the field. Areas of non-hemostasis were coagulated. The deep subcutaneous tissue was reapproximated with 2.0 vicryl. The skin was closed with a subcuticular closure with 4.0 vicryl. Bacitracin was applied to the incision. Attention was then turned to the inguinal node dissection. A 6 cm transverse incision was made, below the left inguinal crease. The subcutaneous tissues were developed, and the femoral triangle was further delineated and developed, to perform the superficial inguinal lymphadenectomy. All lymph nodebearing and adipose tissue was collected from above the femoral triangle, preserving the saphenous vein. Following this, hemostasis was excellent. The space was then irrigated, and a 1/8 round drain was placed in the aaron bed And brought out through a separate stab incision, cephalad and lateral to the incision This was secured with a drain suture. Kenisha's fascia was closed with interrupted Vicryl sutures, and the skin was closed with a running Vicryl subcuticular suture. The closed suction drain was connected to suction. A dressing was applied to the incision and drain. All counts were correct. Dr. Curry was present for entire procedure. DVT ppx: SCDs Antibiotics: Ancef 2 gm * Brief Op Note - Donny Teague MD - 06/21/2012 4:03 PM EDT Brief Operative Note Patient Name: Tianna Rosenberg : [id number] MR#: [id number] Case Date: 06/21/2012 Surgeon: Surgeon(s) and Role: * DIANA CURRY MD - Primary * DONNY TEAGUE MD Preoperative diagnosis: VULVAR CANCER Postoperative diagnosis: VULVAR CANCER Procedure(s): VULVECTOMY SIMPLE, PARTIAL LYMPHADENECTOMY, INGUINOFEMORAL Anesthesia: General Findings: Well healed vulvar incision Complications: none Fluids: 1L Estimated Blood Loss: 50 Drains: 1/8 round drain in inguinal aaron bed Disposition: awakened from anesthesia, extubated and taken to the recovery room in a stable condition, having suffered no apparent untoward event. Condition: doing well without problems (Please see the Surgical Encounter Summary for any Implant and Specimen details pertinent to this patient.) * Miscellaneous - Provider, Scanning - 06/21/2012 1:04 PM EDT * OR Attestation - Diana Curry MD - 06/21/2012 11:46 AM EDT Attestation: Case Date: 06/21/2012 I was present and I participated during the entire procedure (does not need to include opening and closing). DIANA CURRY MD 06/21/2012 documented in this encounter Plan of Treatment Upcoming Encounters Date Type Department Care Team (Late st Contact Info) Description 07/24/2024 2:00 PM EDT Appointment Mammography/[place] [address] Aden Lauren MD [address] [place] [address] [address] [place] [address] documented as of this encounter Procedures Procedure Name Priority Date/Time Associated Diagnosis Comments POCT GLUCOSE Routine 06/21/2012 4:41 PM EDT SURGICAL PATHOLOGY REPORT Routine 06/21/2012 4:10 PM EDT SPECIMEN TO PATHOLOGY Routine 06/21/2012 3:35 PM EDT SPECIMEN TO PATHOLOGY Routine 06/21/2012 2:43 PM EDT LYMPHADENECTOMY, INGUINOFEMORAL (WRVU 13.62) Yes 06/21/2012 1:44 PM EDT VULVAR CANCER VULVECTOMY SIMPLE, PARTIAL (WRVU 7.53) Yes 06/21/2012 1:44 PM EDT VULVAR CANCER documented in this encounter Results * POCT GLUCOSE (06/21/2012 4:41 PM EDT) Glucose, POC 117 60 - 199 mg/dL [facility] Comment: Supplemental ranges: <110 mg/dL before meals <200 mg/dL all other times of the day Blood specimen (specimen) 06/21/2012 4:41 PM EDT 06/21/2012 4:41 PM EDT Diana Curry MD POINT OF CARE TEST O RDERABLES [facility] * SURGICAL PATHOLOGY REPORT (06/21/2012 4:10 PM EDT) Surgical Pathology Report ? [facility] ? Provider: ?? DIANA CURRY ?Pt. Name: ?? TIANNA ROSENBERG ? Acc #: ?[id number] ?Pt. ? Col Date: ?? 06/21/2012 ? /Sex: ?1940,([age] ? years),Female ? Rec Date: ?? 06/21/2012 ? LOC: ?SDP ? SURGICAL PATHOLOGY ? ---Pathologic Diagnosis--- ? A - Left vulva, excision: ? 1 - Multiple foreign body (suture) granulomata. ? 2 - No evidence of dysplasia or malignancy. ? B - Left groin lymph nodes, excision: ? Three (3) lymph nodes negative for malignancy (0/3). ? CR-0 ? 06/23/12 ? ARS ? 06/23/12 Verified by: ? Gilles Salvador MD ? Pathologist ? (Electronic Signature) ? The attending pathologist whose signature appears on this report has ? reviewed all diagnostic slides and has edited the gross and/or ? microscopic portion of the report in rendering the final pathologic ? diagnosis. ? ---Microscopic Description--- ? Slides reviewed, microscopic description not recorded. ? ---Gross Description--- ? A - Labeled/Fixativ e: Left vulva, fresh. ? Qty/Size/Weight : ?One, 3.2 x 1.5 x 1.0 cm. ? Tissue Description: ?? Buckley-pink skin ellipse with underlying adipose ? tissue. ??Skin is buckley-pink, smooth, with no grossly ? visible lesions. ? Sections/Proces sing: ??Skin margin is inked black. ??The edges of the ? specimen are submitted in (1). ??The specimen is ? serially sectioned and submitted in total in (2-6). ? (T6) ? B - Labeled/Fixativ e: Left groin nodes, fresh. ? Qty/Size/Weight : ?Multiple fragments, 4.5 x 3.5 x 1.0 cm. ? Tissue Description: ?? Fibrofatty adipose tissue. ??Sectioning reveals ? three nodes, ranging from 1.0 cm to 3.5 x 3.0 x 0.5 ? cm. ? Sections/Proces sing: ??(1) one node, bisected; (2) one node, serially ? sectioned; (3-5) one node, serially sectioned. ??(R5) ? aje/JULISSA ? [facility] ? Provider: ?? DIANA CURRY ?Pt. Name: ?? TIANNA ROSENBERG ? Acc #: ?[id number] ?Pt. ? Col Date: ?? 06/21/2012 ? /Sex: ?1940,(8 9 ? years),Female ? Rec Date: ?? 06/21/2012 ? LOC: ?SDP ? SURGICAL PATHOLOGY ? ---Clinical Information--- ? Specimen Submitted: ? A - Left vulva ? B - Left groin nodes ? Clinical History/Diagnos is: ? Vulvar cancer [facility] 06/21/2012 4:10 PM EDT Diana Curry MD PATHOLOGY/CYTOLOGY O BIBI Performing Organization Address [facility] Co de Phone Number [facility] * Specimen to Pathology (surgical or derm) (06/21/2012 3:35 PM EDT) AP Specimen 06/21/2012 3:35 PM EDT 06/21/2012 3:35 PM EDT [facility]ative [facility] - 06/21/2012 3:35 PM EDT Specimen requisition ordered. ??Separate Pathology report to follow Diana Curry MD PATHOLOGY/CYTOLOGY O BIBI Performing Organization Address [facility] Co de Phone Number [facility] * Specimen to Pathology (surgical or derm) (06/21/2012 2:43 PM EDT) AP Specimen 06/21/2012 2:43 PM EDT 06/21/2012 2:43 PM EDT Narrative [facility] - 06/21/2012 2:43 PM EDT Specimen requisition ordered. ??Separate Pathology report to follow Diana Curry MD PATHOLOGY/CYTOLOGY O RDERABLES [facility]EN[facility]O BROUSSARD documented in this encounter Visit Diagnoses Diagnosis Vulvar cancer- Primary Malignant neoplasm of vulva, unspecified site documented in this encounter Administered Medications Inactive Administered Medications - up to 3 most recent administrations Medication Order MAR Action Action Date Dose Rate Site lactated ringers infusion 1,000 mL 1,000 mL, at 100 mL/hr, Intravenous, CONTINUOUS, Starting on 06/21/12 at 1030, Until Wed06/21/12 at 2046, Day of Surgery (Day of Procedure) New Bag 06/21/2012 10:30 AM EDT 1,000 mLs 100 mL/hr documented in this encounter Active and Recently Administered Medications Times are shown in EDT. Continuous Medication Order 06/19/2012 06/20/2012 06/21/2012 lactated ringers infusion 1,000 mL (CANCELED) 1,000 mL, at 100 mL/hr, Intravenous, CONTINUOUS, Starting on 06/21/12 at 1030, Until Wed06/21/12 at 2046, Day of Surgery (Day of Procedure) 1030 (New Bag - Prov ider: Sasha Jason RN) PRN Medication Order 06/19/2012 06/20/2012 06/21/2012 BUpivacaine (PF) (MARCAINE) 0.25 % (2.5 mg/mL) injection (CANCELED) ONCE PRN, Starting on e 06/21/12 at 1550, Until Wed06/21/12 at 2046, Intra-Operative (Intra-Procedure), Routine 1550 (Given - Provid er: Diana Curry MD - Comment: 17 mls) ceFAZolin (ANCEF) injection (CANCELED) ONCE PRN, Starting on Wed06/21/12 at 1411, Until Wed06/21/12 at 2046, Intra-Operative (Intra-Procedure), Routine 1411 (Given - Provid er: Ryan Nair MD) documented in this encounter Care Teams Rn Circulating Relationship Specialty Start Date End Date Shanell Hawkins MD [address] [place] [address] PCP - General 08/19/10 02/17/16 documented as of this encounter
--- OUTSIDE RECORDS SUMMARY | 2024-06-23 02:19 | XMS_ITS | Encounter Summary ---
[facility] [place] [address] Care Team Providers Care Asphalt Paving Foreman Name Role Phone Shanell Hawkins MD Primary Care Provider [phone] Encounter Details Date Type Department Care Team (Latest Contact Info) Description 08/04/2013 9:19 AM EST - 08/04/2013 3:07 PM EST Hospital Encounter [place] [address] David Blackwood MD [facility] [place] [address] Atypical ductal hyperplasia of breast Discharge Disposition: Home Social History Tobacco Use [...] Sign Reading Time Taken Comments Blood Pressure 110/55 08/04/2013 2:26 PM EST Pulse 78 08/04/2013 2:26 PM EST Temperature 36.8 ??C (98.2 ??F) 08/04/2013 2:26 PM ES T Respiratory Rate 16 08/04/2013 2:26 PM EST Oxygen Saturation 95% 08/04/2013 2:26 PM EST Inhaled Oxygen Concentration - - Weight 68.9 kg (152 lb) 08/04/2013 9:48 AM EST Height 152.4 cm (5') 08/04/2013 9:48 AM EST Body Mass Index 29.69 08/04/2013 9:48 AM EST documented in this encounter Discharge Instructions * Discharge Instructions* Madiha Bell RN - 08/04/2013 2:38 PM EST Moderate Sedation You may have received medication before and/or during your procedure, which affects judgement and reaction time. Do not drive, operate machinery, drink alcoholic beverages, or make any legal decisions for 24 hours. Be careful on stairs, as you may be unsteady on your feet. You may eat a regular diet as tolerated. Do not smoke if you are alone. IV site -- slight redness, or tenderness is normal, you can use a warm compress. If tenderness and redness increases or foul drainage occurs, please contact your M. D. Questions or problems after 5pm or on a weekend: Call the [facility] quenching machine operator and ask for the physician regional sales associate covering for your doctor. * Patient Instructions* Shelly Combs MD - 08/04/2013 2:21 PM EST Instructions following Breast Surgery Wound Care: Keep dressing on incision for the next 5 days, then you may remove and leave open to air. You may shower tomorrow morning with the Tegaderm covering the site. Do not scrub area vigorously for the next 1 week. Do not soak incision(s) under water for the next 2 weeks (i.e. soaking in bath or swimming) as this may promote a wound infection. You may remove dressing if it becomes saturated/wet and replace with dry gauze as needed for seepage/comfort. If there are pieces of tape directly on the incision (steri-strips), please leave them onuntil they fall off on their own. You may trim them back as they begin to peel up. ICE: You may apply ice to incision during the first 48 hours following surgery to help limit swelling, bruising, and discomfort. You may also find wearing a bra for the first two days following surgery will help with discomfort, although this is not absolutely necessary. Your stitches will dissolve and do not need to be removed. Activity: As tolerated by your comfort level. Call Doctor for: Please call if you notice worsening redness or drainage from incision(s) lasting longer than 5 days after your surgery, any foul-smelling drainage from the incision, pain not controlled by pain medications, persistent nausea and vomiting, or for any fevers greater than 101.3 F. The number for questions is [phone] before 5 PM week. Pain Medication: No driving for 8 hours after any dose of opioid pain medication if one was prescribed for you. You may use ibuprofen (motrin, advil) in addition to this medication if your pain is not totally controlled by the opioid. Follow-up: Follow-up appointment will be scheduled with in 1-2 weeks. Scheduled Appointments: The following appointment with Dr. Blackwood has been scheduled on your behalf:Future Appointments Date Time Provider Department Center 08/23/2013 2:50 PM David Black[facility] 08/28/2013 1:00 PM Anurag Meyer MD [facility] [address] [place] [address] CLIN Please call [phone] (clinic number) if any changes need to be made to your appointment time. documented in this encounter Medications at Time of Discharge Medication Sig Dispensed Refills Start Date End Date simvastatin (ZOCOR) 10 mg tablet Take 5 mg by mouth nightly. ibuprofen (ADVIL;MOTRIN) 200 mg tablet Take 200 mg by mouth every 6 hours as needed. Multivitamins Chew 07/29/2010 OXYcodone (ROXICODONE) 5 mg immediate release tablet Take 1 tablet by mouth every 4 hours as needed for Pain. 30 tablet 0 08/04/2013 08/30/2013 docusate sodium (COLACE) 100 mg capsule Take 1 capsule by mouth 2 times daily. 60 capsule 1 08/04/2013 08/30/2013 brimonidine (ALPHAGAN) 0.2 % ophthalmic solutionIndications:PX F (pseudoexfoliation of lens capsule) Place 1 drop into both eyes 2 times daily. Please dispense 90 day supply 15 mL 3 03/22/2013 02/26/2014 dorzolamide-timolol (COSOPT) 2-0.5 % ophthalmic solutionIndications:PX F (pseudoexfoliation of lens capsule) Place 1 drop into both eyes 2 times daily. Please dispense 90 day supply 15 mL 3 03/22/2013 02/26/2014 hydrochlorothiazide (HYDRODIURIL) 25 mg tablet Take 12.5 mg by mouth daily. 03/27/2019 documented as of this encounter Progress Notes * Janelle Rebolledo RN - 08/04/2013 10:01 AM EST 1002: patient to radiology appointment for needle localization accompanied by spouse. In no acute distress. documented in this encounter H&P Notes * David Blackwood MD - 08/04/2013 1:30 PM EST I examined this patient today. She is marked and is ready for surgery documented in this encounter Miscellaneous Notes * Miscellaneous - Provider, Scanning - 08/04/2013 9:26 PM EST * Op Note - David Blackwood MD - 08/04/2013 2:42 PM EST [facility] [place] Patient Name: Tianna Rosenberg : [id number] MR#: [id number] Case Date: 08/04/2013 Surgeon: Surgeon(s) and Role: * David Blackwood MD - Primary * Shelly Combs MD - Resident-Surgeon [place] Preoperative diagnosis: BREAST MASS Postoperative diagnosis: BREAST MASS Procedure(s): EXCISION LESION, BREAST W/ PREOP.MARKER (NEEDLE LOC.) General Estimated Blood Loss: 5 ml HPI/Surgical Indications: Procedure Description: Indications for Surgery: Tianna Rosenberg is a 73-year-old woman who had a 6-mm mass seen on her left mammogram. It was located at 3:30 and 6 cm from her nipple. Core biopsy showed atypical ductal hyperplasia. I recommended that we excise this mass completely. Details of the Operation: The patient had a wire placed in her left breast prior to surgery. She was brought to the Operating Room where we anesthetized the skin and made a 4-cm-long incision directly over the abnormal mass. We dissected to the wire, flicked the wire into the incision then excised the tissue around the wire. The specimen was inked with six different colors of ink for orientation. A specimen mammogram revealed that the clip and mass were nicely contained in the center of the specimen. The specimen was then sent to Pathology. We obtained meticulous hemostasis. I left about 7 mL of Marcaine-lidocaine solution in the wound, closed the deep dermis with interrupted 3-0 Vicryls, closed the skin with a running subcuticular 4-0 Monocryl. Gauze and Tegaderm were placed. The patient tolerated the operation well. * OR Attestation - David Blackwood MD - 08/04/2013 2:42 PM EST Attestation: Case Date: 08/04/2013 I performed this operation with the assistance of dr shelly BLACKWOOD MD 08/04/2013 * Brief Op Note - Shelly Combs MD - 08/04/2013 2:23 PM EST Pre-op Dx: R breast atypical ductal hyperplasia Procedure: R breast lumpectomy Post-op Dx: same Surgeon: David Blackwood MD Cloth Winder: SHELLY COMBS MD Anesthesia: local with sedation IVF: 600 mL EBL: 10 mL UOP: none Findings: R breast lump needle localized Disp: PACU then home SHELLY COMBS MD 08/04/2013 2:23 PM * Miscellaneous - Provider, Scanning - 08/04/2013 10:39 AM EST documented in this encounter Plan of Treatment Upcoming Encounters Date Type Department Care Team (Late st Contact Info) Description 07/24/2024 2:00 PM EDT Appointment Mammography/[place] [address] Aden Lauren MD [address] [place] [address] documented as of this encounter Procedures Procedure Name Priority Date/Time Associated Diagnosis Comments MAMMO SPECIMEN Routine 08/04/2013 2:11 PM EST SURGICAL PATHOLOGY REPORT Routine 08/04/2013 2:08 PM EST SPECIMEN TO PATHOLOGY Routine 08/04/2013 2:08 PM EST EXCISION LESION, BREAST W/ PREOP.MARKER (NEEDLE LOC.) (WRVU 6.69) 08/04/2013 1:36 PM EST BREAST MASS MAMMO NEEDLE LOCALIZATION Routine 08/04/2013 11:00 AM EST Atypical ductal hyperplasia of breast documented in this encounter Results * Mammo specimen (08/04/2013 2:11 PM EST) Anatomical Region Laterality Modality Breast N/A Mammography 08/04/2013 2:11 PM EST Narrative 08/07/2013 5:06 PM EST SPECIMEN RADIOGRAPH OF THE RIGHT BREAST ON 08/04/13: ?? Specimen mammography was performed. The suspicious areas (clip and mass) are included in the specimen. Procedure Note Tyrone Mosqueda MD - 08/07/2013 SPECIMEN RADIOGRAPH OF THE RIGHT BREAST ON 08/04/13: Specimen mammography was performed. The suspicious areas (clip and mass)are included in the specimen. David Blackwood MD IMG MAMMO ORDERABLES * Surgical Pathology Report (08/04/2013 2:08 PM EST) Surgical Pathology Report ? [facility] ? Provider: ?? DAVID BLACKWOOD ?Pt. Name: ?? CHETTIANNA ? Acc #: ?[id number] ?Pt. ? Col Date: ?? 08/04/2013 ? /Sex: ?1940,(73 ? years),Female ? Rec Date: ?? 08/04/2013 ? LOC: ?[facility] ? SURGICAL [facility]OLOGY ? ---Pathologic Diagnosis--- ? Right breast, partial mastectomy: ? 1. Atypical ductal hyperplasia ? 2. Focal residual papilloma with atypia ? 3. Columnar cell change/hyperplasi a, usual ductal hyperplasia, apocrine ?metaplasia, and cysts ? 4. Biopsy site changes ? CR-0 ? 08/08/13 ? PATRICA ? 08/08/13 Verified by: ? Praveen Tidwell MD ? Pathologist ? (Electronic Signature) ? The attending pathologist whose signature appears on this report has ? reviewed all diagnostic slides and has edited the gross and/or ? microscopic portion of the report in rendering the final pathologic ? diagnosis. ? ---Gross Description--- ? A - Labeled/Fixative: Right breast lumpectomy, fresh. ? SPECIMEN DESCRIPTION ? Resection Specimen: Single, intact excisional biopsy, received inked ? Qty/Size/Weight: Single, 4.5 x 3.7 x 1.0 cm, 14 g. ? Radiograph: Specimen radiograph is reviewed in e-. It shows a lobulated ? mass with a thin inserted wire. Adjacent to the wire is a cylindrical clip. ? Specimen Description: According to the established protocol the ink ? designations are red (medial), yellow (lateral), orange (cranial), green ? (caudal), black (deep) and blue (superficial). ? Tissue Sections: The specimen is serially sectioned perpendicular to the ? long axis from red to yellow into 13 slices, each averaging 0.3-0.4 cm in ? thickness. ? LESION ? Description: A discrete mass is not identified. ? OTHER ? Parenchyma: Sections reveal lobular adipose tissue with a minimal amount of ? interspersed buckley-white breast tissue. ? Wire/Clip: The wire is present at the junction of slices eight and nine. ? Directly adjacent to the wire in the midportion of the specimen a ? cylindrical clip is identified in slice IX. ? [facility] ? Provider: ?? DAVID BLACKWOOD ?Pt. Name: ?? TIANNA ROSENBERG ? Acc #: ?[id number] ?Pt. ? Col Date: ?? 08/04/2013 ? /Sex: ?1940,(73 ? years),Female ? Rec Date: ?? 08/04/2013 ? [facility] ? SURGICAL PATH[facility]Y ? SECTIONS/PROCESSI NG: Enterprise Sales Person sections are submitted as follows: (1) ? slice I; (2) slice III; (3-5) slice ; (6-8) slice VIII; (9-10) slice IX, ? with clip site in A9; (11-12) slice X; (13) novelties sales representative slice XII; (14) ? novelties sales representative slice XIII. (R14) ??pps ? Additional sections submitted as follows: (15) slice IV; (16-17) slice VII. ? (R17) tha ? ---Clinical Information--- ? Specimen Submitted: ? A - Right breast lumpectomy ? Clinical History: ? Right breast mass ? Clinical Diagnosis: ? [facility] 08/04/2013 2:08 PM EST David Blackwood MD PATHOLOGY/CYTOLOGY O BIBI Performing Organization Address [facility] Phone Number BENITO GARRISONKid[facility]imble * Specimen to Pathology (surgical or derm) (08/04/2013 2:08 PM EST) AP Specimen 08/04/2013 2:08 PM EST 08/04/2013 2:08 PM EST Narrative [facility] - 08/04/2013 2:08 PM EST Specimen requisition ordered. ??Separate Pathology report to follow David Blackwood MD PATHOLOGY/CYTOLOGY O BIBI Performing Organization Address [facility] Co de Phone Number [facility] * Mammo needle localization (08/04/2013 11:00 AM EST) Anatomical Region Laterality Modality Breast N/A Mammography 08/04/2013 11:0 0 AM EST Narrative 08/07/2013 1:37 PM EST NEEDLE LOCALIZATION OF THE RIGHT BREAST ON 08/04/13: ?? CLINICAL INDICATION: Right breast 6mm mass/clip in the lower, inner quadrant at 0330, 6cm from the nipple. ?? Needle localization of the suspicious area in the Right breast was performed with mammographic guidance. ?? Cranio-caudal and 90&ordm; digital mammography views were obtained following localization to document wire position. ? I was present with the resident, Dr. Garvey, for the duque component(s) of the procedure and otherwise remained immediately available for the duration of the procedure. I attest to having personally viewed the images/test and approve the above interpretation. ? Film and interpretation reviewed by the attending Procedure Note Salma Collins MD - 08/07/2013 NEEDLE LOCALIZATION OF THE RIGHT BREAST ON 08/04/13: CLINICAL INDICATION: Right breast 6mm mass/clip in the lower, innerquadrant at 0330, 6cm from the nipple. Needle localization of the suspicious area in the Right breast wasperformed with mammographic guidance. Cranio-caudal and 90&ordm; digital mammography views were obtainedfollowing localization to document wire position. I was present with the resident, Dr. Garvey, for the duque component(s) ofthe procedure and otherwise remained immediately available for the duration ofthe procedure. I attest to having personally viewed the images/test andapprove the above interpretation. Film and interpretation reviewed by the attending David Blackwood MD IMG MAMMO ORDERABLES documented in this encounter Visit Diagnoses Diagnosis Atypical ductal hyperplasia of breast Other specified benign mammary dysplasias documented in this encounter Administered Medications Inactive Administered Medications - up to 3 most recent administrations Medication Order MAR Action Action Date Dose Rate Site acetaminophen (TYLENOL) tablet 1,000 mg 1,000 mg, Oral, ONCE, 1 dose, On Wed08/04/13 at 1000, Maximum dose of acetaminophen is 4000 mg from all sources in 24 hours., Day of Surgery (Day of Procedure), Routine Given 08/04/2013 11:19 AM EST 1,000 mg ceFAZolin (ANCEF) 2,000 mg in sodium chloride 0.9% 56.06 mL 2,000 mg (2 g), Intravenous, ONCE, 1 dose, On Wed08/04/13 at 1400, Administer over 30 Minutes, Intra-Operative (Intra-Procedure), Indication for (Active or Suspected): Prophylaxis Given by Other 08/04/2013 1:35 PM EST 2,000 mg 112.1 mL/hr gabapentin (NEURONTIN) capsule 600 mg 600 mg, Oral, ONCE, 1 dose, On Wed08/04/13 at 1000, Day of Surgery (Day of Procedure), Routine Given 08/04/2013 10:00 AM EST 600 mg lactated ringers infusion 1,000 mL 1,000 mL, at 100 mL/hr, Intravenous, CONTINUOUS, Starting on Wed08/04/13 at 1000, Until Wed08/04/13 at 1744, Day of Surgery (Day of Procedure) New Bag 08/04/2013 11:43 AM EST 1,000 mLs 100 mL/hr lidocaine (XYLOCAINE) 10 mg/mL (1 %) injection 10 mg 10 mg, Intradermal, ONCE, 1 dose, On Wed08/04/13 at 1100, Routine Given 08/04/2013 11:00 AM EST 10 mg documented in this encounter Active and Recently Administered Medications Times are shown in EST. Scheduled Medication Order 08/02/2013 08/03/2013 08/04/2013 acetaminophen (TYLENOL) tablet 1,000 mg (COMPLETED) 1,000 mg, Oral, ONCE, 1 dose, On Wed08/04/13 at 1000, Maximum dose of acetaminophen is 4000 mg from all sources in 24 hours., Day of Surgery (Day of Procedure), Routine 1119 (Given - Provid er: Deborah Simpson RN - Comment: given pre op per MD) ceFAZolin (ANCEF) 2,000 mg in sodium chloride 0.9% 56.06 mL (COMPLETED) 2,000 mg (2 g), Intravenous, ONCE, 1 dose, On Wed08/04/13 at 1400, Administer over 30 Minutes, Intra-Operative (Intra-Procedure), Indication for (Active or Suspected): Prophylaxis 1335 (Given by Other - Provider: Emi Linn RN) gabapentin (NEURONTIN) capsule 600 mg (COMPLETED) 600 mg, Oral, ONCE, 1 dose, On Wed08/04/13 at 1000, Day of Surgery (Day of Procedure), Routine 1000 (Given - Provid er: Deborah L Wilt, RN - Comment: given pre op per MD) lidocaine (XYLOCAINE) 10 mg/mL (1 %) injection 10 mg (COMPLETED) 10 mg, Intradermal, ONCE, 1 dose, On Wed08/04/13 at 1100, Routine 1100 (Given - Provid er: Kindra Serna - Comment: dose given by dr. fuller) Continuous Medication Order 08/02/2013 08/03/2013 08/04/2013 lactated ringers infusion 1,000 mL (CANCELED) 1,000 mL, at 100 mL/hr, Intravenous, CONTINUOUS, Starting on Wed08/04/13 at 1000, Until Wed08/04/13 at 1744, Day of Surgery (Day of Procedure) 1143 (New Bag - Prov ider: Deborah Simpson RN - Comment: started at [facility] in pre op) PRN Medication Order 08/02/2013 08/03/2013 08/04/2013 BUpivacaine (PF) (MARCAINE) 0.5 % (5 mg/mL) injection (CANCELED) ONCE PRN, Starting on Wed08/04/13 at 1410, Until Wed08/04/13 at 1744, Intra-Operative (Intra-Procedure), Routine 1410 (Given - Provid er: David Blackwood MD - Comment: right breast) lidocaine (PF) (XYLOCAINE) 10 mg/mL (1 %) injection (CANCELED) ONCE PRN, Starting on Wed08/04/13 at 1411, Until Wed08/04/13 at 1744, Intra-Operative (Intra-Procedure), Routine 1411 (Given - Provid er: David Blackwood MD - Comment: right breast) documented in this encounter Care Teams Asphalt Paving Foreman Relationship Specialty Start Date End Date Shanell Hawkins MD [address] [place] [address] PCP - General 08/19/10 02/17/16 documented as of this encounter
--- OUTSIDE RECORDS SUMMARY | 2024-06-23 02:19 | XMS_ITS | Encounter Summary ---
Author Organization [facility] Address [facility] [place] [address] Care Team Providers Care Fiscal Manager Name Role Phone Shanell Hawkins MD Primary Care Provider [phone] Reason for Visit * Reason Comments Basal Cell Carcinoma Encounter Details Date Type Department Care Team (Late st Contact Info) Description 02/25/2012 11:00 AM EDT [place] [address] Moises Wright MD [facility] DR SUDHA [place] [address] BCC (basal cell carcinoma) (Primary Dx) Discharge Disposition: Home Social History Tobacco Use Types Packs/Day Years Used Date Smoking Tobacco: Former Cigarettes 1 20 0 09/27/1960 - 09/27/1980 Alcohol Use Standard Drinks/Week Comments Yes 0 (1 standard drink = 0.6 oz pur e alcohol) rare Sex and Gender Information Value Date Recorded Sex Assigned at Not on file Gender Identity Not on file Sexual Orientation Not on file documented as of this encounter Last Filed Vital Signs Vital Sign Reading Time Taken Comments Blood Pressure 145/64 02/25/2012 11:24 AM EDT Pulse 65 02/25/2012 11:24 AM EDT Temperature - - Respiratory Rate 18 02/25/2012 11:24 AM EDT Oxygen Saturation - - Inhaled Oxygen Concentration - - Weight 68 kg (150 lb) 02/25/2012 11:24 AM EDT Height 152.4 cm (5') 02/25/2012 11:24 AM EDT Body Mass Index 29.29 02/25/2012 11:24 AM EDT documented in this encounter Progress Notes * Moises Wright MD - 02/25/2012 11:52 AM EDT Chief Complaint: Infiltrating basaloid carcinoma, Basal cell carcinoma History of Present Illness: Referring Physician: ____Myah Lugo MD Tumor type: 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 Left medial cheek 2. Left deltoid Duration of Presence: 1. > 1 year 2. 2-3 months Previous Treatment [ X] No [ ] Yes When: Symptoms: [ ] pain [ ] bleeding [ ] crusting [ ] other ____None Previous History of Skin Cancer: [ ] none [ X] list ___BCC left ala s/p Mohs Family History of Skin Cancer [ X] none [ ] melanoma [ ] basal cell [ ] squamous cell [ ] other Review of Systems: Check all that apply regarding other health problems Skin Hematological Eyes/Ears/Nose/Throat [ X] normal [ X] normal [ ] normal [ ] thick scars/keloids [ ] anemia [ X] glaucoma [ ] poor wound healing [ ] bleeding problems [ ] hearing aid [ ] herpes infection/cold sores [ ] enlarged lymph nodes [ ] cosmetic surgery [ ] other [ ] other [ ] other Cardiovascular Respiratory GI/Renal [ ] normal [ X] normal [ X] normal [ ] angina (chest pain) [ ] emphysema [ ] colitis [ ] heart attack (Date____) [ ] COPD [ ] stomach ulcer [ ] artificial heart valve [ ] asthma [ ] kidney disease [ ] pacemaker/defib [ ] other [ ] other [ X] HTN [ ] other Musculoskeletal Endocrine Infections [ X] normal [ ] normal [X ] none [ ] arthritis [ ] thyroid disease [ ] HIV/AIDS [ ] artificial joint (Year ____) [ X] Diabetes - pre diabetes [ ] hepatitis (type ) [ ] other [ ] other [ ] tuberculosis [ ] other Neurological Psychiatric [ X] normal [ ] normal [ ] stroke [ ] anxiety [ ] seizures [ X] depression [ ] mental status change [ ] other [ ] other Do you take antibiotics prior to having a dental or any other procedure [ X] No [ ] Yes Medical Problems (not listed above): Pre-diabetes, Pre-hypertension, Hyperlipidemia, Glaucoma, [place] in right heel Surgical history (not listed above): __Cataracts, Mohs left ala, Hysterectomy Physical Limitations: ____None Do You Take [ ] aspirin [ ] Plavix [ ] Coumadin [ ] Other blood thinners/anti- platelet medications __None List Other Medications (prescription and over the counter including vitamins): Current outpatient prescriptions ordered prior to encounter Medication Sig Dispense Refill ??? brimonidine (ALPHAGAN) 0.2 % ophthalmic solution Place 1 drop into both eyes 2 times daily. Please dispense 90 day supply 5 mL 4 ??? dorzolamide-timolol (COSOPT) 2-0.5 % ophthalmic solution Place 1 drop into both eyes 2 times daily. Please dispense 90 day supply 10 mL 4 ??? hydrochlorothiazide (HYDRODIURIL) 25 mg tablet Take 12.5 mg by mouth daily. ??? IBUPROFEN (ADVIL ORAL) ??? Multivitamins Chew ??? SIMVASTATIN ORAL ??? fluoruracil (CARAC) 0.5 % cream Apply topically daily. Use for 3 weeks then discontinue 30 g 0 Medication Allergies: [ ] none [ ] list Allergies Allergen Reactions ??? 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 [X ] No [ ] Yes Are you nursing? [X ] No [ ] Yes Physical Exam BP 145/64 Pulse 65 Resp 18 Ht 152.4 cm (5') Wt 68.04 kg (150 lb) BMI 29.30 kg/m2 General: Pleasant, well-appearing, in no acute distress. Skin:Limited examination of face reveals ill-defined 1 mm white macule located on the left medial cheek. Limited examination of the left upper arm reveals 1.5 cm ulcerated plaque located on the left deltoid. Assessment and Plan 1. 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 Discussed that if the lesion is a MAC that the defect may be significantly larger. Reviewed treament options including wide local excision, Mohs micrographic surgery, electrodesiccation and curettage, and radiation therapy. Reviewed reconstruction options including second intention healing, linear repair, local flap, fullthickness graft, and repair by Plastic Surgery or any other physician of the patient's choosing. The patient has elected to proceed with Mohs surgery. The patient has elected to have the post-Mohs defect repaired by us, and understands and acknowledges the risk of scarring. 2. BCC - left deltoid Reviewed treament options including R/B/A. Patient elects to proceed with WLE. documented in this encounter Plan of Treatment Upcoming Encounters Date Type Department Care Team (Late st Contact Info) Description 07/24/2024 2:00 PM EDT Appointment Mammography/[place] [address] Aden Lauren MD [address] [place], [place] [id number] documented as of this encounter Visit Diagnoses Diagnosis BCC (basal cell carcinoma)- Primary Basal cell carcinoma of skin, site unspecified documented in this encounter Care Teams Fiscal Manager Relationship Specialty Start Date End Date Shanell Hawkins MD [address] [place], [place] [id number] PCP - General 08/19/10 02/17/16 documented as of this encounter
--- OUTSIDE RECORDS SUMMARY | 2024-06-23 02:19 | XMS_ITS | Encounter Summary ---
Author Organization [facility] [place] [address] Care Team Providers Care Glaze Sprayer Name Role Phone Shanell Hawkins MD Primary Care Provider [phone] Reason for Visit * Reason Comments Pseudoexfoliation Glaucoma Patient retur ns for 1 year follow up for IOP check, dilation and OCT. Patient is not aware of any vision changes. Wears readers only. Encounter Details Date Type Department Care Team (Late st Contact Info) Description 03/16/2012 1:45 PM EDT [place] [id number] Crista Mcmillan MD [facility] [address] [place] [address] PXF (pseudoexfoliation of lens capsule) (Primary Dx) Discharge Disposition: Home Social History [...] as of this encounter Progress Notes * Crista Mcmillan MD - 03/16/2012 2:48 PM EDT 03/11/2011 Tianna Tovar is a 70 y.o. female with coag ou, 1st seen 2000, c pxf od noted then, none os; and pxf noted os 04/01. Discs=0.7 od and 0.5 os. VFs= nl ou 06/05. OCTs on 03/08= 90/98. Tmax , then 25 ou on cos ou; Cct=58 ou. IOPstatus= 14 ou on MEDS=cos, alpha ou; ADReye=clifford [dizzy] xal. Lum. TARGET=<20. Surg=alt od ; iol ou 06/06 araya; VA= 20///25cc; prior= -1 and +3. [place] in winter. 03/16/2012= coag glc, w pxf ou, stable same rx ck 1y dil hvfs documented in this encounter Nursing Notes * 03/16/2012 1:45 PM EDT >> CRISTA MCMILLAN MD WedMar 16, 2012 2:51 PM Coag, ou, w pxf ou, ce ou, on meds [facility] >> SHANELL NASSAR, HARITHA WedMar 16, 2012 2:14 PM Description:Patient presents with: Pseudoexfoliation Glaucoma - Patient returns for 1 year follow up for IOP check, dilation and OCT. Patient is not aware of any vision changes. Wears readers only. Location: both eye Duration: 1 years Rapidity of Onset:unknown Severity: unknown Condition:No Change Pain:none Modifying Factors: Using Brimonidine 2% bid OU and Cosopt bid OU Associated Symptoms: Basal cell surgery yesterday under left eye documented in this encounter Plan of Treatment Upcoming Encounters Date Type Department Care Team (Late st Contact Info) Description 07/24/2024 2:00 PM EDT Appointment Mammography/[place] [address] Aden Lauren MD [address] [place] [address] [address] [facility] [address] [place] [address] documented as of this encounter Procedures Procedure Name Priority Date/Time Associated Diagnosis Comments OCT OPTIC NERVE - OU - BOTH EYES Routine 03/16/2012 2:50 PM EDT PXF (pseudoexfoliation of lens capsule) documented in this encounter Results * OCT OPTIC CNSZE-NE-KMMM EYES (03/16/2012 2:50 PM EDT) Anatomical Region Laterality Modality Other Narrative 03/16/2012 2:50 PM EDT 90/98 ie normal ou Procedure Note Crista Mcmillan MD - 03/16/2012 90/98 ie normal ou Crista Mcmillan MD OPHTHALMOLOGY SERVIC ES ORDERABLES documented in this encounter Visit Diagnoses Diagnosis 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
--- OUTSIDE RECORDS SUMMARY | 2024-06-23 02:19 | XMS_ITS | Encounter Summary ---
Author Organization [facility] Address [facility] [place] [address] Care Team Providers Care Foreign Exchange Services Manager Name Role Phone Shanell Hawkins MD Primary Care Provider [phone] Reason for Visit * Reason Comments Basal Cell Carcinoma Encounter Details Date Type Department Care Team (Late st Contact Info) Description 03/15/2012 8:35 AM EDT Office [place] [address] Moises Wright MD [facility] DR S[place] [address] BCC (basal cell carcinoma of skin) (Primary Dx) Discharge Disposition: Home Social History [...] Sign Reading Time Taken Comments Blood Pressure 135/65 03/15/2012 8:54 AM EDT Pulse 77 03/15/2012 8:54 AM EDT Temperature - - Respiratory Rate 16 03/15/2012 8:54 AM EDT Oxygen Saturation - - Inhaled Oxygen Concentration - - Weight 68 kg (150 lb) 03/15/2012 8:54 AM EDT Height 152.4 cm (5') 03/15/2012 8:54 AM EDT Body Mass Index 29.29 03/15/2012 8:54 AM EDT documented in this encounter Progress Notes * Moises Wright MD - 03/15/2012 12:26 PM EDT Operative Report Patient name: Tianna Tovar : 1940 Date: 03/15/2012 Staff Surgeon: Moises Wright MD, PhD Heavy Equipment Field Mechanic I: Marilee Lester Janet Davis K 9 Handler/ Deputy: Fabi Braxton Pre-operative diagnosis: Basal cell carcinoma vs. MAC Post-operative diagnosis: Basal cell carcinoma vs. MAC Location: Left medial cheek Procedure: Mohs micrographic surgery Indication for Mohs micrographic surgery: Critical anatomic location Stages: 1 Final defect size: 1.1 x 0.8 cm Stage I The nature and purpose of the procedure, associated risks, possible consequences and complications,and alternative forms of treatment were explained in detail. Informed consent and permission to take photographs were obtained. The site was confirmed with the patient/authorized inbound sales representative/referring physician and a pre-operative time-out was conducted with no unresolved discrepancies noted. Loc al anesthesia was obtained with a buffered solution of 1% lidocaine with 1:100,000 epinephrine. Thesurgical site was prepped and draped in the usual sterile manner. Clinically apparent tumor was removed by excision with clinical margins and sent for step sectioning. With all visible gross tumor completely excised, the borders of the tumor were excised as a complete layer 2-3mm in thickness. Hemostasis was achieved by electrocoagulation. The excised tissue was oriented and divided into 2 sections, chromacoded, and submitted for frozen sections. The patient tolerated the procedure well and without complications. On microscopic evaluation of the frozen sections, no residual tumor was identified on the deep or outer border of the sections. The final size of the defect after complete tumor removal was 1.1 x 0.8 cm, extending to fat. Moises Wright MD, PhD Repair Operative Report Patient name: Tianna Tovar : 1940 Date: 03/15/2012 Staff Surgeon: Moises Wright MD, PhD Heavy Equipment Field Mechanic I: Marilee Lester Janet Davis K 9 Handler/ Deputy: Fabi Braxton Clinical Diagnosis: 1.1 x 0.8 cm surgical defect secondary to Mohs microscopically controlled excision of basal cell carcinoma. Location: Left medial cheek Procedure: Complex linear closure of Mohs defect Due to the size and location of [...] obtained. The operative site was anesthetized with a buffered solution of 1% lidocaine with 1:100,000 epinephrine. The site was prepped and draped in the usual sterile manner. The edges of the defect were widely undermined at the dermal subcutaneous layer in all directions. The edges could then be approximated without excess tension. Hemostasis was achieved with electrocoagulation. Redundant adjacent tissue was removed as needed. The deep tissues were apposed and sutured with 5-0 Monocryl suturesand the epidermal edges were approximated with 5-0 Prolene sutures. The resulting complex linear closure measured 3.0 cm. The surgical site was cleaned and white petrolatum with a Xeroform gauze pressure dressing applied.The patient tolerated the procedure well and without complications and was given both verbal and written instruction on postoperative wound care. Follow up for suture removal was scheduled for one week. The patient was discharged in good condition. Moises Wright MD, PhD documented in this encounter Miscellaneous Notes * Miscellaneous - Tamiko Eli - 03/23/2012 4:35 PM EDT documented in this encounter Plan of Treatment Upcoming Encounters Date Type Department Care Team (Late st Contact Info) Description 07/24/2024 2:00 PM EDT Appointment Mammography/[place] [address] Aden Lauren MD [address] [place] [address] documented as of this encounter Visit Diagnoses Diagnosis BCC (basal cell carcinoma of skin)- Primary Basal cell carcinoma of skin, site unspecified documented in this encounter Care Teams Foreign Exchange Services Manager Relationship Specialty Start Date End Date Shanell Hawkins MD [address] [place] [address] PCP - General 08/19/10 02/17/16 documented as of this encounter
--- OUTSIDE RECORDS SUMMARY | 2024-06-23 02:19 | XMS_ITS | Encounter Summary ---
[place] [address] Care Team Providers Care Church Supervisor Name Role Phone Shanell Hawkins MD Primary Care Provider Encounter Details Date Type Department Care Team (Latest Contact Info) Description 06/19/2013 9:52 AM EDT - 06/19/2013 11:59 PM EDT Hospital [place] [address] Abnormal mammogram, unspecified Social History Tobacco Use Types Packs/Day Years [...] Sig Dispensed Refills Start Date End Date ibuprofen (ADVIL;MOTRIN) 200 mg tablet Take 200 mg by mouth every 6 hours as needed. Multivitamins Chew 07/29/2010 brimonidine (ALPHAGAN) 0.2 % ophthalmic solutionIndications:P XF (pseudoexfoliation of lens capsule) Place 1 drop into both eyes 2 times daily. Please dispense 90 day supply 15 mL 3 03/22/2013 02/26/2014 dorzolamide-timolol (COSOPT) 2-0.5 % ophthalmic solutionIndications:P XF (pseudoexfoliation of lens capsule) Place 1 drop into both eyes 2 times daily. Please dispense 90 day supply 15 mL 3 03/22/2013 02/26/2014 sulfamethoxazole-trim ethoprim (BACTRIM;SEPTRA) 400-80 mg per tablet Take 1 tablet by mouth 2 times daily. 20 tablet 0 07/04/2012 06/26/2013 amoxicillin-clavulana te (AUGMENTIN) 875-125 mg per tablet Take 1 tablet by mouth 2 times daily. 20 tablet 0 06/27/2012 06/26/2013 fluoruracil (CARAC) 0.5 % cream Apply topically daily. Use for 3 weeks then discontinue 30 g 0 01/27/2012 06/26/2013 hydrochlorothiazide (HYDRODIURIL) 25 mg tablet Take 12.5 mg by mouth daily. 03/27/2019 SIMVASTATIN ORAL 07/29/2010 06/26/2013 documented as of this encounter Plan of Treatment Upcoming Encounters Date Type Department Care Team (Late st Contact Info) Description 07/24/2024 2:00 PM EDT Appointment Mammography/[place] [address] Aden Lauren MD [address] [place] [address] [address] [facility] [address] [place] [address] documented as of this encounter Procedures Procedure Name Priority Date/Time Associated Diagnosis Comments MAMMO DIRECT DIGITAL UNILATERAL Routine 06/19/2013 11:55 AM EDT Abnormal mammogram, unspecified SURGICAL PATHOLOGY REPORT Routine 06/19/2013 11:22 AM EDT documented in this encounter Results * Mammo direct digital unilateral (06/19/2013 11:55 AM EDT) Anatomical Region Laterality Modality Breast N/A Mammography 06/19/2013 11:5 5 AM EDT Narrative 06/22/2013 12:58 PM EDT (vacuum assisted ultrasound guided biopsy) is associated with this study. Procedure Note Bronson Tracey MD - 06/22/2013 (vacuum assisted ultrasound guided biopsy) isassociated with this study. Bronson Tracey MD IMG MAMMO ORDERABLES * Surgical Pathology Report (06/19/2013 11:22 AM EDT) Surgical Pathology Report ? [facility] ? Provider: ?? BRONSON TRACEY ? Pt. Name: ?? MANNY ROSENBERGLY Adriana ? Acc #: ?[id number] ?Pt. ? Col Date: ?? 06/19/2013 ? /Sex: ?1940,(72 ? years),Female ? Rec Date: ?? 06/19/2013 ? LOC: ?[facility] ? SURGICAL PATHOLOGY ? ---Pathologic Diagnosis--- ? Needle biopsies: ?Right breast. ? 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 ? Microcalcifications: ??N/A ? CR-0 ? 06/20/13 ? CCB ? 06/21/13 Verified by: ? Gustavo DO, Justyna C. ? Pathologist ? (Electronic Signature) ? The attending pathologist whose signature appears on this report has ? reviewed all diagnostic slides and has edited the gross and/or ? microscopic portion of the report in rendering the final pathologic ? diagnosis. ? ---Microscopic Description--- ? Slides reviewed, microscopic description not recorded. ? Immunohistochemistry Studies: ? Formalin-fixed, paraffin-embedded tissue sections are studied using the B- ? SA system technique with appropriate positive and negative controls. ??These ? IHC studies provide the pathologist with adjunctive diagnostic information. ? Antibody specificity has been verified by testing antibodies on a series of ? in-house tissues with known immunohistochemical performance ? characteristics. The clinical interpretation of any antibody positive ? staining or its absence is evaluated within the context of clinical ? presentation, morphology, histopathological criteria and other diagnostic ? tests. ? Block ?Antibody ? Result (Positive/Negative) ? A2 ?P63 ?Positive ? A2 ?Calponin ? Positive ? ---Gross Description--- ? A - Labeled/Fixative: Right breast 12-gauge ultrasound biopsy, formalin. ? Quantity/Size: Fragments, aggregating to 3.5 x 1.6 x 0.2 cm. ? Tissue Description: Soft buckley-yellow, fragmented needle core biopsies. ? Ischemic Time: 10 minutes. ? Sections/Processing: (T2) ??pps ? [facility] ? Provider: ?? BRONSON TRACEY ? Pt. Name: ?? TIANNA ROSENBERG ? Acc #: ?[id number] ?Pt. ? Col Date: ?? 06/19/2013 ? /Sex: ?1940,(72 ? years),Female ? Rec Date: ?? 06/19/2013 ? LOC: ?OPW ? ---Clinical Information--- ? Specimen Submitted: ? SURGICAL PATHOLOGY ? A - Right breast 12g us bx ? Clinical History: ? Right breast mass ? Clinical Diagnosis: ? Complex cyst, papilloma, carcinoma CERNER MILLENNIUM 06/19/2013 11:2 2 AM EDT Bronson Tracey MD PATHOLOGY/CYTOLOGY O RDERABLES Performing Organization Address City/State/[facility] Co de Phone Number BENITO BROUSSARD documented in this encounter Visit Diagnoses Diagnosis Abnormal mammogram, unspecified documented in this encounter Care Teams Church Supervisor Relationship Specialty Start Date End Date Shanell Hawkins MD [address] [place] [address] PCP - General 08/19/10 02/17/16 documented as of this encounter
--- OUTSIDE RECORDS SUMMARY | 2024-06-23 02:19 | XMS_ITS | Encounter Summary ---
[place] [address] Care Team Providers Care Account Manager Employee Benefits Name Role Phone Shanell Hawkins MD Primary Care Provider [phone] Encounter Details Date Type Department Care Team (Latest Contact Info) Description 05/01/2013 7:43 AM EDT - 05/01/2013 11:59 PM EDT Hospital [place] [address] CLINIC, Shanell Valerio MD [address] [place] [address] Abnormal mammogram, unspecified (Primary Dx) Discharge Disposition: Home Social History [...] 07/24/2024 2:00 PM EDT Appointment Mammography/DXA at [place] [phone] Aden Lauren MD [facility] [address] [facility] [address] [place] [address] documented as of this encounter Procedures Procedure Name Priority Date/Time Associated Diagnosis Comments MAMMO BREAST US LIMITED Routine 05/01/2013 8:20 AM EDT Abnormal mammogram, unspecified documented in this encounter Results * Mammo direct digital unilateral (06/19/2013 11:55 AM EDT) Anatomical Region Laterality Modality Breast N/A Mammography 06/19/2013 11:5 5 AM EDT Narrative 06/22/2013 12:58 PM EDT (vacuum assisted ultrasound guided biopsy) is associated with this study. Procedure Note Tess Tracey MD - 06/22/2013 (vacuum assisted ultrasound guided biopsy) isassociated with this study. Tess Tracey MD IMG MAMMO ORDERABLES * Mammo breast US unilateral bilateral (05/01/2013 8:20 AM EDT) Anatomical Region Laterality Modality Breast N/A Mammography 05/01/2013 8:20 AM EDT Narrative 05/01/2013 2:26 PM EDT RIGHT BREAST ULTRASOUND ON 05/01/13: ?? DIAGNOSTIC IMAGING SUMMARY: ?? RIGHT BREAST: ?? LESION 1: SUSPICIOUS (BI-RADS Category 4) Finding: Cystic and solid well circumscribed lesion Size: 6mm Location: 0330, 6cm from the nipple Recommendation: Ultrasound guided biopsy, which has been scheduled for 06/12/13 Differential: Intracystic papilloma, malignancy. Preliminary report faxed to Dr. Hawkins, 05/01/13 ?? NARRATIVE: ?? HISTORY: Call back from screening mammogram dated 04/27/13 for question of well defined mass in the Right breast. ? COMPARISON: Bilateral screening mammogram 04/27/13, 04/27/12, 05/20/11, 05/12/10, 05/22/09 ?? TECHNIQUE: Targeted ultrasound of the Right breast was performed ?? FINDINGS: ?? At the 0330 position, 6cm from the nipple is a well circumscribed oval mass which is almost completely anechoic. However the posterior wall is an area of soft tissue nodularity. The mass measures approximately 5 x 5 x 6mm, corresponding with the mammographic abnormality. Upon review of multiple prior mammogram comparisons, this lesion has slowly increased in size since 2008. Given the gradual increase in size and small solid component, ultrasound guided biopsy is recommended. ? Film and interpretation reviewed by the attending Procedure Note Tess Tracey MD - 05/01/2013 RIGHT BREAST ULTRASOUND ON 05/01/13: DIAGNOSTIC IMAGING SUMMARY: RIGHT BREAST: LESION 1: SUSPICIOUS (BI-RADS Category 4) Finding: Cystic and solid well circumscribed lesion Size: 6mm Location: 0330, 6cm from the nipple Recommendation: Ultrasound guided biopsy, which has been scheduled for06/12/13 Differential: Intracystic papilloma, malignancy. Preliminary report faxedto Dr. Hawkins, 05/01/13 NARRATIVE: HISTORY: Call back from screening mammogram dated 04/27/13 for question ofwell defined mass in the Right breast. COMPARISON: Bilateral screening mammogram 04/27/13, 04/27/12, 05/20/11, 05/12/10, 05/22/09 TECHNIQUE: Targeted ultrasound of the Right breast was performed FINDINGS: At the 0330 position, 6cm from the nipple is a well circumscribed ovalmass which is almost completely anechoic. However the posterior wall is an areaof soft tissue nodularity. The mass measures approximately 5 x 5 x 6mm, corresponding with the mammographic abnormality. Upon review of multipleprior mammogram comparisons, this lesion has slowly increased in size [id number]. Given the gradual increase in size and small solid component, ultrasoundguided biopsy is recommended. Film and interpretation reviewed by the attending Sarahi Shearer MD IMG MAMMO ORDERABLES documented in this encounter Visit Diagnoses Diagnosis Abnormal mammogram, unspecified- Primary Abnormal mammogram, unspecified documented in this encounter Care Teams Account Manager Employee Benefits Relationship Specialty Start Date End Date Shanell Hawkins MD [address] [place] [address] PCP - General 08/19/10 02/17/16 documented as of this encounter
--- OUTSIDE RECORDS SUMMARY | 2024-06-23 02:19 | XMS_ITS | Encounter Summary ---
Author Organization [facility] [place] [address] Care Team Providers Care Clinical Trial Coordinator Name Role Phone Shanell Hawkins MD Primary Care Provider [phone] Encounter Details Date Type Department Care Team (Late st Contact Info) Description 08/04/2013 [place] [phone] Salma Collins MD [facility] [place] [address] Social History Tobacco Use Types Packs/Day Years [...] as of this encounter Progress Notes * Salma Collins MD - 08/04/2013 8:21 AM EST Procedure date: Done today Procedure type:Right breast needle localization Special Instructions: {NONE DEFAULTED:45910} Allergies: Adhesive tape and Timolol Medications: Current outpatient prescriptions:simvastatin (ZOCOR) 10 mg tablet, Take 5 mg by mouth nightly., Disp: , Rfl: ; brimonidine (ALPHAGAN) 0.2 % ophthalmic solution, Place 1 drop into both eyes 2 times daily. Please dispense 90 day supply, Disp: 15 mL, Rfl: 3; dorzolamide-timolol (COSOPT) 2-0.5 % ophthalmic solution, Place 1 drop into both eyes 2 times daily. Please dispense 90 day supply, Disp: 15 mL, Rfl: 3 ibuprofen (ADVIL;MOTRIN) 200 mg tablet, Take 200 mg by mouth every 6 hours as needed., Disp: , Rfl:; hydrochlorothiazide (HYDRODIURIL) 25 mg tablet, Take 12.5 mg by mouth daily., Disp: , Rfl: ; Multivitamins Chew, , Disp: , Rfl: Anticoagulation status: {anticoagulants:36077} Imaging reviewed and procedural plan approved by Dr. SALMA COLLINS MD documented in this encounter Plan of Treatment Upcoming Encounters Date Type Department Care Team (Late st Contact Info) Description 07/24/2024 2:00 PM EDT Appointment Mammography/[place] [address] Aden Lauren MD [address] [place], [place] [id number] documented as of this encounter Visit Diagnoses Not on filedocumented in this encounter Care Teams Clinical Trial Coordinator Relationship Specialty Start Date End Date Shanell Hawkins MD [address] [place], [place] [phone] PCP - General 08/19/10 02/17/16 documented as of this encounter
--- OUTSIDE RECORDS SUMMARY | 2024-06-23 02:19 | XMS_ITS | Encounter Summary ---
[place] [address] Care Team Providers Care Tack Cutter Name Role Phone Shanell Hawkins MD Primary Care Provider [phone] Encounter Details Date Type Department Care Team (Latest Contact Info) Description 06/19/2013 9:50 AM EDT - 06/19/2013 11:59 PM EDT Hospital [place] [address] CLINIC, Shanell Valerio MD [address] [place] [address] Abnormal mammogram, unspecified Discharge Disposition: Home Social History Tobacco Use [...] as of this encounter Progress Notes * Bronson Tracey MD - 06/16/2013 6:05 PM EDT Procedure date: scheduled for 06/19 Procedure type: right Breast US biopsy Special Instructions: none Allergies: Adhesive tape and Timolol Medications: Current outpatient prescriptions:brimonidine (ALPHAGAN) 0.2 % ophthalmic solution, Active, Place 1 drop into both eyes 2 times daily. Please dispense 90 day supply, Disp: 15 mL, Rfl: 3; dorzolamide-timolol (COSOPT) 2-0.5 % ophthalmic solution, Active, Place 1 drop into both eyes 2 times daily. Please dispense 90 day supply, Disp: 15 mL, Rfl: 3 sulfamethoxazole-trimethoprim (BACTRIM;SEPTRA) 400-80 mg per tablet, Active, Take 1 tablet by mouth2 times daily., Disp: 20 tablet, Rfl: 0; ibuprofen (ADVIL;MOTRIN) 200 mg tablet, Active, Take 200 mg by mouth every 6 hours as needed., Disp: , Rfl: ; amoxicillin-clavulanate (AUGMENTIN) 875-125 mg per tablet, Active, Take 1 tablet by mouth 2 times daily., Disp: 20 tablet, Rfl: 0 fluoruracil (CARAC) 0.5 % cream, Active, Apply topically daily. Use for 3 weeks then discontinue, Disp: 30 g, Rfl: 0; hydrochlorothiazide (HYDRODIURIL) 25 mg tablet, Active, Take 12.5 mg by mouth daily., Disp: , Rfl: ; Multivitamins Chew, Active, , Disp: , Rfl: ; SIMVASTATIN ORAL, Active, , Disp: ,Rfl: Anticoagulation status: none Imaging reviewed and procedural plan approved by Dr. BRONSON TRACEY MD documented in this encounter Miscellaneous Notes * Miscellaneous - Provider, Scanning - 08/08/2013 11:46 AM EST documented in this encounter Plan of Treatment Upcoming Encounters Date Type Department Care Team (Late st Contact Info) Description 07/24/2024 2:00 PM EDT Appointment Mammography/[place] [address] Aden Lauren MD [address] [place] [phone] documented as of this encounter Procedures Procedure Name Priority Date/Time Associated Diagnosis Comments SPECIMEN TO PATHOLOGY Routine 06/19/2013 11:22 AM EDT Abnormal mammogram, unspecified MAMMO US VACUUM ASSISTED BIOPSY Routine 06/19/2013 11:00 AM EDT documented in this encounter Results * Specimen to Pathology (surgical or derm) (06/19/2013 11:22 AM EDT) AP Specimen 06/19/2013 11:2 2 AM EDT 06/19/2013 11:34 AM EDT [facility]ative [facility]/19/2013 11:34 AM EDT Specimen requisition ordered. ??Separate Pathology report to follow Bronson Tracey MD PATHOLOGY/CYTOLOGY O RDERABLES [facility] * Mammo- US vacuum assisted biopsy (06/19/2013 11:00 AM EDT) Anatomical Region Laterality Modality Breast N/A Mammography 06/19/2013 11:0 0 AM EDT Addenda Addendum on 06/22/2013 12:58 PM EDT Addendum Begins is associated with this study. ?? Addendum Ends Addendum on 06/22/2013 11:24 AM EDT Addendum Begins is associated with this study. ?? Addendum Ends Impressions 06/21/2013 1:59 PM EDT Impression: Concordant Recommendation: Surgical excision. Results discussed with Ms. Tovar on 06/21/13. Narrative 06/21/2013 1:59 PM EDT VACUUM ASSISTED ULTRASOUND GUIDED BIOPSY OF THE RIGHT BREAST ON 06/19/13: Informed consent was obtained. Using sterile technique and 1% Lidocaine used for local anesthesia, a skin incision was made and a biopsy was performed using Ultrasound for image guidance. Clinical indication: Right breast 6mm mass at 3:30, 6cm from the nipple. 12-gauge ATEC ultrasound device 17 core biopsy specimens obtained. An ATEC U/S 13 cylinder marker clip was placed. Cranio-caudal and lateral digital mammography performed to determine biopsy marker placement, which was shown to be at the biopsy site. Satisfactory sampling was obtained. There were no procedural complications. Imaging diagnosis: Complex cyst versus papilloma versus cancer. 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 Procedure Note Bronson Tracey MD - 06/22/2013 VACUUM ASSISTED ULTRASOUND GUIDED BIOPSY OF THE RIGHT BREAST ON 06/19/13: Informed consent was obtained. Using sterile technique and 1% Lidocaineused for local anesthesia, a skin incision was made and a biopsy was performedusing Ultrasound for image guidance. Clinical indication: Right breast 6mm mass at 3:30, 6cm from the nipple. 12-gauge ATEC ultrasound device 17 core biopsy specimens obtained. An ATEC U/S 13 cylinder marker clip was placed. Cranio-caudal and lateral digital mammography performed to determine biopsy marker placement, whichwas shown to be at the biopsy site. Satisfactory sampling was obtained. There were no procedural complications. Imaging diagnosis: Complex cyst versus papilloma versus cancer. Pathologic diagnosis: Atypical ductal hyperplasia, involving cystically dilated ducts/papilloma. IMPRESSION Impression: Concordant Recommendation: Surgical excision. Results discussed with Ms. Tovar on 06/21/13. Bronson Tracey MD IMG MAMMO ORDERABLES documented in this encounter Visit Diagnoses Diagnosis Abnormal mammogram, unspecified documented in this encounter Administered Medications Inactive Administered Medications - up to 3 most recent administrations Medication Order MAR Action Action Date Dose Rate Site lidocaine (XYLOCAINE) 10 mg/mL (1 %) injection 10 mg 10 mg, Intradermal, ONCE, 1 dose, On Wed06/19/13 at 1130, Routine Given 06/19/2013 11:10 AM EDT 10 mg lidocaine-epiNEPHrine 1 %-1:100,000 injection 20 mL 20 mL, Intradermal, ONCE, 1 dose, On Wed06/19/13 at 1130, Routine Given 06/19/2013 11:30 AM EDT 20 mLs documented in this encounter Care Teams Tack Cutter Relationship Specialty Start Date End Date Shanell Hawkins MD [address] [place] [address] PCP - General 08/19/10 02/17/16 documented as of this encounter
--- OUTSIDE RECORDS SUMMARY | 2024-06-23 02:19 | XMS_ITS | Encounter Summary ---
Author Organization [facility] Address [facility] [place] [address] Care Team Providers Care Oracle Applications Developer Name Role Phone Shanell Hawkins MD Primary Care Provider [phone] Reason for Visit * Reason Comments Wound Check Encounter Details Date Type Department Care Team (Late st Contact Info) Description 04/27/2012 1:00 PM ED[place] [address] Moises Wright MD [facility] [place] [address] Visit for wound check (Primary Dx) Discharge Disposition: Home Social History [...] as of this encounter Progress Notes * Moises Wright MD - 04/27/2012 4:46 PM EDT CC: Wound check HPI: Patient is a 71 y.o. female with history of basal cell carcinoma, left deltoid, s/p excision 03/22/12 and left cheek s/p MMS 03/15/12 who presents for wound check. Concerned about a suture protruding from the wound on the left shoulder. ROS: Otherwise well. Exam: General: No acute distress Skin: Limited examination of left deltoid shows a well-healed incision. A protruding vicryl suture is noted. Examination of the face reveals well healed incision on the left cheek. Assessment and Plan 1. Basal cell carcinoma left deltoid s/p excision with linear repair with extruding suture Removed one Vicryl suture. WCIG 2. BCC - left cheek Doing well. The nature of sun-induced photo-aging and skin cancers is discussed. Sun avoidance, protective clothing, and the use of 30-SPF sunscreens is advised. Observe closely for skin damage/changes, and callif such occurs. Follow up with Dr. Edmondson as needed. documented in this encounter Plan of Treatment Upcoming Encounters Date Type Department Care Team (Late st Contact Info) Description 07/24/2024 2:00 PM EDT Appointment Mammography/[place] [address] Aden Lauren MD [address] [place], [place] [phone] documented as of this encounter Visit Diagnoses Diagnosis Visit for wound check- Primary Encounter for other specified aftercare documented in this encounter Care Teams Oracle Applications Developer Relationship Specialty Start Date End Date Shanell Hawkins MD [address] [place], [place] [address] PCP - General 08/19/10 02/17/16 documented as of this encounter
--- OUTSIDE RECORDS SUMMARY | 2024-06-23 02:19 | XMS_ITS | Encounter Summary ---
Author Organization [facility] [place] [address] Care Team Providers Care Geothermal Heat Pump Machinist Name Role Phone Shanell Hawkins MD Primary Care Provider [phone] Reason for Visit * Reason Comments Post Hospital Discharge vulvar ca f/u Encounter Details Date Type Department Care Team (Latest Contact Info) Description 06/26/2013 10:20 AM EDT Office Visit [place] [address] Diana Curry MD [facility] [place] [address] Microinvasive vulvar cancer (Primary Dx) Discharge Disposition: Home Social History [...] Sign Reading Time Taken Comments Blood Pressure 140/70 06/26/2013 10:15 AM EDT Pulse - - Temperature 37 ??C (98.6 ??F) 06/26/2013 10:15 AM EDT Respiratory Rate - - Oxygen Saturation - - Inhaled Oxygen Concentration - - Weight 72 kg (158 lb 11.7 oz) 06/26/2013 10:15 A M EDT Height - - Body Mass Index 31 06/21/2012 10:09 AM EDT documented in this encounter Progress Notes * Nelly Chiu MD - 06/26/2013 10:32 AM EDT Subjective: Patient ID: Tianna Tovar is a 72 y.o. female s/p re-excision of vulvar microinvasive cancer with close margin and ipsilateral superficial groin dissection +LVSI here for one year follow up exam. Patient Active Problem List Diagnosis ??? Glaucoma, pseudoexfoliation ??? Type 2 diabetes, diet controlled ??? Pre-hypertension ??? Cholesterol serum increased ??? 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 COAG (chronic open-angle glaucoma) ??? 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 female with coag ou, 1st seen 1999, c pxf od noted then, none os; and pxf noted os 04/01. Discs=0.7 od and 0.5 os. VFs= nl ou 06/05. Tmax , then 25 ou on cos ou; Cct=58 ou. IOPstatus= 14 ou on MEDS=cos, alpha ou; ADReye=clifford [dizzy] xal. Lum. TARGET=<20.Surg=alt od 02; iol ou 06/06; VA= 20///25cc; prior= -1 and +3. [place] in winter. hvfs dil. ??? Pseudophakia of both eyes ??? Personal history of other malignant neoplasm of skin History of Present Illness: Tianna is s/p re-excision of vulvar microinvasive cancer with close margin and ipsilateral superficial groin dissection for +LVSI. Her post operative course was complicatedby groin cellulitis. She reports that she has been feeling well, but her family literacy coordinator noticed three small lesions surrounding the introitus. She denies any vulvar pruritis, pain, vaginal bleeding, or new vaginal discharge. She does have a pimple at her posterior inguinal fold. She denies any headache, sweats, chest pain, SOB, N,V, abdominal pain, constipation, diarrhea, hematuria, dysuria, frequency, or urgency. She does report 3 incidents of spotting on her toilet paper and mild left leg edema at night. Prior to Admission medications Medication Sig Start Date End Date Taking? Authorizing Provider sulfamethoxazole-trimethoprim (BACTRIM;SEPTRA) 400-80 mg per tablet Take 1 tablet by mouth 2 times daily. 07/04/12 Yes Diana Curry MD ibuprofen (ADVIL;MOTRIN) 200 mg tablet Take 200 mg by mouth every 6 hours as needed. Yes HistoricalProMD christina amoxicillin-clavulanate (AUGMENTIN) 875-125 mg per tablet Take 1 tablet by mouth 2 times daily. 06/27/12 Yes Natalie Flaherty APRN dorzolamide-timolol (COSOPT) 2-0.5 % ophthalmic solution Place 1 drop into both eyes 2 times daily.Please dispense 90 day supply 03/16/12 Yes Anurag Meyer MD brimonidine (ALPHAGAN) 0.2 % ophthalmic solution Place 1 drop into both eyes 2 times daily. Please dispense 90 day supply 03/16/12 Yes Anurag Meyer MD fluoruracil (CARAC) 0.5 % cream Apply topically daily. Use for 3 weeks then discontinue 01/27/12 Yes Myah Lugo MD hydrochlorothiazide (HYDRODIURIL) 25 mg tablet Take 12.5 mg by mouth daily. Yes Historical ProviderMD Multivitamins Chew 07/29/10 Yes SIMVASTATIN ORAL 07/29/10 Yes Allergies Allergen Reactions ??? Adhesive Tape Sensitive ??? Timolol Other (See Comments) burning Review of Systems: as per HPI Physical Exam Filed Vitals: 06/26/13 1015 BP: 140/70 Temp: 37 ??C (98.6 ??F) Weight: 72 kg (158 lb 11.7 oz) Gen: Pleasant. Resting comfortably on exam table. NAD. Neuro: Alert and oriented. Cardiac: RRR. No murmurs, rubs, or gallops. Pulm: CTAB. No wheezes, rales, or rhonci. Abd: +BS. Soft. Non tender. No rebound or guarding. Gu: Lesions near the introitus most consistent with scar tissue. One herpetic appearing lesion at inferior aspect of her left buttock. Erythematous, vesicular, no drainage. Extremities: No lower extremity edema Assessment and Plan: No concerning lesions. No evidence of recurrent cancer at this time. Return prn. NELLY CHIU MD PGY1 06/26/2013 Pt was seen and discussed with Dr. Diana Curry MD I saw and evaluated the patient with Dr. Chiu, and I confirmed the history and physical findings as outlined, and I agree with the note as written. documented in this encounter Plan of Treatment Upcoming Encounters Date Type Department Care Team (Late st Contact Info) Description 07/24/2024 2:00 PM EDT Appointment Mammography/[place] [address] Aden Lauren MD [address] [place] [address] documented as of this encounter Visit Diagnoses Diagnosis Microinvasive vulvar cancer- Primary Malignant neoplasm of vulva, unspecified site documented in this encounter Care Teams Geothermal Heat Pump Machinist Relationship Specialty Start Date End Date Shanell Hawkins MD [address] [place] [address] PCP - General 08/19/10 02/17/16 documented as of this encounter
--- OUTSIDE RECORDS SUMMARY | 2024-06-23 02:19 | XMS_ITS | Encounter Summary ---
Author Organization [facility] Address [facility] [address] [place] [address] Care Team Providers Care Element Winding Machine Tender Name Role Phone Shanell Hawkins MD Primary Care Provider [phone] Reason for Visit * Reason Comments Right Leg Pain mass R achills Encounter Details Date Type Department Care Team (Late st Contact Info) Description 05/23/2012 1:40 PM EDT Office [place] [address] David Stuart PA [facility] [place] [address] Ankle pain, right; Ankle mass Discharge Disposition: Home Social History Tobacco Use [...] Sign Reading Time Taken Comments Blood Pressure 142/80 05/23/2012 1:51 PM EDT Pulse - - Temperature - - Respiratory Rate - - Oxygen Saturation - - Inhaled Oxygen Concentration - - Weight 68 kg (150 lb) 05/23/2012 1:51 PM EDT pt reported Height 152.4 cm (5') 05/23/2012 1:51 PM EDT pt r eported Body Mass Index 29.29 05/23/2012 1:51 PM EDT documented in this encounter Progress Notes * Kali Rankin PA - 05/23/2012 1:48 PM EDT PATIENT NAME: Tianna Tovar AGE: 71 y.o. MR#: [id number] DATE OF VISIT: 05/23/2012 DATE OF INJURY/ONSET: October 2011 CHIEF COMPLAINT: Right ankle mass and pain HISTORY OF PRESENT ILLNESS Ms. Tovar a 71 y.o. year old female comes into clinic today for evaluation of the right Fulton's tendon mass first noticed in October 2011. The area is tender at times, noted more so getting up in the morning for a minute or two, also wearing shoes over the area. Theredness, or inflammation or drainage from the area. She denies any prior injuries to the Noel's tendon, or fracture's of the foot or ankle on the right. Patient Active Problem List Diagnoses Date Noted ??? COAG (chronic open-angle glaucoma) [365.11AT] 03/11/2011 ??? Pseudoexfoliation glaucoma ou [365.52] 03/11/2011 ??? Pseudophakia of both eyes [V43.1L] 03/11/2011 ??? Personal history of other malignant neoplasm of skin [V10.83] 03/11/2011 Past Surgical History Procedure Date ??? Cataract removal 06/10/10 OD ??? Cataract removal 07/11/10 OS ??? Argon laser trabeculoplasty 2001 OD history of Moh's surgery x2, 2009. 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 dorzolamide-timolol (COSOPT) 2-0.5 % ophthalmic solution Place 1 drop into both eyes 2 times daily. Please dispense 90 day supply 10 mL 3 ??? brimonidine (ALPHAGAN) 0.2 % ophthalmic solution Place 1 drop into both eyes 2 times daily. Please dispense 90 day supply 10 mL 3 ??? fluoruracil (CARAC) 0.5 % cream Apply topically daily. Use for 3 weeks then discontinue 30 g 0 ??? hydrochlorothiazide (HYDRODIURIL) 25 mg tablet Take 12.5 mg by mouth daily. ??? IBUPROFEN (ADVIL ORAL) ??? Multivitamins Chew ??? SIMVASTATIN ORAL ROS: negative for fever, chills, chest pain. PHYSICAL EXAM: Blood pressure 142/80, height 152.4 cm (5'), weight 68.04 kg (150 lb). General: alert and oriented. She appears in no acute discomfort and is resting comfortably in a chair in the exam room. Right Foot Exam Inspection: ?? Standing alignment reveals normal alignment ?? Skin: hair is present, presence of ulcers: none ?? Effusion: none ?? Deformity: nontender, firm 1.5 cm in diameter mass over the distal Noel's tendon ?? Gait: nonantalgic ?? Heel and toe walk: intact Palpation: ?? Focal Tenderness: Non ?? Nontender to Achilles,Peroneal and Posterior tibia tendon. ROM: Minimal subtalar joint motion Ankle: Dorsioflexion: 5 deg Plantar Flexion: 30 deg Motor strength Ankle Dorsioflexion: 5/5 Ankle Plantar Flexion: 5/5 Neurovascular Evaluation DP and TP pulses are 2 Sensation to light tough is intact RADIOLOGICAL STUDIES: Right ankle with 1cm calcific body in the region of the distal Fulton's tendon old fractured osteophyte versus a dystrophic calcification. ASSESSMENT/PLAN: ASSESSMENT/PLAN: Tianna Tovar is a 71 y.o. female presents to the clinic with a right ankle calcific body over the area of the distal Fulton's tendon, with some associated pain over the Fulton's tendon. Discussed most likely etiology for its presence. Discussed avoidance of barefoot walking, shoes that will directly rubs against to the affected area. We discussed importanceof stretching of the Fulton's tendon to help improve ankle flexibility and strength. Recommended start of activities to help with bone strengthening and balance. Discussed with patient indications for prompt return or to call the clinic if they have any questions, otherwise they will follow-up PRN and with their PCP as scheduled. Physician coverage is Dr. Pack. documented in this encounter Plan of Treatment Upcoming Encounters Date Type Department Care Team (Late st Contact Info) Description 07/24/2024 2:00 PM EDT Appointment Mammography/[place] [address] Aden Lauren MD [address] [place], [place] [phone] documented as of this encounter Visit Diagnoses Diagnosis Ankle pain, right Pain in joint, ankle and foot Ankle mass Other symptoms referable to ankle and foot joint documented in this encounter Care Teams Element Winding Machine Tender Relationship Specialty Start Date End Date Shanell Hawkins MD [address] [place], [place] [phone] PCP - General 08/19/10 02/17/16 documented as of this encounter
--- OUTSIDE RECORDS SUMMARY | 2024-06-23 02:19 | XMS_ITS | Encounter Summary ---
Author Organization [facility] [place] [address] Care Team Providers Care Outboard Motors Experimental Mechanic Name Role Phone Shanell Hawkins MD Primary Care Provider Reason for Visit * Reason Comments Skin Check Encounter Details Date Type Department Care Team (Late st Contact Info) Description 04/12/2013 11:05 AM EDT Follow-Up Dermatology at [facility] [address] [place] [address] Myah Lugo MD [facility] [place] [address] Personal history of other malignant neoplasm of skin (Primary Dx) Discharge Disposition: Home Social History [...] Progress Notes * Myah Lugo MD - 04/12/2013 10:33 AM EDT DERMATOLOGY ESTABLISHED PATIENT CLINIC NOTE Date of service: 04/12/2013 Tianna Tovar : 1940 Provider: Myah Lugo MD CC: Skin Exam SKIN HISTORY: 1. Actinic Keratoses 2. Sclerosing BCC left nose MOHS by 2000 3. SK's 4. ISK- left cheekbone shave biopsy- 09/2012 ([place]) 5. ISK- sternal notch shave biopsy- 09/2012 ([place]) 6. Infiltrating BCC- left medial cheek- MOHS- 02/2012 7. BCC- left deltoid- excised- 02/2012 8. SCC- left partial vulvectomy- excised by Dr. Curry 05/2012 resulting in partial vulvectomy with 3 nodes removed from left groin (all negative) HPI Tianna Tovar is a 72 y.o. year old female who present today for a skin exam. Patient states that she has no areas of concerns but would like to discuss retinoids because she read that these can decrease the risk of AK's. -Since last visit with Dr. Lugo she used the Carac on her temples and forehead and did have surgery with Dr. Curry for an SCC (see above for details) Otherwise patient is doing well. ADR: Allergies Allergen Reactions ??? Adhesive Tape Sensitive ??? Timolol Other (See Comments) burning MEDS: Current Outpatient Prescriptions on File Prior to Visit Medication Sig Dispense Refill ??? brimonidine (ALPHAGAN) 0.2 % ophthalmic solution Place 1 drop into both eyes 2 times daily. Please dispense 90 day supply 15 mL 3 ??? dorzolamide-timolol (COSOPT) 2-0.5 % ophthalmic solution Place 1 drop into both eyes 2 times daily. Please dispense 90 day supply 15 mL 3 ??? sulfamethoxazole-trimethoprim (BACTRIM;SEPTRA) 400-80 mg per tablet Take 1 tablet by mouth 2 times daily. 20 tablet 0 ??? ibuprofen (ADVIL;MOTRIN) 200 mg tablet Take 200 mg by mouth every 6 hours as needed. ??? amoxicillin-clavulanate (AUGMENTIN) 875-125 mg per tablet Take 1 tablet by mouth 2 times daily.20 tablet 0 ??? fluoruracil (CARAC) 0.5 % cream Apply topically daily. Use for 3 weeks then discontinue 30 g 0 ??? hydrochlorothiazide (HYDRODIURIL) 25 mg tablet Take 12.5 mg by mouth daily. ??? Multivitamins Chew ??? SIMVASTATIN ORAL ROS General: feeling well Skin: denies other skin complaints EXAM General: NAD, pleasant, cooperative female. Skin: A total body skin exam except for areas covered by underwear was performed. This includes examination of the skin of the face, ears, neck, chest, axillae, left and right upper and lower extremities, hands and feet, abdomen, and genitalia were examined with patient's verbal consent. Significant skin findings: A. Well-healed hypopigmented scars at site- left deltoid, left medial cheek, left nose, vulva B. Multiple 0.2-0.4cm bright red, well-demarcated papules-trunk C. Multiple 0.4-0.6cm brown papules with waxy, stuck-on appearance. Milia-like cysts, comedone-likeopenings and/or fissuring on dermoscopy-scattered D. Just medial to scar on left vulva are two adjacent 0.2-0.3cm yellowish slightly cystic appearingpapules; a smaller similar 0.1cm papule at superior edge of scar ASSESSMENT/PLAN: A. Scars w/ h/o BCC's and SCC -No signs of recurrence -Continue to monitor -Reassured patient that inner suture will eventually dissolve and the scarring will decrease over time -Discussed importance of sun protection, sun avoidance strategies, protective clothing, and sunscreen. -Recommended patient speak with her OBGYN regarding the possibility of any changes -Discussed the use of retinoids for prevention of AK's that can lead to SCC's: -Explained that these are usually only recommended for transplant patients via oral route and that I do not recommend these for this reason B. De La Cruz Angioma -Patient reassured areas are benign in nature. C. Seborrheic Keratosis -Etiology explained to patient -Patient reassured areas are benign in nature. -Discussed that it has been reported that moisturzing can help slough them off D. I am unsure of the significance of findings in vulva; patient and shown these areas. They are not sure if this is new or present since time of surgery. She will f/u with her PCP about this. RTC 1 year for skin exam; sooner prn. Has derm f/u in [place] as well where she spends mathur Note initiated by: MICHEAL ELLINGTON LPN I am documenting this encounter acting as the scribe for and in the presence of Myah Lugo MD Routed to physician for review and changes: Myah Lugo MD Section of Dermatology [facility] documented in this encounter Plan of Treatment Upcoming Encounters Date Type Department Care Team (Late st Contact Info) Description 07/24/2024 2:00 PM EDT Appointment Mammography/[place] [address] Aden Lauren MD [address] [place] [address] documented as of this encounter Visit Diagnoses Diagnosis Personal history of other malignant neoplasm of skin- Primary documented in this encounter Care Teams Outboard Motors Experimental Mechanic Relationship Specialty Start Date End Date Shanell Hawkins MD [address] [place], [place] [phone] PCP - General 08/19/10 02/17/16 documented as of this encounter
--- OUTSIDE RECORDS SUMMARY | 2024-06-23 02:19 | XMS_ITS | Encounter Summary ---
Author 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 Curry Patient Active Problem List Diagnoses ??? Type 2 diabetes, diet controlled ??? Pre-hypertension ??? Cholesterol serum increased ??? 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 Lum. TARGET=<20.Surg=alt od ; iol ou 06/06 araya; VA= 20///25cc; prior= -1 and +3. [place] in winter. hvfs dil. ??? Pseudophakia of both eyes ??? Personal history of other malignant neoplasm of skin History of Present Illness: Tianna is a 71 yo white female who is seen today for treatment planning of microinvasive SCCA of the vulva. The patient was seen by her PCP, Dr. Shanell Hawkins, for annual well woman exam. She was found to have a vulvar lesion and was referred to gynaecological oncologist. The lesion was asymptomatic. She had no bleeding, itching, burning, pruritis. She has no LE edema. Initial biopsy of vulvar lesion showed ARNOLD 3. Tianna had WLE of vulvar lesion. She has had an uneventful recovery over about 4 days. Final pathology reveals an invasive squamous cell carcinoma with depth of invasion 0.3 mm. Importantly, there was +LVSI noted on this excision specimen and a deep margin of 4mm. She has no history of abnormal Pap smears. She is a non-smoker. OB History Grav Para Term Abortions TAB SAB Ect Mult Living 3 3 2 # Outc Date GA Lbr Rodrigo/2nd Wgt Sex Del Anes PTL Lv 1 PAR 2 PAR 3 PAR Past Medical History Diagnosis Date ??? Glaucoma PXF OU ??? Cataract ??? Cardiac disease ??? Cancer BCC Nose ??? Cholesterol serum increased ??? Arthritis ??? Pre-hypertension ??? Type 2 diabetes, diet controlled ??? 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 Cataract removal 06/10/10 OD ??? Cataract removal 07/11/10 OS ??? Argon laser trabeculoplasty 2001 OD ??? Hysterectomy, total abdominal ??? Malignant skin lesion excision upper extremity Left Shoulder ??? Malignant skin lesion excision head/neck Nose ??? Vulva surgery 05/16/12 ARNOLD III, Left Side Prior to Admission medications Medication Sig Start Date End Date Taking? Authorizing Provider dorzolamide-timolol (COSOPT) 2-0.5 % ophthalmic solution Place 1 drop into both eyes 2 times daily.Please dispense 90 day supply 03/16/12 Yes Anurag Meyer MD brimonidine (ALPHAGAN) 0.2 % ophthalmic solution Place 1 drop into both eyes 2 times daily. Please dispense 90 day supply 03/16/12 Yes Anurag Meyer MD hydrochlorothiazide (HYDRODIURIL) 25 mg tablet Take 12.5 mg by mouth daily. Yes Historical Provider, IBUPROFEN (ADVIL ORAL) 07/29/10 Yes Multivitamins Chew 07/29/10 Yes SIMVASTATIN ORAL 07/29/10 Yes fluoruracil (CARAC) 0.5 % cream Apply topically daily. Use for 3 weeks then discontinue 01/27/12 Myah Lugo MD Allergies Allergen Reactions ??? Adhesive Tape Sensitive Review of Systems: Otherwise negative. Family History Problem Relation Age of Onset ??? Cancer Mother lung ??? Cancer Father kidney ??? Cancer Maternal Aunt colon ??? Cancer Maternal Grandmother breast ??? Stroke Maternal Grandmother ??? Breast Cancer Maternal Grandmother ??? Blindness Neg Hx ??? Amblyopia Neg Hx ??? Strabismus Neg Hx ??? Cataracts Neg Hx ??? Diabetes Neg Hx ??? Glaucoma Neg Hx ??? Hypertension Neg Hx ??? Macular Degen Neg Hx ??? Retinal Detachment Neg Hx ??? Thyroid Disease Neg Hx ??? Heart Disease Neg Hx History Substance Use Topics ??? Smoking status: Former Smoker -- 1.0 packs/day for 20 years Quit date: 09/27/1980 ??? Smokeless tobacco: Never Used ??? Alcohol Use: Yes rare Filed Vitals: 06/06/12 0758 BP: 142/80 Height: 152.4 cm (5') Weight: 72 kg (158 lb 11.7 oz) Physical Examination: Gen: Tianna is a well appearing WF in NAD. HEENT shows no thyromegaly or adenopathy. Lungs are clear to auscultation and percussion. Heart has regular rate and rhythm, no murmur. Abdomen is soft, flat, non-tender without obvious abnormal mass, organomegaly or ascites. Extremities are without edema. Pelvic examination reveals normal external female genitalia, BUS negative. There is a very small left posterior incision that is healing well. Skin: no rashes or lesions Impression: Tianna is a 71 year old woman with a microinvasive cancer by measurement, but I am concerned about the fact that she has +LVSI, and a close excision margin of 4 mm. She is healing well, and there is nothing to suggest residual disease. I have discussed the significance of depth of invasion and the concept of microinvasion, but the confounding factor of +LVSI. Because of this, I have recommended that she have re-excision and [...] infection, damage to blood vessels or nerves. She understands the expected post-operative course. After full discussion of the indications, risks and benefits and alternatives of the surgery, the patient wishes to proceed with mod radical ann-vulvectomy and ipsilateral groin dissection. The appropriate paperwork was completed. She would like to be scheduled magalys to be able to return to [place] in June. * Nelly Mai - 06/06/2012 9:04 AM EDT Subjective: CC: Vulvar Cancer Patient ID: Tianna Tovar is a 71 y.o. female. Patient Active Problem List Diagnoses ??? Type 2 diabetes, diet controlled ??? Pre-hypertension ??? Cholesterol serum increased ??? 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 COAG (chronic open-angle glaucoma) ??? Pseudoexfoliation [...] ou; ADReye=clifford [dizzy] xal. Lum. TARGET=<20.Surg=alt od ; iol ou 06/06 araya; VA= 20///25cc; prior= -1 and +3. [place] in winter. hvfs dil. ??? Pseudophakia of both eyes ??? Personal history of other malignant neoplasm of skin HPI Pt is a 71 year old female who is s/p excision of a left sided vulvar lesion. She noted the lesion about one month ago and her PCP had her follow up with an [employer]. A punch biopsy was one on 05/06 which revealed dysplasia and ARNOLD III. On 05/16 she was taken to the OR for an excision of her left sidedvulvar lesion. Although the tumor was found to be microinvasive (DOI .3mm), there was lymphovascular involvement and there was only a 4 mm margin. Her [employer] sent her here for further management. Pt reports that she has recovered well from surgery only requiring advil for pain management and feeling back to herself after 4-5 days. Her only complaint is sensitivity when using toilet paper after urinating. Review of Systems Constitutional: Negative for appetite change. Respiratory: Negative for shortness of breath. Gastrointestinal: Negative for nausea, vomiting, abdominal pain, diarrhea, constipation and abdominal distention. Genitourinary: Negative for dysuria, urgency, frequency, difficulty urinating, vaginal pain and pelvic pain. Past Medical History Diagnosis Date ??? Glaucoma PXF OU ??? Cataract ??? Cardiac disease ??? Cancer BCC Nose ??? Cholesterol serum increased ??? Arthritis ??? Pre-hypertension ??? Type 2 diabetes, diet controlled ??? 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 Cataract removal 06/10/10 OD ??? Cataract removal 07/11/10 OS ??? Argon laser trabeculoplasty 2001 OD ??? Hysterectomy, total abdominal ??? Malignant skin lesion excision upper extremity Left Shoulder ??? Malignant skin lesion excision head/neck Nose ??? Vulva surgery 05/16/12 ARNOLD III, Left Side Current outpatient prescriptions ordered prior to encounter Medication Sig Dispense Refill ??? dorzolamide-timolol (COSOPT) 2-0.5 % ophthalmic solution Place 1 drop into both eyes 2 times daily. Please dispense 90 day supply 10 mL 3 ??? brimonidine (ALPHAGAN) 0.2 % ophthalmic solution Place 1 drop into both eyes 2 times daily. Please dispense 90 day supply 10 mL 3 ??? hydrochlorothiazide (HYDRODIURIL) 25 mg tablet Take 12.5 mg by mouth daily. ??? IBUPROFEN (ADVIL ORAL) ??? Multivitamins Chew ??? SIMVASTATIN ORAL ??? fluoruracil (CARAC) 0.5 % cream Apply topically daily. Use for 3 weeks then discontinue 30 g 0 Allergies Allergen Reactions ??? Adhesive Tape Sensitive Social History: Pt is and spends half of her time in [place]. 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 Objective: Physical Exam Filed Vitals: 06/06/12 0758 BP: 142/80 Gen: Appears younger than stated age, NAD, A+O Abdomen: Well healed midline incision, soft, moderately obese, non tender Pelvic: Normal appearing external genitalia. Exam is notable for small 2 mm scab at 5 o' clock position. Well healed vulvar mucosa. Assessment and Plan: Pt is a 71 year old female who presents for a f/u s/p excision of left vulvar lesion on 05/16/12. The pathology report was discussed with the pt and the plan was made to return to the OR for a deeper and wider excision of her left vulvar lesion and excision of the the left superficial pelvic lymph nodes. Pt is eager to get to the OR sooner rather than later since she is returning to [place] . documented in this encounter Plan of Treatment Upcoming Encounters Date Type Department Care Team (Late st Contact Info) Description 07/24/2024 2:00 PM EDT Appointment Mammography/[place] [address] Aden Lauren MD [address] [place], [place] [phone] documented as of this encounter Visit Diagnoses Diagnosis ARNOLD III (vulvar intraepithelial neoplasia III)- Primary Carcinoma in situ, vulva documented in this encounter Care Teams Senior Licensing Manager Relationship Specialty Start Date End Date Shanell Hawkins MD [address] [place], [place] [phone] PCP - General 08/19/10 02/17/16 documented as of this encounter
--- OUTSIDE RECORDS SUMMARY | 2024-06-23 02:19 | XMS_ITS | Encounter Summary ---
Author Organization [facility] Address [facility] [place] [address] Care Team Providers Care Spray Gun Sizer Name Role Phone Shanell Hawkins MD Primary Care Provider [phone] Reason for Visit * Reason Comments Follow-up Encounter Details Date Type Department Care Team (Late st Contact Info) Description 03/16/2012 3:00 PM EDT Clinical [place] [address] Moises Wright MD [facility] DR [place] [address] Basal cell carcinoma (Primary Dx) Discharge Disposition: Home Social History [...] as of this encounter Progress Notes * Patty Kiran - 03/16/2012 4:02 PM EDT Tianna Tovar was briefly seen on the 1ST day post-operatively for follow up. Ms. Tovar's dressing is clean, dry and intact. There is no evidence of drainage or signs of infection. Ms. Tovar reports good pain control. There was a brief conversation addressing the expected course, and signs of infection or other potential complications were discussed. Ms. Tovar denies any other questions or concerns at this time. Ms. Tovar is scheduled for follow up, and has been encouraged to call with any questions or concerns that arise prior to this appointment. Patty Dallas MD Resident in Dermatology [facility] I am being supervised by the supervising attending listed below, who is the attending of record forthis patient: Moises Wright MD, PhD documented in this encounter Plan of Treatment Upcoming Encounters Date Type Department Care Team (Late st Contact Info) Description 07/24/2024 2:00 PM EDT Appointment Mammography/[place] [address] Aden Lauren MD [address] [place], [place] [phone] documented as of this encounter Visit Diagnoses Diagnosis Basal cell carcinoma- Primary Basal cell carcinoma of skin, site unspecified documented in this encounter Care Teams Spray Gun Sizer Relationship Specialty Start Date End Date Shanell Hawkins MD [address] [place], [place] [phone] PCP - General 08/19/10 02/17/16 documented as of this encounter
--- OUTSIDE RECORDS SUMMARY | 2024-06-23 02:19 | XMS_ITS | Encounter Summary ---
Author Organization [facility] [place] [address] Care Team Providers Care Claim Rep Name Role Phone Shanell Hawkins MD Primary Care Provider [phone] Reason for Visit * Reason Comments Follow-up Encounter Details Date Type Department Care Team (Late st Contact Info) Description 08/30/2013 2:30 PM EST Office [place] [address] David Blackwood MD [facility] [place] [address] Breast cancer screening, high risk patient (Primary [...] - Inhaled Oxygen Concentration - - Weight 73.4 kg (161 lb 13.1 oz) 08/30/2013 2:44 PM EST Height - - Body Mass Index 31.6 08/04/2013 9:48 AM EST documented in this encounter Progress Notes * David Blackwood MD - 08/30/2013 9:49 PM EST Tianna Tovar is a 73 year old woman who returns after right breast lumpectomy. Tianna had a 6 mm mass on screening mammogram. Core biopsy showed ADH. On 08/04/13 I did a lumpectomy. Path showed ADH, but no higher degree of neoplasia. She now returns for a check. She has no pain. On exam her incision is nicely healed. No erythema, no hematoma. Impression: Doing well after lumpectomy for ADH. Plan: She understands she is at increased risk for developing breast cancer given this ADH. She will do monthly breast self exam, she will have a 6 month new baseline mammo, and will be followed at 6and 12 months with annual mammograms by our breast nurse practitioner. We discussed Tamoxifen for breast cancer risk reduction and she decided to not proceed with that. She and her are heading to [place] for 5 months. documented in this encounter Plan of Treatment Upcoming Encounters Date Type Department Care Team (Late st Contact Info) Description 07/24/2024 2:00 PM EDT Appointment Mammography/[place] [phone] Aden Lauren MD [address] [place] [address] [address] documented as of this encounter Results * Mammo direct digital [...] patient- Primary Screening mammogram for high-risk patient Breast cancer screening, high risk patient Screening mammogram for high-risk patient documented in this encounter Care Teams Claim Rep Relationship Specialty Start Date End Date Shanell Hawkins MD [address] [place] [address] PCP - General 08/19/10 02/17/16 documented as of this encounter
--- OUTSIDE RECORDS SUMMARY | 2024-06-23 02:19 | XMS_ITS | Encounter Summary ---
Author Organization [facility] [place] [address] Care Team Providers Care Document Scanner Name Role Phone Shanell Hawkins MD Primary Care Provider [phone] Encounter Details Date Type Department Care Team (Late st Contact Info) Description 06/21/2012 11:49 AM EDT - 06/21/2012 4:39 PM EDT Surgery [place] [address] Diana Curry MD [facility] [place] [address] VULVECTOMY SIMPLE, PARTIAL (WRVU 7.53) Social History Tobacco Use Types Packs/Day Years [...] PATIENT DISCHARGE INSTRUCTIONS Gynecology Oncology phone number: [phone] Call your doctor if you develop: --A [...] removed in one week with your primary adult daycare coordinator. Please call them tomorrow to make an [...] Operative Note Patient Name: Tianna Rosenberg : [id number] MR#: [id number] Case Date: 06/21/2012 Surgeon: Surgeon(s) and Role: [...] Operative Note Patient Name: Tianna Rosenberg : [id number] MR#: [id number] Case Date: 06/21/2012 Surgeon: Surgeon(s) and Role: [...] 07/24/2024 2:00 PM EDT Appointment Mammography/[place] [address] Aden Lauren MD [address] [place] [address] documented as of this encounter Procedures Procedure [...] Glucose, POC 117 60 - 199 mg/dL [facility] Comment: Supplemental ranges: <110 mg/dL before meals <200 mg/dL all other times of the day Blood specimen (specimen) 06/21/2012 4:41 PM EDT 06/21/2012 4:41 PM EDT Diana Curry MD POINT OF CARE TEST O RDERABLES [facility] * SURGICAL PATHOLOGY REPORT (06/21/2012 4:10 PM EDT) Surgical Pathology Report ? [facility] ? Provider: ?? DIANA CURRY ?Pt. Name: ?? MANNY ROSENBERGLY Adriana ? Acc #: ?[id number] ?Pt. ? Col Date: ?? 06/21/2012 ? [...] node, serially sectioned. ??(R5) ? aje/JULISSA ? [facility] ? Provider: ?? DIANA CURRY ?Pt. Name: ?? TIANNA ROSENBERG ? Acc #: ?[id number] ?Pt. ? Col Date: ?? 06/21/2012 ? /Sex: ?1940,([age] ? years),Female ? Rec Date: ?? 06/21/2012 ? LOC: ?SDP ? SURGICAL PATHOLOGY ? ---Clinical Information--- ? Specimen Submitted: ? A - Left vulva ? B - Left groin nodes ? Clinical History/Diagnos is: ? Vulvar cancer [facility] 06/21/2012 4:10 PM EDT Diana Curry MD PATHOLOGY/CYTOLOGY O BIBI Performing Organization Address [facility] Co de Phone Number [facility] * Specimen to Pathology (surgical or derm) (06/21/2012 3:35 PM EDT) AP Specimen 06/21/2012 3:35 PM EDT 06/21/2012 3:35 PM EDT Narrative [facility] - 06/21/2012 3:35 PM EDT Specimen requisition ordered. ??Separate Pathology report to follow Diana Curry MD PATHOLOGY/CYTOLOGY O BIBI Performing Organization Address [facility]/ZIP Co de Phone Number [facility] * Specimen to Pathology (surgical or derm) (06/21/2012 2:43 PM EDT) AP Specimen 06/21/2012 2:43 PM EDT 06/21/2012 2:43 PM EDT Narrative [facility] - 06/21/2012 2:43 PM EDT Specimen requisition ordered. ??Separate Pathology report to follow Diana Curry MD PATHOLOGY/CYTOLOGY O RDERABLES [facility] documented in this encounter Visit Diagnoses Not on filedocumented in this encounter Administered Medications Inactive Administered Medications - up to 3 most recent administrations Medication Order MAR Action Action Date Dose Rate Site BUpivacaine (PF) (MARCAINE) 0.25 % (2.5 mg/mL) injection ONCE PRN, Starting on 06/21/12 at 1550, Until 06/21/12 at 2045, Intra-Operative (Intra-Procedure), Routine Given 06/21/2012 3:50 PM EDT 17 mg ceFAZolin (ANCEF) injection ONCE PRN, Starting on 06/21/12 at 1411, Until 06/21/12 at 2045, Intra-Operative (Intra-Procedure), Routine Given 06/21/2012 2:11 PM EDT 2 g lactated ringers infusion 1,000 mL 1,000 mL, at 100 mL/hr, Intravenous, CONTINUOUS, Starting on 06/21/12 at 1030, Until Tu06/21/12 at 2045, Day of Surgery (Day of Procedure) New Bag 06/21/2012 10:30 AM EDT 1,000 mLs 100 mL/hr documented in this encounter Active and Recently Administered Medications Times are shown in EDT. Continuous Medication Order 06/19/2012 06/20/2012 06/21/2012 lactated ringers infusion 1,000 mL (CANCELED) 1,000 mL, at 100 mL/hr, Intravenous, CONTINUOUS, Starting on 06/21/12 at 1030, Until 06/21/12 at 2045, Day of Surgery (Day of Procedure) 1030 (New Bag - Prov ider: Sasha Jason RN) PRN Medication Order 06/19/2012 06/20/2012 06/21/2012 BUpivacaine (PF) (MARCAINE) 0.25 % (2.5 mg/mL) injection (CANCELED) ONCE PRN, Starting on Wed06/21/12 at 1550, Until Wed06/21/12 at 2046, Intra-Operative (Intra-Procedure), Routine 1550 (Given - Provid er: Diana Curry MD - Comment: 17 mls) ceFAZolin (ANCEF) injection (CANCELED) ONCE PRN, Starting on Wed06/21/12 at 1411, Until Wed06/21/12 at 2046, Intra-Operative (Intra-Procedure), Routine 1411 (Given - Provid er: Ryan Nair MD) documented in this encounter Care Teams Document Scanner Relationship Specialty Start Date End Date Shanell Hawkins MD [address] [place] [address] PCP - General 08/19/10 02/17/16 documented as of this encounter
--- OUTSIDE RECORDS SUMMARY | 2024-06-23 02:19 | XMS_ITS | Encounter Summary ---
[place] [address] Care Team Providers Care Supervising Appraiser Name Role Phone Shanell Hawkins MD Primary Care Provider [phone] Reason for Visit * Reason Onset Date Comments Fever 06/27/2012 Other 06/27/[address] kimbrough site, post op as of 06/21/12 Encounter Details Date Type Department Care Team (Late st Contact Info) Description 06/27/2012 Telephone [place] [address] Olga Donovan RN Fever; Other (drainage from drain site, post op as of 06/21/12) Social History Tobacco Use Types Packs/Day Years [...] encounter Miscellaneous Notes * Telephone Encounter - Olga Donovan RN - 06/27/2012 10:52 AM EDT Patient left message regarding fever, drainage from drain site. Spoke to patient: states had fever last night of 39, along with chills during the night, this am temp is 38 after taking Advil, was woozy and nauseated but did not vomit this morning. Drain site is pink in color, with light brown drainage from site, no odor. Is urinating without difficulty, has oneBM since surgery suggested she do Miralex or MOM or Nhung colace for assistance. Saw diagnosis of type 2 diabetes and asked patient if she does finger sticks at home stated no and that she is managed by diet. She did call her OBGYN, Alba and reported above findings, and Alba instructed her to contact Dr. Suazo's office. Patient states drain is due to come out tomorrow by her own OBGYN. Patient [place] away from [facility]. Plan: Made appt for patient to see PATSY Hanna for assessment of fever, incisional site and drainage from drain site for 1:30pm today. Olga Donovan RN, [place] documented in this encounter Plan of Treatment Upcoming Encounters Date Type Department Care Team (Late st Contact Info) Description 07/24/2024 2:00 PM EDT Appointment Mammography/[place] [address] Aden Lauren MD [address] [place], [place] [phone] documented as of this encounter Visit Diagnoses Not on filedocumented in this encounter Care Teams Supervising Appraiser Relationship Specialty Start Date End Date Shanell Hawkins MD [address] [place], [place] [phone] PCP - General 08/19/10 02/17/16 documented as of this encounter
--- OUTSIDE RECORDS SUMMARY | 2024-06-23 02:19 | XMS_ITS | Encounter Summary ---
Author Organization [facility] [place] [address] Care Team Providers Care Linderman Operator Name Role Phone Shanell Hawkins MD Primary Care Provider [phone] Reason for Visit * Reason Onset Date Comments Fever 06/28/2012 Encounter Details Date Type Department Care Team (Late st Contact Info) Description 06/28/2012 Telephone [place] [address] Natalie Flaherty, [facility] DR OBSTETRICS & [place] [address] Fever Social History Tobacco Use Types Packs/Day Years [...] encounter Miscellaneous Notes * Telephone Encounter - Natalie Flaherty - 06/28/2012 4:22 PM EDT Tono called this morning to report that Tono temperature was 38.0. The redness and painin her groin was less, and she had no nausea. She had taken 1 pill yesterday. I asked him to have her take her next antibiotic, monitor her temperature, and to call back this afternoon with an update. Tianna just called to say that she is feeling better. Her fever broke. The groin is slightly more swollen than yesterday but not as painful. Plan: she will continue to take her antibiotics as written, observe the groin for increasing swelling or pain, and monitor her temperature. If her fever returns or her symptoms in general, worsen, she will call to be seen. Tianna agrees to plan. documented in this encounter Plan of Treatment Upcoming Encounters Date Type Department Care Team (Late st Contact Info) Description 07/24/2024 2:00 PM EDT Appointment Mammography/[place] [phone] Aden Lauren MD [address] [place], [place] [phone] documented as of this encounter Visit Diagnoses Not on filedocumented in this encounter Care Teams Linderman Operator Relationship Specialty Start Date End Date Shanell Hawkins MD [address] [place] [address] PCP - General 08/19/10 02/17/16 documented as of this encounter
--- OUTSIDE RECORDS SUMMARY | 2024-06-23 02:19 | XMS_ITS | Encounter Summary ---
[place] [address] Care Team Providers Care Active Directory Administrator Name Role Phone Shanell Hawkins MD Primary Care Provider [phone] Reason for Visit * Reason Onset Date Comments Procedure 03/22/2013 Encounter Details Date Type Department Care Team (Latest Contact Info) Description 03/22/2013 2:40 PM EDT Procedure [place] [address] Glaucoma, pseudoexfoliation (Primary Dx) Social History Tobacco Use Types [...] Progress Notes * Crista Mcmillan MD - 03/22/2013 4:00 PM EDT Please see procedure note for details. CRISTA MCMILLAN MD documented in this encounter Plan of Treatment Upcoming Encounters Date Type Department Care Team (Late st Contact Info) Description 07/24/2024 2:00 PM EDT Appointment Mammography/[place] [address] Aden Lauren MD [address] [place] [address] documented as of this encounter Procedures Procedure Name Priority Date/Time Associated Diagnosis Comments AUTOMATED VISUAL FIELD - EXTENDED - OU- BOTH EYES Routine 03/22/2013 4:00 PM EDT Glaucoma, pseudoexfoliation documented in this encounter Results * AUTOMATED VISUAL FIELD - EXTENDED - OU- BOTH EYES (03/22/2013 4:00 PM EDT) Anatomical Region Laterality Modality Other Narrative 03/22/2013 4:00 PM EDT Normal OU Procedure Note Crista Mcmillan MD - 03/22/2013 Normal OU Crista Mcmillan MD OPHTHALMOLOGY SERVIC ES ORDERABLES documented in this encounter Visit Diagnoses Diagnosis Glaucoma, pseudoexfoliation- Primary Pseudoexfoliation glaucoma documented in this encounter Care Teams Active Directory Administrator Relationship Specialty Start Date End Date Shanell Hawkins MD [address] [place] [address] PCP - General 08/19/10 02/17/16 documented as of this encounter
--- OUTSIDE RECORDS SUMMARY | 2024-06-23 02:19 | XMS_ITS | Encounter Summary ---
[place] [address] Care Team Providers Care Research Instrumentation Technician Name Role Phone Shanell Hawkins MD Primary Care Provider [phone] Encounter Details Date Type Department Care Team (Latest Contact Info) Description 04/27/2012 10:58 AM EDT - 04/27/2012 11:59 PM EDT Hospital Encounter [place] [address] CLINIC, Shanell Valerio MD [address] [place] [address] Discharge Disposition: Home Social History Tobacco Use [...] Start Date End Date Multivitamins Chew 07/29/2010 dorzolamide-timolol (COSOPT) 2-0.5 % ophthalmic solutionIndications:PX F (pseudoexfoliation of lens capsule) Place 1 drop into both eyes 2 times daily. Please dispense 90 day supply 10 mL 3 03/16/2012 03/22/2013 brimonidine (ALPHAGAN) 0.2 % ophthalmic solutionIndications:PX F (pseudoexfoliation of lens capsule) Place 1 drop into both eyes 2 times daily. Please dispense 90 day supply 10 mL 3 03/16/2012 03/22/2013 fluoruracil (CARAC) 0.5 % cream Apply topically daily. Use for 3 weeks then discontinue 30 g 0 01/27/2012 06/26/2013 hydrochlorothiazide (HYDRODIURIL) 25 mg tablet Take 12.5 mg by mouth daily. 03/27/2019 IBUPROFEN (ADVIL ORAL) 07/29/201006/21 SIMVASTATIN ORAL 07/29/2010 06/26/2013 documented as of this encounter Plan of Treatment Upcoming Encounters Date Type Department Care Team (Late st Contact Info) Description 07/24/2024 2:00 PM EDT Appointment Mammography/[place] [address] Aden Lauren MD [address] [place] [address] documented as of this encounter Procedures Procedure Name Priority Date/Time Associated Diagnosis Comments MAMMO SCREENING CAD BILATERAL Routine 04/27/2012 11:30 AM EDT documented in this encounter Results * MAMMO DIGITAL BILATERAL SCREENING WITH CAD (04/27/2012 11:30 AM EDT) Anatomical Region Laterality Modality Breast Bilateral Mammography 04/27/2012 11:3 0 AM EDT Narrative 04/30/2012 7:31 AM EDT BILATERAL MAMMOGRAPHY ?? REASON FOR EXAM: Screening ?? TECHNIQUE: Cranio-caudal (CC) and mediolateral oblique (MLO) views of both breasts obtained with direct digital capture. The exam was evaluated by CAD Version 8.3.17. ?? In addition to the routine 2D imaging this exam was also performed with 3D tomographic imaging in MLO and CC projections. ?? FINDINGS: This is a negative mammogram (ACR Category 1). There is a stable fibroglandular pattern without significant change as compared to prior studies. There is no mammographic evidence of cancer. ? The breasts are of scattered density. ? CONCLUSION ?? This is a NEGATIVE mammogram (ACR Category 1). Routine screening mammography is recommended with the frequency dependent on the patient's age and breast cancer risk factors. ?? A letter has been sent to this patient by [facility]. Procedure Note Salma Collins MD - 04/30/2012 BILATERAL MAMMOGRAPHY REASON FOR EXAM: Screening TECHNIQUE: Cranio-caudal (CC) and mediolateral oblique (MLO) views of both breasts obtained with direct digital capture. The exam was evaluated byUrlist Version 8.3.17. In addition to the routine 2D imaging this exam was also performed with 3D tomographic imaging in MLO and CC projections. FINDINGS: This is a negative mammogram (ACR Category 1). There is a stable fibroglandular pattern without significant change as compared to priorstudies. There is no mammographic evidence of cancer. The breasts are of scattered density. CONCLUSION This is a NEGATIVE mammogram (ACR Category 1). Routine screeningmammography is recommended with the frequency dependent on the patient's age and breastcancer risk factors. A letter has been sent to this patient by the [facility]. Shanell Hawkins MD IMG MAMMO ORDERABLES documented in this encounter Visit Diagnoses Not on filedocumented in this encounter Care Teams Research Instrumentation Technician Relationship Specialty Start Date End Date Shanell Hawkins MD [address] [place] [address] PCP - General 08/19/10 02/17/16 documented as of this encounter
--- OUTSIDE RECORDS SUMMARY | 2024-06-23 02:19 | XMS_ITS | Encounter Summary ---
Author Organization [facility] [place] [address] Care Team Providers Care Medical Director Of Hospice Name Role Phone Shanell Hawkins MD Primary Care Provider [phone] Reason for Visit * Reason Comments Follow-up HOSPITAL CHECK Post Op Encounter Details Date Type Department Care Team (Late st Contact Info) Description 06/30/2012 11:30 AM EDT Office Visit [place] [address] Natalie Flaherty, [facility] OBSTETRICS & [place] [address] Wound cellulitis (Primary Dx) Discharge Disposition: Home Social History [...] Sign Reading Time Taken Comments Blood Pressure 138/80 06/30/2012 11:13 AM EDT Pulse - - Temperature 36.8 ??C (98.2 ??F) 06/30/2012 1 1:13 AM EDT Respiratory Rate - - Oxygen Saturation - - Inhaled Oxygen Concentration - - Weight 71.5 kg (157 lb 11.2 oz) 012 11:13 AM EDT Height - - Body Mass Index 30.8 06/21/2012 10:09 AM EDT documented in this encounter Progress Notes * Natalie Flaherty - 06/30/2012 11:55 AM EDT Subjective: Patient ID: Tianna Tovar is a 71 y.o. female S/P simple vulvectomy and groin lymphadenectomy 06-21-12 for ARNOLD 111 HPI Tianna presents today with concern for increasing groin pain, redness and swelling. She is currentlyon Augmentin BID for wound infection. This is day 3 of antibiotic therapy. She reports that the fever broke on Wednesday afternoon, and that she was beginning to feel better. Yesterday the fever returned in the afternoon. She took 1 Advil and has not had any fever since. However, over the course of aday, the groin are has begun to swell more, become more red, and she has pain. She has not taken any OTC pain reliever. She denies any nausea, but her appetite remains low. Her bowels have been loose due to the antibiotics. She also has developed a itchy rash on her abdomen. Review of Systems Constitutional: Positive for fever and appetite change. Respiratory: Negative. Cardiovascular: Negative. Gastrointestinal: Positive for diarrhea. Genitourinary: Negative. Skin: Right groin redness, pain and swelling at the incision site Neurological: Negative. Psychiatric/Behavioral: Negative. Objective: Physical Exam She is with her . She looks pale, but o/w in no acute distress Groin: there is increased erythema, edema, induration and tenderness which now extends half way down the anterior aspect of the thigh. Assessment and Plan: Worsening post-op wound infection with intermittent fever. Per Dr. Leon, will add Bactrim DS and F/U on Wednesday. No problem-specific visit notes found for this encounter. documented in this encounter Plan of Treatment Upcoming Encounters Date Type Department Care Team (Late st Contact Info) Description 07/24/2024 2:00 PM EDT Appointment Mammography/[place] [address] Aden Lauren MD [address] [place], [place] [id number] documented as of this encounter Visit Diagnoses Diagnosis Wound cellulitis- Primary Cellulitis and abscess of unspecified site documented in this encounter Care Teams Medical Director Of Hospice Relationship Specialty Start Date End Date Shanell Hawkins MD [address] [place], [place] [phone] PCP - General 08/19/10 02/17/16 documented as of this encounter
--- OUTSIDE RECORDS SUMMARY | 2024-06-23 02:19 | XMS_ITS | Encounter Summary ---
Author Organization [facility] Address [facility] [place] [address] Care Team Providers Care Scientific Informatics Analyst Name Role Phone Shanell Hawkins MD Primary Care Provider [phone] Reason for Visit * Reason Comments Suture / Staple Removal Encounter Details Date Type Department Care Team (Late st Contact Info) Description 03/29/2012 3:20 PM EDT [place] [address] Moises Wright MD [facility] [place] [address] Visit for suture removal (Primary Dx); Visit for wound check Discharge Disposition: Home [...] Progress Notes * Moises Wright MD - 03/29/2012 5:30 PM EDT HPI: Patient is a 71 y.o. female with history of basal cell carcinoma, left deltoid, s/p excision repaired by intermediate repair who is presenting for suture removal. Denies complications. History of basal cell carcinoma vs. MAC, left medial cheek, s/p Mohs with complex linear repair on 03/15/2012.Patient concerned about firm nodule on inferior aspect of incision line. Provider: MOISES WRIGHT Pt. Name: TIANNA ROSENBERG [facility] #: [id number] Pt. Col Date: 03/22/2012 /Sex: 1940,(71 years),Female Rec Date: 03/22/2012 LOC: 4M SURGICAL PATHOLOGY ---Pathologic Diagnosis--- Skin, left deltoid, excision: 1. Scar, consistent with prior surgical procedure. 2. There is no residual lesion. Exam: General: No acute distress Skin: Limited examination of left deltoid shows a well-healed incision. There is no erythema, dehiscence, or drainage. Slight ecchymosis on anterior aspect of incision line. Examination of left medial cheek shows a well healed incison with a 3 mm firm subcutaneous nodule located on inferior third of incision line. Assessment and Plan 1. Basal cell carcinoma, left deltoid s/p excision with intermediate repair. Sutures removed. Steri-strips applied. Wound care instructions given. 2. Basal cell carcinoma, left medial cheek, s/p Mohs Suspect scar. Patient instructed to massage the area. Follow up in one month to re-evaluate. documented in this encounter Plan of Treatment Upcoming Encounters Date Type Department Care Team (Late st Contact Info) Description 07/24/2024 2:00 PM EDT Appointment Mammography/[place] [address] Aden Lauren MD [address] [place], [place] [phone] documented as of this encounter Visit Diagnoses Diagnosis Visit for suture removal- Primary Encounter for removal of sutures Visit for wound check Encounter for other specified aftercare documented in this encounter Care Teams Scientific Informatics Analyst Relationship Specialty Start Date End Date Shanell Hawkins MD [address] [place], [place] [phone] PCP - General 08/19/10 02/17/16 documented as of this encounter
--- OUTSIDE RECORDS SUMMARY | 2024-06-23 02:19 | XMS_ITS | Encounter Summary ---
[facility] [place] [address] Care Team Providers Care Apartment Community Assistant Manager Name Role Phone Shanell Hawkins MD Primary Care Provider [phone] Encounter Details Date Type Department Care Team (Late st Contact Info) Description 08/04/2013 1:00 PM EST - 08/04/2013 2:00 PM EST Surgery [place] [address] David Blackwood MD [facility] [place] [address] EXCISION LESION, BREAST W/ PREOP.MARKER (NEEDLE LOC.) (WRVU 6.69) Social History Tobacco Use Types Packs/Day Years [...] Sign Reading Time Taken Comments Blood Pressure 115/61 08/04/2013 9:48 AM EST Pulse 72 08/04/2013 9:48 AM EST Temperature 36.1 ??C (97 ??F) 08/04/2013 9:48 AM EST Respiratory Rate 16 08/04/2013 9:48 AM EST Oxygen Saturation 98% 08/04/2013 9:48 AM EST Inhaled Oxygen Concentration - - Weight [...] 5pm or on a weekend: Call the [facility] whey department operator and ask for the physician construction project engineer covering for your doctor. * Patient Instructions* [...] 101.3 F. The number for questions is [phone] before 5 PM weekdays. Pain Medication: No driving for 8 hours [...] 2:50 PM David Blackwood MD [facility] 08/28/2013 1:00 PM Anurag Meyer MD [facility] [address] [place] [address] CLIN Please call [phone] (clinic number) if any changes need to [...] Blackwood MD - 08/04/2013 2:42 PM EST [facility] Operative Note Patient Name: Tianna Rosenberg : [id number] MR#: [id number] Case Date: 08/04/2013 Surgeon: Surgeon(s) and Role: [...] Post-op Dx: same Surgeon: David Blackwood MD Electrician Locomotive: SHELLY COMBS MD Anesthesia: local with sedation [...] 07/24/2024 2:00 PM EDT Appointment Mammography/[place] [address] Aden Lauren MD [address] [place] [address] documented as of this encounter Procedures Procedure [...] 2:08 PM EST) Surgical Pathology Report ? [facility] ? Provider: ?? DAVID BLACKWOOD ?Pt. Name: ?? MARGARITOROBINTIANNA CABRERA ? Acc #: ?[id number] ?Pt. ? Col Date: ?? 08/04/2013 ? [...] ? Radiograph: Specimen radiograph is reviewed in e-DH. It shows a lobulated ? mass with [...] clip is identified in slice IX. ? [facility] ? Provider: ?? DAVID BLACKWOOD ?Pt. Name: ?? TIANNA ROSENBERG ? Acc #: ?[id number] ?Pt. ? Col Date: ?? 08/04/2013 ? /Sex: ?1940,(73 ? years),Female ? Rec Date: ?? 08/04/2013 ? LOC: ?[facility] ? SURGICAL PATHOLOGY ? SECTIONS/PROCESSI NG: Collar Stay Fuser Tender sections are submitted as follows: (1) ? slice I; (2) slice III; (3-5) slice ; (6-8) slice VIII; (9-10) slice IX, ? with clip site in A9; (11-12) slice X; (13) sales representative printing slice XII; (14) ? sales representative printing slice XIII. (R14) ??pps ? Additional sections submitted as follows: (15) slice IV; (16-17) slice VII. ? (R17) tha ? ---Clinical Information--- ? Specimen Submitted: ? A - Right breast lumpectomy ? Clinical History: ? Right breast mass ? Clinical Diagnosis: ? Same BENITO ACKERMANIUM 08/04/2013 2:08 PM EST David Blackwood MD PATHOLOGY/CYTOLOGY O BIBI Performing Organization Address [facility] de Phone Number BENITO BROUSSARD * Specimen to Pathology (surgical or derm) (08/04/2013 2:08 PM EST) AP Specimen 08/04/2013 2:08 PM EST 08/04/2013 2:08 PM EST Narrative CERNER MILLENNIUM - 08/04/2013 2:08 PM EST Specimen requisition ordered. ??Separate Pathology report to follow David Blackwood MD PATHOLOGY/CYTOLOGY O BIBI Performing Organization Address [facility] Co de Phone Number BENITO ACKERMANIUM * Mammo needle localization (08/04/2013 11:00 AM [...] reviewed by the attending David Blackwood MD IM MAMMO ORDERABLES documented in this encounter Visit [...] Given 08/04/2013 11:19 AM EST 1,000 mg BUpivacaine (PF) (MARCAINE) 0.5 % (5 mg/mL) injection ONCE PRN, Starting on Wed08/04/13 at 1410, Until Wed08/04/13 at 1744, Intra-Operative (Intra-Procedure), Routine Given 08/04/2013 2:10 PM EST 50 mg ceFAZolin (ANCEF) 2,000 mg in sodium [...] AM EST 1,000 mLs 100 mL/hr lidocaine (PF) (XYLOCAINE) 10 mg/mL (1 %) injection ONCE PRN, Starting on Wed08/04/13 at 1411, Until Wed08/04/13 at 1744, Intra-Operative (Intra-Procedure), Routine Given 08/04/2013 2:11 PM EST 100 mg lidocaine (XYLOCAINE) 10 mg/mL (1 %) injection [...] 1335 (Given by Other - Provider: Emi Linn, RN) gabapentin (NEURONTIN) capsule 600 mg (COMPLETED) 600 mg, Oral, ONCE, 1 dose, On Wed08/04/13 at 1000, Day of Surgery (Day of Procedure), Routine 1000 (Given - Provid er: Deborah Simpson RN [...] breast) documented in this encounter Care Teams Apartment Community Assistant Manager Relationship Specialty Start Date End Date Erisman, Shanell, MD [address] [place] [address] PCP - General 08/19/10 02/17/16 documented as of this encounter
--- OUTSIDE RECORDS SUMMARY | 2024-06-23 02:19 | XMS_ITS | Encounter Summary ---
Author Organization [facility] [place] [address] Care Team Providers Care Shipping Manager Name Role Phone Shanell Hawkins MD Primary Care Provider [phone] Reason for Visit * Reason Comments Post Hospital Discharge post op issues Encounter Details Date Type Department Care Team (Late st Contact Info) Description 06/27/2012 1:30 PM EDT Office Visit Gyne[place] [address] Natalie Flaherty, [facility] [place] [address] Fever and chills (Primary Dx) Discharge Disposition: Home Social History [...] Sign Reading Time Taken Comments Blood Pressure 116/60 06/27/2012 1:43 PM EDT Pulse - - Temperature 37.7 ??C (99.9 ??F) 06/27/2012 1:43 PM ED T Respiratory Rate - - Oxygen Saturation - - Inhaled Oxygen Concentration - - Weight 72 kg (158 lb 11.7 oz) 06/27/2012 1:43 PM EDT Height - - Body Mass Index 31 06/21/2012 10:09 AM EDT documented in this encounter Progress Notes * Natalie Flaherty - 06/28/2012 9:32 AM EDT Subjective: Patient ID: Tianna Tovar is a 71 y.o. female S/P simple vulvectomy and partial lymphadenectomy on 06-21-12 for [id number] HPI Tianna presents today with c/o fever, chills and pain. She woke last night to chills. Her temperature at that time was 39.3. She took Tylenol. This morning the fever returned and her groin area was sore and tender with swelling. The drainage from her J-P had decreased from 25/30cc daily to 8-13cc. She also felt nauseated but was able to eat and drink small amounts. Review of Systems Constitutional: Positive for fever. HENT: Negative. Respiratory: Negative. Cardiovascular: Negative. Gastrointestinal: Positive for nausea. Genitourinary: Negative. Musculoskeletal: Negative. Skin: Swelling, redness and pain at the groin site Neurological: Negative. Hematological: Negative. Psychiatric/Behavioral: Negative. Objective: Physical Exam Her is with her. Temp is 37.7, and her skin feels warm The drain is plugged with debris and cannot milk it free. The groin incision is healing well. Running suture is intact. The surrounding skin is reddened, firm and tender. The drain is removed and I am able to express a moderate amount of straw colored fluid. There is no odor. Dressing applied. Assessment and Plan: Fever, probable wound infection. Daily dressing changes. Monitor temperature at home. Augmentin BID x 10 days. If symptoms worsen RTO. Family agrees to plan. No problem-specific visit notes found for this encounter. documented in this encounter Plan of Treatment Upcoming Encounters Date Type Department Care Team (Late st Contact Info) Description 07/24/2024 2:00 PM EDT Appointment Mammography/[place] [address] Aden Lauren MD [address] [place] [address] [id number] documented as of this encounter Visit Diagnoses Diagnosis Fever and chills- Primary Fever, unspecified documented in this encounter Care Teams Shipping Manager Relationship Specialty Start Date End Date Shanell Hawkins MD [address] [place], [place] [id number] PCP - General 08/19/10 02/17/16 documented as of this encounter
--- OUTSIDE RECORDS SUMMARY | 2024-06-23 02:19 | XMS_ITS | Encounter Summary ---
Author Organization [facility] Address [facility] [place] [address] Care Team Providers Care Security Chief Museum Name Role Phone Shanell Hawkins MD Primary Care Provider [phone] Encounter Details Date Type Department Care Team (Late st Contact Info) Description 08/04/2013 1:39 PM EST Anesthesia Event [place]patient [place] [address] Jean Fagan MD [facility] [place] [address] Melvi Craft MD [facility] [place] [address] Anesthesia Record Procedure Summary Procedure Name Responsible Anesthesiologist Anesthesia Start Time Anesthesia Stop Time EXCISION LESION, BREAST W/ PREOP.MARKER (NEEDLE LOC.) (WRVU 6.69) (Right: Breast) Jean Fagan MD 08/04/13 1339 08/04/13 1428 Events Date Time Event Comment 08/04/2013 1251 1339 Start 1344 AN Verify 1344 An Start Data 1349 Anesthesia Ready 1356 Quick Note 1 % Lidocaine/ 0.5% Marcaine 20ml 1419 an stop data 1428 Stop Meds Name Total lidocaine IV 30 mg propofol 70 mg ePHEDrine 10 mg Ondansetron 8 mg ceFAZolin 2 g propofol INF 70.28 mg ketorolac 30 mg lactated ringers 500 mL * Agents Name O2 Air N2O * Blood No blood administrations on file. Lines, Drains, and Airways Type Details Placement Removal Drain/Device Site 06/21/12; Left; groi n; collapsible closed device 06/21/12 0000 by Ashley Paniagua RN Incision 08/04/13; breast; 05/25/22 (LDA cleanup utility RA#[id number]); 1715 (LDA cleanup utility RA#[id number]) 08/04/13 0000 by José Antonio Regan RN 05/25/22 1715 by Carol Washington (RETIRED) Peripheral IV Line - Single Lumen 08/04/13; 1142; 08/04/13; 1504 08/04/13 1142 by Deborah Simpson RN 08/04/13 1504 by Madiha Bell RN documented in this encounter Social History Tobacco Use Types Packs/Day Years [...] on file documented as of this encounter OR Notes * Anesthesia Postprocedure Evaluation - Nando Pang MD - 08/04/2013 3:11 PM EST Patient: Tianna Tovar Procedure(s) Performed: Procedure(s): EXCISION LESION, BREAST W/ PREOP.MARKER (NEEDLE LOC.) Actual Anesthetic: MAC Patient location: PACU Awake, smiling, eating crackers. Post-op pain: Adequate analgesia Post-op nausea: no nausea or vomiting Last Vitals: Filed Vitals: 08/04/13 1426 BP: 110/55 Pulse: 78 Temp: 36.8 ??C (98.2 ??F) Resp: 16 Post-op cardiovascular and respiratory status: is stable Level of consciousness: awake, alert and oriented Complications: no apparent complications and tolerated the procedure well Fluid Status: normal * Anesthesia Preprocedure Evaluation - Nando Pang MD - 08/04/2013 10:01 AM EST Pre-Anesthesia Evaluation for: Tianna Tovar a 73 y.o. female. Procedure(s): EXCISION LESION, BREAST W/ PREOP.MARKER (NEEDLE LOC.) Patient Active Problem List Diagnosis ??? Glaucoma, [...] xal. Lum. TARGET=<20.Surg=alt od ; iol ou 06/06; VA= 20///25cc; prior= -1 and +3. [place] in winter. hvfs dil. ??? Pseudophakia of both eyes ??? Personal history of other malignant neoplasm of skin Past Medical History Diagnosis Date ??? Glaucoma [...] Vulva surgery 05/16/12 ARNOLD III, Left Side ??? Part simple remv vulva 06/21/2012 VULVECTOMY SIMPLE, PARTIAL performed by TE VALDEZ at [facility] MAIN OR ??? Remove groin lymph nodes superf 06/21/2012 LYMPHADENECTOMY, INGUINOFEMORAL performed by TE VALDEZ at [facility] MAIN OR History Substance Use Topics ??? Smoking status: Former Smoker -- 1.0 packs/day for 20 years Quit date: 09/27/1980 ??? Smokeless tobacco: Never Used ??? Alcohol Use: Yes rare History Drug Use No Allergies Allergen Reactions ??? Adhesive Tape Sensitive ??? Timolol Other (See Comments) burning Medications: MAR and/or home medications have been reviewed. Physical Exam: There were no vitals filed for this visit. There is no height or weight on file to calculate BMI. Airway Assessment: Mallampati: II TM distance: <3 FB Neck ROM: full Small mouth opening Cardiovascular Assessment: cardiovascular exam normal Pulmonary Assessment: pulmonary exam normal Dental Assessment: Misc Assessment: Anesthesia Plan: ASA 2 MAC, with a(n) intravenous induction 73yo with pre diabetes, pre HTN presenting for Right excisional breast biopsy. Of note with pt's previous anesthetic airway was noted as EZ mask, grdIII with MAC3 and Bougie; Miller2 used first and abandoned. Plan MAC with local with LMA/general as back up. ROS: -anesth compli, +pulm(prev smoker), -neuro, -cardiac, -GERD, -liver/kidney dz, -bleeding d/o Region - Other Informed Consent: Anesthetic plan and risks discussed with patient. [facility]. Assessment: documented in this encounter Plan of Treatment Upcoming Encounters Date Type Department Care Team (Late st Contact Info) Description 07/24/2024 2:00 PM EDT Appointment Mammography[place] [phone] Aden Lauren MD [address] [place] [address] [address] [facility] [address] [place] [address] documented as of this encounter Visit Diagnoses Not on filedocumented in this encounter Administered Medications Inactive Administered Medications - up to 3 most recent administrations Medication Order MAR Action Action Date Dose Rate Site ceFAZolin (ANCEF) 1g in dextrose 5% 50mL PRN, Starting on Wed08/04/13 at 1339, Until Wed08/04/13 at 1428, Administer over 30 Minutes, Anesthesia Intra-op Given 08/04/2013 1:39 PM EST 2 g ePHEDrine Sulfate in sodium chloride 0.9% (PF) 50 mg/10 mL (5 mg/mL) injection Syrg PRN, Starting on Wed08/04/13 at 1411, Until Wed08/04/13 at 1428, Anesthesia Intra-op Given 08/04/2013 2:11 PM EST 10 mg ketorolac (TORADOL) injection PRN, Starting on Wed08/04/13 at 1405, Until Wed08/04/13 at 1428, Pain, Anesthesia Intra-op, Routine Given 08/04/2013 2:05 PM EST 30 mg lactated ringers infusion CONTINUOUS PRN, Starting on Wed08/04/13 at 1339, Until Wed08/04/13 at 1428, Anesthesia Intra-op New Bag 08/04/2013 1:39 PM EST mL lidocaine (PF) (XYLOCAINE) 100 mg/5 mL (2 %) injection PRN, Starting on Wed08/04/13 at 1345, Until Wed08/04/13 at 1428, Anesthesia Intra-op, Routine Given 08/04/2013 1:45 PM EST 30 mg ondansetron (ZOFRAN) injection PRN, Starting on Wed08/04/13 at 1408, Until Wed08/04/13 at 1428, Nausea, Anesthesia Intra-op, Routine Given 08/04/2013 2:08 PM EST 8 mg propofol (DIPRIVAN) 10 mg/mL bolus injection (Anesthesia) PRN, Starting on Wed08/04/13 at 1345, Until Wed08/04/13 at 1428, Anesthesia Intra-op Given 08/04/2013 2:01 PM EST 10 mg Given 08/04/2013 1:59 PM EST 10 mg Given 08/04/2013 1:54 PM EST 30 mg propofol (DIPRIVAN) infusion CONTINUOUS PRN, Starting on Wed08/04/13 at 1348, Until Wed08/04/13 at 1428, Anesthesia Intra-op, Routine Rate/Dose Change 08/04/2013 2:00 PM EST 30 mcg/kg/min 12.4 mL/hr New Bag 08/04/2013 1:48 PM EST 50 mcg/kg/min 20.7 mL/hr documented in this encounter Care Teams Security Chief Museum Relationship Specialty Start Date End Date Shanell Hawkins MD [address] [place] [address] PCP - General 08/19/10 02/17/16 documented as of this encounter
--- OUTSIDE RECORDS SUMMARY | 2024-06-23 02:19 | XMS_ITS | Encounter Summary ---
Author Organization [facility] [place] [address] Care Team Providers Care Roll Up Operator Name Role Phone Shanell Hawkins MD Primary Care Provider Reason for Visit * Reason Comments Post Hospital Discharge post op check Encounter Details Date Type Department Care Team (Latest Contact Info) Description 07/04/2012 8:40 AM EDT Office Visit [place] [address] Diana Curry MD [facility] [place] [address] Microinvasive vulvar cancer (Primary Dx) Discharge Disposition: [...] Sign Reading Time Taken Comments Blood Pressure 128/60 07/04/2012 8:28 AM EDT Pulse - - Temperature 37.1 ??C (98.8 ??F) 07/04/2012 8:28 AM ED T Respiratory Rate - - Oxygen Saturation - - Inhaled Oxygen Concentration - - Weight 71.5 kg (157 lb 10.1 oz) 07/04/2012 8:28 AM EDT Height - - Body Mass Index 30.78 06/21/2012 10:09 AM EDT documented in this encounter Progress Notes * Diana Curry MD - 07/04/2012 11:38 AM EDT Subjective: Patient ID: iTanna Tovar is a 71 y.o. female here for recheck of her incision. Patient Active Problem List Diagnoses ??? Type [...] 06/06; VA= 20///25cc; prior= -1 and +3. [place] in winter. hvfs dil. ??? Pseudophakia of both eyes ??? 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 She has had a groin cellulitis, that is now responding to Bactrim. She remains on Augmentin as well. She reports feeling much better, no fevers, and the induration and redness of her groin and thigh improved. She has no concerns about her vulvar incision. Prior to Admission medications Medication Sig Start [...] mg by mouth daily. Yes Historical Provider, Multivitamins Chew 07/29/10 Yes SIMVASTATIN ORAL 07/29/10 Yes Allergies Allergen Reactions ??? Adhesive Tape Sensitive Review of Systems: mild edema of left leg, improving Physical Exam Filed Vitals: 07/04/12 0828 BP: 128/60 Temp: 37.1 ??C (98.8 ??F) Weight: 71.5 kg (157 lb 10.1 oz) Tianna looks well. Left groin has erythema and induration that extends from the groin crease across 12cm and extends down the thigh 12 cm. There is no fluctuance. Incision is healed. Assessment and Plan: Cellulitis, possible MRSA, without lymphangitis. Complete additional course of Bactrim. May travel to [place]. She will return for exam in the spring, after which I suspect that she can have surveillance with Dr. Yuan. documented in this encounter Plan of Treatment Upcoming Encounters Date Type Department Care Team (Late st Contact Info) Description 07/24/2024 2:00 PM EDT Appointment Mammography/[place] [address] Aden Lauren MD [address] [place] [id number] documented as of this encounter Visit Diagnoses Diagnosis Microinvasive vulvar cancer- Primary Malignant neoplasm of vulva, unspecified site documented in this encounter Care Teams Roll Up Operator Relationship Specialty Start Date End Date Shanell Hawkins MD [address] [place] [address] PCP - General 08/19/10 02/17/16 documented as of this encounter
--- OUTSIDE RECORDS SUMMARY | 2024-06-23 02:19 | XMS_ITS | Encounter Summary ---
Author Organization [facility] [place] [address] Care Team Providers Care Orchestra Director Name Role Phone Shanell Hawkins MD Primary Care Provider [phone] Encounter Details Date Type Department Care Team (Late st Contact Info) Description 04/28/2013 [place] [phone] Sarahi Shearer MD [facility] DR DIAGNOSTIC [place] [address] Abnormal mammogram, unspecified (Primary Dx) Social History Tobacco Use Types [...] 07/24/2024 2:00 PM EDT Appointment Mammography/[place] [phone] Aden Lauren MD [address] [place] [address] documented as of this encounter Results * Mammo breast US unilateral bilateral (05/01/2013 [...] this lesion has slowly increased in size [id number]. Given the gradual increase in size and small solid component, ultrasoundguided biopsy is recommended. Film and interpretation reviewed by the attending Sarahi Shearer MD IMG MAMMO ORDERABLES documented in this encounter Visit Diagnoses Diagnosis Abnormal mammogram, unspecified- Primary Abnormal mammogram, unspecified- Primary documented in this encounter Care Teams Orchestra Director Relationship Specialty Start Date End Date Shanell Hawkins MD [address] [place] [address] PCP - General 08/19/10 02/17/16 documented as of this encounter
--- OUTSIDE RECORDS SUMMARY | 2024-06-23 02:19 | XMS_ITS | Encounter Summary ---
Author Organization [facility] [place] [address] Care Team Providers Care Assignment Editor Name Role Phone Shanell Hawkins MD Primary Care Provider [phone] Reason for Visit * Reason Comments Chronic Open Angle Glaucoma 1 yr dil HVF Encounter Details Date Type Department Care Team (Late st Contact Info) Description 03/22/2013 2:30 PM EDT [place] [address] Anurag Meyer MD [facility] [place] [address] PXF (pseudoexfoliation of lens capsule) (Primary Dx) [...] Progress Notes * Anurag Meyer MD - 03/22/2013 3:34 PM EDT 03/11/2011 Tianna Tovar is a 70 y.o. female with coag ou, 1st seen 1999, c pxf od noted then, none os; and pxf noted os 04/01. Discs=0.7 od and 0.5 os. VFs= nl ou 06/05. And on 03/09. OCTs on 03/08= 90/98. Tmax , then 25 ou on cos ou; Cct=58 ou. IOPstatus= 14 ou on MEDS=cos, alpha ou; ADReye=clifford [dizzy] xal. Lum. TARGET=<20. Surg=alt od 02; iol ou 06/06 araya; VA= 20///25cc; prior= -1 and +3. [place] in winter. 03/16/2012= coag glc, w pxf ou, stable same rx 03/22/2013= iops= 14 /19 and status is stable plan same rx ck 6m dilate . 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
--- OUTSIDE RECORDS SUMMARY | 2024-06-23 02:19 | XMS_ITS | Encounter Summary ---
Author Organization [facility] Address [facility] [place] [address] Care Team Providers Care Spiral Tube Winder Helper Name Role Phone Shanell Hawkins MD Primary Care Provider [phone] Reason for Visit * Reason Comments Suture / Staple Removal Encounter Details Date Type Department Care Team (Late st Contact Info) Description 03/22/2012 3:40 PM EDT Clinical [place] [address] Moises Wright MD [facility] [place] [address] BCC (basal cell carcinoma of skin); Visit for suture removal Discharge Disposition: Home Social History Tobacco Use [...] Progress Notes * Moises Wright MD - 03/24/2012 8:05 AM EDT Operative Report Diagnosis: Basal cell carcinoma Postoperative Diagnosis: Basal cell carcinoma Location: Left deltoid Lesion size (cm): 1.2 x 1.3 cm Procedure: The nature and purpose of the procedure, associated risks, possible consequences and complications,and alternative forms of treatment were explained in detail. Written and verbal informed consent was obtained. The patient was taken to the operative suite and placed supine on table. The site was confirmed with the patient/authorized sales representative girls' apparel/referring physician and a pre-operative time- out was conducted with no unresolved discrepancies noted. Local anesthesia was achieved with local administration of a buffered solution of 1% lidocaine with 1:100,000 epinephrine. The surgical site was prepped and draped in the usual sterile manner. An elliptical excision of the basal cell carcinoma with 0.4 cm margins of clinically normal skin down to the fat. Hemostasis was achieved with electrocautery. Tissue specimen was removed and sent to pathology for review. Due to the size and location of the defect resulting from the complete removal of the lesion, the postoperative risk of hemorrhage, infection, and the possibility of serious deformity from scarring, and in order to restore proper function and prevent loss of function, the defect was closed. Moderate undermining of the surrounding tissue was performed for tension free closure and redundant tissue excised. Deep closure was done in two layers. Superficial fascia and dermis were closed with 4-0 Vicryl sutures. The epidermal edges were meticulously approximated using 5-0 Prolene sutures. The resulting intermediate repair measured 7.5 cm. There was minimal blood loss. The surgical site was cleaned. Emollient and a pressure dressing of Xeroform and gauze were applied. The patient tolerated the procedure well and without complications. The patient was given both verbal and written instructions detailing postoperative care. Follow up for suture removal was scheduled for 7 days. The patient wasdischarged in good condition. I am being supervised by the supervising attending listed below, who is the attending of record forthis patient: Patty Dallas MD Resident in Dermatology I was present for the duque portions of the procedure. Moises Wright MD, PhD * Moises Wright MD - 03/22/2012 5:53 PM EDT DERMATOLOGIC SURGERY - ESTABLISHED PATIENT NOTE CC: 1. Suture removal s/p Mohs for BCC, left medial cheek 2. BCC, left deltoid HPI: Patient is a 71 y.o. female with history of basal cell carcinoma, left medial cheek, s/p Mohs repaired by complex linear repair who is presenting for suture removal. Denies complications. Additionally, patient has another biopsy-proven BCC on her left deltoid (see pathology report below). Patient requesting to have this BCC excised today. Exam: General: No acute distress Skin: Limited examination of left medial cheek and the left deltoid was performed. Significant skin findings: 1. Left medial cheek: Well-healed incision. There is no erythema, dehiscence, ecchymosis, or drainage. 2. 1.2 x 1.3 healed biopsy scar at site of biopsy-proven BCC Pathology: Acc #: [id number] Col Date: 01/27/2012 A - Skin, left medial cheek, punch biopsy: Infiltrating basaloid carcinoma, present at peripheral and deep margins. B - Skin, left deltoid, shave biopsy: Basal cell carcinoma, focally present at a peripheral margin. Assessment and Plan: 1. Basal cell carcinoma, left medial cheek s/p Mohs with complex linear repair - Healing well. - Sutures removed and steri-strips applied by nursing staff. Wound care instructions given. 2. Basal cell carcinoma, left deltoid - Will proceed with excision today (see operative report below) Patty Dallas MD Resident in Dermatology I am being supervised by the supervising attending listed below, who is the attending of record forthis patient: Moises Wright MD, PhD Provider MOISES WRIGHT MD I saw and evaluated the patient. I have reviewed the patient's history during the visit and I agreewith details as written. My physical examination confirms Dr. Edmondson's findings. The assessment and plan were formulated in discussion with me at the time of visit and I agree with them as documented. MOISES WRIGHT MD, M.D. Section of Dermatology documented in this encounter Miscellaneous Notes * Miscellaneous - Tamiko Eli - 05/06/2012 8:11 PM EDT documented in this encounter Plan of Treatment Upcoming Encounters Date Type Department Care Team (Late st Contact Info) Description 07/24/2024 2:00 PM EDT Appointment Mammography/[place] [phone] Aden Lauren MD [address] [place] [address] documented as of this encounter Procedures Procedure Name Priority Date/Time Associated Diagnosis Comments SURGICAL PATHOLOGY REPORT Routine 03/22/2012 6:18 PM EDT SPECIMEN TO PATHOLOGY (NON-OR) Routine 03/22/2012 5:41 PM EDT BCC (basal cell carcinoma of skin) documented in this encounter Results * SURGICAL PATHOLOGY REPORT (03/22/2012 6:18 PM EDT) Surgical Pathology Report ? [facility] ? Provider: ?? MOISES WRIGHT ?? Pt. Name: ?? TIANNA ROSENBERG ? Acc #: ?[id number] ? Pt. ? Col Date: ?? 03/22/2012 ? /Sex: ?1940,(71 ? years),Female ? Rec Date: ?? 03/22/2012 ? LOC: ?4M ? SURGICAL PATHOLOGY ? ---Pathologic Diagnosis--- ? Skin, left deltoid, excision: ?1. ??Scar, consistent with prior surgical procedure. ?2. ??There is no residual lesion. ? CR-0 ? 03/23/12 ? AJE ? 03/23/12 Verified by: ? Tracy Silverio MD ? Dermatopathologist ? (Electronic Signature) ? The attending pathologist whose signature appears on this report has ? reviewed all diagnostic slides and has edited the gross and/or ? microscopic portion of the report in rendering the final pathologic ? diagnosis. ? ---Microscopic Description--- ? Slides reviewed, microscopic description not recorded. ? ---Gross Description--- ? Labeled/Fixative: ? Left deltoid, formalin. ? Qty/Size/Weight: ?Single, 6.3 x 2.2 x 0.4 cm. ? Tissue Description: ?? Ellipse of wrinkled, pink-buckley skin with a central, ? 0.7 x 0.5-cm, ovoid, ulcerated scar. ? Sections/Processing: ??The specimen is inked and serially sectioned. ? The ends are submitted in (1); the remainder of ? the specimen submitted in (2-9). ??(T9) ??aje/EJR ? ---Clinical Information--- ? Specimen Submitted: ? A - Left deltoid, excision (1) ? Clinical History/Diagnosis: ? BCC, see previous path [id number] BENITO BROUSSARD 03/22/2012 6:18 PM EDT Moises Wright MD PATHOLOGY/CYTOLOGY O BIBI Performing Organization Address City/State/[facility] Co de Phone Number BENITO BROUSSARD * Specimen to Pathology (NON-OR) (03/22/2012 5:41 PM EDT) AP Specimen 03/22/2012 5:41 PM EDT 03/22/2012 5:41 PM EDT Narrative BENITO ACKERMANIUM - 03/22/2012 5:41 PM EDT Specimen requisition ordered. ??Separate Pathology report to follow Moises Wright MD PATHOLOGY/CYTOLOGY O BIBI Performing Organization Address City/[facility] Co de Phone Number BENITO BROUSSARD documented in this encounter Visit Diagnoses Diagnosis BCC (basal cell carcinoma of skin) Basal cell carcinoma of skin, site unspecified Visit for suture removal Encounter for removal of sutures documented in this encounter Care Teams Spiral Tube Winder Helper Relationship Specialty Start Date End Date Shanell Hawkins MD [address] [place] [address] PCP - General 08/19/10 02/17/16 documented as of this encounter
--- OUTSIDE RECORDS SUMMARY | 2024-06-23 02:19 | XMS_ITS | Encounter Summary ---
Author Organization [facility] [place] [address] Care Team Providers Care Branch Manager Name Role Phone Shanell Hawkins MD Primary Care Provider [phone] Encounter Details Date Type Department Care Team (Late st Contact Info) Description 03/16/2013 Abstract [place] [phone] Anurag Meyer MD [facility] [place] [address] Social History Tobacco Use Types Packs/Day Years [...] 07/24/2024 2:00 PM EDT Appointment Mammography/[place] [phone] Aden Lauren MD [address] [address] documented as of this encounter Visit Diagnoses Not on filedocumented in this encounter Care Teams Branch Manager Relationship Specialty Start Date End Date Shanell Hawkins MD [address] [place] [address] PCP - General 08/19/10 02/17/16 documented as of this encounter
--- OUTSIDE RECORDS SUMMARY | 2024-06-23 02:19 | XMS_ITS | Encounter Summary ---
Author Organization [facility] [place] [address] Care Team Providers Care Snowboard Designer Name Role Phone Shanell Hawkins MD Primary Care Provider [phone] Reason for Visit * Reason Onset Date Comments Post Procedure Call 03/23/2012 Encounter Details Date Type Department Care Team (Late st Contact Info) Description 03/23/2012 [place] [address] Patty Kiran MD [facility] [address] [place] [address] Post Procedure Call Social History Tobacco Use Types Packs/Day Years [...] encounter Miscellaneous Notes * Telephone Encounter - Patty Kiran - 03/23/2012 2:14 PM EDT Tiannacarrie Tovar was called on the 1ST day post-operatively for follow up. Ms. Tovar reports the dressing is clean, dry and intact. There is no reported drainage or signs of infection. Ms. Tovar [...] appointment. Patty Dallas MD Resident in Dermatology I am being supervised by the supervising attending listed below, who is the attending of record forthis patient: Moises RosaEugenio Wright MD, PhD documented in this encounter Plan of Treatment Upcoming Encounters Date Type Department Care Team (Late st Contact Info) Description 07/24/2024 2:00 PM EDT Appointment Mammography/[place] [address] Aden Lauren MD [address] [place], [place] [id number] documented as of this encounter Visit Diagnoses Not on filedocumented in this encounter Care Teams Snowboard Designer Relationship Specialty Start Date End Date Shanell Hawkins MD [address] [place] [address] PCP - General 08/19/10 02/17/16 documented as of this encounter
--- OUTSIDE RECORDS SUMMARY | 2024-06-23 02:19 | XMS_ITS | Encounter Summary ---
[place] [address] Care Team Providers Care Ring Spinner Name Role Phone Shanell Hawkins MD Primary Care Provider [phone] Encounter Details Date Type Department Care Team (Latest Contact Info) Description 04/27/2013 9:57 AM EDT - 04/27/2013 11:59 PM EDT Hospital En[place] [address] CLINIC, Shanell Valerio MD [address] [place] [address] Discharge Disposition: Home Social History [...] 07/24/2024 2:00 PM EDT Appointment Mammography/DXA at [place] [phone] Aden Lauren MD [facility] [address] [email or web address] [address] [place] [address] documented as of this encounter Procedures Procedure Name Priority Date/Time Associated Diagnosis Comments MAMMO SCREENING CAD BILATERAL Routine 04/27/2013 10:17 AM EDT documented in this encounter Results * Mammo digital bilateral Screening with CAD (04/27/2013 10:17 AM EDT) Anatomical Region Laterality Modality Breast Bilateral Mammography 04/27/2013 10:1 7 AM EDT Narrative 04/28/2013 2:45 PM EDT REASON FOR EXAM: Screening ?? TECHNIQUE: Cranio-caudal (CC) and mediolateral oblique (MLO) views of the both breasts obtained with direct digital capture. The exam was evaluated by CAD Version 8.3.17. ?? RIGHT BREAST MAMMOGRAPHY ?? This is an indeterminate (ACR Category 0) mammogram of the Right breast. There is a question of a mass (possible cyst) in the lower, inner Right breast, requiring additional imaging. ? LEFT BREAST MAMMOGRAPHY ?? This is a negative mammogram (ACR Category 1). There is a stable fibroglandular pattern without significant change as compared to prior studies. There is no mammographic evidence of cancer. ? The breasts are of scattered density. ? CONCLUSION ?? ASSESSMENT IS INCOMPLETE: Additional imaging recommended (ACR Category 0) of the Right breast. [facility] will contact the patient to schedule additional imaging. ?? The contralateral breast is NEGATIVE (ACR Category 1). Routine screening mammography is recommended of the Left breast with the frequency dependent on the patient's age and breast cancer risk factors. Procedure Note Sarahi Shearer MD - 04/28/2013 REASON FOR EXAM: Screening TECHNIQUE: Cranio-caudal (CC) and mediolateral oblique (MLO) views of theboth breasts obtained with direct digital capture. The exam was evaluated byCAD Version 8.3.17. RIGHT BREAST MAMMOGRAPHY This is an indeterminate (ACR Category 0) mammogram of the Right breast.There is a question of a mass (possible cyst) in the lower, inner Right breast, requiring additional imaging. LEFT BREAST MAMMOGRAPHY This is a negative mammogram (ACR Category 1). There is a stablefibroglandular pattern without significant change as compared to prior studies. There isno mammographic evidence of cancer. The breasts are of scattered density. CONCLUSION ASSESSMENT IS INCOMPLETE: Additional imaging recommended (ACR Category 0)of the Right breast. [facility] will contact the patient to schedule additional imaging. The contralateral breast is NEGATIVE (ACR Category 1). Routine screening mammography is recommended of the Left breast with the frequency dependenton the patient's age and breast cancer risk factors. Shanell Hawkins MD IMG MAMMO ORDERABLES documented in this encounter Visit Diagnoses Not on filedocumented in this encounter Care Teams Ring Spinner Relationship Specialty Start Date End Date Shanell Hawkins MD [address] [place] [address] PCP - General 08/19/10 02/17/16 documented as of this encounter
--- OUTSIDE RECORDS SUMMARY | 2024-06-23 02:19 | XMS_ITS | Encounter Summary ---
Author Organization [facility] [place] [address] Care Team Providers Care Director Of Assessment Name Role Phone Shanell Hawkins MD Primary Care Provider [phone] Encounter Details Date Type Department Care Team (Late st Contact Info) Description 06/21/2012 1:51 PM EDT Anesthesia Event [place] [address] Lanie Cramer MD [facility] [place] [address] Ryan Nair MD [facility] [place] [address] Anesthesia Record Procedure Summary Procedure Name Responsible Anesthesiologist Anesthesia Start Time Anesthesia Stop Time VULVECTOMY SIMPLE, PARTIAL (WRVU 7.53) (Perineum) Lanie Cramer MD 06/21/12 1351 06/21/12 1614 Events Date Time Event Comment 06/21/2012 1351 Start 1614 Stop Meds * Agents No agents on file. * Blood No blood administrations on file. Lines, Drains, and Airways Type Details Placement Removal Drain/Device Site 06/21/12; Left; groi n; collapsible closed device 06/21/12 0000 by Ashley Paniagua, RN Urethral Catheter 06/21/12; indwelling double lumen catheter; latex; 16; inserted (inserted by Kaylen Teague MD. ); 1; drainage bag to dependent drainage; 06/21/12; 1829 06/21/12 0000 by Ashley Paniagua RN 06/21/12 182 by Mini Rivera RN (RETIRED) Peripheral IV Line - Single Lumen 06/21/12; 1025; 06/21/12; 1339 06/21/12 1025 by Sasha Jason RN 06/21/12 1339 by Kindra Faye RN documented in this encounter Social History [...] OR Notes * Anesthesia Postprocedure Evaluation - Ryan Nair MD - 06/21/2012 4:49 PM EDT Patient: Tianna Tovar Procedure(s) Performed: Procedure(s): VULVECTOMY SIMPLE, PARTIAL LYMPHADENECTOMY, INGUINOFEMORAL Patient location: PACU Post-op pain: Adequate analgesia Post-op nausea: no nausea or vomiting Last Vitals: Filed Vitals: 06/21/12 1645 BP: 151/61 Pulse: 76 Temp: Resp: 14 Post-op cardiovascular and respiratory status: is stable Level of consciousness: awake, alert and oriented Complications: no apparent complications, tolerated the procedure well and no evidence of recall Fluid Status: normal * Anesthesia Preprocedure Evaluation - Ryan Nair MD - 06/20/2012 4:08 PM EDT Anesthesia Evaluation Patient summary reviewed Hx of anesthetic complications: none on file. Airway Dental Pulmonary ROS comment: Former smoker Cardiovascular Exercise tolerance: good (Walks and does yoga) (+) hypertension (borderline, not on medications. Range 120-140 systolic at recent checks), valvular problems/murmurs (murmur), ROS comment: Hyperlipidemia Neuro/Psych Comments: Rare drinker GI/Hepatic/Renal (-) renal disease Endo/Other (-) Type II DM (borderline. Hba1c 6.3. not on medications) Abdominal Anesthesia Plan ASA 2 General with intravenous induction The patient was consented for general anesthesia after the risks and benefits of anesthesia were discussed, and all questions answered. Consent paperwork was placed in the patient's chart. Anesthetic plan and risks discussed with patient and spouse. Plan discussed with resident and attending. 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 No medication allergies. Sensitivity to adhesive tape No labs on file here. OSH reports normal chem panel and Cr. documented in this encounter Plan of Treatment Upcoming Encounters Date Type Department Care Team (Late st Contact Info) Description 07/24/2024 2:00 PM EDT Appointment Mammography/[place] [phone] Aden Lauren MD [address] [place], [place] [address] documented as of this encounter Visit Diagnoses Not on filedocumented in this encounter Care Teams Director Of Assessment Relationship Specialty Start Date End Date Shanell Hawkins MD [address] [place], [place] [phone] PCP - General 08/19/10 02/17/16 documented as of this encounter
--- OUTSIDE RECORDS SUMMARY | 2024-06-23 02:19 | XMS_ITS | Encounter Summary ---
Author Organization [facility] [place] [address] Care Team Providers Care Manager Presentation Name Role Phone Shanell Hawkins MD Primary Care Provider [phone] Encounter Details Date Type Department Care Team (Late Contact Info) Description 06/23/2012 Telephone [place] [address] Diana Curry MD [facility] [place] [address] Social History Tobacco Use Types Packs/Day Years [...] encounter Miscellaneous Notes * Telephone Encounter - Diana Curry MD - 06/23/2012 10:31 AM EDT Called patient and discussed pathology results. No further treatment necessary. documented in this encounter Plan of Treatment Upcoming Encounters Date Type Department Care Team (Late st Contact Info) Description 07/24/2024 2:00 PM EDT Appointment Mammography[place] [address] Aden Lauren MD [address] [place] [address] documented as of this encounter Visit Diagnoses Not on filedocumented in this encounter Care Teams Manager Presentation Relationship Specialty Start Date End Date Shanell Hawkins MD [address] [place] [address] PCP - General 08/19/10 02/17/16 documented as of this encounter
--- OUTSIDE RECORDS SUMMARY | 2024-06-23 02:19 | XMS_ITS | Encounter Summary ---
Author Organization [facility] [place] [address] Care Team Providers Care Air Cargo Specialist Name Role Phone Shanell Hawkins MD Primary Care Provider [phone] Encounter Details Date Type Department Care Team (Late st Contact Info) Description 07/12/2013 Orders [place] [phone] David Blackwood MD [facility] [place] [place] [address] Atypical ductal hyperplasia of breast Social History [...] 07/24/2024 2:00 PM EDT Appointment Mammography/[place] [phone] Aden Lauren MD [address] [place] [address] documented as of this encounter Results * Mammo needle localization (08/04/2013 11:00 AM [...] of breast Other specified benign mammary dysplasias Atypical ductal hyperplasia of breast Other specified benign mammary dysplasias documented in this encounter Care Teams Air Cargo Specialist Relationship Specialty Start Date End Date Shanell Hawkins MD [address] [place] [address] PCP - General 08/19/10 02/17/16 documented as of this encounter
--- OUTSIDE RECORDS SUMMARY | 2024-06-23 02:19 | XMS_ITS | Encounter Summary ---
[place] [address] Care Team Providers Care Director Compliance Name Role Phone Shanell Hawkins MD Primary Care Provider [phone] Reason for Visit * Reason Onset Date Comments Wound Infection 06/30/2012 Encounter Details Date Type Department Care Team (Late st Contact Info) Description 06/30/2012 Telephone Gynecology [place] [phone] Leigha Isidro breaker oiler Infection Social History Tobacco Use Types Packs/Day Years [...] encounter Miscellaneous Notes * Telephone Encounter - Leigha Isidro RN - 06/30/2012 8:56 AM EDT TELEPHONE NOTE Caller: pt Reason for call: Pt reports her groin is more red and swollen than Wednesday when she was started on Augmentin. Fever to 38.3 last night. Assessment: wound infection Plan/Instructions: Appointment with Magali GARNER today. documented in this encounter Plan of Treatment Upcoming Encounters Date Type Department Care Team (Late st Contact Info) Description 07/24/2024 2:00 PM EDT Appointment Mammography/[place] [phone] Aden Lauren MD [address] [place] [address] documented as of this encounter Visit Diagnoses Not on filedocumented in this encounter Care Teams Director Compliance Relationship Specialty Start Date End Date Shanell Hawkins MD [address] [place] [address] PCP - General 08/19/10 02/17/16 documented as of this encounter
--- OUTSIDE RECORDS SUMMARY | 2024-06-23 02:19 | XMS_ITS | Encounter Summary ---
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 Encounter Details Date Type Department Care Team (Latest Contact Info) Description 08/28/2013 1:00 PM EST [place] [address] Anurag Meyer MD [facility] DR OPHTHALMOLOGY [place] [address] Pseudoexfoliation glaucoma (Primary Dx); PXF (pseudoexfoliation of lens capsule) Discharge Disposition: [...] Progress Notes * Anurag Meyer MD - 08/28/2013 1:55 PM EST IAnurag, performed the above scribed services and agree with the accuracy of the documentation of this encounter. 03/11/2011 Tianna Tovar is a 70 y.o. [...] araya; VA= 20///25cc; prior= -1 and +3. [place] in winter. 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
--- OUTSIDE RECORDS SUMMARY | 2024-06-23 02:20 | XMS_ITS | Encounter Summary ---
[place] [address] Care Team Providers Care Honey Processor Name Role Phone Aden Lauren MD Primary Care Provider [phone] Encounter Details Date Type Department Care Team (Late st Contact Info) Description 06/10/2009 [place] [address] Tyrone Mosqueda MD [facility] [place] [address] Social History Tobacco Use Types Packs/Day Years Used Date Smoking Tobacco: Never Assessed Sex and Gender Information Value Date Recorded Sex Assigned at Not on file Gender Identity Not on file Sexual Orientation Not on file documented as of this encounter Plan of Treatment Upcoming Encounters Date Type Department Care Team (Late st Contact Info) Description 07/24/2024 2:00 PM EDT Appointment Mammography[place] [address] Aden Lauren MD [address] [place] [address] documented as of this encounter Procedures Procedure Name Priority Date/Time Associated Diagnosis Comments SURGICAL PATHOLOGY REPORT Routine 06/10/2009 10:23 AM EDT documented in this encounter Results * Surgical Pathology Report (06/10/2009 10:23 AM EDT) Pathologist [facility] Surgical Pathology Report [id number] ? Location: OPW The signing pathologist has (i) examined the relevant preparation(s) for the specimen(s) and (ii) rendered or confirmed the diagnosis(es). . ?Pathology Surgical Pathology Final Report Clinical Information Specimen Submitted: A - Rt breast Clinical History: Calcs in ductal distribution Clinical Diagnosis: DCIS/ADH/DH/FCD Gross Description Specimen: ?Received in two containers. 1 - Labeled/Fixative : ??Right breast lesion 1 calcs, formalin. Qty/Size/Weight: ? Two yellow-white needle core biopsies, 1.7 cm. ??The ? accompanying radiograph demonstrates two irregular ? to linear foci of calcification. Sections/Process ing: ?? Submitted in (A1). 2 - Labeled/Fixative : ??Right breast lesion 1 no calcs, formalin. Qty/Size/Weight: ? Eight pink needle core biopsies, varying from 0.5 cm ? to 2.0 cm, admixed with fragments of clotted blood ? and a 2.5 x 1.0 x 0.3-cm aggregate of fragments of ? fatty tissue. Sections/Process ing: ?? Submitted in (A2-A4). ??(T4) ??aje/SHB Microscopic Description Slides reviewed, microscopic description not recorded. Diagnosis Needle biopsies: ?Right breast. Diagnosis: ?Fibrocystic change including usual ductal ? hyperplasia, apocrine metaplasia, microcysts ?and focal adenomatous changes. Microcalcificati ons: ??Identified and associated with adenomatous changes. CR-0 06/11/09 XL 06/11/09 Verified by: ? Jose COX, Fiorella ?(Electronic Signature) The attending pathologist whose signature appears on this report has reviewed all diagnostic slides and has edited the gross and/or microscopic portion of the report in rendering the final pathologic diagnosis. BENITO BROUSSARD 06/10/2009 10:2 3 AM EDT Tyrone Mosqueda MD PATHOLOGY/CYTOLOGY [facility]IB[facility] documented in this encounter Visit Diagnoses Not on filedocumented in this encounter Care Teams Honey Processor Relationship Specialty Start Date End Date Aden Lauren MD [address] [place] [address] PCP - General Family Medicine 02/17/17 documented as of this encounter
--- OUTSIDE RECORDS SUMMARY | 2024-06-23 02:20 | XMS_ITS | Encounter Summary ---
[place] [address] Care Team Providers Care Staffing Program Manager Name Role Phone Shanell Hawkins MD Primary Care Provider [phone] Encounter Details Date Type Department Care Team (Latest Contact Info) Description 05/20/2011 3:02 PM EDT - 05/20/2011 11:59 PM EDT Hospital [place] [address] CLINIC, Shanell Valerio MD [address] [place] [address] Discharge Disposition: Home Social History [...] Start Date End Date Multivitamins Chew 07/29/2010 brimonidine (ALPHAGAN) 0.2 % ophthalmic solutionIndications:PXF (pseudoexfoliation of lens capsule) Place 1 drop into both eyes 2 times daily. Please dispense 90 day supply 5 mL 4 03/11/2011 03/16/2012 dorzolamide-timolol (COSOPT) 2-0.5 % ophthalmic solutionIndications:PXF (pseudoexfoliation of lens capsule) Place 1 drop into both eyes 2 times daily. Please dispense 90 day supply 10 mL 4 03/11/2011 03/16/2012 hydrochlorothiazide (HYDRODIURIL) 25 mg tablet Take 12.5 mg by mouth daily. 03/27/2019 IBUPROFEN (ADVIL ORAL) 07/29/201006/21 SIMVASTATIN ORAL 07/29/2010 06/26/2013 documented as of this encounter Plan of Treatment Upcoming Encounters Date Type Department Care Team (Late st Contact Info) Description 07/24/2024 2:00 PM EDT Appointment Mammography/[place] [address] Aden Lauren MD [address] [place], [place] [address]Y [facility] [address] [place] [address] documented as of this encounter Procedures Procedure Name Priority Date/Time Associated Diagnosis Comments MAMMO SCREENING CAD BILATERAL Routine 05/20/2011 3:41 PM EDT documented in this encounter Results * MAMMO DIGITAL BILATERAL SCREENING WITH CAD (05/20/2011 3:41 PM EDT) Anatomical Region Laterality Modality Breast Bilateral Mammography 05/20/2011 3:41 PM EDT Narrative 05/21/2011 11:36 AM EDT Reason for Exam: Screening ?? Technique: Craniocaudal (CC) and Medio-lateral Oblique (MLO) views of both breasts obtained with direct digital capture. The exam was evaluated by CAD version 8.3.17. ?? Findings: ?? This is a negative mammogram (ACR Category 1). ??There is a stable fibroglandular pattern without significant change from prior studies. There is no mammographic evidence of cancer. ??The breasts are of scattered density. ?? CONCLUSION: This is a NEGATIVE mammogram (ACR Category 1). ?? Routine screening mammography is recommended with the frequency dependent upon the patient's age and breast cancer risk factors. A letter has been sent to this patient by the breast imaging center. Procedure Note Cynthia Martinez MD - 05/21/2011 Reason for Exam: Screening Technique: Craniocaudal (CC) [...] is recommended with the frequency dependentupon the patient's age and breast cancer risk factors. A letter has been sent to this patient by the breast imaging center. Shanell Hawkins MD IMG MAMMO ORDERABLES documented in this encounter Visit Diagnoses Not on filedocumented in this encounter Care Teams Staffing Program Manager Relationship Specialty Start Date End Date Shanell Hawkins MD [address] [place] [address] PCP - General 08/19/10 02/17/16 documented as of this encounter
--- OUTSIDE RECORDS SUMMARY | 2024-06-23 02:20 | XMS_ITS | Encounter Summary ---
Author Organization [facility] Address [facility] [address] Care Team Providers Care Barn Boss Name Role Phone Shanell Hawkins MD Primary Care Provider [phone] Reason for Visit * Reason Comments Skin Check Encounter Details Date Type Department Care Team (Late st Contact Info) Description 03/11/2011 2:45 PM EDT [place] [address] Myah Lugo MD [facility] [address] [place] [address] Other seborrheic keratosis (Primary Dx); Personal history of other malignant neoplasm of skin Discharge Disposition: Home Social History [...] Progress Notes * Myah Lugo MD - 03/11/2011 2:40 PM EDT DERMATOLOGY ESTABLISHED PATIENT CLINIC NOTE Date of service: 03/11/2011 Tianna Tovar : 1940 Provider: Myah Lugo MD Chief Complaint Patient presents with ??? Skin Check SKIN HISTORY: 1. Actinic Keratoses 2. Sclerosing BCC left nose MOHS by 2000 3. SK's HPI Tianna Tovar is a 70 y.o. year old female here for a com[plete skin check with several spots ofconcern on her face,denies bleeding of these lesions.Also brought a photo of a lesion on her cheek that is followed clinically. ADR: No Known Allergies MEDS: Current outpatient prescriptions ordered prior to encounter Medication Sig Dispense Refill ??? hydrochlorothiazide (HYDRODIURIL) 25 mg tablet Take 12.5 mg by mouth daily. ??? dorzolamide-timolol (COSOPT) 2-0.5 % ophthalmic solution 1 Drop(s), Ophthalmic, Twice daily OU ??? brimonidine (ALPHAGAN) 0.2 % ophthalmic solution 1 Drop(s), Ophthalmic, Twice daily OU ??? IBUPROFEN (ADVIL ORAL) ??? Multivitamins Chew ??? SIMVASTATIN ORAL ROS General: feeling well Skin: denies other skin complaints EXAM General: NAD, pleasant, cooperative female. Skin:A total body skin exam except for areas covered by underwear was performed. This includes examination of the skin of the face, ears, neck, chest, axillae, left and right upper and lower extremities, hands and feet, abdomen, and except the areas covered by underwear were not examined. Significant skin findings: A.0.2 pink papule with hyperkeratotic, irregular adherent scale distributed: on l malar cheek within vague hypopigmented patch that is 1.0 cm x 0.4 cm (this was noted at last exam; no change vs. photo) B.Multiple 0.4-0.6cm brown papules with waxy, stuck-on appearance. Milia-like cysts, comedone-like openings and/or fissuring on dermoscopy. C.0.2-0.3cm scaly irregular pink papule(s) face. D.Left ala; well-healed scar; NER ASSESSMENT/PLAN: A. Scar will continue to follow clinically with photo B. SK's C..AK's, few on forehead and very thin D.h/o BCC; NER E. RTC 1 year Note initiated by: ANALISA LEON LPN Routed to physician for review and changes: Myah Lugo MD Section of Dermatology [facility] documented in this encounter Plan of Treatment Upcoming Encounters Date Type Department Care Team (Late st Contact Info) Description 07/24/2024 2:00 PM EDT Appointment Mammography/[place] [address] Aden Lauren MD [address] [place], [place] [id number] documented as of this encounter Visit Diagnoses Diagnosis Other seborrheic keratosis- Primary Personal history of other malignant neoplasm of skin documented in this encounter Care Teams Barn Boss Relationship Specialty Start Date End Date Shanell Hawkins MD [address] [place], [place] [id number] PCP - General 08/19/10 02/17/16 documented as of this encounter
--- OUTSIDE RECORDS SUMMARY | 2024-06-23 02:20 | XMS_ITS | Encounter Summary ---
Author Organization [facility] [place] [address] Care Team Providers Care Plastic Roller Name Role Phone Shanell Hawkins MD Primary Care Provider [phone] Reason for Visit * Reason Onset Date Comments Skin Check 01/27/2012 Encounter Details Date Type Department Care Team (Late st Contact Info) Description 01/27/2012 11:00 AM EDT [place] [address] Myah Lugo MD [facility] [place] [address] Neoplasm of unspecified nature of bone, soft tissue, and skin (Primary Dx); Actinic keratoses; Basal cell cancer Discharge Disposition: Home Social History Tobacco [...] Progress Notes * Myah Lugo MD - 01/27/2012 11:06 AM EDT DERMATOLOGY ESTABLISHED PATIENT CLINIC NOTE Date of service: 01/27/2012 Tianna M Guy : 1940 Provider: Myah Lugo MD CC: Skin Exam SKIN HISTORY: 1. Actinic Keratoses 2. Sclerosing BCC left nose MOHS by 2000 3. SK's HPI Tianna Rosenberg is a 71 y.o. year old female who present today for a skin exam. History as above. Established patient. Current skin concerns:raised spot left upper arm that she has picked at recently; also various scaly spots on body. ADR: No Known Allergies MEDS: Current outpatient [...] underwear were not examined. Significant skin findings: A. 0.4cm firm white papule left medial cheek (larger than prior measurement of 0.2cm) B.0.6 cm telangectatic pink papule with a pearly border left deltoid; pigment clumping C.Multiple 0.4-0.6cm brown papules with waxy, stuck-on appearance. Milia-like cysts, comedone-like openings and/or fissuring on dermoscopy. D. 0.2-0.3cm scaly irregular pink papule(s) face ASSESSMENT/PLAN: A.Fibrous papule ruleout BCC-Procedure: Skin biopsy by punch technique. Location:left medial cheek Discussed indications for the procedure and expectations including risks and benefits. Verbal consent obtained. Skin prep with alcohol. Local anesthesia: buffered 1% lidocaine with 1/100,000 epinephrine. A 1.5 mm punch biopsy to the level of the subcutis was performed. Wound closed with monofilament suture. There were no complications; the patient tolerated the procedure well. The wound was dressed. Post-procedure expectations (including discomfort management), wound care and activity restrictions were reviewed. Follow-up based on pathology results. Suture removal: 7 days B.BCC-Procedure: Skin biopsy. Procedure: Shave removal of lesion. Location: left deltoid Discussed indications for procedure and expectations including risks and benefits. Verbal consent obtained. Skin prep with alcohol. Local anesthesia with 1% xylocaine, 1/100,000 epinephrine, 0.1 mEq/mL bicarbonate. The lesion was removed by shave technique to the level of the dermis and submitted to Pathology. Hemostasis obtained. (AlCl and/or electrocautery). There were no complications; the pt.tolerated the procedure well. The wound was dressed. Post- procedure expectations, wound care and activity restrictions were reviewed. Final diameter:1.8cm Follow-up based on pathology results. C.SK's D.AK's-will use Carac once daily for 3 weeks then discontinue RTC 1 year for skin exam; sooner prn Note initiated by: ANALISA LEON LPN Routed to physician for review and changes: Myah Lugo MD Section of Dermatology [facility] documented in this encounter Plan of Treatment Upcoming Encounters Date Type Department Care Team (Late st Contact Info) Description 07/24/2024 2:00 PM EDT Appointment Mammography/[place] [address] Aden Lauren MD [address] [place] [address] documented as of this encounter Procedures Procedure Name Priority Date/Time Associated Diagnosis Comments SURGICAL PATHOLOGY REPORT Routine 01/27/2012 12:09 PM EDT SPECIMEN TO PATHOLOGY Routine 01/27/2012 11:39 AM EDT Neoplasm of unspecified nature of bone, soft tissue, and skin documented in this encounter Results * SURGICAL PATHOLOGY REPORT (01/27/2012 12:09 PM EDT) Surgical Pathology Report ? [facility] ? Provider: ?? MYAH LUGO ? Pt. Name: ?? TIANNA ROSENBERG ? Acc #: ?[id number] ? Pt. ? Col Date: ?? 01/27/2012 ?/Sex: ?1940,(71 ? years),Female ? Rec Date: ?? 01/27/2012 ?LOC: ?4M ? SURGICAL PATHOLOGY ? ---Pathologic Diagnosis--- ? 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 ? See Comment. ? B - Skin, left deltoid, shave biopsy: ?Basal cell carcinoma, focally present at a peripheral margin. ? Dictated by: ??Gavi Gross, DO ? Dermatopathology Fellow ? As the attending physician, I attest that I examined the histologic slides, ? and confirm Dr. Gavi Gross's diagnosis. ? CR-0 ? 01/28/12 ? AJE ? 01/29/12 Verified by: ? Deny Phillips MD ? Dermatopathologist ? (Electronic Signature) ? The attending pathologist whose signature appears on this report has ? reviewed all diagnostic slides and has edited the gross and/or ? microscopic portion of the report in rendering the final pathologic ? diagnosis. ? ---Comment--- ? A - The differential diagnosis includes microcystic adnexal carcinoma and ? sclerosing basal cell carcinoma. ??Desmoplastic trichoepithelioma was ? considered but the depth and extent of invasion are too great. ??Drs. ? Kalpesh Silverio, and Shraddha concur. ??Perineural invasion is present. ? ---Microscopic Description--- ? Slides reviewed, microscopic description not recorded. ? ---Gross Description--- ? A - Labeled/Fixative: A L medial cheek, formalin. ? Qty/Size/Weight: ?Single punch, 0.1 cm, white. ? Sections/Processing: ??(T1) ? B - Labeled/Fixative: B left deltoid, formalin. ? Qty/Size/Weight: ?Single shave, 1.2 x 1.1 x 0[address] ? [facility] ? Provider: ?? MYAH LUGO ? Pt. Name: ?? TIANNA ROSENBERG ? Acc #: ?[id number] ? Pt. ? Col Date: ?? 01/27/2012 ?/Sex: ?1940,(71 ? years),Female ? Rec Date: ?? 01/27/2012 ?LOC: ?4M ? Tissue Description: ?? White skin with a 0.6-cm pink-light brown macule. ? SURGICAL PATHOLOGY ? Sections/Processing: ??The specimen is inked and serially sectioned. ??The ? ends are submitted in (1); the remainder of the ? specimen submitted in (2). ??(T2) ??aje/SNS ? ---Clinical Information--- ? Specimen Submitted: ? A - Left medial cheek, punch (1) ? B - Left deltoid, shave (1) ? Clinical History/Diagnosis: ? A - 0.4-cm, firm, white papule / fibrous papule R/O BCC ? B - 0.6-cm, telangiectatic pink papule with pearly border / BCC CERNER MILLENNIUM 01/27/2012 12:0 9 PM EDT Myah Lugo MD PATHOLOGY/CYTOLOGY O BIBI Performing Organization Address [facility] de Phone Number [facility] * Specimen to Pathology (surgical or derm) (01/27/2012 11:39 AM EDT) AP Specimen 01/27/2012 11:3 9 AM EDT 01/27/2012 11:39 AM EDT Narrative CERNER MILLENNIUM - 01/27/2012 11:39 AM EDT Specimen requisition ordered. ??Separate Pathology report to follow Myah Lugo MD PATHOLOGY/CYTOLOGY O BIBI BENITO BROUSSARD documented in this encounter Visit Diagnoses Diagnosis Neoplasm of unspecified nature of bone, soft tissue, and skin- Primary Actinic keratoses Actinic keratosis Basal cell cancer Basal cell carcinoma of skin, site unspecified documented in this encounter Care Teams Plastic Roller Relationship Specialty Start Date End Date Shanell Hawkins MD [address] [place] [address] PCP - General 08/19/10 02/17/16 documented as of this encounter
--- OUTSIDE RECORDS SUMMARY | 2024-06-23 02:20 | XMS_ITS | Encounter Summary ---
Author Organization [facility] [place] [address] Care Team Providers Care Label Coder Name Role Phone Aden Lauren MD Primary Care Provider [phone] Encounter Details Date Type Department Care Team (Late st Contact Info) Description 02/24/2006 [place] [address] Yuni Baig MD [facility] [place] [address] Social History Tobacco Use Types Packs/Day Years Used Date Smoking Tobacco: Never Assessed Sex and Gender Information Value Date Recorded Sex Assigned at Not on file Gender Identity Not on file Sexual Orientation Not on file documented as of this encounter Plan of Treatment Upcoming Encounters Date Type Department Care Team (Late st Contact Info) Description 07/24/2024 2:00 PM EDT Appointment Mammography[place] [address] Aden Lauren MD [address] [place] [address] documented as of this encounter Procedures Procedure Name Priority Date/Time Associated Diagnosis Comments SURGICAL PATHOLOGY REPORT Routine 02/24/2006 2:28 PM EDT documented in this encounter Results * Surgical Pathology Report (02/24/2006 2:28 PM EDT) Surgical Pathology Report [id number] ? Location: The signing pathologist has (i) examined the relevant preparation(s) for the specimen(s) and (ii) rendered or confirmed the diagnosis(es). . ?Pathology Surgical Pathology Final Report Clinical Information Specimen Submitted: A - Polyp x 2. rectum. Clinical History: Diminutive polyps on routing colo. ??Clinical Diagnosis: phx. polyps. Gross Description Labeled/Fixativ e: ? Polyp x 2, rectum; formalin. Qty/Size/Weight : ?Two, ranging from 0.2 cm to 0.3 cm in greatest ?dimension. Tissue Description: ?? Soft, buckley tissues. Sections/Proces sing: ??(T1) ??aje/EJR Microscopic Description Slides reviewed, microscopic description not recorded. Diagnosis Endoscopic biopsy - ??Hyperplastic polyps. CR-PX 02/25/06 AAS 02/25/06 Verified by: ? Karen Pacheco MD ?Pathologist ?(Electronic Signature) The attending pathologist whose signature appears on this report has reviewed all diagnostic slides and has edited the gross and/or microscopic portion of the report in rendering the final pathologic diagnosis. BENITO ACKERMANIUM 02/24/2006 2:28 PM EDT Yuni Baig MD PATHOLOGY/CYTOLOGY O RDERABLES BENITO BROUSSARD documented in this encounter Visit Diagnoses Not on filedocumented in this encounter Care Teams Label Coder Relationship Specialty Start Date End Date Aden Lauren MD [address] [place] [address] PCP - General Family Medicine 02/17/17 documented as of this encounter
--- OUTSIDE RECORDS SUMMARY | 2024-06-23 02:20 | XMS_ITS | Encounter Summary ---
Author [facility] [place] [address] Care Team Providers Care Relay Mechanic Name Role Phone Shanell Hawkins MD Primary Care Provider [phone] Reason for Visit * Reason Onset Date Comments Medication Refill 03/13/2011 alphagan Medication Refill 03/13/2011 timolol Encounter Details Date Type Department Care Team (Late st Contact Info) Description 03/13/2011 [place] [address] Anurag Meyer MD [facility] [place] [address] Medication Refill (alphagan); Medication Refill (timolol) Social History Tobacco Use Types Packs/Day Years [...] encounter Miscellaneous Notes * Telephone Encounter - Aimee Oliveira COA - 03/13/2011 4:18 PM EDT spk to pt, both medication refills were sent as 90 day supply * Telephone Encounter - Yvon Tellez - 03/13/2011 3:39 PM EDT Patient asked for a 3 month supply to be called in and only a 1 month supply was called in. Please correct and send to [facility] documented in this encounter Plan of Treatment Upcoming Encounters Date Type Department Care Team (Late st Contact Info) Description 07/24/2024 2:00 PM EDT Appointment Mammography[place] [address] Aden Lauren MD [facility] [address] [place], [place] [id number] documented as of this encounter Visit Diagnoses Not on filedocumented in this encounter Care Teams Relay Mechanic Relationship Specialty Start Date End Date Shanell Hawkins MD [address] [place], [place] [phone] PCP - General 08/19/10 02/17/16 documented as of this encounter
--- OUTSIDE RECORDS SUMMARY | 2024-06-23 02:20 | XMS_ITS | Encounter Summary ---
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 [address] PXF (pseudoexfoliation of lens capsule) (Primary Dx) [...] Progress Notes * Crista Mcmillan MD - 03/11/2011 4:33 PM EDT 03/11/2011 Tianna Tovar is a 70 y.o. female with coag ou, 1st seen 1999, c pxf od noted then, none os; and pxf noted os 7/06. Discs=0.7 od and 0.5 os. VFs= nl ou 06/05. Tmax , then 25 ou on cos ou; Cct=58 ou. IOPstatus= 14 ou on MEDS=cos, alpha ou; ADReye=clifford [dizzy] xal. Lum. TARGET=<20.Surg=alt od 02; iol ou 06/06; VA= 20///25cc; prior= -1 and +3. [place] in winter. hvfs dil. 03/11/2011 The glaucoma is considered to be stable. The patient is instructed to use the same medications and to return in 12 months. 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 Location: both eye Duration: 8 years Condition:No Change Pain:none Associated Symptoms: pt here for followup, reports no change in vision noticed, no other concerns today documented in this encounter Plan of Treatment Upcoming Encounters Date Type Department Care Team (Late st Contact Info) Description 07/24/2024 2:00 PM EDT Appointment Mammography/[place] [address] Aden Lauren MD [address] [place], [place] [address] [address] [address] documented as of this encounter Procedures Procedure Name Priority Date/Time Associated Diagnosis Comments AUTOMATED VISUAL FIELD - EXTENDED - OU- BOTH EYES Routine 03/11/2011 4:32 PM EDT PXF (pseudoexfoliation of lens capsule) documented in this encounter Results * AUTOMATED VISUAL FIELD - EXTENDED - OU- BOTH EYES (03/11/2011 4:32 PM EDT) Anatomical Region Laterality Modality Other Narrative 03/11/2011 4:32 PM EDT Nl ou. Procedure Note Crista Mcmillan MD - 03/11/2011 Nl ou. 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
--- OUTSIDE RECORDS SUMMARY | 2024-06-23 02:20 | XMS_ITS | Encounter Summary ---
[place] [address] Care Team Providers Care Sql Etl Developer Name Role Phone Shanell Hawkins MD Primary Care Provider [phone] Encounter Details Date Type Department Care Team (Late st Contact Info) Description 03/10/2011 [place] [address] Chelsey Romo RN Social History Tobacco Use Types Packs/Day [...] 07/24/2024 2:00 PM EDT Appointment Mammography[place] [address] Aden Lauren MD [address] [place], [place] [address] documented as of this encounter Visit Diagnoses Not on filedocumented in this encounter Care Teams Sql Etl Developer Relationship Specialty Start Date End Date Shanell Hawkins MD [address] [place], [place] [address] PCP - General 08/19/10 02/17/16 documented as of this encounter
[2024-06-23 12:30] LABS: HCT 37.7 % (36.0-46.0); HGB 12.4 g/dL (11.2-15.7); MCH 32.5 pg (27.0-33.0); MCHC 32.9 % (32.0-36.0); MCV 99 fL (80-95); MPV 10.8 fL (8.0-11.0); Platelet Count 223 10^3/uL (130-400); RBC 3.81 10^6/uL (3.93-5.22); RDW 11.6 % (11.7-14.6); RDW-SD 42.2 fL; WBC 6.07 10^3/uL (4.4-10.8)
[2024-06-23 12:59] LABS: Anion Gap 4.8 mmol/L (3-11); BUN 30 mg/dL (7-18); CO2 30.2 mmol/L (21.0-32.0); CREATININE 1.1 mg/dL (0.55-1.02); Calcium 9.6 mg/dL (8.5-10.1); Chloride 105 mmol/L (98-107); Estimated GFR 50.48 (mL/min/1.73m2); Glucose 108 mg/dL (74-106); Potassium 4.1 mmol/L (3.5-5.1); Sodium 140 mmol/L (136-145)
== END 2024-06-23 01:51 | disposition home or self-care (01) ==
LOC: LBO 02:15
PROVIDERS: PCP Family Medicine; Visit Provider Student in an Organized Health Care Education/Training Program
DX: M16.12 Unilateral primary osteoarthritis, left hip (principal); Z01.818 Encounter for other preprocedural examination
CPT/HCPCS: 36415; 80048; 85027

== ENCOUNTER 2024-06-24 10:06 | Outpatient (CLI) | payer MEDICARE, SELFPAY ==
--- NOTE | 2024-06-24 10:00 | RT.EKG_ITS ---
APPROVED REPORT Exam: Resting ECG Reason for Exam: pre-op c/o twinges in her chest off and on Patient Location: O HR:70 bpm ECG Measurements Heart Rate 70 AXIS IL 137 P 54 QRSd 98 QRS 46 QT 371 T 30 QTc 401 Conclusion Sinus rhythm...normal P axis, V-rate 50- 99 Abnormal R-wave progression, early transition...QRS area>0 in V2 Otherwise normal ECG
== END 2024-06-24 10:07 | disposition home or self-care (01) ==
LOC: DI.CM 10:08
PROVIDERS: PCP Family Medicine; Visit Provider Nurse Practitioner Family
DX: R07.9 Chest pain, unspecified (principal)
CPT/HCPCS: 93010

== ENCOUNTER 2024-06-29 01:02 | Outpatient (CLI) | payer MEDICARE, SELFPAY ==
--- NOTE | 2024-06-29 07:00 | DI.NM_ITS ---
APPROVED REPORT Exam: Pharmacologic Patient Location: Out-Patient Room/Bed: Stress Nurse: Leatha Crowe RN Ordering Provider:HEIDI LAYNEMAKAYLA, Contact Number: [phone] BMI: 29.88 Baseline Rhythm: Sinus Rhythm Comment: Frequent PAC's Indications: Chest pain, neg EKG Medical History Medical History: Chest pain, PVD, HLD, prediabetes, low back pain, DJD hip, diffuse idiopathic skelet al hyperostosis Cardiac Medications: Lisinopril, simvastatin Allergies: Adhesive Cardiac Risk Factors: HTN, prediabetes, HLD, PVD, former smoker Previous Cardiac Procedures: None Pretest Chest Pain Characteristics: None Exercise History: Sedentary Physical Disabilities: Left hip Lung Sounds: Clear to auscultation Heart Sounds: Regular Stress Test Details Test: Pharmacologic stress testing performed using 0.4 mg of regadenoson per 5 mL given IV over 10 s econds. Reason for pharmacologic stress test: physical limitation. Nuclear Acquisition: Rest Tc-99m/Stress Tc-99m 1 day Rest Isotope: Tc-99m Sestamibi. Dose: 10.0 Date: 06/29/2024 Injection Time: 0925 Stress Isotope: Tc-99m Sestamibi. Dose: 30.0 Date: 06/29/2024 Injection Time: 1050 HR Resting HR Supine: 66 bpm Max Heart Rate (APMHR): 139.260734 bpm Target HR (85% APMHR): 118.026752 bpm Max HR Achieved: 126 bpm % of APMHR: 90.65 Recovery HR: 92 bpm BP Resting BP Supine: 160/62 mmHg Max BP: 180/70 mmHg Recovery BP: 160/64 mmHg ECG Resting ECG: Sinus Rhythm Ectopy: Frequent PAC's Stress ECG: Sinus Tachycardia ST Change: No significant ST segment changes noted Arrhythmia: Frequent PAC's, bigeminy Recovery ECG: Sinus Rhythm Recovery ST Change: No significant ST segment changes noted Recovery Arrhythmia: Frequent PAC's Clinical Stress Symptoms: Mod SOB Angina Score: None Rate Pressure Product: [id number] Stress ECG Conclusion 1. Resting electrocardiogram was normal 2. Patient underwent testing using pharmacologic stress with regadenoson 3. Peak heart rate achieved was 91% of maximal he predicted for age 4. There was no electrocardiographic evidence of myocardial ischemia 5. Atrial premature beats were noted 6. See MPI report Stress Test Summary STAGE HR BP SpO2 Symptoms NOTES Supine 66 160/62 1 min post Lexiscan injection 97 168/76 Mod SOB 3 min post Lexiscan injection 106 180/70 Mod SOB 6 min post Lexiscan injection 95 160/64 Mild SOB 9 min post Lexiscan injection 85 12 min post Lexiscan injection 92 SOB resolved Patient surpassed target heart rate at 124 bpm approx 1.5 minutes post lexiscan injection. All sympto ms resolved at test end. Patient proceeded to imaging ambulatory in no apparent distress. MPI Conclusion Myocardial perfusion is normal. 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 Radiologist Interpretation by: Justyna Lynch MD Interpretation Date/Time: 06/30/2024 16:07:46
[2024-06-29] MEDS: Regadenoson 0.4 MG/5 ML SYR IVP (11:04)
== END 2024-06-29 01:22 ==
PROVIDERS: PCP Family Medicine; Visit Provider Student in an Organized Health Care Education/Training Program
DX: R07.9 Chest pain, unspecified (principal)
CPT/HCPCS: 78452; 93017; J2785

== ENCOUNTER 2024-07-04 08:25 | Day surgery (SDC) | payer MEDICARE, SELFPAY ==
[2024-07-04] VITALS (22 sets, daily range): BP systolic 94–152; BP diastolic 29–92; PULSE 60–84; RESP 10–24; TEMP 35.9–36.5; O2SAT 93–100; BMI 28.5
[2024-07-04] MEDS: Acetaminophen 500 MG TAB 1000 MG PO (08:47)
[2024-07-04] MEDS: Celecoxib 200 MG CAP 400 MG PO (08:47)
[2024-07-04] MEDS: Lactated Ringers 1,000 ML 80 ML IV ×2 (09:18→12:32)
--- NOTE | 2024-07-04 09:41 | ANES.PREOP_ITS ---
General Info Date of Service Date Performed: 07/04/24 Height: 5 ft Weight: 66.3 kg Body Mass Index (BMI): 28.5 Surgical Procedure: Operation Date: 07/04/24 11:20 Proposed Procedure Side Surgeon p Hip Total Hip Anterior, Corail Low Left Rene Moyer MD Meds Allergies and Home Medications Allergies Allergy/AdvReac Type Severity Reaction Status Date / Time adhesive Allergy redness Verified 07/04/24 08:51 and rash Home Medication ?Medication ?Instructions ?Recorded brimonidine 0.1 % eye drops 1 drp OU BID 08/02/14 (Alphagan P) dorzolamide 22.3 mg-timolol 6.8 1 drp OU BID 08/02/14 mg/mL eye drops (Cosopt) multivitamin (Daily Multi-Vitamin 1 ea PO DAILY 08/02/14 tablet) lisinopril 10 1 tab PO DAILY #90 tab-caps 02/01/24 mg-hydrochlorothiazide 12.5 mg tablet simvastatin 10 mg tablet (Zocor) 5 mg (1/2 x 10 mg) PO HS #45 02/01/24 tab-caps naproxen sodium 220 mg capsule 220 mg PO BID PRN 06/23/24 Current Visit Medications: Current Medications Generic Name Dose Route Start Last Admin Trade Name Freq PRN Reason Stop Dose Admin Acetaminophen 1,000 mg 07/04/24 06:00 07/04/24 08:47 Acetaminophen 500 Mg Tab PO 07/04/24 23:59 1,000 mg PREOP ADRIENNE Administration Celecoxib 400 mg 07/04/24 06:00 07/04/24 08:47 Celecoxib 200 Mg Cap PO 07/04/24 23:59 400 mg PREOP ADRIENNE Administration Gabapentin 300 mg 07/04/24 06:00 Gabapentin 300 Mg Cap PO 07/04/24 23:59 PREOP ADRIENNE Ringer's Solution 1,000 mls @ 80 mls/hr 07/04/24 06:00 07/04/24 09:18 IV 07/04/24 23:59 80 mls/hr INFUSION ADRIENNE Administration Cefazolin Sodium/Dextrose 2 gm in 50 mls @ 100 mls/hr 07/04/24 06:00 Ancef Duplex IVPB 07/04/24 23:59 PREOP ADRIENNE Tranexamic Acid/Sodium Chloride 1,000 mg in 100 mls @ 600 mls/hr 07/04/24 06:00 IVPB 07/04/24 23:59 PREOP ADRIENNE IV Miscellaneous Supplies 1 each 07/04/24 06:00 Iv Access IV 07/04/24 23:59 DIRECTED ADRIENNE Sodium Chloride 0 ml 07/04/24 06:00 Normal Saline Flush 10 Ml Syr IV 07/04/24 23:59 PRN PRN Sodium Chloride 0 ml 07/04/24 06:00 Normal Saline 10 Ml Vial IJ 07/04/24 23:59 DIRECTED PRN Sterile Water 0 ml 07/04/24 06:00 Water,Injection,Sterile 10 Ml Vial IJ 07/04/24 23:59 DIRECTED PRN PFSH Active Problems Active Problems: Problem Status Onset Code DISH (diffuse idiopathic skeletal hyperostosis) Acute M48.10 Arthritis of right hip Acute M16.11 Arthritis of left hip Chronic M16.12 Low back pain Acute M54.50 Edema Acute R60.9 Concern about end of life Acute Z71.1 URI (upper respiratory infection) Acute J06.9 Prediabetes Acute R73.03 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 Acute Z91.89 Achilles tendinitis, left leg Acute M76.62 Pain of left heel Acute M79.672 Chest pain Acute R07.9 Hand arthritis Acute M19.049 Tick bite of groin Acute S30.861A, W57.XXXA Cold extremities Acute R68.89 Carpal tunnel syndrome Acute G56.00 Family history of malignant neoplasm of breast Acute Z80.3 History of cataract removal with insertion of prosthetic lens Acute Z98.49, Z96.1 History of tobacco use Acute Z87.891 Status post abdominal hysterectomy Acute Z90.710 Status post breast lumpectomy Acute Z98.890 Primary malignant neoplasm of vulva Chronic 05/24/12 C51.9 Peripheral vascular disease Chronic 08/11/17 I73.9 Obesity Acute E66.9 Impaired fasting glucose Chronic 08/02/14 R73.01 Hypertension Chronic I10 Hyperlipidemia Chronic 07/31/13 E78.5 Glaucoma Chronic 08/20/08 H40.9 Urinary, incontinence, stress female Acute N39.3 Breast lump Resolved 07/15/13 N63.0 Basal cell carcinoma of face Resolved 08/29/13 C44.310 Medical History Medical History Basal cell carcinoma 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 06/2012 [facility] [place] reexcision neg for malignancy. yearly surveillence recommended. Hyperlipidemia Labile hypertension Medical History Comments:: Per pt. states a lot of arthritis in the spine Surgical History Surgical History History of tonsillectomy and adenoidectomy Abdominal hysterectomy (~1987) fibroids Excision, Lesion (04/28/12) [facility]. L vulva. microinvasive, depth of invasion 0.3 mm. 06/2012 [facility] and reexcision neg for malignancy. Extraction of cataract (~2009) B/L Breast, Lumpectomy RIGHT BREAST X 2 Tobacco Smoking/Tobacco Use Status: Former Tobacco Use Passive smoking exposure: Yes Second hand exposure: Yes Alcohol Alcohol Intake: current Alcohol intake frequency: holidays/special occasions only Alcohol type: wine Substance Use Substance use: Never Substance use type: does not use Vital Signs and Lab Results Vital Signs Most Recent Vital Signs in EMR: Most Recent Vital Signs Temp Pulse Resp BP Pulse Ox 36.5 C 84 18 152/61 H 98 07/04/24 08:38 07/04/24 08:38 07/04/24 08:38 07/04/24 08:38 07/04/24 08:38 Lab Results Blood Type / Crossmatch: No Data to Display Complete Blood Count: White Blood Count 6.07 10^3/uL (4.4-10.8) 06/23/24 12:24 Red Blood Count 3.81 10^6/uL (3.93-5.22) L 06/23/24 12:24 Hemoglobin 12.4 g/dL (11.2-15.7) 06/23/24 12:24 Hematocrit 37.7 % (36.0-46.0) 06/23/24 12:24 Platelet Count 223 10^3/uL (130-400) 06/23/24 12:24 Complete Metabolic Panel: Sodium 140 mmol/L (136-145) 06/23/24 12:24 Potassium 4.1 mmol/L (3.5-5.1) 06/23/24 12:24 Chloride 105 mmol/L (98-107) 06/23/24 12:24 Carbon Dioxide 30.2 mmol/L (21.0-32.0) 06/23/24 12:24 BUN 30 mg/dL (7-18) H 06/23/24 12:24 Creatinine 1.1 mg/dL (0.55-1.02) H 06/23/24 12:24 Est GFR (CKD-EPI 2020) 50.48 (mL/min/1.73m2) 06/23/24 12:24 Calcium 9.6 mg/dL (8.5-10.1) 06/23/24 12:24 Glucose 108 mg/dL (74-106) H 06/23/24 12:24 Hemoglobin A1c 6.3 % (4.5-5.7) H 06/23/24 11:47 Liver Function Panel: No Data to Display Coagulation Panel: No Data to Display Cardiac Panel: No Data to Display Arterial Blood Gas: No Data to Display Venous Blood Gas: No Data to Display Pancreas Panel: No Data to Display Thyroid Panel: No Data to Display Infectious Disease: No Data to Display Blood Cultures: No Data to Display Toxicology Panel: No Data to Display Anesthesia Assessment and Plan Anesthesia History Personal History: Delayed Emergence Family History: No Family History of Anesthesia Complications Exercise Tolerance Exercise Tolerance: Metabolic Equivalents>4 Pertinent Negatives Pertinent Negatives: No Symptoms of GERD Cardiac & Pulmonary Exam Cardiac Exam: Normal S1/S2 Heart Sounds Pulmonary Exam: Clear Bilateral Breath Sounds Implantable Cardiac Device Does patient have a Pacemaker or an ICD?: No Airway Exam Known Difficult Airway: No Mallampati Class: 2 Mouth Opening: Normal (> 3cm) Thyromental Distance: Greater than 3 cm Neck Range of Motion: Full ROM Neck Circumference: Normal Teeth Condition: Normal Dentition ASA Classification ASA Score: ASA 3 Emergency Case?: No NPO Status NPO Status: NPO Clears >2 hours, Solids >8 hours Anesthesia Plan Resuscitation Status: Full Code Anesthesia Technique: Spinal Anesthesia Airway Planned: Natural Airway Monitors Used: Standard Monitors
--- NOTE | 2024-07-04 10:31 | PDOC.DSDIS_ITS ---
Date of service: 07/04/24 Time of Service: 10:36 Discharge Plan Disposition Patient Disposition: Home Condition: Good Discharge Details Reason For Visit: Left hip DJD Attending Provider: Rene Moyer Primary Care Provider: Aden Lauren Home Meds and New Rx's Prescriptions: New celecoxib [Celebrex] 200 mg capsule 200 mg PO BID PRNQty: 60 0RF Rx Instructions: Take one tablet twice daily for pain and inflammation aspirin 81 mg tablet,delayed release (DR/EC) 81 mg PO BID 30 Days Qty: 60 0RF acetaminophen 500 mg tablet 1,000 mg PO Q8H PRN Qty: 90 0RF Rx Instructions: Take two tablets up to every 8 hours as needed for pain pantoprazole 40 mg tablet,delayed release (DR/EC) 40 mg PO DAILY Qty: 14 0RF dexamethasone 4 mg tablet 4 mg PO DAILY Qty: 2 0RF Rx Instructions: Take one tablet once daily for two days docusate sodium [Colace] 100 mg capsule 100 mg PO BID Qty: 30 0RF oxycodone 5 mg tablet 2.5 mg PO Q6H PRNQty: 12 0RF Rx Instructions: Take one half of a tablet up to every 6 hours as needed for severe postoperative pain Continued simvastatin [Zocor] 10 mg tablet 5 mg PO HS Qty: 45 3RF Rx Instructions: 5 mg qhs lisinopril-hydrochlorothiazide 10-12.5 mg tablet 1 tab PO DAILY Qty: 90 3RF multivitamin [Daily Multi-Vitamin] 1 EACH tablet 1 ea PO DAILY dorzolamide-timolol [Cosopt] 5 ML drops 1 drp OU BID brimonidine [Alphagan P] 15 ML drops 1 drp OU BID Discontinued naproxen sodium 220 mg capsule 220 mg PO BID PRN Discharge Instructions Additional Instructions: Total Hip Discharge Instructions Activity: The most important activity is to walk. You should try to take short walks a few times a day. You have no restrictions on movement or positioning, but do not try to force what you do. You will find some stiffness and weakness with hip flexion (lifting your knee). Do not try to strengthen this too early, continue to practice walking and stairs and this will come. - Outpatient physical therapy can be helpful to help return you to a normal gait and improve your flexibility and strength. This can start around 2 weeks. For some patients, it?s not necessary. Usually this is determined at the time of discharge or at the first post-operative visit. - You should wear the ARIK hose on both legs for 2 weeks. Dressing: Keep the surgical dressing in place for at least one week. After the first week it may be removed and replace with light gauze and tape or nothing. It may get wet after 3 days but avoid soaking the dressing. If it gets wet, just lightly pat dry. It is important to always keep some gauze between skin folds, especially when you are sitting. Spend some time with the wound exposed when you are lying flat as the incision does wrinkle onto itself. Medications: - You should take Tylenol and an anti-inflammatory Celebrex as your primary pain control medications. If the Celebrex is too expensive or not covered, please call the office for another alternative (Advil/Ibuprofen or Naproxen/Aleve). - You have been prescribed a stronger pain medication Oxycodone for breakthrough pain, take as needed as prescribed. - You have also been prescribed a stomach acid reduction agent Pantoprozole to help reduce stomach acid and reflux. - You have also been prescribed Decadron to help with post-operative nausea and pain. You will take this for two days starting tomorrow. - You will be taking Aspirin 81mg twice a day for DVT prevention unless instructed otherwise. - If you have constipation you should take Colace (which has been prescribed) or Miralax (which is available [id number]). It takes most people 3-4 days to have a bowel movement. Follow-up: 2 weeks If you have any acute concerns or questions, please do not hesitate to contact the office at [phone]. You may contact Dr. Moyer with any questions after hours through the hospital at [phone] or on his cell phone at [phone]. Stand Alone Forms: Anesthesia Discharge InstEugenio, Patria Sosa (U) Referrals: Rene Moyer MD [ [facility] STAFF PHYSICIAN] - 07/17/24 1:30 pm Equipment/Supplies: Walker Activity:: Activity as Tolerated Remove Dressings/Wound Care:: Do Not Remove Shower/Bathe:: Cover Diet:: As Tolerated Discharge Orders Discharge Orders: Discharge Order (Routine); Ordered 07/04/24 Ordered By: Aniyah Elizalde
[2024-07-04] MEDS: ceFAZolin 2 GM/50 ML BAG IVPB (11:00)
[2024-07-04] MEDS: TRANEXAMIC ACID/SOD. CHL. 1,000 MG/100 ML BAG 600 MG IVPB (11:10)
--- NOTE | 2024-07-04 12:03 | DI.RAD_ITS ---
Exam(s) XR HIP LT IN OR EXAM: XR HIP LT IN OR CLINICAL HISTORY: Arthritis of left hip. TECHNIQUE: 2D and realtime digital imaging was performed. COMPARISON: No exams were available for comparison FINDINGS: Hard copy images show placement of a left hip prosthesis. The alignment appears satisfactory. Please see procedure note for details. Fluoro time: 27.2seconds RADIATION DOSE DELIVERED: Ka,r=1.63 mGy
--- NOTE | 2024-07-04 12:18 | W.PM.OP ---
Date of service: 07/04/24 Time of Service: 10:45 Operative Note Operative Note DATE OF PROCEDURE: 07/04/24 PRE-OP DIAGNOSIS: Left Hip Osteoarthritis POST-OP DIAGNOSIS: same PROCEDURE: Left Anterior Total Hip Arthroplasty with Intraoperative Navigation SURGEON: Rene Moyer ASSISTED LIVING COORDINATOR: Aniyah Elizalde ANESTHESIA TYPE: Spinal Refer to Anesthesia Record ESTIMATED BLOOD LOSS: 150 PATHOLOGY: none sent TOURNIQUET TIME: 0 COMPLICATIONS: None Patient was transported to: PACU Patient's condition: stable Implants: 1. Depuy [place] Acetabular Component, 50mm 2. Depuy Acetabular Liner, [id number] 3. Depuy Corail Short Neck Collared Femoral Stem, Size 10 4. Depuy Altrx Ceramic Femoral Head, Size 32+5mm Indications: I have seen Tianna in clinic for symptoms of hip arthritis, confirmed with radiographic findings. She has exhausted nonoperative methods and was having significant limitations in daily function and desired better function and less pain. I discussed the technical details of a hip replacement. I explained the risks of the procedure to include, but not limited to, bleeding, infection, pain, stiffness, fracture, damage to nerves and vessels, damage to muscles and tendons, loosening, instability, leg length inequality, need for repeat procedure, blood clot and cardiopulmonary demise. Despite these risks, Tianna elected to proceed. Findings: There was significant signs of arthritis throughout the hip with large osteophytes throughout. Procedure Description: Tianna was greeted in the preoperative holding area where the correct side was identified and marked. The consent was reviewed with the patient and signed. The history and physical was updated. All questions were answered. She was taken back to the operating room. A spinal anesthestic was then administered. The feet were wrapped with cast padding and Coban and then placed into the boot liners and then into the boots. Care was taken to protect the skin and make sure the heels were fully down and the boots were stable. The patient was then positioned onto the HANA table. Both legs were held in a neutral position. SCDs were applied. The patient was then slid down onto a peroneal post. Prophylactic antibiotics in the form of Cefazolin were administered. 1g of Tranxemic Acid was given intravenously within 30 minutes of incision. The left leg was then prepped with Chloraprep and draped in a standard fashion. A second prep with Chloraprep was performed prior to placement of a shower-curtain type drape with Iodine impregnated skin protection. A timeout to confirm correct identity, side and site, procedure, allergies, anesthesia, and medical concerns was performed. An obliquely oriented incision was made starting lateral to the ASIS and running distal over the Tensor Fascia Rosalinda (TFL) muscle belly toward the fibular head, approximately 10cm. The skin and soft tissue was dissected sharply, through Kenisha?s fascia, and to the fascia of the TFL. With the fascia and superior border of the IT band identified, the fascia was incised with a new knife just above any perforators from the IT band. The TFL muscle belly was bluntly dissected away from the fascia and moved laterally. The fat between TFL and rectus was identified to ensure the dissection was not within the TFL. Blunt dissection created space between abductors and the capsule and retractor was placed over the lateral femoral neck. The fibers of the rectus femoris tendon were identified and these were freed from the anterior capsule. A second cobra retractor was placed around the medial femoral neck. The TFL was further retracted laterally to show the deep fascia. Careful dissection through this layer identified three main crossing vessels of the lateral femoral circumflex. These were cauterized in multiple locations and then cut without any noticeable bleeding. The TFL was further released bluntly from the deep fascia to expose anterior hip capsule and fat The soft tissue orthopaedic retractor was then placed beneath the TFL and against sartorius and medial soft tissues to protect and retract the soft tissues. A T-capsulotomy was then performed starting at the superior lateral acetabulum and moving distally to the intertrochanteric ridge. These capsular flaps were tagged with a No. 1 Ethibond and elevated from within. The capsular flaps were released to the shoulder of the lateral neck and to the lesser trochanter to give excellent visualization of the proximal femur. A neck osteotomy was performed using an oscillating saw based on preoperative templates. This cut started in the shoulder and of the lateral neck and exited medially. The saw was at all times directed medially to avoid injury to the greater trochanter. Gross traction was applied to the leg and the osteotomy opened. The femoral head was removed with a corkscrew, making sure to protect the TFL on its exit. Traction was released after head removal. This was measured on the back table to determine the starting reamer size. Portions of the rectus obscuring visualization were minimally elevated off the superior acetabulum. An anterior retractor was placed over the anterior wall between capsule and labrum and attached to the Gripper retraction system. The femur was rotated to 90 degrees and medial capsule was fully released until the lesser trochanter was palpable and visible; the femur was returned to 30 degrees. A posterior retractor was placed similarly between capsule and labrum. This provided excellent visualization. The contents of the cotyloid fossa were removed with electrocautery and the labrum was removed with a knife. There was a notable floor osteophyte. There was significant chondromalacia of the superior acetabulum. Acetabular reaming began with a 44mm reamer. This first reaming was directed anterior to posterior and medial to get down to the true floor. This was inspected and reamed until the true floor was reached. The anterior retractor was then released and entry and exit was provided by traction on the capsular flaps. I then reamed sequentially up to a 50mm reamer where good fit was obtained. The larger reamers were oriented based on anatomical reference of the anterior and lateral orozco to ensure proper abduction and anteversion. Positioning and size was confirmed with the fluoroscopy. A 50mm Depuy [place] acetabular component was selected. The acetabulum was reamed around the periphery with the selected acetabular size to prevent a rim fit. The deep tissues were irrigated. The acetabular component was then impacted in a position of about 40-45 degrees of abduction and 15-20 degrees of anteversion, using the patient?s anatomy as the ultimate landmark. Fluoroscopy was used to confirm this. There was excellent coke production heater of the acetabular component and the inserting handle was removed. There were large osteophytes projecting from the acetabulum. I then used a curved osteotome to remove the superior posterior osteophytes, flush with the rim of the acetabular component. The acetabular liner, Depuy 79s25or polyethylene liner, was inserted and lined up with the tines of the acetabular component. There was no soft tissue interposition. The liner was then impacted into position and confirmed to be well-seated. A portion of the elsy-articular cocktail was then injected around the acetabulum into the capsule and periosteum. This cocktail consisted of 123mg of Ropivacaine, 0.25mg of Epinephrine, 0.04mg of Clonidine, and 15mg of Ketorolac, diluted to 50cc. The leg was rotated to 120 degrees. Any remaining medial capsule was released until the lesser trochanter was easily palpable. A retractor was placed medially. The lateral capsule was further released into the shoulder to allow access to the greater trochanter. A Helton retractor was placed over the greater trochanter which allowed the trochanter to flip in front of the capsule for excellent exposure. The leg was brought down into maximal extension and 20 degrees of adduction while ensuring there was no impingement on the acetabulum. Any remnant capsule within the trochanter was released. Piriformis and obturator externis were identified and protected. There was excellent access to the proximal femur. The lateral neck remnant was removed with a rongeur. A blunt canal probe was used to identify the canal and trajectory for later broaching. A box osteotome initiated the broach course. A small curved rasp and a curved curette were used to work laterally. Broaching then began with a size 8 Corail broach. This was inserted manually around the trochanter and into the canal before mallet blows. The broach was seated to a few millimeters below the cut level based on the neck cut and the preoperative template. Sequential broaching was continued with the [employer] pneumatic broaching device until a tight fit was obtained with good rotational control of the femur. A trial short neck was inserted along with a +5 trial head. The leg was brought out of extension and adduction and then reduced with traction and internal rotation. The leg was stable anteriorly in a position of 30 degrees of extension and 90 degrees of external rotation. Fluoroscopy was used to ensure there was no fracture and the stem was seated well. Leg lengths were checked with an AP pelvis and pelvic reference points. Yadio navigation system was used to confirm appropriate positioning and leg length and offset. Once content with the desired offset and leg lengths, the leg was brought back into extension, external rotation and adduction. The periosteum and surrounding tissue was injected with remaining portion of the elsy-articular cocktail. The proximal femur was irrigated as well as the deep tissues. The Depuy Corail short neck collared stem, size 10, was then manually inserted into the proximal femur making sure to control rotation. It was then malleted into position with light blows, giving breaks to allow bone expansion and decrease risk of fracture. The selected Depuy Altrx Ceramic Head, size 32+5mm, was then placed onto the clean and dry trunnion and secured with impaction onto the tapered fit. The leg was brought back out of extension and adduction and reduced with traction and internal rotation. Stability was confirmed with no shuck at 90 degrees of external rotation and 30 degrees of extension. No impingement through range of motion arc. Final x-ray images were obtained with fluoroscopy to confirm adequate positioning and no intraoperative fracture. The deep tissues were thoroughly irrigated with Surgiphor, betadine solution. This was allowed to sit in the wound for 3 minutes before being thoroughly irrigated out with normal saline. The capsule was then reapproximated with the previously placed Ethibond sutures. The TFL fascia was finally closed with a No. 2 Stratafix, barbed suture. Deep tissues were then reapproximated with 0 Vicryl and a running 2-0 Vicryl. The skin was closed with a running 4-0 Monocryl in a subcuticular fashion. This was reinforced with skin glue. A Mepilex silver dressing was applied. At the end of the case, all counts were correct. Tianna was transferred to the hospital bed without difficulty and suffering no apparent complication. Tianna has a good prognosis. Physical therapy will start today and without restrictions, weight-bearing as tolerated. Aspirin 81mg BID will be used for DVT prophylaxis.
[2024-07-04] MEDS: ePHEDrine 25 MG/5 ML Syringe IVP (12:28)
--- NOTE | 2024-07-04 14:02 | W.ANESPOSTOP ---
Postoperative Evaluation Date, Time and Location Date Performed: 07/04/24 Time Performed: 13:43 Patient Location: Day Surgery Unit Vital Signs Most Recent Imported Vital Signs: Most Recent Vital Signs Temp Pulse Resp BP Pulse Ox 36.0 C L 73 16 152/85 H 98 07/04/24 13:30 07/04/24 13:30 07/04/24 13:30 07/04/24 13:30 07/04/24 13:30 Pain Score Most Recent Pain Score: Most Recent Pain Score Pain Level 2 07/04/24 13:30 Assessment Mental Status: Awake (Alert & Oriented to Patient Baseline) Airway and Respiratory Function: Patent airway with normal (patient baseline) respiratory exam Cardiovascular Function: Hemodynamically Stable Hydration Status: Adequately Hydrated Nausea & Vomiting: No Nausea or Vomiting Pain: Pain is Moderate or Severe Postoperative Pain Management: Pain being addressed with medication Peripheral Nerve Block: Patient did not receive a nerve block
--- NOTE | 2024-07-04 14:16 | IN_ITS ---
PT Notes Visit Reasons: Left hip DJD Physical Therapy Day Surgery Initial Evaluation Date: 07/04/2024 Referring Doctor: YUSUF Buchanan PT Orders: PT CONSULT: S/P Ortho Surgery Precautions: WBAT on left LE with AD. Patient Profile/Admitting Diagnosis: Tianna is an 83-year-old female with degenerative joint disease of the left hip and is status post left anterior total hip arthroplasty on postoperative day 0. 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 06/2012 [facility] [place] L[facility] and reexcision neg for malignancy. yearly surveillence recommended. Hyperlipidemia Labile hypertension Surgical History (Updated 06/23/24 @ 11:34 by Aniyah Elizalde) History of tonsillectomy and adenoidectomy Abdominal hysterectomy (~1987) fibroids Excision, Lesion (04/28/12) [facility]. L vulva. microinvasive, depth of invasion 0.3 mm. 06/2012 [facility] [place] LND and reexcision neg for malignancy. Extraction of cataract (~2009) B/L Breast, Lumpectomy RIGHT BREAST X 2 Social History/Home Situation: Lives with in a private home with 2 steps to enter. Independent with all aspects of ADLs prior to surgery has had to hold onto furnitures instability and pain from arthritis. Equipment Owned/DME: [facility] Subjective: Complained of 4/10 pain at rest and the left hip that did not increase with mobility performance. Denied headache, chest pain, and lightheadedness throughout session. Objective: General Observation: Mepilex Ag over surgical incision. TEDS to be legs. Mental Status: A and O x 4 Pain: 4/10 pain in the L hip after mobility performance ROM: Right Lower Extremity: Hip flexion WFL. Hip abduction WFL. Knee flexion WFL. Ankle dorsiflexion WFL. Ankle plantarflexion WFL. Left Lower Extremity: Hip flexion WFL. Hip abduction WFL. Knee flexion WFL. Ankle dorsiflexion WFL. Ankle plantarflexion WFL. Strength: Right Lower Extremity: Hip flexors 5/5. Hip abductors 5/5. Knee flexors 5/5. Knee extensors 5/5. Ankle dorsiflexors 5/5. Ankle plantarflexors 5/5. Left Lower Extremity:Hip flexors 4-/5. Hip abductors 4-/5. Knee flexors 4/5. Knee extensors 4-/5. Ankle dorsiflexors 5/5. Ankle plantarflexors 5/5. Sensation: Intact as to pain and light pressure in BLE Bed Mobility/Transfers: Minimal cueing provided for use of B hands as needed for support, movement sequence, AD management, and posture to reduce fall risk and minimize pain report Supine to sit stand by assist Sit to stand stand by assist Stand to sit stand by assist Bed to chair stand by assist GAIT: Facilitated safe and correct performance of level surface ambulation covering a distance of 150 feet with step-to gait pattern using front-wheeled walker with contact-guard assist and minimal verbal cueing provided for AD management, p osture, and movement sequence to reduce fall risk and minimize pain report. STAIRS: Guided patient with safe and correct negotiation of 3 x 4 inch steps and 2 x 6 inch step holding onto bilateral rails with step to gait pattern requiring only standby assist and minimal verbal cueing for limb movement sequence, hand placement, and posture to minimize fall risk and reduce pain report. Balance: Static Sitting: Normal Dynamic Sitting: Normal Static Standing: Fair Dynamic Standing: Fair Special Tests: Mobility Limitations Standardized Measure [facility] AM-PAC 6 clicks Basic Mobility Inpatient Short Form: Raw Score: 23 CMS Score: 11% deficit Informed Consent/Education: Patient instructed in purpose of PT consult. Packet containing DANN exercise protocol has been given to patient. Education and training on initial set of exercises that can be done at home have been completed with patient. Trained patient with correct performance of exercises below to maximize motor control, joint flexibility, soft tissue extensibility of the L hip musculature to facilitate return to independent functional mobility performance. Access Code: [email or web address] URL: [email or web address] Date: 07/04/2024 Prepared by: Trinidad Castro Exercises - Gluteal Sets - 1 x daily - 7 x weekly - 1 sets - 10 reps - 5 hold - Supine Heel Slide - 1 x daily - 7 x weekly - 1 sets - 10 reps - 5 hold - Supine Ankle Pumps - 1 x daily - 7 x weekly - 1 sets - 10 reps - 5 hold - Seated March - 1 x daily - 7 x weekly - 1 sets - 10 reps - 5 hold - Seated Long Arc Quad - 1 x daily - 7 x weekly - 1 sets - 10 reps - 5 hold Assessment: Tianna requires the use of a front-wheeled walker for all mobility ADl performance to maximize independence and redue fall risk. Patient presents with clinical signs and symptoms consistent with current/admitting diagnoses that have resulted to mobility limitations, gait instability, generalized weakness, and impairment of motor control as demonstrated by the following impairment level findings: 1. Decreased strength to left hip major muscle groups 2. Impaired standing balance 3. Limitation of joint range of motion in left hip Impairments are contributing to the following functional limitations: 1. Inability to safely ambulate without assistive device 2. Increase completion time for mobility ADL performance 3. Increased fall risk Patient is assessed as a 57139 moderate complexity based on the following: History: 83-year-old female with impairment level findings, functional limitations, and past medical history as indicated above Examination: Demonstrable impairment in strength, balance, and mobility level with underlying impairments and functional limitations as documented above Presentation: Evolving Decision Makin moderate complexity Goals: N/A. PT evaluation and 1-2 treatment sessions only for functional mobility training using recommended AD and for HEP instruction. Plan of Care/Treatment Plan: N/A. PT evaluation and 1-2 treatment session only for functional mobility training using recommended AD and for HEP instruction. DISCHARGE RECOMMENDATIONS: Home when medically cleared by orthopedic surgeon. Recommend outpatient PT services in order to optimize functional mobility outcomes and facilitate return to independent community ambulation without an assistive device. TREATMENT CODE/TIME: 96225 x 25 minutes for 1 unit (14:16-14:41). Thank you for the opportunity to participate in the care of this patient. Please sign an return this page within 30 days if you agree with the above POC. Thank you! Physician Signature Date [facility] Thank you for the opportunity to participate in the care of this patient. Trinidad Castro PT, DPT, CLT [facility], [place]
[2024-07-04] MEDS: oxyCODONE 5 MG TAB 2.5 MG PO (14:41)
== END 2024-07-04 15:03 | disposition home or self-care (01) ==
PROVIDERS: PCP Family Medicine; Visit Provider Student in an Organized Health Care Education/Training Program
PROC: (CPT 27130; principal; 2024-07-04 11:00)
DX: M16.12 Unilateral primary osteoarthritis, left hip (principal); M94.28 Chondromalacia, other site; M48.10 Ankylosing hyperostosis [Forestier], site unspecified; R73.03 Prediabetes; I10 Essential (primary) hypertension; E78.5 Hyperlipidemia, unspecified
CPT/HCPCS: 27130; 20985; C1776; 97162; 73501; J0690; J1100; J2003; J2250; J2371; J2401; J2405; J2704

== ENCOUNTER 2024-07-17 15:43 | Outpatient (CLI) | payer MEDICARE, SELFPAY ==
--- NOTE | 2024-07-17 13:15 | DI.RAD_ITS ---
Exam(s) XR HIP LT COMPLETE AP PELVIS EXAM: XR HIP LT COMPLETE AP PELVIS CLINICAL HISTORY: 1ST POST OP S/P L DANN. TECHNIQUE: 2D digital imaging was performed. COMPARISON: CR XR HIP LT COMPLETE AP PELVIS from 05/22/2024 FINDINGS: Two views There is satisfactory position alignment of the recently placed left hip prosthesis. No fracture or loosening. Advanced degenerative changes are again noted in the opposite-right hip. IMPRESSION: Stable satisfactory appearance of the recently placed left hip prosthesis. DATA REPOSITORY: RADIATION DOSE DELIVERED:
== END 2024-07-17 15:44 | disposition home or self-care (01) ==
LOC: DIORS 15:43
PROVIDERS: PCP Family Medicine; Referring Provider Family Medicine; Visit Provider Student in an Organized Health Care Education/Training Program
DX: Z96.642 Presence of left artificial hip joint (principal); Z47.1 Aftercare following joint replacement surgery
CPT/HCPCS: 99024; 73502

== ENCOUNTER → 2024-08-14 13:35 | Outpatient (BNVA) | payer MEDICARE, SELFPAY | PROVIDERS: PCP Family Medicine; Referring Provider Family Medicine; Visit Provider Student in an Organized Health Care Education/Training Program | DX: Z47.1 Aftercare following joint replacement surgery (principal); Z96.642 Presence of left artificial hip joint | CPT/HCPCS: 99024 ==

== ENCOUNTER 2025-07-09 13:56 | Outpatient (CLI) | payer MEDICARE, SELFPAY ==
--- NOTE | 2025-07-09 13:00 | DI.RAD_ITS ---
Exam(s) XR HIP LT AP LAT ONLY EXAM: XR HIP LT AP LAT ONLY INDICATION: ANNUAL F/U L DANN. COMPARISON: CR XR HIP LT COMPLETE AP PELVIS from 07/17/2024 TECHNIQUE: 2D digital imaging was performed. Two views. FINDINGS: Stable alignment of left hip prosthesis. No abnormal surrounding bony lucencies. Prominent enthesophytes again noted at the iliac crest. DATA REPOSITORY: RADIATION DOSE DELIVERED:
== END 2025-07-09 13:57 | disposition home or self-care (01) ==
LOC: DIORS 13:56
PROVIDERS: PCP Family Medicine; Visit Provider Physician Assistant
DX: Z47.1 Aftercare following joint replacement surgery (principal); Z96.642 Presence of left artificial hip joint
CPT/HCPCS: 99212; 73502

== ENCOUNTER 2025-08-17 12:04 | Outpatient (REF) | payer MEDICARE, SELFPAY | END 2025-08-17 12:05 | disposition home or self-care (01) | LOC: LBN 12:04 | PROVIDERS: PCP Family Medicine; Visit Provider Obstetrics & Gynecology | DX: Z12.4 Encounter for screening for malignant neoplasm of cervix (principal) | CPT/HCPCS: 88142 ==